=== PATIENT | male | born 1955 | race Asian ===

== ENCOUNTER 2018-08-31 13:34 | Inpatient (IN) | payer MEDICARE, OTHER ==
[~2018-08-31] VITALS: Ht 180.3 cm; Wt 80.0 kg
[2018-08-31] MEDS ORDERED: ONDANSETRON 4 MG INJ IV STA (13:40)
[2018-08-31] MEDS ORDERED: morphine 4 MG/ML VIAL IV STA (13:40)
[2018-08-31 13:46] VITALS: Ht 180.3 cm; Wt 80.0 kg
[2018-08-31] MEDS ORDERED: METO5TAB58 PO (14:36)
[2018-08-31] MEDS ORDERED: ONDA4TAB13 PO (14:37)
[2018-08-31] MEDS ORDERED: NIFE90TA11 PO (14:37)
[2018-08-31] MEDS ORDERED: SVL800C PO (14:38)
[2018-08-31] MEDS ORDERED: MONT10TA24 PO (14:38)
[2018-08-31] MEDS ORDERED: CLOP75TA27 PO (14:38)
[2018-08-31] MEDS ORDERED: SERT50TA PO (14:39)
[2018-08-31] MEDS ORDERED: LANT3I SC (14:39)
[2018-08-31] MEDS ORDERED: ASPI81TA52 PO (14:40)
[2018-08-31] MEDS ORDERED: INSU100I33 SC (14:40)
[2018-08-31] MEDS ORDERED: PANT40TA3 PO (14:41)
[2018-08-31] MEDS ORDERED: PREG150C PO (14:41)
[2018-08-31] MEDS ORDERED: CLON-379 PO (14:41)
[2018-08-31] MEDS ORDERED: ATOR-2 PO (14:42)
[2018-08-31] MEDS ORDERED: ACETAMINOPHEN 325 MG TAB PO PRN ×2 (16:00→16:30)
[2018-08-31] MEDS ORDERED: ONDANSETRON 4 MG INJ IV PRN (16:00)
[2018-08-31] MEDS ORDERED: SOD CHLORIDE 0.9% 1,000 ML IV SCH (16:03)
--- NOTE | 2018-08-31 16:03 | HP ---
Date/Time of Note Date/Time of Note DATE: 08/31/18 TIME: 15:57 Assessment/Plan VTE Prophylaxis SCD applied (from Nsg): Yes Pharmacological prophylaxis: NA/contraindicated Pharm contraindication: surgical contra Lines/Catheters IV Catheter Type (from Nrsg): Saline Lock Assessment/Plan Hospital Course 1. Fall with C5 and right humeral fracture Neurosurgery and Ortho has been consulted Pain control 2. Recurrent syncope likely secondary to autonomic neuropathy Patient will need to allow for blood pressure elevations and will need to be less aggressive with the pain control, patient also needs to change positions gradually 2D echo and carotid ultrasound to rule out alternative etiologies 3. End-stage renal disease on PD Nephrology consultation obtained 4. Insulin dependent diabetes Continue home regimen, sliding scale A1c 5. Coronary disease status post CABG Hold home blood thinners at this time secondary to possible surgery Prophylaxis: SCDs Result Diagram: 08/31/18 1502 08/31/18 1502 Results 24hrs Laboratory Tests Test 08/31/18 15:02 White Blood Count 9.1 Red Blood Count 4.47 L Hemoglobin 12.9 L Hematocrit 39.1 L Mean Corpuscular Volume 87.5 Mean Corpuscular Hemoglobin 28.9 L Mean Corpuscular Hemoglobin Concent 33.0 Red Cell Distribution Width 13.0 Platelet Count 301 Mean Platelet Volume 9.5 Immature Granulocytes % 0.800 H Neutrophils % 74.0 Lymphocytes % 17.9 Monocytes % 6.6 Eosinophils % 0.4 Basophils % 0.3 Nucleated Red Blood Cells % 0.0 Immature Granulocytes # 0.070 H Neutrophils # 6.7 Lymphocytes # 1.6 Monocytes # 0.6 Eosinophils # 0.0 Basophils # 0.0 Nucleated Red Blood Cells # 0.0 Prothrombin Time 13.1 Prothrombin Time Ratio 1.0 INR International Normalized Ratio 0.98 Activated Partial Thromboplast Time 23.9 Sodium Level 131 L Potassium Level 4.1 Chloride Level 90 L Carbon Dioxide Level 22 Anion Gap 19 H Blood Urea Nitrogen 48 H Creatinine 11.85 H Est Glomerular Filtrat Rate mL/min 4 L Glucose Level 203 Calcium Level 9.6 Troponin I 0.047 HPI/ROS Admit Date/Time Admit Date/Time August 31, 2018 Hx of Present Illness Patient is a 63-year-old male with history of insulin dependent diabetes, end-stage renal disease on PD for the past 7 years, hypertension, coronary disease status post quadruple bypass surgery as well as diabetic neuropathy and multiple falls with syncopal episodes. Patient presents with syncopal episode this morning, patient fell to the ground and was reported unconscious before and for several minutes after his fall. Patient's checks his blood sugar daily and sugar was within normal limits this morning. In the ER diagnostics showed a C5 fracture and fracture of the right humerus, c-collar has been placed and neurosurgery as well as orthopedics have been consulted. Patient currently reports pain in the right arm, patient has no other complaints at this time. ROS Constitutional: no complaints, improved Eyes: no complaints ENT: no complaints Respiratory: no complaints Cardiovascular: no complaints Gastrointestinal: no complaints Genitourinary: no complaints Musculoskeletal: bone/joint pain Skin: no complaints Neurologic: no complaints Endocrine: no complaints Lymphatic: no complaints Psychological: no complaints, nl mood/affect Immunologic: no complaints PMH/Family/Social Past Medical History As per HPI Medications Current Medications Ondansetron HCl (Zofran Inj) 4 mg ER BRIDGE PRN IV NAUSEA/VOMITING; Start 08/31/18 at 16:00; Stop 09/01/18 at 15:59 Acetaminophen (Tylenol Tab) 650 mg ER BRIDGE PRN PO .MILD PAIN 1-3 OR TEMP; Start 08/31/18 at 16:00; Stop 09/01/18 at 15:59 Coded Allergies: No Known Allergy (Unverified , 08/31/18) Past Surgical History Quadruple coronary bypass, catheter for PD, cataract surgery Family History Significant Family History: no pertinent family hx Social History Alcohol Use: rarely Smoking Status: Former smoker Drug Use: none Exam/Review of Systems Vital Signs Vitals Vital Signs Date Temp Pulse Resp B/P (MAP) Pulse Ox O2 O2 Flow FiO2 Time Delivery Rate 08/31/18 97.0 55 18 11/60 (44) 100 13:46 Exam Constitutional: alert, oriented Respiratory: clear to auscultation Gastrointestinal: soft; No distended Musculoskeletal: nl extremities to inspection ALDAIR AGUILAR Aug 31, 2018 16:03
[2018-08-31] MEDS ORDERED: DOCUSATE SODIUM 100 MG CAP PO PRN (16:30)
[2018-08-31] MEDS ORDERED: NACL 0.9% 3 ML SYG IV SCH (16:30)
[2018-08-31] MEDS ORDERED: ZOLPIDEM 5 MG TAB PO PRN (16:30)
--- NOTE | 2018-08-31 16:34 | CONS ---
Assessment/Plan Assessment/Plan Assessment/Plan (Daily) 1. ESRD on Peritoneal dialysis 2. Recurrent syncope 3. H/o CAD s/p CABG 4. H/O HTN 5. H/o DM II 6. H/o HL 7. Acute C5 Fracture s/p neurosuregry consult by Dr. Joel Plan: Seen in ED, will arrange PD today adn Tonight Using 2.5% solution Apparently PD nurse has come to [facility] on patient- pt has been using Fresenius machine at home so PD conncetor is different- Our Dailysi service use Oscar machine that do not connect to Pt current PD catheter so pt and Family was offe red to have change of connector but davidy refused it and Refused PD tonight, They have no extra Connector available at home C5 Fracture management as per Neurosurgery MRI C spine has been ordered no need for epogen Continue other home meds Thanks for consultation, I will continue to follow up Consultation Date/Type/Reason Admit Date/Time August 31, 2018 Date of Consultation: Aug 31, 2018 Type of Consult NEPHROLOGY Reason for Consultation ESRD on PD, presented with syncope recurrent episode Requesting Provider: ALDAIR AGUILAR Date/Time of Note DATE: 08/31/18 TIME: 16:34 Hx of Present Illness 63-year-old male with history of insulin dependent diabetes, end-stage renal disease on PD for the past 7 years, hypertension, coronary disease status post quadruple bypass surgery as well as diabetic neuropathy and multiple falls with syncopal episodes. Patient presents with syncopal episode this morning, patient fell to the ground and was reported unconscious before and for several minutes after his fall. Patient's checks his blood sugar daily and sugar was within normal limits this morning. In the ER diagnostics showed a C5 fracture and fracture of the right humerus, c-collar has been placed and neurosurgery as well as orthopedics have been consulted. Renal has been consulted fo rPD, Pt has been using 2.5% solutiona haseeb, he uses Fresenius machine at home Constitutional: no complaints Eyes: no complaints ENT: no complaints Respiratory: no complaints Cardiovascular: lightheadedness, other (syncope, recurrent ) Gastrointestinal: no complaints Genitourinary: no complaints Musculoskeletal: no complaints Skin: no complaints Neurologic: no complaints Endocrine: no complaints Lymphatic: no complaints Psychological: no complaints Immunologic: no complaints Past Medical History Medical History: coronary artery disease, high cholesterol, hypertension, other (ESRD on PD ) Home Meds Reported Medications Atorvastatin* (Atorvastatin*) 80 Mg Tablet, 80 MG PO QHS, #30 TAB 08/31/18 Clonidine Hcl* (Clonidine Hcl*) 0.1 Mg Tab, 0.1 MG PO Q8 PRN for BLOOD PRESSURE SUPPORT, TAB 08/31/18 Pregabalin* (Lyrica*) 150 Mg Capsule, 150 MG PO DAILY, CAP 08/31/18 Pantoprazole* (Protonix*) 40 Mg Tablet.dr, 40 MG PO DAILY, TAB 08/31/18 Aspirin (Low Dose Aspirin) 81 Mg Tablet.dr, 81 MG PO DAILY, #30 TAB 08/31/18 Insulin Glargine,Hum.rec.anlog (Basaglar Kwikpen U-100) 100 Unit/1 Ml Insuln.pen, 0 SC BID WITH MEALS, EA SLIDING SCALE 08/31/18 Insulin Glargine* (Lantus*) 100 Unit/Ml Soln, 50 UNIT SC QHS, #1 VIAL 08/31/18 Sertraline Hcl* (Zoloft*) 50 Mg Tablet, 50 MG PO DAILY, #30 TAB 08/31/18 Montelukast Sodium* (Montelukast Sodium*) 10 Mg Tablet, 10 MG PO QHS, #30 TAB 08/31/18 Clopidogrel Bisulfate (Clopidogrel) 75 Mg Tablet, 75 MG PO DAILY, #30 TAB 08/31/18 Sevelamer Hcl* (Renagel*) 800 Mg Tablet, 2400 MG PO WITH MEALS, TAB 08/31/18 Nifedipine* (Nifedipine ER*) 90 Mg Tablet.er, 90 MG PO DAILY, TAB 08/31/18 Ondansetron Hcl* (Zofran*) 4 Mg Tab, 4 MG PO Q8 PRN for NAUSEA AND OR VOMITING, TAB 08/31/18 Metoclopramide* (Reglan*) 5 Mg Tablet, 5 MG PO TIDM A, TAB 08/31/18 Medications Current Medications Ondansetron HCl (Zofran Inj) 4 mg ER BRIDGE PRN IV NAUSEA/VOMITING; Start 08/31/18 at 16:00; Stop 09/01/18 at 15:59 Acetaminophen (Tylenol Tab) 650 mg ER BRIDGE PRN PO .MILD PAIN 1-3 OR TEMP; Start 08/31/18 at 16:00; Stop 09/01/18 at 15:59 Sodium Chloride 1,000 ml @ 25 mls/hr Q24H IV ; Start 08/31/18 at 16:03 IV Flush (NS 3 ml) 3 ml PER PROTOCOL IV ; Start 08/31/18 at 16:30 Ondansetron HCl (Zofran Inj) 4 mg Q6H PRN IV NAUSEA/VOMITING; Start 08/31/18 at 16:30 Acetaminophen (Tylenol Tab) 650 mg Q6H PRN PO .PAIN 1-3 OR TEMP; Start 08/31/18 at 16:30 Acetaminophen/ Hydrocodone Bitart ([place] (5/325)) 1 tab Q6H PRN PO .MOD PAIN 4- 6; Start 08/31/18 at 16:30 Morphine Sulfate (morphine) 2 mg Q3 PRN IV .SEVERE PAIN 7-10; Start 08/31/18 at 16:30 Docusate Sodium (Colace) 100 mg Q12H PRN PO .CONSTIPATION; Start 08/31/18 at 16:30 Zolpidem Tartrate (Ambien) 5 mg QHS PRN PO .INSOMNIA; Start 08/31/18 at 16:30; Status UNV Atorvastatin Calcium (Lipitor) 80 mg QHS PO ; Start 08/31/18 at 21:00; Status UNV Miscellaneous Information (* Miscellaneous Pharmacy Order) Discontinue current oral sulfonylur... ONCE ONCE XX ; Start 08/31/18 at 16:30; Stop 08/31/18 at 16:31; Status UNV Diagnostic Test (Pha) (Accu-Chek) 1 XX ; Start 09/01/18 at 02:00; Status UNV Insulin Glargine (Lantus) 16 units DAILY@2000 SC ; Start 08/31/18 at 20:00; Status UNV Miscellaneous Information (* Miscellaneous Pharmacy Order) HYPOGLYCEMIA PROTOCOL w... ONCE ONCE XX ; Start 08/31/18 at 16:30; Stop 08/31/18 at 16:31; Status UNV Insulin Aspart (Novolog Insulin Pen) NOVOLOG *MILD* ALGORI... Q4 SC ; Start 08/31/18 at 17:00; Status UNV Miscellaneous Information (* Miscellaneous Pharmacy Order) Discontinue all previ... ONCE ONCE XX ; Start 08/31/18 at 16:30; Stop 08/31/18 at 16:31; Status UNV Allergies: Coded Allergies: No Known Allergy (Unverified , 08/31/18) Past Surgical History Past Surgical Hx: other (Quadruple CABG, PD catheter placemen t) Family History Significant Family History: no pertinent family hx Social History Alcohol Use: none Smoking Status: Former smoker Drug Use: none Exam/Review of Systems Exam Vitals Vital Signs Date Temp Pulse Resp B/P (MAP) Pulse Ox O2 O2 Flow FiO2 Time Delivery Rate 08/31/18 97.0 55 18 11/60 (44) 100 13:46 Constitutional: alert Psych: no complaints Head: normocephalic Eyes: nl conjunctiva ENMT: nl external ears & nose Neck: supple, non-tender Respiratory: clear to auscultation Cardiovascular: regular rate and rhythm, nl pulses Gastrointestinal: soft, non-tender Musculoskeletal: nl extremities to inspection, range of motion (limited on RUE due to fracture ) Extremities: normal pulses Neurological: RESEARCH ASSISTANT PROFESSOR II-XII intact, nl mental status, nl speech, nl strength Skin: nl turgor Lymph: nl lymph nodes Results Result Diagram: 08/31/18 1502 08/31/18 1502 Results 24hrs Laboratory Tests Test 08/31/18 15:02 White Blood Count 9.1 Red Blood Count 4.47 L Hemoglobin 12.9 L Hematocrit 39.1 L Mean Corpuscular Volume 87.5 Mean Corpuscular Hemoglobin 28.9 L Mean Corpuscular Hemoglobin Concent 33.0 Red Cell Distribution Width 13.0 Platelet Count 301 Mean Platelet Volume 9.5 Immature Granulocytes % 0.800 H Neutrophils % 74.0 Lymphocytes % 17.9 Monocytes % 6.6 Eosinophils % 0.4 Basophils % 0.3 Nucleated Red Blood Cells % 0.0 Immature Granulocytes # 0.070 H Neutrophils # 6.7 Lymphocytes # 1.6 Monocytes # 0.6 Eosinophils # 0.0 Basophils # 0.0 Nucleated Red Blood Cells # 0.0 Prothrombin Time 13.1 Prothrombin Time Ratio 1.0 INR International Normalized Ratio 0.98 Activated Partial Thromboplast Time 23.9 Sodium Level 131 L Potassium Level 4.1 Chloride Level 90 L Carbon Dioxide Level 22 Anion Gap 19 H Blood Urea Nitrogen 48 H Creatinine 11.85 H Est Glomerular Filtrat Rate mL/min 4 L Glucose Level 203 Calcium Level 9.6 Troponin I 0.047 Medications Medication Current Medications Ondansetron HCl (Zofran Inj) 4 mg ER BRIDGE PRN IV NAUSEA/VOMITING; Start 08/31/18 at 16:00; Stop 09/01/18 at 15:59 Acetaminophen (Tylenol Tab) 650 mg ER BRIDGE PRN PO .MILD PAIN 1-3 OR TEMP; Start 08/31/18 at 16:00; Stop 09/01/18 at 15:59 Sodium Chloride 1,000 ml @ 25 mls/hr Q24H IV ; Start 08/31/18 at 16:03 IV Flush (NS 3 ml) 3 ml PER PROTOCOL IV ; Start 08/31/18 at 16:30 Ondansetron HCl (Zofran Inj) 4 mg Q6H PRN IV NAUSEA/VOMITING; Start 08/31/18 at 16:30 Acetaminophen (Tylenol Tab) 650 mg Q6H PRN PO .PAIN 1-3 OR TEMP; Start 08/31/18 at 16:30 Acetaminophen/ Hydrocodone Bitart ([place] (5/325)) 1 tab Q6H PRN PO .MOD PAIN 4- 6; Start 08/31/18 at 16:30 Morphine Sulfate (morphine) 2 mg Q3 PRN IV .SEVERE PAIN 7-10; Start 08/31/18 at 16:30 Docusate Sodium (Colace) 100 mg Q12H PRN PO .CONSTIPATION; Start 08/31/18 at 16:30 Zolpidem Tartrate (Ambien) 5 mg QHS PRN PO .INSOMNIA; Start 08/31/18 at 16:30; Status UNV Atorvastatin Calcium (Lipitor) 80 mg QHS PO ; Start 08/31/18 at 21:00; Status UNV Miscellaneous Information (* Miscellaneous Pharmacy Order) Discontinue current oral sulfonylur... ONCE ONCE XX ; Start 08/31/18 at 16:30; Stop 08/31/18 at 16:31; Status UNV Diagnostic Test (Pha) (Accu-Chek) 1 ea 02 XX ; Start 09/01/18 at 02:00; Status UNV Insulin Glargine (Lantus) 16 units DAILY@2000 SC ; Start 08/31/18 at 20:00; Status UNV Miscellaneous Information (* Miscellaneous Pharmacy Order) HYPOGLYCEMIA PROTOCOL w... ONCE ONCE XX ; Start 08/31/18 at 16:30; Stop 08/31/18 at 16:31; Status UNV Insulin Aspart (Novolog Insulin Pen) NOVOLOG *MILD* ALGORI... Q4 SC ; Start at 17:00; Status UNV Miscellaneous Information (* Miscellaneous Pharmacy Order) Discontinue all previ... ONCE ONCE XX ; Start 08/31/18 at 16:30; Stop 08/31/18 at 16:31; Status SURENDRAV JACQUES VALENCIA MD Aug 31, 2018 16:34
--- NOTE | 2018-08-31 17:08 | CONS ---
DATE OF ADMISSION: 08/31/2018 DATE OF CONSULTATION: 08/31/2018 REQUESTING PHYSICIAN: Dr. Rocio García. INDICATION FOR CONSULTATION: Cervical fracture. HISTORY OF PRESENT ILLNESS: The patient is a 63-year-old male with a history of diabetes, neuropathy , coronary artery disease status post CABG, on Plavix, who apparently had a syncopal episode. The pa tient fell backwards and lost consciousness for approximately 30 seconds. When the patient came to, he continued to complain of right shoulder pain. A CT of the head was performed which showed no evid ence of acute bleed or fracture. A CT of the cervical spine was performed which the report to show a n age indeterminate, possibly acute left C5 lateral mass fracture that extended to the posterior and anterior kamara the left foramen transversarium and recommended correlation of left vertebral artery w as also recommended. There is degenerative disk disease at the C5-6 level with mild central canal an d bilateral foraminal stenosis. The patient was also noted to have an oblique fracture to the right humerus, a nondisplaced fracture of the neck acromion. The patient denies patient any new numbness, tingling, weakness, acute nausea, vomiting, speech or visual changes. He denies any numbness or ting ling or radiating pain in his upper extremities other than the chronic numbness he has in his toes, l ikely from diabetic neuropathy. PAST MEDICAL HISTORY: Significant for diabetes for over 25 years, diabetic neuropathy, coronary angelia ry disease on Plavix and aspirin, asthma, GERD, hypertension and hypercholesterolemia. PAST SURGICAL HISTORY: Quadruple bypass in 2016, catheter for pediatric and cataract surgery. MEDICATIONS: Include 1. Aspirin 81 mg. 2. Metoclopramide 5 mg. 3. Lyrica 150 4. Plavix 75 mg. 5. Sertraline. 6. Zofran. 7. Montelukast. 8. Pantoprazole. 9. Nifedipine. 10. Atorvastatin. ALLERGIES: NO KNOWN DRUG ALLERGIES. SOCIAL HISTORY: The patient is nonsmoker, nondrinker. FAMILY HISTORY: No reported history of inherited bleeding disorders. REVIEW OF SYSTEMS: A 12-point review of systems was performed. Pertinent positives and negatives li sted in history of present illness and below. CONSTITUTIONAL: The patient denies any fever, chills, or weight loss. HEMATOLOGIC: Denies any history of bleeding tendency, though he is on Plavix. PHYSICAL EXAMINATION: VITAL SIGNS: The patient's temperature 97, pulse 65, respirations 18, blood pressure 111/60, saturat ing 100% on room air. GENERAL: The patient is well-developed, well-nourished male lying in the hospital bed in no acute di stress. HEAD AND NECK: Normocephalic, atraumatic. He has , periorbital ecchymoses, otorrhea or rhinorr hea. His neck is in neutral position in a hard cervical collar, no cervical tenderness. MUSCULOSKEL ETAL: The patient mostly has tenderness in his right shoulder. He has normal tone and bulk. Streng th is 5/5 bilaterally in his lower extremities and left upper extremity as well as his distal right u pper extremity, unable to assess right upper extremity secondary to a sling proximally. CARDIAC: Regular rate and rhythm. LUNGS: Clear to auscultation. ABDOMEN: Nontender, nondistended, soft. EXTREMITIES: No clubbing, cyanosis, or edema. NEUROLOGICAL: The patient is awake, alert, and oriented x3, fluent speech, follows commands readily and appropriately. Cranial nerves II through XII are serially tested intact. Motor exam per musculo skeletal. Sensation grossly intact to light touch and proprioception, though he reports some numbnes s in his toes. Deep tendon reflexes were absent with no clonus, Babinski, or Connor sign. Gait no t assessed secondary to condition. He has no ataxia or dysmetria. REVIEW OF RADIOGRAPHIC RESULTS: I reviewed the patient's CT scan of the head, cervical spine and the radiologist's interpretation, see history of present illness. ASSESSMENT AND PLAN: A 63-year-old male with possible acute cervical fracture. I discussed patient' s signs, symptoms, physical examination, and radiographic findings with the patient and his family. It is not clear to me the patient actually has an acute fracture of the C5 vertebral body or at least that there is an acute fracture. This may simply be a vessel to the foramen. It is very far latera lly going through the vertebral foramen. In general, this does not appear to be a fracture that woul d likely cause any significant instability as it does not appear to be load bearing anyway of the cer vical spine. Nevertheless, the patient should have an MRI to assess to see if this is an acute fract ure and a CT angiogram to make sure that there is no evidence of ligamentous injury that might cause instability. Unless there is confirmed to be a significant vertebral body fracture, I do not believe the patient will likely need a hard cervical collar for this as this is not likely an unstable fract ure and flexion, extension x-rays could be performed to ensure stability. Further recommendation femi l be given once the patient has had his studies completed. Dictated By: ZULEYMA OLIVAS MD, LG/PILAR Conf#: [id number] DID#: [id number] CC: ROCIO GARCÍA MD;*EndCC*
[2018-08-31] MEDS: HYDROCODONE/APAP (5/325) TAB PO PRN (17:13)
[2018-08-31] MEDS ORDERED: DEXTROSE 50% 50 ML SYRINGE IV PRN ×2 (17:30)
[2018-08-31] MEDS ORDERED: GLUCAGON 1 MG INJ IM PRN (17:30)
[2018-08-31] MEDS ORDERED: GLUCOSE GEL 15 GRAM TUBE PO PRN ×2 (17:30)
[2018-08-31] MEDS ORDERED: GLUCOSE GEL 15 GRAM TUBE BUCCAL PRN (17:30)
--- NOTE | 2018-08-31 17:32 | ERD ---
ER Documentation Chief Complaint Chief Complaint Syncope c/o right arm pain and right leg pain HPI Patient is a 63-year-old male with peritoneal dialysis, diabetes, and hypertension who presents after a syncopal event. The patient was brought in by ambulance. Please note that an Telugu casting repairer was used.and passed out. He fell down 3 steps and hit his head and shoulder. He has pain in the right shoulder and right leg. He has been in his neck. Blood sugar was 132. The syncope lasted 30 to 60 seconds. He now is better. He has no chest pain. The patient felt dizzy prior to the episode. The patient was outside working when this happened. ROS All systems reviewed and are negative except as per history of present illness. Medications Home Meds Reported Medications Atorvastatin* (Atorvastatin*) 80 Mg Tablet, 80 MG PO QHS, #30 TAB 08/31/18 Clonidine Hcl* (Clonidine Hcl*) 0.1 Mg Tab, 0.1 MG PO Q8 PRN for BLOOD PRESSURE SUPPORT, TAB 08/31/18 Pregabalin* (Lyrica*) 150 Mg Capsule, 150 MG PO DAILY, CAP 08/31/18 Pantoprazole* (Protonix*) 40 Mg Tablet.dr, 40 MG PO DAILY, TAB 08/31/18 Aspirin (Low Dose Aspirin) 81 Mg Tablet.dr, 81 MG PO DAILY, #30 TAB 08/31/18 Insulin Glargine,Hum.rec.anlog (Basaglar Kwikpen U-100) 100 Unit/1 Ml Insuln.pen, 0 SC BID WITH MEALS, EA SLIDING SCALE 08/31/18 Insulin Glargine* (Lantus*) 100 Unit/Ml Soln, 50 UNIT SC QHS, #1 VIAL 08/31/18 Sertraline Hcl* (Zoloft*) 50 Mg Tablet, 50 MG PO DAILY, #30 TAB 08/31/18 Montelukast Sodium* (Montelukast Sodium*) 10 Mg Tablet, 10 MG PO QHS, #30 TAB 08/31/18 Clopidogrel Bisulfate (Clopidogrel) 75 Mg Tablet, 75 MG PO DAILY, #30 TAB 08/31/18 Sevelamer Hcl* (Renagel*) 800 Mg Tablet, 2400 MG PO WITH MEALS, TAB 08/31/18 Nifedipine* (Nifedipine ER*) 90 Mg Tablet.er, 90 MG PO DAILY, TAB 08/31/18 Ondansetron Hcl* (Zofran*) 4 Mg Tab, 4 MG PO Q8 PRN for NAUSEA AND OR VOMITING, TAB 08/31/18 Metoclopramide* (Reglan*) 5 Mg Tablet, 5 MG PO TIDM A, TAB 08/31/18 Allergies Allergies: Coded Allergies: No Known Allergy (Unverified , 08/31/18) PMhx/Soc History of Surgery: Yes (CABG 2016) Anesthesia Reaction: No Hx Neurological Disorder: No Hx Respiratory Disorders: No Hx Cardiac Disorders: Yes (CABG 2017, HLD, HTN) Hx Psychiatric Problems: No Hx Miscellaneous Medical Probl: No Hx Alcohol Use: No Hx Substance Use: No Hx Tobacco Use: No Smoking Status: Former smoker FmHx Family History: diabetes Physical Exam Vitals Vital Signs Date Temp Pulse Resp B/P (MAP) Pulse Ox O2 O2 Flow FiO2 Time Delivery Rate 08/31/18 97.0 55 18 11/60 (44) 100 13:46 Physical Exam Const: No acute distress Head: Atraumatic Eyes: Normal Conjunctiva ENT: Normal External Ears, Nose and Mouth. Neck: Neck pain with palpation Resp: Clear to auscultation bilaterally Cardio: Regular rate and rhythm, no murmurs Abd: Soft, non tender, non distended. Normal bowel sounds Skin: No petechiae or rashes Back: No midline or flank tenderness Ext: Right shoulder pain deformity Neur: Awake and alert Psych: Normal Mood and Affect Result Diagram: 08/31/18 1502 08/31/18 1502 Results 24 hrs Laboratory Tests Test 08/31/18 15:02 White Blood Count 9.1 10^3/ul Red Blood Count 4.47 10^6/ul Hemoglobin 12.9 g/dl Hematocrit 39.1 % Mean Corpuscular Volume 87.5 fl Mean Corpuscular Hemoglobin 28.9 pg Mean Corpuscular Hemoglobin Concent 33.0 g/dl Red Cell Distribution Width 13.0 % Platelet Count 301 10^3/UL Mean Platelet Volume 9.5 fl Immature Granulocytes % 0.800 % Neutrophils % 74.0 % Lymphocytes % 17.9 % Monocytes % 6.6 % Eosinophils % 0.4 % Basophils % 0.3 % Nucleated Red Blood Cells % 0.0 /100WBC Immature Granulocytes # 0.070 10^3/ul Neutrophils # 6.7 10^3/ul Lymphocytes # 1.6 10^3/ul Monocytes # 0.6 10^3/ul Eosinophils # 0.0 10^3/ul Basophils # 0.0 10^3/ul Nucleated Red Blood Cells # 0.0 10^3/ul Prothrombin Time 13.1 Sec Prothrombin Time Ratio 1.0 INR International Normalized Ratio 0.98 Activated Partial Thromboplast Time 23.9 Sec Sodium Level 131 mmol/L Potassium Level 4.1 mmol/L Chloride Level 90 mmol/L Carbon Dioxide Level 22 mmol/L Anion Gap 19 Blood Urea Nitrogen 48 mg/dl Creatinine 11.85 mg/dl Est Glomerular Filtrat Rate mL/min 4 mL/min Glucose Level 203 mg/dl Calcium Level 9.6 mg/dl Troponin I 0.047 ng/ml Current Medications Medications Dose Sig/Adriana Start Time Status Last (Trade) Ordered Route PRN Stop Time Admin Dose Reason Admin Morphine 4 mg ONCE STAT 08/31/18 DC 08/31/18 Sulfate IV 13:40 14:45 (morphine) 08/31/18 13:42 Ondansetron 4 mg ONCE STAT 08/31/18 DC 08/31/18 HCl (Zofran IV 13:40 14:46 Inj) 08/31/18 13:42 Ondansetron 4 mg ER BRIDGE 08/31/18 DC HCl (Zofran PRN IV 16:00 Inj) NAUSEA/VOMITI 08/31/18 17:04 NG 650 mg ER BRIDGE 08/31/18 DC Acetaminophen PRN PO 16:00 (Tylenol .MILD PAIN 08/31/18 17:04 Tab) 1-3 OR TEMP Sodium 1,000 ml @ Q24H IV 08/31/18 Chloride 25 mls/hr 16:03 IV Flush 3 ml PER 08/31/18 (NS 3 ml) PROTOCOL IV 16:30 Ondansetron 4 mg Q6H PRN 08/31/18 HCl (Zofran IV 16:30 Inj) NAUSEA/VOMITI NG 650 mg Q6H PRN 08/31/18 Acetaminophen PO .PAIN 1-3 16:30 (Tylenol OR TEMP Tab) 1 tab Q6H PRN 08/31/18 08/31/18 Acetaminophen PO .MOD PAIN 16:30 17:13 / 4-6 Hydrocodone Bitart ([place] (5/325)) Morphine 2 mg Q3 PRN IV 08/31/18 Sulfate .SEVERE PAIN 16:30 (morphine) 7-10 Docusate 100 mg Q12H PRN 08/31/18 Sodium PO 16:30 (Colace) .CONSTIPATION Zolpidem 5 mg QHS PRN 08/31/18 Tartrate PO .INSOMNIA 16:30 (Ambien) 80 mg QHS PO 08/31/18 Atorvastatin 21:00 Calcium (Lipitor) Discontinue ONCE ONCE 08/31/18 DC 08/31/18 Miscellaneous current oral XX 16:30 17:09 sulfonylur... 08/31/18 17:06 Information (* Miscellaneous Pharmacy Order) Diagnostic 1 ea 02 XX 09/01/18 Test (Pha) 02:00 (Accu-Chek) Insulin 16 units DAILY@199908/31/18 Glargine SC 20:00 (Lantus) ONCE ONCE 08/31/18 DC 08/31/18 Miscellaneous HYPOGLYCEMIA XX 16:30 17:09 PROTOCOL 08/31/18 17:06 Information w... (* Miscellaneous Pharmacy Order) Insulin NOVOLOG Q4 SC 08/31/18 Aspart *MILD* 17:00 (Novolog ALGORI... Insulin Pen) Discontinue ONCE ONCE 08/31/18 DC 08/31/18 Miscellaneous all previ... XX 16:30 17:09 08/31/18 17:06 Information (* Miscellaneous Pharmacy Order) 1 ea NOTE XX 08/31/18 Miscellaneous 17:30 Information Glucose 15 gm Q15M PRN 08/31/18 (Glutose) PO DECREASED 17:30 GLUCOSE Glucose 22.5 gm Q15M PRN 08/31/18 (Glutose) PO DECREASED 17:30 GLUCOSE Dextrose 25 ml Q15M PRN 08/31/18 (D50w IV DECREASED 17:30 Syringe) GLUCOSE Dextrose 50 ml Q15M PRN 08/31/18 (D50w IV DECREASED 17:30 Syringe) GLUCOSE Glucagon 1 mg Q15M PRN 08/31/18 (Glucagen) IM DECREASED 17:30 GLUCOSE Glucose 15 gm Q15M PRN 08/31/18 (Glutose) BUCCAL 17:30 DECREASED GLUCOSE Procedures/MDM CT brain read by radiology. CT cervical spine shows C5 fracture per radiology. X-ray Shoulder 3V Interpreted by me: Bones: Proximal humerus fracture Joints: No dislocation Foreign body: None X-ray Femur 2V Interpreted by me: Bones: No fracture Joints: No dislocation Foreign body: None Splint Note Type: Sling Location: Right upper extremity Indication: Humerus fracture Splint Assessment: Neurovascularly intact post splint placement with good fit. EKG read by me: Rate/Rhythm: Bradycardia at a rate of 53 Intervals: Normal Impression: Sinus bradycardia Patient is a 63-year-old male who presents with syncope. EKG shows sinus bradycardia. The patient has a C5 fracture and a proximal humerus fracture. I spoke with Dr. Joel from neurosurgery and Dr. Sargent from orthopedic surgery who will see the patient in consultation. I spoke with Dr. Palm for admission to a telemetry inpatient bed. Departure Diagnosis: Primary Impression: Humerus fracture Encounter type: initial encounter Humerus Location: proximal Fracture type: closed Fracture morphology: other fracture Fracture alignment: nondisplaced Laterality: right Qualified Codes: S42.294A - Other nondisplaced fracture of upper end of right humerus, initial encounter for closed fracture Additional Impressions: Syncope Syncope type: unspecified Qualified Codes: R55 - Syncope and collapse C5 vertebral fracture Encounter type: initial encounter Fracture type: closed Fracture morphology: other fracture Fracture alignment: nondisplaced Qualified Codes: S12.491A - Other nondisplaced fracture of fifth cervical vertebra, initial encounter for closed fracture Condition: ROCIO Acuña MD Aug 31, 2018 17:31
[2018-08-31] MEDS: INSULIN ASPART [NOVOLOG] 3 ML PEN SC SCH ×2 (18:02→21:00)
[2018-08-31] MEDS: morphine 2 MG INJ IV PRN ×2 (18:32→21:35)
[2018-08-31 18:59] VITALS: PULSE 67
[2018-08-31 19:25] VITALS: BP 138/67; PULSE 59; RESP 18
[2018-08-31 19:41] VITALS: BP 137/67; PULSE 79; RESP 18
[2018-08-31 20:00] VITALS: PULSE 57
[2018-08-31] MEDS: ATORVASTATIN 80 MG TAB PO SCH (21:34)
[2018-08-31] MEDS: INSULIN GLARGINE [LANTus] (100 UNITS/ML) SYG SC SCH (21:41)
[2018-08-31 23:59] VITALS: BP 120/72; PULSE 72; RESP 18
[2018-09-01] VITALS (7 sets, daily range): BP systolic 120–181; BP diastolic 70–88; PULSE 60–88; RESP 18–19
[2018-09-01] MEDS: ACCU-CHEK XX SCH (00:40)
[2018-09-01] MEDS: INSULIN ASPART [NOVOLOG] 3 ML PEN SC SCH ×6 (00:40→21:26)
--- NOTE | 2018-09-01 08:48 | CONS ---
Assessment/Plan Assessment/Plan Assessment/Plan (Daily) 1. ESRD on Peritoneal dialysis 2. Recurrent syncope 3. H/o CAD s/p CABG 4. H/O HTN 5. H/o DM II 6. H/o HL 7. Acute C5 Fracture s/p neurosuregry consult by Dr. Joel Plan: Plan for CTA neck today, if pt stays then we will contiue PD today and tomorrow with 2.5% solution C5 Fracture management as per Neurosurgery, Orthopedic surgery DrAri In [place] fox has been consulted on the case no need for epogen Continue other home meds will follow up Consultation Date/Type/Reason Admit Date/Time Aug 31, 2018 at 15:42 Initial Consult Date 08/31/18 Type of Consult NEPHROLOGY Requesting Provider: ALDAIR AGUILAR Date/Time of Note DATE: 09/01/18 TIME: 08:48 Exam/Review of Systems Exam Vitals Vital Signs Date Temp Pulse Resp B/P (MAP) Pulse Ox O2 O2 Flow FiO2 Time Delivery Rate 09/01/18 98.0 88 18 139/87 97 07:46 (104) 08/31/18 Room Air 23:59 Results Result Diagram: 09/01/18 0518 09/01/18 0518 Results 24hrs Laboratory Tests Test 08/31/18 15:02 08/31/18 18:02 08/31/18 21:33 09/01/18 00:40 White Blood Count 9.1 Red Blood Count 4.47 L Hemoglobin 12.9 L Hematocrit 39.1 L Mean Corpuscular 87.5 Volume Mean Corpuscular 28.9 L Hemoglobin Mean Corpuscular 33.0 Hemoglobin Concent Red Cell 13.0 Distribution Width Platelet Count 301 Mean Platelet Volume 9.5 Immature 0.800 H Granulocytes % Neutrophils % 74.0 Lymphocytes % 17.9 Monocytes % 6.6 Eosinophils % 0.4 Basophils % 0.3 Nucleated Red Blood 0.0 Cells % Immature 0.070 H Granulocytes # Neutrophils # 6.7 Lymphocytes # 1.6 Monocytes # 0.6 Eosinophils # 0.0 Basophils # 0.0 Nucleated Red Blood 0.0 Cells # Prothrombin Time 13.1 Prothrombin Time 1.0 Ratio INR International 0.98 Normalized Ratio Activated 23.9 Partial Thromboplast Time Sodium Level 131 L Potassium Level 4.1 Chloride Level 90 L Carbon Dioxide Level 22 Anion Gap 19 H Blood Urea Nitrogen 48 H Creatinine 11.85 H Est Glomerular 4 L Filtrat Rate mL/min Glucose Level 203 Calcium Level 9.6 Troponin I 0.047 Hepatitis B Surface NEGATIVE Antigen Hepatitis B Surface POSITIVE H Antibody Bedside Glucose 136 106 99 Test 09/01/18 05:18 09/01/18 06:33 09/01/18 08:33 White Blood Count 9.9 Red Blood Count 4.07 L Hemoglobin 11.7 L Hematocrit 36.5 L Mean Corpuscular 89.7 Volume Mean Corpuscular 28.7 L Hemoglobin Mean Corpuscular 32.1 Hemoglobin Concent Red Cell 13.2 Distribution Width Platelet Count 265 Mean Platelet Volume 9.5 Immature 0.400 Granulocytes % Neutrophils % 71.0 Lymphocytes % 21.1 Monocytes % 7.0 Eosinophils % 0.2 Basophils % 0.3 Nucleated Red Blood 0.0 Cells % Immature 0.040 H Granulocytes # Neutrophils # 7.1 Lymphocytes # 2.1 Monocytes # 0.7 Eosinophils # 0.0 Basophils # 0.0 Nucleated Red Blood 0.0 Cells # Sodium Level 133 L Potassium Level 4.5 Chloride Level 90 L Carbon Dioxide Level 27 Anion Gap 16 H Blood Urea Nitrogen 54 H Creatinine 11.97 H Est Glomerular 4 L Filtrat Rate mL/min Glucose Level 69 #L Hemoglobin A1c 6.8 H Calcium Level 9.2 Phosphorus Level 7.8 H Magnesium Level 2.1 Triglycerides Level 138 Cholesterol Level 108 LDL Cholesterol, 58 Calculated HDL Cholesterol 22 L Cholesterol/HDL 4.9 Ratio Bedside Glucose 60 L 110 Medications Medication Current Medications IV Flush (NS 3 ml) 3 ml PER PROTOCOL IV ; Start 08/31/18 at 16:30 Ondansetron HCl (Zofran Inj) 4 mg Q6H PRN IV NAUSEA/VOMITING; Start 08/31/18 at 16:30 Acetaminophen (Tylenol Tab) 650 mg Q6H PRN PO .PAIN 1-3 OR TEMP; Start 08/31/18 at 16:30 Acetaminophen/ Hydrocodone Bitart ([place] (5/325)) 1 tab Q6H PRN PO .MOD PAIN 4- 6 Last administered on 08/31/18at 17:13; Admin Dose 1 TAB; Start 08/31/18 at 16:30 Morphine Sulfate (morphine) 2 mg Q3 PRN IV .SEVERE PAIN 7-10 Last administered on 08/31/18at 21:35; Admin Dose 2 MG; Start 08/31/18 at 16:30 Docusate Sodium (Colace) 100 mg Q12H PRN PO .CONSTIPATION; Start 08/31/18 at 16:30 Zolpidem Tartrate (Ambien) 5 mg QHS PRN PO .INSOMNIA; Start 08/31/18 at 16:30 Atorvastatin Calcium (Lipitor) 80 mg QHS PO Last administered on 08/31/18at 21:34; Admin Dose 80 MG; Start 08/31/18 at 21:00 Diagnostic Test (Pha) (Accu-Chek) 1 ea 02 XX Last administered on 09/01/18at 00:40; Admin Dose 1 EA; Start 09/01/18 at 02:00 Insulin Glargine (Lantus) 16 units DAILY@2000 SC Last administered on 08/31/18at 21:41; Admin Dose 16 UNITS; Start 08/31/18 at 20:00 Insulin Aspart (Novolog Insulin Pen) NOVOLOG *MILD* ALGORI... Q4 SC ; Start 08/31/18 at 17:00 Miscellaneous Information 1 ea NOTE XX ; Start 08/31/18 at 17:30 Glucose (Glutose) 15 gm Q15M PRN PO DECREASED GLUCOSE; Start 08/31/18 at 17:30 Glucose (Glutose) 22.5 gm Q15M PRN PO DECREASED GLUCOSE; Start 08/31/18 at 17:30 Dextrose (D50w Syringe) 25 ml Q15M PRN IV DECREASED GLUCOSE Last administered on 09/01/18at 06:36; Admin Dose 25 ML; Start 08/31/18 at 17:30 Dextrose (D50w Syringe) 50 ml Q15M PRN IV DECREASED GLUCOSE; Start 08/31/18 at 17:30 Glucagon (Glucagen) 1 mg Q15M PRN IM DECREASED GLUCOSE; Start 08/31/18 at 17:30 Glucose (Glutose) 15 gm Q15M PRN BUCCAL DECREASED GLUCOSE; Start 08/31/18 at 17:30 JACQUES VALENCIA MD Sep 01, 2018 08:48
--- NOTE | 2018-09-01 12:12 | CONS ---
Assessment/Plan Assessment/Plan Assessment/Plan (Daily) C5 fracture. To me, no clearly an acute fracture or even real. Patient unable to tolerate an MRI due to claustrophobia and does not want sedation. Clinical symptoms (absence of neck pain or radicular symptoms) do not such a significant fracture. Still should have CTA to rule out dissection given possible fracture to canal but is actually already on Plavix and ASA. Will do cervical flexion/extension x-rays. If no subluxation, can D/C hard cervical collar. D/W pt and family who agreed with this plan of care. Consultation Date/Type/Reason Admit Date/Time Aug 31, 2018 at 15:42 Initial Consult Date 08/31/18 Type of Consult Neurosurgery Reason for Consultation C5 fracture Requesting Provider: ALDAIR AGUILAR Date/Time of Note DATE: 09/01/18 TIME: 12:08 24 HR Interval Summary Free Text/Dictation Patient is stable. He denies any neck pain or radicular pain. Exam/Review of Systems Exam Vitals Vital Signs Date Temp Pulse Resp B/P (MAP) Pulse Ox O2 O2 Flow FiO2 Time Delivery Rate 09/01/18 98.1 88 18 160/87 96 11:40 (111) 08/31/18 Room Air 23:59 Constitutional: alert, oriented, well developed Head: normocephalic Neck: non-tender Neurological: BETTING CLERK II-XII intact, nl mental status, nl speech, nl strength (right arm in sling so unable to test proximal strength in UE but appeasr grossly normal) Results Result Diagram: 09/01/18 0518 09/01/18 0518 Results 24hrs Laboratory Tests Test 08/31/18 15:02 08/31/18 18:02 08/31/18 21:33 09/01/18 00:40 White Blood Count 9.1 Red Blood Count 4.47 L Hemoglobin 12.9 L Hematocrit 39.1 L Mean Corpuscular 87.5 Volume Mean Corpuscular 28.9 L Hemoglobin Mean Corpuscular 33.0 Hemoglobin Concent Red Cell 13.0 Distribution Width Platelet Count 301 Mean Platelet Volume 9.5 Immature 0.800 H Granulocytes % Neutrophils % 74.0 Lymphocytes % 17.9 Monocytes % 6.6 Eosinophils % 0.4 Basophils % 0.3 Nucleated Red Blood 0.0 Cells % Immature 0.070 H Granulocytes # Neutrophils # 6.7 Lymphocytes # 1.6 Monocytes # 0.6 Eosinophils # 0.0 Basophils # 0.0 Nucleated Red Blood 0.0 Cells # Prothrombin Time 13.1 Prothrombin Time 1.0 Ratio INR International 0.98 Normalized Ratio Activated 23.9 Partial Thromboplast Time Sodium Level 131 L Potassium Level 4.1 Chloride Level 90 L Carbon Dioxide Level 22 Anion Gap 19 H Blood Urea Nitrogen 48 H Creatinine 11.85 H Est Glomerular 4 L Filtrat Rate mL/min Glucose Level 203 Calcium Level 9.6 Troponin I 0.047 Hepatitis B Surface NEGATIVE Antigen Hepatitis B Surface POSITIVE H Antibody Bedside Glucose 136 106 99 Test 09/01/18 05:18 09/01/18 06:33 09/01/18 08:33 09/01/18 11:48 White Blood Count 9.9 Red Blood Count 4.07 L Hemoglobin 11.7 L Hematocrit 36.5 L Mean Corpuscular 89.7 Volume Mean Corpuscular 28.7 L Hemoglobin Mean Corpuscular 32.1 Hemoglobin Concent Red Cell 13.2 Distribution Width Platelet Count 265 Mean Platelet Volume 9.5 Immature 0.400 Granulocytes % Neutrophils % 71.0 Lymphocytes % 21.1 Monocytes % 7.0 Eosinophils % 0.2 Basophils % 0.3 Nucleated Red Blood 0.0 Cells % Immature 0.040 H Granulocytes # Neutrophils # 7.1 Lymphocytes # 2.1 Monocytes # 0.7 Eosinophils # 0.0 Basophils # 0.0 Nucleated Red Blood 0.0 Cells # Sodium Level 133 L Potassium Level 4.5 Chloride Level 90 L Carbon Dioxide Level 27 Anion Gap 16 H Blood Urea Nitrogen 54 H Creatinine 11.97 H Est Glomerular 4 L Filtrat Rate mL/min Glucose Level 69 #L Hemoglobin A1c 6.8 H Calcium Level 9.2 Phosphorus Level 7.8 H Magnesium Level 2.1 Triglycerides Level 138 Cholesterol Level 108 LDL Cholesterol, 58 Calculated HDL Cholesterol 22 L Cholesterol/HDL 4.9 Ratio Bedside Glucose 60 L 110 71 Medications Medication Current Medications IV Flush (NS 3 ml) 3 ml PER PROTOCOL IV ; Start 08/31/18 at 16:30 Ondansetron HCl (Zofran Inj) 4 mg Q6H PRN IV NAUSEA/VOMITING; Start 08/31/18 at 16:30 Acetaminophen (Tylenol Tab) 650 mg Q6H PRN PO .PAIN 1-3 OR TEMP; Start 08/31/18 at 16:30 Acetaminophen/ Hydrocodone Bitart ([place] (5/325)) 1 tab Q6H PRN PO .MOD PAIN 4- 6 Last administered on 08/31/18at 17:13; Admin Dose 1 TAB; Start 08/31/18 at 16:30 Morphine Sulfate (morphine) 2 mg Q3 PRN IV .SEVERE PAIN 7-10 Last administered on 08/31/18at 21:35; Admin Dose 2 MG; Start 08/31/18 at 16:30 Docusate Sodium (Colace) 100 mg Q12H PRN PO .CONSTIPATION; Start 08/31/18 at 16:30 Zolpidem Tartrate (Ambien) 5 mg QHS PRN PO .INSOMNIA; Start 08/31/18 at 16:30 Atorvastatin Calcium (Lipitor) 80 mg QHS PO Last administered on 08/31/18at 21:34; Admin Dose 80 MG; Start 08/31/18 at 21:00 Diagnostic Test (Pha) (Accu-Chek) 1 ea 02 XX Last administered on 09/01/18at 00:40; Admin Dose 1 EA; Start 09/01/18 at 02:00 Insulin Glargine (Lantus) 16 units DAILY@2000 SC Last administered on 08/31/18at 21:41; Admin Dose 16 UNITS; Start 08/31/18 at 20:00 Insulin Aspart (Novolog Insulin Pen) NOVOLOG *MILD* ALGORI... Q4 SC ; Start 08/31/18 at 17:00 Miscellaneous Information 1 ea NOTE XX ; Start 08/31/18 at 17:30 Glucose (Glutose) 15 gm Q15M PRN PO DECREASED GLUCOSE; Start 08/31/18 at 17:30 Glucose (Glutose) 22.5 gm Q15M PRN PO DECREASED GLUCOSE; Start 08/31/18 at 17:30 Dextrose (D50w Syringe) 25 ml Q15M PRN IV DECREASED GLUCOSE Last administered on 09/01/18at 06:36; Admin Dose 25 ML; Start 08/31/18 at 17:30 Dextrose (D50w Syringe) 50 ml Q15M PRN IV DECREASED GLUCOSE; Start 08/31/18 at 17:30 Glucagon (Glucagen) 1 mg Q15M PRN IM DECREASED GLUCOSE; Start 08/31/18 at 17:30 Glucose (Glutose) 15 gm Q15M PRN BUCCAL DECREASED GLUCOSE; Start 08/31/18 at 17:30 ZULEYMA OLIAVS MD Sep 01, 2018 12:12
--- NOTE | 2018-09-01 12:21 | PDOCDIS ---
Discharge Instructions CONDITION [id number] Patient Condition: [id number] Good HOME CARE INSTRUCTIONS: [id number] Special Diet: [id number] Diabetic, renal ACTIVITY: [id number] Activity Restrictions: [id number] Slowly Increase Activity FOLLOW UP/APPOINTMENTS Follow-up Plan FOLLOW UP WITH YOUR PRIMARY CARE PHYSICIAN IN 1-2 WEEKS ALDAIR AGUILAR Sep 01, 2018 12:21
[2018-09-01] MEDS: morphine 2 MG INJ IV PRN (13:26)
[2018-09-01] MEDS ORDERED: IOHEXOL 100 ML ONE (13:29)
[2018-09-01] MEDS ORDERED: SOD CHLORIDE 0.9% 100 ML ONE (13:29)
--- NOTE | 2018-09-01 16:21 | CONS ---
DATE OF ADMISSION: 08/31/2018 DATE OF CONSULTATION: 09/01/2018 HISTORY OF PRESENT ILLNESS: The patient is a 63-year-old male who was admitted on 08/31/2018 when he came to the emergency room falling to the ground level during a syncopal episode. Following the fal l, he was experiencing pain around the neck along with the painful swelling of the right shoulder. I nitial evaluation in the emergency room revealed a presence of fracture involving right shoulder alli g with the fracture involving the C5 and he was admitted. Neurosurgical consultation was made for md s cervical spine up. PAST MEDICAL HISTORY. He has multiple medical problems including end-stage renal disease on peritone al dialysis, diabetes mellitus, hypertension, and history of frequent syncopal episodes. He also had a code blue coronary bypass in the past. PHYSICAL EXAMINATION: My examination revealed a 63-year-old male who was not in any acute distress. There was an extensive swelling and tenderness and painful limit of motion involving the right shoul lisbeth. There were no obvious signs of axillary nerve compromise or radial nerve compromise. DIAGNOSTIC STUDIES: X-rays of the right shoulder revealed a presence of fracture involving the neck of the right humerus. The fracture seems to be in acceptable alignment. DIAGNOSTIC IMPRESSION: Humeral neck fracture of the right shoulder, in acceptable alignment. RECOMMENDATIONS FOR TREATMENT: 1. Continuous immobilization in a sling for 4 to 5 weeks followed by mobilization with pendulum exer cise and subsequent physical therapy. 2. Encourage range of motion of the right hand while waiting for the healing of the humeral neck fra cture. 3. He can be discharged any time for further followup as an outpatient if his other medical condition allows. Dictated By: STEPHANIE BUCKLEY/PILAR Conf#: [id number] DID#: [id number]
--- NOTE | 2018-09-01 18:42 | RADRPT ---
Echocardiogram Report Patient Name: MIMA CORONAatient ID: [id number] : 1955 (63y 3m)Study Date: 09/01/2018 8:11:51 AM Gender: Mehulcession #: [id number] Tech: MEHUL Location: [facility] Ref.Physician: ALDAIR AGUILAR Height(Cm): 180 BSA: 2Weight(Kg): 79.8 Quality: GoodOrder Physician: ALDAIR AGUILAR Account #: Procedures: Echocardiographic Report: Transthoracic echocardiogram with 2D, M-Mode, and Doppler examination, no subcostal images (patient could not move right arm off abdomial area). Indications: Syncope. Measurements: 2D/M Mode Doppler Measurement Value Normal Range Measurement Value Normal Range LVIDd 2D 4.2 [ 4.2 - 5.8 ] cm AV Peak Marcelo 1.3 [ 100.0 - 170.0 ] cm/se c LVIDs 2D 3.1 [ 2.5 - 4.0 ] cm AV Peak PG 7.0 [ 2.0 - 9.0 ] mmHg LVPWd 2D 1.1 [ 0.6 - 1.0 ] cm LVOT Peak Marcelo 0.7 [ 70.0 - 110.0 ] cm/sec IVSd 2D 1.4 [ 0.6 - 1.0 ] cm LVOT Peak PG 2.0 [ 2.0 - 6.0 ] mmHg AoR Diam 2D 4.0 [ 2.6 - 3.4 ] cm MV E Peak Marcelo 0.7 [ 60.0 - 130.0 ] cm/sec EF 2D 51.4 [ 52.0 - 72.0 ] percent MV A Peak Marcelo 0.9 [ 100.0 - 120.0 ] cm/se c LA Dimen 2D 3.2 [ 3.0 - 4.0 ] cm MV E/A 0.8 [ 0.8 - 1.5 ] ratio MV PHT 77.0 [ 20.0 - 100.0 ] msec MV Decel Time 264 [ 104 - 258 ] msec MV Decel [place] 3 Lat E` Marcelo 0.0 [ 10.0 - 15.0 ] cm/sec Lateral E/E` 22.5 [ 1.0 - 2.0 ] ratio Med E` Marcelo 0.1 cm/sec MV E/A 0.8 [ 0.8 - 1.5 ] ratio MVA PHT 2.9 [ 2.0 - 4.0 ] cm2 PV Peak Marcelo 1.2 [ 40.0 - 80.0 ] cm/sec PV Peak PG 6.0 mmHg Findings: Left Ventricle: Normal left ventricular systolic function. Normal left ventricular cavity size. Mild to moderate concentric left ventricular hypertrophy. Ejection fraction is visually estimated at 55 - 60 %. Tissue Doppler/Mitral Doppler indices are consistent with impaired relaxation (Stage I diastolic dysfunction). E/E'= 22. Right Ventricle: Normal right ventricular size. Normal right ventricular systolic function. Left Atrium: The left atrium is normal in size. Right Atrium: The right atrium is normal in size. Atrial Septum: Not well visualized. Mitral Valve: Mitral valve leaflets appear mildly thickened. Mild mitral leaflet calcification. Mild mitral annular calcification. Mild mitral valve regurgitation. Aortic Valve: No hemodynamically significant aortic stenosis by doppler. Aortic cusps appear mildly calcified. Trileaflet aortic valve. No aortic regurgitation. Tricuspid Valve: Normal appearance and function of the tricuspid valve with trace physiologic regurgitation. Pulmonic Valve: Normal pulmonic valve appearance. There is trace pulmonic regurgitation. Pericardium: Normal pericardium with no significant pericardial effusion. Aorta: Sinus of valsalva is dilated. Sinus of valsalva 4.00 cm. IVC: The IVC is not well visualized. Pulmonary Artery: Normal pulmonary artery size. Conclusions: Normal left ventricular systolic function. Normal left ventricular cavity size. Mild to moderate concentric left ventricular hypertrophy. Ejection fraction is visually estimated at 55 - 60 %. Tissue Doppler/Mitral Doppler indices are consistent with impaired relaxation (Stage I diastolic dysfunction). E/E'= 22. Sinus of valsalva is dilated. Sinus of valsalva 4.00 cm. Electronically Signed By: Montrell Hernández 2018-09-01 18:41:56 PDT
[2018-09-01] MEDS: ATORVASTATIN 80 MG TAB PO SCH (21:18)
[2018-09-01] MEDS: HYDROCODONE/APAP (5/325) TAB PO PRN (21:18)
[2018-09-01] MEDS: INSULIN GLARGINE [LANTus] (100 UNITS/ML) SYG SC SCH (21:26)
[2018-09-02] VITALS: BP 156/78; PULSE 59; RESP 18
[2018-09-02] MEDS: ACCU-CHEK XX SCH (03:19)
[2018-09-02 04:00] VITALS: BP 169/81; PULSE 62; RESP 19
[2018-09-02 05:17] VITALS: BP 196/90; PULSE 61
[2018-09-02] MEDS: ONDANSETRON 4 MG INJ IV PRN ×2 (05:24→22:00)
[2018-09-02] MEDS ORDERED: hydrALAzine 20 MG INJ IV ONE (05:30)
[2018-09-02] MEDS ORDERED: LORAZEPAM 2 MG INJ IV PRN (06:30)
[2018-09-02 07:59] VITALS: BP 119/69; PULSE 84; RESP 18
[2018-09-02] MEDS: INSULIN ASPART [NOVOLOG] 3 ML PEN SC SCH ×4 (09:48→20:42)
--- NOTE | 2018-09-02 12:53 | CONS ---
Assessment/Plan Assessment/Plan Assessment/Plan (Daily) s/p fall ? C5 fracture. Flex/extension x-rays were not performed appropriately so are non-diagnostic. Do not find necessity to repeat as CTA is negative for vertebral a. injury and shows excellent view of bone. There is no SIGNIFICANT fracture- what appears to be a slight separation of the anterior wall fo the vertebral canal of C5 my be a vessel, incomplete formation or a tiny separation. The vertebral aa. curve medially into the C5 VB and curl back out leading to a thin canal of bone. Overa ll,no instability should be caused by such a fracture if it existed and there patient does not have any clinical signs or symptoms of an acute fracture,. Therefore, the patient's collar was discontinued and no further evaluation indicated unless the patent develops symptoms. The patient and his family expressed understanding and agreement with this plan of care. Consultation Date/Type/Reason Admit Date/Time Aug 31, 2018 at 15:42 Initial Consult Date 08/31/18 Type of Consult Neurosurgery Requesting Provider: ALDAIR AGUILAR Date/Time of Note DATE: 09/02/18 TIME: 12:46 24 HR Interval Summary Free Text/Dictation Patient doing well. Denies nay neck pain whatsoever, radicular pain, new numbness, tingling or weakness. Exam/Review of Systems Exam Vitals Vital Signs Date Temp Pulse Resp B/P (MAP) Pulse Ox O2 O2 Flow FiO2 Time Delivery Rate 09/02/18 98.3 84 18 119/69 93 Room Air 07:59 (86) Intake and Output 09/01/18 09/01/18 09/02/18 1515:00 23:00 07:00 IntakeIntake Total 240 ml 120 ml 200 ml OutputOutput Total 5184 ml BalanceBalance 240 ml 120 ml -4984 ml Constitutional: alert, oriented, well developed Psych: no complaints Head: normocephalic Neck: supple, non-tender, other (full ROM, No Lhermittes or Spurling's sign) Neurological: BELL MAKER II-XII intact, nl mental status, nl speech, nl strength, DTR's symmetric Results Result Diagram: 09/01/18 0518 09/01/18 0518 Results 24hrs Laboratory Tests Test 09/01/18 17:32 09/01/18 17:46 09/01/18 18:00 09/01/18 21:16 Bedside Glucose 65 L 85 107 206 Test 09/02/18 03:11 09/02/18 08:54 09/02/18 12:32 Bedside Glucose 199 178 175 Medications Medication Current Medications IV Flush (NS 3 ml) 3 ml PER PROTOCOL IV ; Start 08/31/18 at 16:30 Ondansetron HCl (Zofran Inj) 4 mg Q6H PRN IV NAUSEA/VOMITING Last administered on 09/02/18 05:24; Admin Dose 4 MG; Start 08/31/18 at 16:30 Acetaminophen (Tylenol Tab) 650 mg Q6H PRN PO .PAIN 1-3 OR TEMP; Start 08/31/18 at 16:30 Acetaminophen/ Hydrocodone Bitart ([place] (5/325)) 1 tab Q6H PRN PO .MOD PAIN 4- 6 Last administered on 09/01/18at 21:18; Admin Dose 1 TAB; Start 08/31/18 at 16:30 Morphine Sulfate (morphine) 2 mg Q3 PRN IV .SEVERE PAIN 7-10 Last administered on 09/01/18at 13:26; Admin Dose 2 MG; Start 08/31/18 at 16:30 Docusate Sodium (Colace) 100 mg Q12H PRN PO .CONSTIPATION; Start 08/31/18 at 16 :30 Zolpidem Tartrate (Ambien) 5 mg QHS PRN PO .INSOMNIA; Start 08/31/18 at 16:30 Atorvastatin Calcium (Lipitor) 80 mg QHS PO Last administered on 09/01/18at 21:18; Admin Dose 80 MG; Start 08/31/18 at 21:00 Diagnostic Test (Pha) (Accu-Chek) 1 ea 02 XX Last administered on 09/02/18 03:19; Admin Dose 1 EA; Start 09/01/18 at 02:00 Insulin Glargine (Lantus) 16 units DAILY@2000 SC Last administered on 09/01/18at 21:26; Admin Dose 16 UNITS; Start 08/31/18 at 20:00 Miscellaneous Information 1 ea NOTE XX ; Start 08/31/18 at 17:30 Glucose (Glutose) 15 gm Q15M PRN PO DECREASED GLUCOSE; Start 08/31/18 at 17:30 Glucose (Glutose) 22.5 gm Q15M PRN PO DECREASED GLUCOSE; Start 08/31/18 at 17:30 Dextrose (D50w Syringe) 25 ml Q15M PRN IV DECREASED GLUCOSE Last administered on 09/01/18at 06:36; Admin Dose 25 ML; Start 08/31/18 at 17:30 Dextrose (D50w Syringe) 50 ml Q15M PRN IV DECREASED GLUCOSE; Start 08/31/18 at 17:30 Glucagon (Glucagen) 1 mg Q15M PRN IM DECREASED GLUCOSE; Start 08/31/18 at 17:30 Glucose (Glutose) 15 gm Q15M PRN BUCCAL DECREASED GLUCOSE; Start 08/31/18 at 17:30 Insulin Aspart (Novolog Insulin Pen) NOVOLOG *MILD* ALGORI... AC MEALS AND BEDTIME SC Last administered on 09/02/18at 09:48; Admin Dose 1 UNIT; Start 09/01/18 at 17:30 Lorazepam (Ativan) 1 mg Q6H PRN IV ANXIETY Last administered on 09/02/18at 06:29; Admin Dose 1 MG; Start 09/02/18 at 06:30 ZULEYMA OLIVAS MD Sep 02, 2018 12:53
[2018-09-02] MEDS: HYDROCODONE/APAP (5/325) TAB PO PRN (16:15)
--- NOTE | 2018-09-02 17:40 | PN ---
Date/Time of Note Date/Time of Note DATE: 09/02/18 TIME: 17:27 Assessment/Plan VTE Prophylaxis Risk score (from Ns)>0 risk: 4 SCD applied (from Ns): Yes Pharmacological prophylaxis: NA/contraindicated Pharm contraindication: other Lines/Catheters IV Catheter Type (from Nrsg): Saline Lock Urinary Cath still in place: No Assessment/Plan Hospital Course 1. Fall with questionable C5 and right humeral fracture Neurosurgery and Ortho consultations appreciated Next CTA shows no evidence of C5 fracture and hence no indication for c-collar Right humerus fracture is properly aligned and does not require surgical intervention, continue conservative care Pain control Continue PT, ARU eval,if patient refuses ARU than home health should be obtained 2. Recurrent syncope likely secondary to autonomic neuropathy Patient will need to allow for blood pressure elevations and will need to be less aggressive with BP control, patient also needs to change positions gra dually 2D echo shows a preserved EF 3. End-stage renal disease on PD Nephrology consultation obtained 4. Insulin dependent diabetes Continue basal insulin, start mealtime A1c at 6.8 5. Coronary disease status post CABG Hold home blood thinners at this time secondary to possible surgery 6. Hypertension Patient with autonomic neuropathy and recurrent syncope hence will be less aggressive BP control Have resumed patient's home nifedipine but at a reduced dose of 60 mg daily which may be a more appropriate dose for him upon DC Prophylaxis: SCDs DC planning: ARU eval placed, if patient and family do not want to go there then consider home health Result Diagram: 09/01/18 0518 09/01/18 0518 Results 24hrs Laboratory Tests Test 09/01/18 17:32 09/01/18 17:46 09/01/18 18:00 09/01/18 21:16 Bedside Glucose 65 L 85 107 206 Test 09/02/18 03:11 09/02/18 08:54 09/02/18 12:32 Bedside Glucose 199 178 175 Subjective 24 Hr Interval Summary Musculoskeletal: bone/joint pain Exam/Review of Systems Exam Vitals Vital Signs Date Temp Pulse Resp B/P (MAP) Pulse Ox O2 O2 Flow FiO2 Time Delivery Rate 09/02/18 98.3 84 18 119/69 93 Room Air 07:59 (86) Intake and Output 09/01/18 09/01/18 09/02/18 1515:00 23:00 07:00 IntakeIntake Total 240 ml 120 ml 200 ml OutputOutput Total 5184 ml BalanceBalance 240 ml 120 ml -4984 ml Constitutional: alert, oriented Respiratory: clear to auscultation Cardiovascular: regular rate and rhythm Gastrointestinal: soft; No distended Musculoskeletal: nl extremities to inspection Results Results 24hrs Laboratory Tests Test 09/01/18 17:32 09/01/18 17:46 09/01/18 18:00 09/01/18 21:16 Bedside Glucose 65 L 85 107 206 Test 09/02/18 03:11 09/02/18 08:54 09/02/18 12:32 Bedside Glucose 199 178 175 Medications Medication Current Medications IV Flush (NS 3 ml) 3 ml PER PROTOCOL IV ; Start 08/31/18 at 16:30 Ondansetron HCl (Zofran Inj) 4 mg Q6H PRN IV NAUSEA/VOMITING Last administered on 09/02/18at 05:24; Admin Dose 4 MG; Start 08/31/18 at 16:30 Acetaminophen (Tylenol Tab) 650 mg Q6H PRN PO .PAIN 1-3 OR TEMP; Start 08/31/18 at 16:30 Acetaminophen/ Hydrocodone Bitart ([place] (5/325)) 1 tab Q6H PRN PO .MOD PAIN 4- 6 Last administered on 09/02/18at 16:15; Admin Dose 1 TAB; Start 08/31/18 at 16:30 Morphine Sulfate (morphine) 2 mg Q3 PRN IV .SEVERE PAIN 7-10 Last administered on 09/01/18at 13:26; Admin Dose 2 MG; Start 08/31/18 at 16:30 Docusate Sodium (Colace) 100 mg Q12H PRN PO .CONSTIPATION; Start 08/31/18 at 1 6:30 Zolpidem Tartrate (Ambien) 5 mg QHS PRN PO .INSOMNIA; Start 08/31/18 at 16:30 Atorvastatin Calcium (Lipitor) 80 mg QHS PO Last administered on 09/01/18at 21:18; Admin Dose 80 MG; Start 08/31/18 at 21:00 Diagnostic Test (Pha) (Accu-Chek) 1 ea 02 XX Last administered on 09/02/18at 03:19; Admin Dose 1 EA; Start 09/01/18 at 02:00 Insulin Glargine (Lantus) 16 units DAILY@2000 SC Last administered on 09/01/18at 21:26; Admin Dose 16 UNITS; Start 08/31/18 at 20:00 Miscellaneous Information 1 ea NOTE XX ; Start 08/31/18 at 17:30 Glucose (Glutose) 15 gm Q15M PRN PO DECREASED GLUCOSE; Start 08/31/18 at 17:30 Glucose (Glutose) 22.5 gm Q15M PRN PO DECREASED GLUCOSE; Start 08/31/18 at 17:30 Dextrose (D50w Syringe) 25 ml Q15M PRN IV DECREASED GLUCOSE Last administered on 09/01/18at 06:36; Admin Dose 25 ML; Start 08/31/18 at 17:30 Dextrose (D50w Syringe) 50 ml Q15M PRN IV DECREASED GLUCOSE; Start 08/31/18 at 17:30 Glucagon (Glucagen) 1 mg Q15M PRN IM DECREASED GLUCOSE; Start 08/31/18 at 17:30 Glucose (Glutose) 15 gm Q15M PRN BUCCAL DECREASED GLUCOSE; Start 08/31/18 at 17:30 Insulin Aspart (Novolog Insulin Pen) NOVOLOG *MILD* ALGORI... AC MEALS AND BEDTIME SC Last administered on 09/02/18at 13:09; Admin Dose 1 UNIT; Start 09/01/18 at 17:30 Lorazepam (Ativan) 1 mg Q6H PRN IV ANXIETY Last administered on 09/02/18at 06:29; Admin Dose 1 MG; Start 09/02/18 at 06:30 ALDAIR AGUILAR Sep 02, 2018 17:39
[2018-09-02] MEDS: SEVELAMER 800 MG TAB PO SCH (17:55)
[2018-09-02] MEDS ORDERED: INSULIN ASPART [NOVOLOG] 3 ML PEN SC SCH (17:55)
[2018-09-02] MEDS: NIFEdipine (XL) 60 MG TAB PO SCH (18:27)
[2018-09-02] MEDS: MONTELUKAST 10 MG TAB PO SCH (20:33)
[2018-09-02] MEDS: ATORVASTATIN 80 MG TAB PO SCH (20:33)
[2018-09-02 20:35] VITALS: BP 180/85; PULSE 75
[2018-09-02] MEDS: hydrALAzine 20 MG INJ IV PRN (20:37)
--- NOTE | 2018-09-02 20:38 | CONS ---
Assessment/Plan Assessment/Plan Assessment/Plan (Daily) 1. ESRD on Peritoneal dialysis 2. Recurrent syncope 3. H/o CAD s/p CABG 4. H/O HTN 5. H/o DM II 6. H/o HL 7. Oblique fracture of the right humeral neck., Nondisplaced fracture of the acromion. Plan: CTA neck negative for dissection, No C5 Fracture on CT Scan Contiue PD today and tomorrow with 2.5% solution no need for epogen Continue other home meds Orthopedic DrAri [place] nsulted for Right humerus fracture will follow up Consultation Date/Type/Reason Admit Date/Time Aug 31, 2018 at 15:42 Initial Consult Date 08/31/18 Type of Consult NEPHROLOGY Requesting Provider: ALDAIR AGUILAR Date/Time of Note DATE: 09/02/18 TIME: 20:38 24 HR Interval Summary Free Text/Dictation CTA neck negative for fracture, S/p PD overnight, ARU consult has been requested Exam/Review of Systems Exam Vitals Vital Signs Date Temp Pulse Resp B/P (MAP) Pulse Ox O2 O2 Flow FiO2 Time Delivery Rate 09/02/18 98.3 84 18 119/69 93 Room Air 07:59 (86) Intake and Output 09/01/18 09/01/18 09/02/18 1515:00 23:00 07:00 IntakeIntake Total 240 ml 120 ml 200 ml OutputOutput Total 5184 ml BalanceBalance 240 ml 120 ml -4984 ml Exam Constitutional: alert, awake, no acute distress Respiratory: clear to auscultation Cardiovascular: regular rate and rhythm, nl pulses Gastrointestinal: soft, non-tender Musculoskeletal: nl extremities to inspection, range of motion (limited on RUE due to fracture ) Extremities: normal pulses Neurological: SHINGLE TRIMMER II-XII intact, nl mental status, nl speech, nl strength Results Result Diagram: 09/01/1818 09/01/1818 Results 24hrs Laboratory Tests Test 09/01/18 21:16 09/02/18 03:11 09/02/18 08:54 09/02/18 12:32 Bedside Glucose 206 199 178 175 Test 09/02/18 17:25 Bedside Glucose 157 Medications Medication Current Medications IV Flush (NS 3 ml) 3 ml PER PROTOCOL IV ; Start 08/31/18 at 16:30 Ondansetron HCl (Zofran Inj) 4 mg Q6H PRN IV NAUSEA/VOMITING Last administered on 09/02/18at 05:24; Admin Dose 4 MG; Start 08/31/18 at 16:30 Acetaminophen (Tylenol Tab) 650 mg Q6H PRN PO .PAIN 1-3 OR TEMP; Start 08/31/18 at 16:30 Acetaminophen/ Hydrocodone Bitart ([place] (5/325)) 1 tab Q6H PRN PO .MOD PAIN 4- 6 Last administered on 09/02/18at 16:15; Admin Dose 1 TAB; Start 08/31/18 at 16:30 Morphine Sulfate (morphine) 2 mg Q3 PRN IV .SEVERE PAIN 7-10 Last administered on 09/01/18at 13:26; Admin Dose 2 MG; Start 08/31/18 at 16:30 Docusate Sodium (Colace) 100 mg Q12H PRN PO .CONSTIPATION; Start 08/31/18 at 16:30 Zolpidem Tartrate (Ambien) 5 mg QHS PRN PO .INSOMNIA; Start 08/31/18 at 16:30 Atorvastatin Calcium (Lipitor) 80 mg QHS PO Last administered on 09/01/18at 21:18; Admin Dose 80 MG; Start 08/31/18 at 21:00 Diagnostic Test (Pha) (Accu-Chek) 1 ea 02 XX Last administered on 09/02/18at 03:19; Admin Dose 1 EA; Start 09/01/18 at 02:00 Miscellaneous Information 1 ea NOTE XX ; Start 08/31/18 at 17:30 Glucose (Glutose) 15 gm Q15M PRN PO DECREASED GLUCOSE; Start 08/31/18 at 17:30 Glucose (Glutose) 22.5 gm Q15M PRN PO DECREASED GLUCOSE; Start 08/31/18 at 17:30 Dextrose (D50w Syringe) 25 ml Q15M PRN IV DECREASED GLUCOSE Last administered on 09/01/18at 06:36; Admin Dose 25 ML; Start 08/31/18 at 17:30 Dextrose (D50w Syringe) 50 ml Q15M PRN IV DECREASED GLUCOSE; Start 08/31/18 at 17:30 Glucagon (Glucagen) 1 mg Q15M PRN IM DECREASED GLUCOSE; Start 08/31/18 at 17:30 Glucose (Glutose) 15 gm Q15M PRN BUCCAL DECREASED GLUCOSE; Start 08/31/18 at 17:30 Insulin Aspart (Novolog Insulin Pen) NOVOLOG *MILD* ALGORI... AC MEALS AND BEDTIME SC Last administered on 09/02/18at 18:22; Admin Dose 1 UNIT; Start at 17:30 Lorazepam (Ativan) 1 mg Q6H PRN IV ANXIETY Last administered on 09/02/18at 06:29; Admin Dose 1 MG; Start 09/02/18 at 06:30 Aspirin (Halfprin) 81 mg DAILY PO ; Start 09/03/18 at 09:00 Clopidogrel Bisulfate (plaVIX) 75 mg DAILY PO ; Start 09/03/18 at 09:00 Montelukast Sodium (Singulair) 10 mg QHS PO ; Start 09/02/18 at 21:00 Pantoprazole (Protonix Tab) 40 mg DAILY PO ; Start 09/03/18 at 09:00 Pregabalin (Lyrica) 150 mg DAILY PO ; Start 09/03/18 at 09:00 Sertraline HCl (Zoloft) 50 mg DAILY PO ; Start 09/03/18 at 09:00 Sevelamer HCl (Renagel) 2,400 mg WITH MEALS PO ; Start 09/02/18 at 17:55 Nifedipine (Procardia Xl) 60 mg DAILY PO Last administered on 09/02/18at 18:27; Admin Dose 60 MG; Start 09/02/18 at 17:30 Insulin Glargine (Lantus) 18 units DAILY@2000 SC ; Start 09/02/18 at 20:00 Hydralazine HCl (Apresoline) 10 mg Q4H PRN IV SBP>170; Start 09/02/18 at 19:30 JACQUES VALENCIA MD Sep 02, 2018 20:38
[2018-09-02 20:39] VITALS: BP 186/93; PULSE 75; RESP 18
[2018-09-02] MEDS: INSULIN GLARGINE [LANTus] (100 UNITS/ML) SYG SC SCH (20:53)
[2018-09-03] MEDS: ACCU-CHEK XX SCH (02:00)
[2018-09-03 02:19] VITALS: BP 158/78; PULSE 90; RESP 18
[2018-09-03] MEDS ORDERED: INSULIN ASPART [NOVOLOG] 3 ML PEN SC ONE (03:00)
[2018-09-03] MEDS: ONDANSETRON 4 MG INJ IV PRN (03:50)
[2018-09-03] MEDS: INSULIN ASPART [NOVOLOG] 3 ML PEN SC SCH ×5 (07:20→21:00)
[2018-09-03 07:26] VITALS: BP 138/72; PULSE 82; RESP 19
[2018-09-03] MEDS: SEVELAMER 800 MG TAB PO SCH ×2 (07:50→11:40)
[2018-09-03 08:00] VITALS: BP 103/62; PULSE 92
[2018-09-03] MEDS ORDERED: ONDANSETRON 4 MG INJ IV STA (08:29)
[2018-09-03] MEDS ORDERED: CLOPIDOGREL 75 MG TAB PO SCH (09:00)
[2018-09-03] MEDS: SERTRALINE 50 MG TAB PO SCH (09:00)
[2018-09-03] MEDS: NIFEdipine (XL) 60 MG TAB PO SCH (09:00)
[2018-09-03] MEDS: ASPIRIN (EC) 81 MG TAB PO SCH (09:00)
[2018-09-03] MEDS ORDERED: PREGABALIN 75 MG CAP PO SCH (09:00)
[2018-09-03] MEDS: PANTOPRAZOLE (EC) 40 MG TAB PO SCH (09:00)
[2018-09-03] MEDS ORDERED: METOCLOPRAMIDE 10 MG INJ IV STA (11:11)
--- NOTE | 2018-09-03 11:13 | CONS ---
Assessment/Plan Assessment/Plan Assessment/Plan (Daily) 1. ESRD on Peritoneal dialysis 2. Recurrent syncope 3. H/o CAD s/p CABG 4. H/O HTN 5. H/o DM II 6. H/o HL 7. Oblique fracture of the right humeral neck., Nondisplaced fracture of the acromion. Plan: CTA neck negative for dissection, No C5 Fracture on CT Scan Contiue PD today and today and tomorrow with 2.5% solution - 3 cycles no need for epogen Continue other home meds reglan 10mg IV x 1 dose now, Zofran prn Keep pt NPO for now, IV pain meds GI consulted for persistent nausea, vomiting will follow up Consultation Date/Type/Reason Admit Date/Time Aug 31, 2018 at 15:42 Initial Consult Date 08/31/18 Type of Consult NEPHROLOGY Requesting Provider: ALDAIR AGUILAR Date/Time of Note DATE: 09/03/18 TIME: 11:13 24 HR Interval Summary Free Text/Dictation pt had a episode of Vomiting today , may be old blood, no chest pain Exam/Review of Systems Exam Vitals Vital Signs Date Temp Pulse Resp B/P (MAP) Pulse Ox O2 O2 Flow FiO2 Time Delivery Rate 09/03/18 92 103/62 08:00 09/03/18 97.1 19 97 07:26 09/03/18 Room Air 02:19 Intake and Output 09/02/18 09/02/18 09/03/18 1515:00 23:00 07:00 OutputOutput Total 764 ml BalanceBalance -764 ml Exam Constitutional: alert, awake, no acute distress Respiratory: clear to auscultation Cardiovascular: regular rate and rhythm, nl pulses Gastrointestinal: soft, non-tender Musculoskeletal: nl extremities to inspection, range of motion (limited on RUE due to fracture ) Extremities: normal pulses Neurological: CELL OPERATOR II-XII intact, nl mental status, nl speech, nl strength Results Result Diagram: 09/01/1851709/01/18517 Results 24hrs Laboratory Tests Test 09/02/18 12:32 09/02/18 17:25 09/02/18 20:37 09/03/18 02:34 Bedside Glucose 175 157 227 H 349 H Test 09/03/18 07:58 Bedside Glucose 277 H Medications Medication Current Medications IV Flush (NS 3 ml) 3 ml PER PROTOCOL IV ; Start 08/31/18 at 16:30 Ondansetron HCl (Zofran Inj) 4 mg Q6H PRN IV NAUSEA/VOMITING Last administered on 09/03/18at 03:50; Admin Dose 4 MG; Start 08/31/18 at 16:30 Acetaminophen (Tylenol Tab) 650 mg Q6H PRN PO .PAIN 1-3 OR TEMP; Start 08/31/18 at 16:30 Acetaminophen/ Hydrocodone Bitart ([place] (5/325)) 1 tab Q6H PRN PO .MOD PAIN 4- 6 Last administered on 09/02/18at 16:15; Admin Dose 1 TAB; Start 08/31/18 at 16:30 Morphine Sulfate (morphine) 2 mg Q3 PRN IV .SEVERE PAIN 7-10 Last administered on 09/01/18at 13:26; Admin Dose 2 MG; Start 08/31/18 at 16:30 Docusate Sodium (Colace) 100 mg Q12H PRN PO .CONSTIPATION; Start 08/31/18 at 16:30 Zolpidem Tartrate (Ambien) 5 mg QHS PRN PO .INSOMNIA Last administered on 09/02/18at 22:02; Admin Dose 5 MG; Start 08/31/18 at 16:30 Atorvastatin Calcium (Lipitor) 80 mg QHS PO Last administered on 09/02/18at 20:33; Admin Dose 80 MG; Start 08/31/18 at 21:00 Diagnostic Test (Pha) (Accu-Chek) 1 ea 02 XX Last administered on 09/02/18at 03:19; Admin Dose 1 EA; Start 09/01/18 at 02:00 Miscellaneous Information 1 ea NOTE XX ; Start 08/31/18 at 17:30 Glucose (Glutose) 15 gm Q15M PRN PO DECREASED GLUCOSE; Start 08/31/18 at 17:30 Glucose (Glutose) 22.5 gm Q15M PRN PO DECREASED GLUCOSE; Start 08/31/18 at 17:30 Dextrose (D50w Syringe) 25 ml Q15M PRN IV DECREASED GLUCOSE Last administered on 09/01/18at 06:36; Admin Dose 25 ML; Start 08/31/18 at 17:30 Dextrose (D50w Syringe) 50 ml Q15M PRN IV DECREASED GLUCOSE; Start 08/31/18 at 17:30 Glucagon (Glucagen) 1 mg Q15M PRN IM DECREASED GLUCOSE; Start 08/31/18 at 17:30 Glucose (Glutose) 15 gm Q15M PRN BUCCAL DECREASED GLUCOSE; Start 08/31/18 at 17:30 Insulin Aspart (Novolog Insulin Pen) NOVOLOG *MILD* ALGORI... AC MEALS AND BEDTIME SC Last administered on 09/02/18at 20:42; Admin Dose 3 UNIT; Start 09/01/18 at 17:30 Lorazepam (Ativan) 1 mg Q6H PRN IV ANXIETY Last administered on 09/02/18at 06:29; Admin Dose 1 MG; Start 09/02/18 at 06:30 Aspirin (Halfprin) 81 mg DAILY PO ; Start 09/03/18 at 09:00 Clopidogrel Bisulfate (plaVIX) 75 mg DAILY PO ; Start 09/03/18 at 09:00 Montelukast Sodium (Singulair) 10 mg QHS PO Last administered on 09/02/18at 20:33; Admin Dose 10 MG; Start 09/02/18 at 21:00 Pantoprazole (Protonix Tab) 40 mg DAILY PO ; Start 09/03/18 at 09:00 Pregabalin (Lyrica) 150 mg DAILY PO ; Start 09/03/18 at 09:00 Sertraline HCl (Zoloft) 50 mg DAILY PO ; Start 09/03/18 at 09:00 Sevelamer HCl (Renagel) 2,400 mg WITH MEALS PO ; Start 09/02/18 at 17:55 Nifedipine (Procardia Xl) 60 mg DAILY PO Last administered on 09/02/18at 18:27; Admin Dose 60 MG; Start 09/02/18 at 17:30 Insulin Glargine (Lantus) 18 units DAILY@2000 SC Last administered on 09/02/18at 20:53; Admin Dose 18 UNITS; Start 09/02/18 at 20:00 Hydralazine HCl (Apresoline) 10 mg Q4H PRN IV SBP>170 Last administered on 09/02/18at 20:37; Admin Dose 10 MG; Start 09/02/18 at 19:30 Metoclopramide HCl (Reglan) 10 mg ONCE STAT IV ; Start 09/03/18 at 11:11; Stop 09/03/18 at 11:12; Status UNV Ondansetron HCl (Zofran Inj) 4 mg Q4H PRN IV NAUSEA AND/OR VOMITING; Start 09/03/18 at 11:30; Status UNV JACQUES VALENCIA MD Sep 03, 2018 11:13
[2018-09-03 14:46] VITALS: BP 128/62; PULSE 78; RESP 20
--- NOTE | 2018-09-03 14:53 | PN ---
Date/Time of Note Date/Time of Note DATE: 09/03/18 TIME: 14:51 Assessment/Plan VTE Prophylaxis Risk score (from Nsg)>0 risk: 3 SCD applied (from Nsg): Yes Pharmacological prophylaxis: heparin Lines/Catheters IV Catheter Type (from Nrsg): Saline Lock Urinary Cath still in place: No Assessment/Plan Hospital Course Nausea and vomiting with hematemesis: -GI has been consulted -Possibly related to constipation. Will give bowel regimen. Exam is benign Fall with questionable C5 and right humeral fracture Neurosurgery and Ortho consultations appreciated Next CTA shows no evidence of C5 fracture and hence no indication for c-collar Right humerus fracture is properly aligned and does not require surgical intervention, continue conservative care Pain control Continue PT, ARU eval,if patient refuses ARU than home health should be obtained 2. Recurrent syncope likely secondary to autonomic neuropathy Patient will need to allow for blood pressure elevations and will need to be le ss aggressive with BP control, patient also needs to change positions gradually 2D echo shows a preserved EF 3. End-stage renal disease on PD Nephrology consultation obtained 4. Insulin dependent diabetes Continue basal insulin, start mealtime A1c at 6.8 5. Coronary disease status post CABG Hold home blood thinners at this time secondary to possible surgery 6. Hypertension Patient with autonomic neuropathy and recurrent syncope hence will be less aggressive BP control Have resumed patient's home nifedipine but at a reduced dose of 60 mg daily which may be a more appropriate dose for him upon DC Prophylaxis: SCDs DC planning: ARU eval placed, if patient and family do not want to go there then consider home health Result Diagram: 09/03/18 1249 09/01/18 0518 Results 24hrs Laboratory Tests Test 09/02/18 17:25 09/02/18 20:37 09/03/18 02:34 09/03/18 07:58 Bedside Glucose 157 227 H 349 H 277 H Test 09/03/18 11:16 09/03/18 12:49 Bedside Glucose 288 H White Blood Count 12.5 #H Red Blood Count 4.07 L Hemoglobin 11.6 L Hematocrit 36.2 L Mean Corpuscular 88.9 Volume Mean Corpuscular 28.5 L Hemoglobin Mean Corpuscular 32.0 Hemoglobin Concent Red Cell 13.7 Distribution Width Platelet Count 250 Mean Platelet Volume 9.6 Immature 0.400 Granulocytes % Neutrophils % 89.7 H Lymphocytes % 5.0 L Monocytes % 4.8 Eosinophils % 0.0 Basophils % 0.1 Nucleated Red Blood 0.0 Cells % Immature 0.050 H Granulocytes # Neutrophils # 11.2 H Lymphocytes # 0.6 L Monocytes # 0.6 Eosinophils # 0.0 Basophils # 0.0 Nucleated Red Blood 0.0 Cells # Subjective 24 Hr Interval Summary Free Text/Dictation Having nausea and vomiting all night through 2 today. Complains of constipation Exam/Review of Systems Exam Vitals Vital Signs Date Temp Pulse Resp B/P (MAP) Pulse Ox O2 O2 Flow FiO2 Time Delivery Rate 09/03/18 98.2 78 20 128/62 98 14:46 (84) 09/03/18 Room Air 02:19 Intake and Output 09/02/18 09/02/18 09/03/18 1515:00 23:00 07:00 OutputOutput Total 764 ml BalanceBalance -764 ml Constitutional: alert, oriented, well developed Psych: no complaints, nl mood/affect Head: normocephalic, atraumatic Eyes: nl conjunctiva, EOMI, nl lids, nl sclera, PERRL ENMT: nl external ears & nose, nl lips & teeth, nl nasal mucosa & septum Neck: supple, non-tender Respiratory: clear to auscultation, normal air movement Cardiovascular: regular rate and rhythm, nl pulses Gastrointestinal: soft, nl liver, spleen, non-tender Musculoskeletal: nl extremities to inspection, nl gait and stance Extremities: normal pulses 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, nl mental status, nl speech, nl strength Skin: nl turgor; No rash or lesions Lymph: nl lymph nodes Results Results 24hrs Laboratory Tests Test 09/02/18 17:25 09/02/18 20:37 09/03/18 02:34 09/03/18 07:58 Bedside Glucose 157 227 H 349 H 277 H Test 09/03/18 11:16 09/03/18 12:49 Bedside Glucose 288 H White Blood Count 12.5 #H Red Blood Count 4.07 L Hemoglobin 11.6 L Hematocrit 36.2 L Mean Corpuscular 88.9 Volume Mean Corpuscular 28.5 L Hemoglobin Mean Corpuscular 32.0 Hemoglobin Concent Red Cell 13.7 Distribution Width Platelet Count 250 Mean Platelet Volume 9.6 Immature 0.400 Granulocytes % Neutrophils % 89.7 H Lymphocytes % 5.0 L Monocytes % 4.8 Eosinophils % 0.0 Basophils % 0.1 Nucleated Red Blood 0.0 Cells % Immature 0.050 H Granulocytes # Neutrophils # 11.2 H Lymphocytes # 0.6 L Monocytes # 0.6 Eosinophils # 0.0 Basophils # 0.0 Nucleated Red Blood 0.0 Cells # Medications Medication Current Medications IV Flush (NS 3 ml) 3 ml PER PROTOCOL IV ; Start 08/31/18 at 16:30 Acetaminophen (Tylenol Tab) 650 mg Q6H PRN PO .PAIN 1-3 OR TEMP; Start 08/31/18 at 16:30 Acetaminophen/ Hydrocodone Bitart ([place] (5/325)) 1 tab Q6H PRN PO .MOD PAIN 4- 6 Last administered on 09/02/18at 16:15; Admin Dose 1 TAB; Start 08/31/18 at 16:30 Morphine Sulfate (morphine) 2 mg Q3 PRN IV .SEVERE PAIN 7-10 Last administered on 09/01/18at 13:26; Admin Dose 2 MG; Start 08/31/18 at 16:30 Docusate Sodium (Colace) 100 mg Q12H PRN PO .CONSTIPATION; Start 08/31/18 at 16:30 Zolpidem Tartrate (Ambien) 5 mg QHS PRN PO .INSOMNIA Last administered on 09/02/18at 22:02; Admin Dose 5 MG; Start 08/31/18 at 16:30 Atorvastatin Calcium (Lipitor) 80 mg QHS PO Last administered on 09/02/18at 20:33; Admin Dose 80 MG; Start 08/31/18 at 21:00 Diagnostic Test (Pha) (Accu-Chek) 1 ea 02 XX Last administered on 09/02/18at 03:19; Admin Dose 1 EA; Start 09/01/18 at 02:00 Miscellaneous Information 1 ea NOTE XX ; Start 08/31/18 at 17:30 Glucose (Glutose) 15 gm Q15M PRN PO DECREASED GLUCOSE; Start 08/31/18 at 17:30 Glucose (Glutose) 22.5 gm Q15M PRN PO DECREASED GLUCOSE; Start 08/31/18 at 17:30 Dextrose (D50w Syringe) 25 ml Q15M PRN IV DECREASED GLUCOSE Last administered on 09/01/18at 06:36; Admin Dose 25 ML; Start 08/31/18 at 17:30 Dextrose (D50w Syringe) 50 ml Q15M PRN IV DECREASED GLUCOSE; Start 08/31/18 at 17:30 Glucagon (Glucagen) 1 mg Q15M PRN IM DECREASED GLUCOSE; Start 08/31/18 at 17:30 Glucose (Glutose) 15 gm Q15M PRN BUCCAL DECREASED GLUCOSE; Start 08/31/18 at 17:30 Insulin Aspart (Novolog Insulin Pen) NOVOLOG *MILD* ALGORI... AC MEALS AND BEDTIME SC Last administered on 09/02/18at 20:42; Admin Dose 3 UNIT; Start 09/01/18 at 17:30 Lorazepam (Ativan) 1 mg Q6H PRN IV ANXIETY Last administered on 09/02/18at 06:29; Admin Dose 1 MG; Start 09/02/18 at 06:30 Aspirin (Halfprin) 81 mg DAILY PO ; Start 09/03/18 at 09:00 Montelukast Sodium (Singulair) 10 mg QHS PO Last administered on 09/02/18at 20:33; Admin Dose 10 MG; Start 09/02/18 at 21:00 Pantoprazole (Protonix Tab) 40 mg DAILY PO ; Start 09/03/18 at 09:00 Pregabalin (Lyrica) 150 mg DAILY PO ; Start 09/03/18 at 09:00 Sertraline HCl (Zoloft) 50 mg DAILY PO ; Start 09/03/18 at 09:00 Sevelamer HCl (Renagel) 2,400 mg WITH MEALS PO ; Start 09/02/18 at 17:55 Nifedipine (Procardia Xl) 60 mg DAILY PO Last administered on 09/02/18at 18:27; Admin Dose 60 MG; Start 09/02/18 at 17:30 Insulin Glargine (Lantus) 18 units DAILY@2000 SC Last administered on 09/02/18at 20:53; Admin Dose 18 UNITS; Start 09/02/18 at 20:00 Hydralazine HCl (Apresoline) 10 mg Q4H PRN IV SBP>170 Last administered on 09/02/18at 20:37; Admin Dose 10 MG; Start 09/02/18 at 19:30 Ondansetron HCl (Zofran Inj) 4 mg Q4H PRN IV NAUSEA AND/OR VOMITING; Start 09/03/18 at 11:30 Bisacodyl (Dulcolax Supp) 10 mg DAILY PRN [place] CONSTIPATION; Start 09/03/18 at 12:00 MAYRA CAMACHO MD Sep 03, 2018 14:53
[2018-09-03] MEDS: BISACODYL 10 MG SUPP PR PRN (15:25)
[2018-09-03 19:29] VITALS: BP 126/61; PULSE 80; RESP 20
[2018-09-03] MEDS: MONTELUKAST 10 MG TAB PO SCH (20:23)
[2018-09-03] MEDS: INSULIN GLARGINE [LANTus] (100 UNITS/ML) SYG SC SCH (20:27)
[2018-09-03] MEDS ORDERED: ACCU-CHEK XX SCH (21:00)
[2018-09-03 21:35] VITALS: BP 118/64; PULSE 83
[2018-09-04] MEDS: INSULIN ASPART [NOVOLOG] 3 ML PEN SC SCH ×6 (01:02→21:09)
[2018-09-04 01:19] VITALS: BP 118/61; PULSE 75; RESP 18
[2018-09-04 07:30] VITALS: BP 133/64; PULSE 85
[2018-09-04 07:57] VITALS: BP 133/64; PULSE 85; RESP 18
[2018-09-04] MEDS: ASPIRIN (EC) 81 MG TAB PO SCH (08:45)
[2018-09-04] MEDS: SERTRALINE 50 MG TAB PO SCH (08:45)
[2018-09-04] MEDS: PANTOPRAZOLE (EC) 40 MG TAB PO SCH (08:45)
[2018-09-04] MEDS: HYDROCODONE/APAP (5/325) TAB PO PRN (08:45)
--- NOTE | 2018-09-04 09:04 | CONS ---
Assessment/Plan Assessment/Plan Assessment/Plan (Daily) 1. ESRD on Peritoneal dialysis 2. Recurrent syncope 3. H/o CAD s/p CABG 4. H/O HTN 5. H/o DM II 6. H/o HL 7. Oblique fracture of the right humeral neck., Nondisplaced fracture of the acromion. Plan: CTA neck negative for dissection, No C5 Fracture on CT Scan - no vomiting since yesterday, pt wants to eat, Hb stable 11.5- resume renal diet, resume all PO meds need better constipation regimen Contiue PD today and tomorrow with 2.5% solution - 3 cycles no need for epogen Continue other home meds GI consulted, pt is ok to have Right humerus neck surgery from renal point of view, will plan for his PD post surgery as to accomodate schedule will follow up Consultation Date/Type/Reason Admit Date/Time Aug 31, 2018 at 15:42 Initial Consult Date 08/31/18 Type of Consult NEPHROLOGY Requesting Provider: ALDAIR AGUILAR Date/Time of Note DATE: 09/04/18 TIME: 09:04 24 HR Interval Summary Free Text/Dictation no vomiting since yesterday, pt wants to eat, Hb stable Exam/Review of Systems Exam Vitals Vital Signs Date Temp Pulse Resp B/P (MAP) Pulse Ox O2 O2 Flow FiO2 Time Delivery Rate 09/04/18 98.3 85 18 133/64 96 Room Air 07:57 (87) Intake and Output 09/03/18 09/03/18 09/04/18 1515:00 23:00 07:00 OutputOutput Total 1046 ml BalanceBalance -1046 ml Exam Constitutional: alert, awake, no acute distress Respiratory: clear to auscultation Cardiovascular: regular rate and rhythm, nl pulses Gastrointestinal: soft, non-tender Musculoskeletal: nl extremities to inspection, range of motion (limited on RUE due to fracture ) Extremities: normal pulses 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, nl mental status, nl speech, nl strength Results Result Diagram: 09/03/18 1249 09/01/18 0518 Results 24hrs Laboratory Tests Test 09/03/18 11:16 09/03/18 12:49 09/03/18 18:03 09/03/18 20:22 Bedside Glucose 288 H 258 H 244 H White Blood Count 12.5 #H Red Blood Count 4.07 L Hemoglobin 11.6 L Hematocrit 36.2 L Mean Corpuscular 88.9 Volume Mean Corpuscular 28.5 L Hemoglobin Mean Corpuscular 32.0 Hemoglobin Concent Red Cell 13.7 Distribution Width Platelet Count 250 Mean Platelet Volume 9.6 Immature 0.400 Granulocytes % Neutrophils % 89.7 H Lymphocytes % 5.0 L Monocytes % 4.8 Eosinophils % 0.0 Basophils % 0.1 Nucleated Red Blood 0.0 Cells % Immature 0.050 H Granulocytes # Neutrophils # 11.2 H Lymphocytes # 0.6 L Monocytes # 0.6 Eosinophils # 0.0 Basophils # 0.0 Nucleated Red Blood 0.0 Cells # Test 09/04/18 00:59 09/04/18 05:09 Bedside Glucose 290 H 221 H Medications Medication Current Medications IV Flush (NS 3 ml) 3 ml PER PROTOCOL IV ; Start 08/31/18 at 16:30 Acetaminophen (Tylenol Tab) 650 mg Q6H PRN PO .PAIN 1-3 OR TEMP; Start 08/31/18 at 16:30 Acetaminophen/ Hydrocodone Bitart ([place] (5/325)) 1 tab Q6H PRN PO .MOD PAIN 4- 6 Last administered on 09/04/18at 08:45; Admin Dose 1 TAB; Start 08/31/18 at 16:30 Morphine Sulfate (morphine) 2 mg Q3 PRN IV .SEVERE PAIN 7-10 Last administered on 09/01/18at 13:26; Admin Dose 2 MG; Start 08/31/18 at 16:30 Docusate Sodium (Colace) 100 mg Q12H PRN PO .CONSTIPATION; Start 08/31/18 at 16:30 Zolpidem Tartrate (Ambien) 5 mg QHS PRN PO .INSOMNIA Last administered on 09/02/18at 22:02; Admin Dose 5 MG; Start 08/31/18 at 16:30 Miscellaneous Information 1 ea NOTE XX ; Start 08/31/18 at 17:30 Glucose (Glutose) 15 gm Q15M PRN PO DECREASED GLUCOSE; Start 08/31/18 at 17:30 Glucose (Glutose) 22.5 gm Q15M PRN PO DECREASED GLUCOSE; Start 08/31/18 at 17:30 Dextrose (D50w Syringe) 25 ml Q15M PRN IV DECREASED GLUCOSE Last administered on 09/01/18 06:36; Admin Dose 25 ML; Start 08/31/18 at 17:30 Dextrose (D50w Syringe) 50 ml Q15M PRN IV DECREASED GLUCOSE; Start 08/31/18 at 17:30 Glucagon (Glucagen) 1 mg Q15M PRN IM DECREASED GLUCOSE; Start 08/31/18 at 17:30 Glucose (Glutose) 15 gm Q15M PRN BUCCAL DECREASED GLUCOSE; Start 08/31/18 at 17:30 Lorazepam (Ativan) 1 mg Q6H PRN IV ANXIETY Last administered on 09/02/18 06:29; Admin Dose 1 MG; Start 09/02/18 at 06:30 Aspirin (Halfprin) 81 mg DAILY PO Last administered on 09/04/18 08:45; Admin Dose 81 MG; Start 09/03/18 at 09:00 Montelukast Sodium (Singulair) 10 mg QHS PO Last administered on 09/02/18 20:33; Admin Dose 10 MG; Start 09/02/18 at 21:00 Pantoprazole (Protonix Tab) 40 mg DAILY PO Last administered on 09/04/18 08:45; Admin Dose 40 MG; Start 09/03/18 at 09:00 Sertraline HCl (Zoloft) 50 mg DAILY PO Last administered on 09/04/18 08:45; Admin Dose 50 MG; Start 09/03/18 at 09:00 Insulin Glargine (Lantus) 18 units DAILY@2000 SC Last administered on 09/03/18 20:27; Admin Dose 18 UNITS; Start 09/02/18 at 20:00 Hydralazine HCl (Apresoline) 10 mg Q4H PRN IV SBP>170 Last administered on 09/02/18at 20:37; Admin Dose 10 MG; Start 09/02/18 at 19:30 Ondansetron HCl (Zofran Inj) 4 mg Q4H PRN IV NAUSEA AND/OR VOMITING; Start 09/03/18 at 11:30 Bisacodyl (Dulcolax Supp) 10 mg DAILY PRN [place] CONSTIPATION Last administered on 09/03/18at 15:25; Admin Dose 10 MG; Start 09/03/18 at 12:00 Insulin Aspart (Novolog Insulin Pen) NOVOLOG *MILD* ALGORI... Q4 SC Last a dministered on 09/04/18at 05:13; Admin Dose 3 UNIT; Start 09/03/18 at 21:00 JACQUES VALENCIA MD Sep 04, 2018 09:04
[2018-09-04] MEDS ORDERED: SCOPOLAMINE 1.5 MG PATCH TRANSDERM SCH (09:30)
--- NOTE | 2018-09-04 09:44 | CONS ---
Assessment/Plan Assessment/Plan Hospital Course (Demo Recall) Summary Assessment and Plan: Assessment: Nausea/vomiting with reported hematemesis- resolved Status post fall with questionable C5 and right humeral fracture Recurrent syncope CAD with history of CABG Hypertension Insulin-dependent diabetes End-stage renal disease on PD Plan: Start scopolamine patch Utilize antiemetic medication as needed Continue PPI therapy Clear liquid diet advance as tolerated Monitor H/H No plan for endoscopic evaluation at this time Continue close observation Patient seen in collaboration with Dr. Way CC: DELLA WAY MD ; Consultation Date/Type/Reason Admit Date/Time Aug 31, 2018 at 15:42 Date of Consultation: Sep 04, 2018 Type of Consult Gastroenterology Reason for Consultation Nausea/vomiting and hematemesis Date/Time of Note DATE: 09/04/18 TIME: 09:40 Hx of Present Illness Thi is a 63-year-old male with past medical history of coronary artery disease status post CABG, hypertension, insulin-dependent diabetes, diabetic neuropathy, dyslipidemia, end-stage renal disease on peritoneal dialysis x7 years, history of multiple falls and syncopal episodes who was admitted for syncopal episode and fall with work-up patient found to have a questionable C5 and right humeral fracture. He was evaluated by neurosurgery and Ortho. During hospitalization patient began to complain of severe nausea with multiple episodes of emesis including heat small amount of hematemesis yesterday GIs been consulted for further evaluation. At time evaluation patient's nausea and vomiting has resolved he is currently n.p.o. His is at bedside. He states he previously had episodes of nausea and vomiting several weeks ago which resolved abruptly. Patient states that time of nausea and vomiting he complains of dizziness. Hemoglobin has been evaluated and is stable from 01 September. Patient states he previously had a EGD and colonoscopy about 2 years ago per patient no significant findings. Patient states he is feeling much better our plan is to restart diet and utilize anti-medic medication. . Review of Systems: [A 12 system, review was conducted and is negative except as noted in the HPI or here.] Past Medical History Medical History: coronary artery disease, high cholesterol, hypertension, other (ESRD on PD ) Home Meds Reported Medications Atorvastatin* (Atorvastatin*) 80 Mg Tablet, 80 MG PO QHS, #30 TAB 08/31/18 Clonidine Hcl* (Clonidine Hcl*) 0.1 Mg Tab, 0.1 MG PO Q8 PRN for BLOOD PRESSURE SUPPORT, TAB 08/31/18 Pregabalin* (Lyrica*) 150 Mg Capsule, 150 MG PO DAILY, CAP 08/31/18 Pantoprazole* (Protonix*) 40 Mg Tablet.dr, 40 MG PO DAILY, TAB 08/31/18 Aspirin (Low Dose Aspirin) 81 Mg Tablet.dr, 81 MG PO DAILY, #30 TAB 08/31/18 Insulin Glargine,Hum.rec.anlog (Basaglar Kwikpen U-100) 100 Unit/1 Ml Insuln.pen, 0 SC BID WITH MEALS, EA SLIDING SCALE 08/31/18 Insulin Glargine* (Lantus*) 100 Unit/Ml Soln, 50 UNIT SC QHS, #1 VIAL 08/31/18 Sertraline Hcl* (Zoloft*) 50 Mg Tablet, 50 MG PO DAILY, #30 TAB 08/31/18 Montelukast Sodium* (Montelukast Sodium*) 10 Mg Tablet, 10 MG PO QHS, #30 TAB 08/31/18 Clopidogrel Bisulfate (Clopidogrel) 75 Mg Tablet, 75 MG PO DAILY, #30 TAB 08/31/18 Sevelamer Hcl* (Renagel*) 800 Mg Tablet, 2400 MG PO WITH MEALS, TAB 08/31/18 Nifedipine* (Nifedipine ER*) 90 Mg Tablet.er, 90 MG PO DAILY, TAB 08/31/18 Ondansetron Hcl* (Zofran*) 4 Mg Tab, 4 MG PO Q8 PRN for NAUSEA AND OR VOMITING, TAB 08/31/18 Metoclopramide* (Reglan*) 5 Mg Tablet, 5 MG PO TIDM A, TAB 08/31/18 Medications Current Medications IV Flush (NS 3 ml) 3 ml PER PROTOCOL IV ; Start 08/31/18 at 16:30 Acetaminophen (Tylenol Tab) 650 mg Q6H PRN PO .PAIN 1-3 OR TEMP; Start 08/31/18 at 16:30 Acetaminophen/ Hydrocodone Bitart ([place] (5/325)) 1 tab Q6H PRN PO .MOD PAIN 4- 6 Last administered on 09/04/18at 08:45; Admin Dose 1 TAB; Start 08/31/18 at 16:30 Morphine Sulfate (morphine) 2 mg Q3 PRN IV .SEVERE PAIN 7-10 Last administered on 09/01/18at 13:26; Admin Dose 2 MG; Start 08/31/18 at 16:30 Docusate Sodium (Colace) 100 mg Q12H PRN PO .CONSTIPATION; Start 08/31/18 at 16:30 Zolpidem Tartrate (Ambien) 5 mg QHS PRN PO .INSOMNIA Last administered on 09/02/18 22:02; Admin Dose 5 MG; Start 08/31/18 at 16:30 Miscellaneous Information 1 ea NOTE XX ; Start 08/31/18 at 17:30 Glucose (Glutose) 15 gm Q15M PRN PO DECREASED GLUCOSE; Start 08/31/18 at 17:30 Glucose (Glutose) 22.5 gm Q15M PRN PO DECREASED GLUCOSE; Start 08/31/18 at 17:30 Dextrose (D50w Syringe) 25 ml Q15M PRN IV DECREASED GLUCOSE Last administered on 09/01/18at 06:36; Admin Dose 25 ML; Start 08/31/18 at 17:30 Dextrose (D50w Syringe) 50 ml Q15M PRN IV DECREASED GLUCOSE; Start 08/31/18 at 17:30 Glucagon (Glucagen) 1 mg Q15M PRN IM DECREASED GLUCOSE; Start 08/31/18 at 17:30 Glucose (Glutose) 15 gm Q15M PRN BUCCAL DECREASED GLUCOSE; Start 08/31/18 at 17:30 Lorazepam (Ativan) 1 mg Q6H PRN IV ANXIETY Last administered on 09/02/18at 06:29; Admin Dose 1 MG; Start 09/02/18 at 06:30 Aspirin (Halfprin) 81 mg DAILY PO Last administered on 09/04/18at 08:45; Admin Dose 81 MG; Start 09/03/18 at 09:00 Montelukast Sodium (Singulair) 10 mg QHS PO Last administered on 09/02/18at 20:33; Admin Dose 10 MG; Start 09/02/18 at 21:00 Pantoprazole (Protonix Tab) 40 mg DAILY PO Last administered on 09/04/18 08:45; Admin Dose 40 MG; Start 09/03/18 at 09:00 Sertraline HCl (Zoloft) 50 mg DAILY PO Last administered on 09/04/18 08:45; Admin Dose 50 MG; Start 09/03/18 at 09:00 Insulin Glargine (Lantus) 18 units DAILY@2000 SC Last administered on 09/03/18at 20:27; Admin Dose 18 UNITS; Start 09/02/18 at 20:00 Hydralazine HCl (Apresoline) 10 mg Q4H PRN IV SBP>170 Last administered on 09/02/18at 20:37; Admin Dose 10 MG; Start 09/02/18 at 19:30 Ondansetron HCl (Zofran Inj) 4 mg Q4H PRN IV NAUSEA AND/OR VOMITING; Start 09/03/18 at 11:30 Bisacodyl (Dulcolax Supp) 10 mg DAILY PRN [place] CONSTIPATION Last administered on 09/03/18at 15:25; Admin Dose 10 MG; Start 09/03/18 at 12:00 Insulin Aspart (Novolog Insulin Pen) NOVOLOG *MILD* ALGORI... Q4 SC Last a dministered on 09/04/18at 05:13; Admin Dose 3 UNIT; Start 09/03/18 at 21:00 Allergies: Coded Allergies: No Known Allergy (Unverified , 08/31/18) Past Surgical History Past Surgical Hx: other (Quadruple CABG, PD catheter placemen t) Social History Alcohol Use: none Smoking Status: Former smoker Drug Use: none Exam/Review of Systems Exam Vitals Vital Signs Date Temp Pulse Resp B/P (MAP) Pulse Ox O2 O2 Flow FiO2 Time Delivery Rate 09/04/18 98.3 85 18 133/64 96 Room Air 07:57 (87) Intake and Output 09/03/18 09/03/18 09/04/18 1515:00 23:00 07:00 OutputOutput Total 1046 ml BalanceBalance -1046 ml Exam PHYSICAL EXAMINATION: GENERAL: Well developed, well nourished, alert & oriented x 3, in no acute distress SKIN: No lesions HEAD: Normocephalic, atraumatic, no tenderness. EYES: Pupils equal reactive to light and accommodation, no discharge. EARS/NOSE AND THROAT: Ears normal, nose normal, oropharynx normal. NECK: Supple, no masses CHEST: Inspection within normal limits. CARDIOVASCULAR: Heart: Regular rate and rhythm RESPIRATORY: Lungs clear to auscultation and percussion, no wheezing, no rubs GASTROINTESTINAL AND LIVER: Abdomen: Soft, non tenderness, distended- PD, no hernias, no masses, , no guarding, no rebound tenderness, normoactive bowel sounds. Rectal: Deferred. GENITOURINARY: [Male genitalia within normal limits.][Female genitalia within normal limits.] Results Result Diagram: 09/03/18 1249 09/01/18 0518 Results 24hrs Laboratory Tests Test 09/03/18 11:16 09/03/18 12:49 09/03/18 18:03 09/03/18 20:22 Bedside Glucose 288 H 258 H 244 H White Blood Count 12.5 #H Red Blood Count 4.07 L Hemoglobin 11.6 L Hematocrit 36.2 L Mean Corpuscular 88.9 Volume Mean Corpuscular 28.5 L Hemoglobin Mean Corpuscular 32.0 Hemoglobin Concent Red Cell 13.7 Distribution Width Platelet Count 250 Mean Platelet Volume 9.6 Immature 0.400 Granulocytes % Neutrophils % 89.7 H Lymphocytes % 5.0 L Monocytes % 4.8 Eosinophils % 0.0 Basophils % 0.1 Nucleated Red Blood 0.0 Cells % Immature 0.050 H Granulocytes # Neutrophils # 11.2 H Lymphocytes # 0.6 L Monocytes # 0.6 Eosinophils # 0.0 Basophils # 0.0 Nucleated Red Blood 0.0 Cells # Test 09/04/18 00:59 09/04/18 05:09 09/04/18 09:09 Bedside Glucose 290 H 221 H White Blood Count 10.3 Red Blood Count 4.00 L Hemoglobin 11.5 L Hematocrit 36.4 L Mean Corpuscular 91.0 Volume Mean Corpuscular 28.8 L Hemoglobin Mean Corpuscular 31.6 L Hemoglobin Concent Red Cell 14.0 Distribution Width Platelet Count 257 Mean Platelet Volume 9.6 Immature 0.500 H Granulocytes % Neutrophils % 78.0 H Lymphocytes % 13.2 L Monocytes % 7.0 Eosinophils % 1.0 Basophils % 0.3 Nucleated Red Blood 0.0 Cells % Immature 0.050 H Granulocytes # Neutrophils # 8.0 H Lymphocytes # 1.4 Monocytes # 0.7 Eosinophils # 0.1 Basophils # 0.0 Nucleated Red Blood 0.0 Cells # Medications Medication Current Medications IV Flush (NS 3 ml) 3 ml PER PROTOCOL IV ; Start 08/31/18 at 16:30 Acetaminophen (Tylenol Tab) 650 mg Q6H PRN PO .PAIN 1-3 OR TEMP; Start 08/31/18 at 16:30 Acetaminophen/ Hydrocodone Bitart ([place] (5/325)) 1 tab Q6H PRN PO .MOD PAIN 4- 6 Last administered on 09/04/18 08:45; Admin Dose 1 TAB; Start 08/31/18 at 16:30 Morphine Sulfate (morphine) 2 mg Q3 PRN IV .SEVERE PAIN 7-10 Last administered on 09/01/18 13:26; Admin Dose 2 MG; Start 08/31/18 at 16:30 Docusate Sodium (Colace) 100 mg Q12H PRN PO .CONSTIPATION; Start 08/31/18 at 16:30 Zolpidem Tartrate (Ambien) 5 mg QHS PRN PO .INSOMNIA Last administered on 09/02/18 22:02; Admin Dose 5 MG; Start 08/31/18 at 16:30 Miscellaneous Information 1 ea NOTE XX ; Start 08/31/18 at 17:30 Glucose (Glutose) 15 gm Q15M PRN PO DECREASED GLUCOSE; Start 08/31/18 at 17:30 Glucose (Glutose) 22.5 gm Q15M PRN PO DECREASED GLUCOSE; Start 08/31/18 at 17:30 Dextrose (D50w Syringe) 25 ml Q15M PRN IV DECREASED GLUCOSE Last administered on 09/01/18at 06:36; Admin Dose 25 ML; Start 08/31/18 at 17:30 Dextrose (D50w Syringe) 50 ml Q15M PRN IV DECREASED GLUCOSE; Start 08/31/18 at 17:30 Glucagon (Glucagen) 1 mg Q15M PRN IM DECREASED GLUCOSE; Start 08/31/18 at 17:30 Glucose (Glutose) 15 gm Q15M PRN BUCCAL DECREASED GLUCOSE; Start 08/31/18 at 17:30 Lorazepam (Ativan) 1 mg Q6H PRN IV ANXIETY Last administered on 09/02/18 06:29; Admin Dose 1 MG; Start 09/02/18 at 06:30 Aspirin (Halfprin) 81 mg DAILY PO Last administered on 09/04/18 08:45; Admin Dose 81 MG; Start 09/03/18 at 09:00 Montelukast Sodium (Singulair) 10 mg QHS PO Last administered on 09/02/18 20:33; Admin Dose 10 MG; Start 09/02/18 at 21:00 Pantoprazole (Protonix Tab) 40 mg DAILY PO Last administered on 09/04/18 08:45; Admin Dose 40 MG; Start 09/03/18 at 09:00 Sertraline HCl (Zoloft) 50 mg DAILY PO Last administered on 09/04/18 08:45; Admin Dose 50 MG; Start 09/03/18 at 09:00 Insulin Glargine (Lantus) 18 units DAILY@2000 SC Last administered on 09/03/18 20:27; Admin Dose 18 UNITS; Start 09/02/18 at 20:00 Hydralazine HCl (Apresoline) 10 mg Q4H PRN IV SBP>170 Last administered on 09/02/18 20:37; Admin Dose 10 MG; Start 09/02/18 at 19:30 Ondansetron HCl (Zofran Inj) 4 mg Q4H PRN IV NAUSEA AND/OR VOMITING; Start 09/03/18 at 11:30 Bisacodyl (Dulcolax Supp) 10 mg DAILY PRN [place] CONSTIPATION Last administered on 09/03/18 15:25; Admin Dose 10 MG; Start 09/03/18 at 12:00 Insulin Aspart (Novolog Insulin Pen) NOVOLOG *MILD* ALGORI... Q4 SC Last administered on 09/04/18 05:13; Admin Dose 3 UNIT; Start 09/03/18 at 21:00 TAN GARZON Sep 04, 2018 09:44
[2018-09-04] MEDS: ONDANSETRON 4 MG INJ IV PRN (09:58)
[2018-09-04] MEDS ORDERED: POLYETHYLENE GLYCOL 17 GM PACKET PO SCH (11:00)
[2018-09-04] MEDS: BISACODYL 10 MG SUPP PR PRN (11:35)
[2018-09-04 15:26] VITALS: BP 113/66; PULSE 60; RESP 18
[2018-09-04] MEDS ORDERED: IBUPROFEN 400 MG TAB PO PRN (16:30)
[2018-09-04] MEDS ORDERED: INSULIN GLARGINE [LANTus] (100 UNITS/ML) SYG SC SCH (20:00)
[2018-09-04 20:14] VITALS: BP 166/81; PULSE 80; RESP 20
[2018-09-04] MEDS: MONTELUKAST 10 MG TAB PO SCH (20:57)
[2018-09-04] MEDS: POLYETHYLENE GLYCOL 17 GM PACKET PO SCH (20:59)
[2018-09-04 23:07] VITALS: BP 160/83; PULSE 74
[2018-09-05] VITALS (10 sets, daily range): BP systolic 132–189; BP diastolic 67–85; PULSE 72–92; RESP 18–24
[2018-09-05] MEDS: INSULIN ASPART [NOVOLOG] 3 ML PEN SC SCH ×5 (01:24→19:56)
[2018-09-05] MEDS: hydrALAzine 20 MG INJ IV PRN ×2 (07:35→15:55)
[2018-09-05] MEDS: SERTRALINE 50 MG TAB PO SCH (07:42)
[2018-09-05] MEDS: POLYETHYLENE GLYCOL 17 GM PACKET PO SCH ×3 (07:42→20:35)
[2018-09-05] MEDS: PANTOPRAZOLE (EC) 40 MG TAB PO SCH (07:42)
[2018-09-05] MEDS: ASPIRIN (EC) 81 MG TAB PO SCH (07:42)
[2018-09-05] MEDS: ONDANSETRON 4 MG INJ IV PRN ×3 (10:16→19:44)
--- NOTE | 2018-09-05 12:07 | PN ---
Date/Time of Note Date/Time of Note DATE: 09/05/18 TIME: 12:06 Assessment/Plan VTE Prophylaxis Risk score (from Nsg)>0 risk: 2 SCD applied (from Nsg): Yes Pharmacological prophylaxis: other (scds) Lines/Catheters IV Catheter Type (from Nrsg): Saline Lock Urinary Cath still in place: No Assessment/Plan Hospital Course Summary Assessment and Plan: Assessment: Nausea/vomiting with reported hematemesis- resolved Status post fall with questionable C5 and right humeral fracture Recurrent syncope CAD with history of CABG Hypertension Insulin-dependent diabetes End-stage renal disease on PD Plan: Start Reglan 10mg IV q6hr Patient has had previous NM Gastric emptying study positive for gastroparesis - per patient's family No plan for endoscopic evaluation at this time Continue close observation Patient seen in collaboration with Dr. Way Subjective: Course reviewed with nursing staff Patient interviewed and examined All labs, imaging and other results reviewed The patient sitting up in chair- continues to c/o n/v Spoke to patient son (who is a physician ) as did Dr. Vu Who had extensive work-up regarding nausea/vomiting including NM gastric emptying study, positive for gastroparesis. Exam PHYSICAL EXAMINATION: GENERAL: Alert & oriented x 3, in no acute distress SKIN: No lesions HEAD: Normocephalic, atraumatic, no tenderness. EYES: Pupils equal reactive to light and accommodation, no discharge. EARS/NOSE AND THROAT: Ears normal, nose normal, oropharynx normal. NECK: Supple, no masses CHEST: Inspection within normal limits. CARDIOVASCULAR: Heart: Regular rate and rhythm RESPIRATORY: Lungs clear to auscultation and percussion, no wheezing, no rubs GASTROINTESTINAL AND LIVER: Abdomen: Soft, non tenderness, distended- PD, no hernias, no masses,no guarding, no rebound tenderness, normoactive bowel sounds. Rectal: Deferred. Result Diagram: 09/04/18 0909 09/04/18 0909 Results 24hrs Laboratory Tests Test 09/04/18 13:17 09/04/18 19:42 09/04/18 21:00 09/05/18 01:20 Bedside Glucose 251 H 179 187 258 H Test 09/05/18 05:06 09/05/18 10:08 Bedside Glucose 270 H 174 Exam/Review of Systems Exam Vitals Vital Signs Date Temp Pulse Resp B/P (MAP) Pulse Ox O2 O2 Flow FiO2 Time Delivery Rate 09/05/18 22 132/67 09:37 (88) 09/05/18 72 07:53 09/05/18 97.7 97 Room Air 07:29 Intake and Output 09/04/18 09/04/18 09/05/18 1515:00 23:00 07:00 IntakeIntake Total 120 ml 320 ml 480 ml OutputOutput Total 712 ml BalanceBalance -592 ml 320 ml 480 ml Results Results 24hrs Laboratory Tests Test 09/04/18 13:17 09/04/18 19:42 09/04/18 21:00 09/05/18 01:20 Bedside Glucose 251 H 179 187 258 H Test 09/05/18 05:06 09/05/18 10:08 Bedside Glucose 270 H 174 Medications Medication Current Medications IV Flush (NS 3 ml) 3 ml PER PROTOCOL IV ; Start 08/31/18 at 16:30 Acetaminophen (Tylenol Tab) 650 mg Q6H PRN PO .PAIN 1-3 OR TEMP; Start 08/31/18 at 16:30 Morphine Sulfate (morphine) 2 mg Q3 PRN IV .SEVERE PAIN 7-10 Last administered on 09/01/18at 13:26; Admin Dose 2 MG; Start 08/31/18 at 16:30 Docusate Sodium (Colace) 100 mg Q12H PRN PO .CONSTIPATION; Start 08/31/18 at 16:30 Zolpidem Tartrate (Ambien) 5 mg QHS PRN PO .INSOMNIA Last administered on 09/02/18at 22:02; Admin Dose 5 MG; Start 08/31/18 at 16:30 Miscellaneous Information 1 ea NOTE XX ; Start 08/31/18 at 17:30 Glucose (Glutose) 15 gm Q15M PRN PO DECREASED GLUCOSE; Start 08/31/18 at 17:30 Glucose (Glutose) 22.5 gm Q15M PRN PO DECREASED GLUCOSE; Start 08/31/18 at 17:30 Dextrose (D50w Syringe) 25 ml Q15M PRN IV DECREASED GLUCOSE Last administered on 09/01/18at 06:36; Admin Dose 25 ML; Start 08/31/18 at 17:30 Dextrose (D50w Syringe) 50 ml Q15M PRN IV DECREASED GLUCOSE; Start 08/31/18 at 17:30 Glucagon (Glucagen) 1 mg Q15M PRN IM DECREASED GLUCOSE; Start 08/31/18 at 17:30 Glucose (Glutose) 15 gm Q15M PRN BUCCAL DECREASED GLUCOSE; Start 08/31/18 at 17:30 Lorazepam (Ativan) 1 mg Q6H PRN IV ANXIETY Last administered on 09/02/18 06:29; Admin Dose 1 MG; Start 09/02/18 at 06:30 Aspirin (Halfprin) 81 mg DAILY PO Last administered on 09/05/18 07:42; Admin Dose 81 MG; Start 09/03/18 at 09:00 Montelukast Sodium (Singulair) 10 mg QHS PO Last administered on 09/04/18 20:57; Admin Dose 10 MG; Start 09/02/18 at 21:00 Pantoprazole (Protonix Tab) 40 mg DAILY PO Last administered on 09/05/18 07:42; Admin Dose 40 MG; Start 09/03/18 at 09:00 Sertraline HCl (Zoloft) 50 mg DAILY PO Last administered on 09/05/18 07:42; Admin Dose 50 MG; Start 09/03/18 at 09:00 Hydralazine HCl (Apresoline) 10 mg Q4H PRN IV SBP>170 Last administered on 09/05/18 07:35; Admin Dose 10 MG; Start 09/02/18 at 19:30 Ondansetron HCl (Zofran Inj) 4 mg Q4H PRN IV NAUSEA AND/OR VOMITING Last administered on 09/05/18 10:16; Admin Dose 4 MG; Start 09/03/18 at 11:30 Bisacodyl (Dulcolax Supp) 10 mg DAILY PRN [place] CONSTIPATION Last administered on 09/04/18 11:35; Admin Dose 10 MG; Start 09/03/18 at 12:00 Insulin Aspart (Novolog Insulin Pen) NOVOLOG *MILD* ALGORI... Q4 SC Last admin istered on 09/05/18 10:25; Admin Dose 1 UNIT; Start 09/03/18 at 21:00 Scopolamine (Transderm-Scop) 1 patch Q72H TRANSDERM Last administered on 09/04/18 10:00; Admin Dose 1 PATCH; Start 09/04/18 at 09:30 Insulin Glargine (Lantus) 25 units DAILY@2000 SC Last administered on 09/04/18at 21:10; Admin Dose 25 UNITS; Start 09/04/18 at 20:00 Polyethylene Glycol (Miralax) 17 gm BID PO Last administered on 09/05/18at 07:42; Admin Dose 17 GM; Start 09/04/18 at 21:00 Ibuprofen (Motrin) 400 mg Q8H PRN PO pain Last administered on 09/04/18at 19:48; Admin Dose 400 MG; Start 09/04/18 at 16:30 TAN GARZON Sep 05, 2018 12:07
[2018-09-05] MEDS ORDERED: METOCLOPRAMIDE 10 MG INJ IV SCH (12:30)
[2018-09-05] MEDS ORDERED: MINERAL OIL 30ML CUP PO ONE (12:30)
--- NOTE | 2018-09-05 13:12 | CONS ---
Assessment/Plan Assessment/Plan Assessment/Plan (Daily) 1. ESRD on Peritoneal dialysis 2. Recurrent syncope 3. H/o CAD s/p CABG 4. H/O HTN 5. H/o DM II 6. H/o HL 7. Oblique fracture of the right humeral neck., Nondisplaced fracture of the acromion. 8. Severe constipation with vomiting Plan: CTA neck negative for dissection, No C5 Fracture on CT Scan -pt had a one episode of vomiting today, S/p GI consult, plan is to try reglan and if no response then pt will need Upper endoscopy, still constipated- GI following - bowel regimen adjusted for today Contiue PD today and tomorrow with 2.5% solution - 3 cycles no need for epogen Continue other home meds pt is ok to have Right humerus neck surgery from renal point of view, will plan for his PD post surgery as to accomodate schedule will follow up Consultation Date/Type/Reason Admit Date/Time Aug 31, 2018 at 15:42 Initial Consult Date 08/31/18 Type of Consult NEPHROLOGY Requesting Provider: ALDAIR AGUILAR Date/Time of Note DATE: 09/05/18 TIME: 13:12 24 HR Interval Summary Free Text/Dictation pt had a one episode of vomiting today, S/p GI consult, plan is to try reglan and if no response then pt will need Upper endoscopy, still constipated Exam/Review of Systems Exam Vitals Vital Signs Date Temp Pulse Resp B/P (MAP) Pulse Ox O2 O2 Flow FiO2 Time Delivery Rate 09/05/18 22 132/67 09:37 (88) 09/05/18 72 07:53 09/05/18 97.7 97 Room Air 07:29 Intake and Output 09/04/18 09/04/18 09/05/18 1515:00 23:00 07:00 IntakeIntake Total 120 ml 320 ml 480 ml OutputOutput Total 712 ml BalanceBalance -592 ml 320 ml 480 ml Exam Constitutional: alert, awake, no acute distress Respiratory: clear to auscultation Cardiovascular: regular rate and rhythm, nl pulses Gastrointestinal: soft, TTP diffusely but no focal tenderness Musculoskeletal: nl extremities to inspection, range of motion (limited on RUE due to fracture ) Extremities: normal pulses Neurological: [employer] II-XII intact, nl mental status, nl speech, nl strength Results Result Diagram: 09/04/18 0909 09/04/18 0909 Results 24hrs Laboratory Tests Test 09/04/18 13:17 09/04/18 19:42 09/04/18 21:00 09/05/18 01:20 Bedside Glucose 251 H 179 187 258 H Test 09/05/18 05:06 09/05/18 10:08 09/05/18 12:07 Bedside Glucose 270 H 174 234 H Medications Medication Current Medications IV Flush (NS 3 ml) 3 ml PER PROTOCOL IV ; Start 08/31/18 at 16:30 Acetaminophen (Tylenol Tab) 650 mg Q6H PRN PO .PAIN 1-3 OR TEMP; Start 08/31/18 at 16:30 Morphine Sulfate (morphine) 2 mg Q3 PRN IV .SEVERE PAIN 7-10 Last administered on 09/01/18at 13:26; Admin Dose 2 MG; Start 08/31/18 at 16:30 Docusate Sodium (Colace) 100 mg Q12H PRN PO .CONSTIPATION; Start 08/31/18 at 16:30 Zolpidem Tartrate (Ambien) 5 mg QHS PRN PO .INSOMNIA Last administered on 09/02/18at 22:02; Admin Dose 5 MG; Start 08/31/18 at 16:30 Miscellaneous Information 1 ea NOTE XX ; Start 08/31/18 at 17:30 Glucose (Glutose) 15 gm Q15M PRN PO DECREASED GLUCOSE; Start 08/31/18 at 17:30 Glucose (Glutose) 22.5 gm Q15M PRN PO DECREASED GLUCOSE; Start 08/31/18 at 17:30 Dextrose (D50w Syringe) 25 ml Q15M PRN IV DECREASED GLUCOSE Last administered on 09/01/18at 06:36; Admin Dose 25 ML; Start 08/31/18 at 17:30 Dextrose (D50w Syringe) 50 ml Q15M PRN IV DECREASED GLUCOSE; Start 08/31/18 at 17:30 Glucagon (Glucagen) 1 mg Q15M PRN IM DECREASED GLUCOSE; Start 08/31/18 at 17:30 Glucose (Glutose) 15 gm Q15M PRN BUCCAL DECREASED GLUCOSE; Start 08/31/18 at 17:30 Lorazepam (Ativan) 1 mg Q6H PRN IV ANXIETY Last administered on 09/02/18at 06:29; Admin Dose 1 MG; Start 09/02/18 at 06:30 Aspirin (Halfprin) 81 mg DAILY PO Last administered on 09/05/18 07:42; Admin Dose 81 MG; Start 09/03/18 at 09:00 Montelukast Sodium (Singulair) 10 mg QHS PO Last administered on 09/04/18 20:57; Admin Dose 10 MG; Start 09/02/18 at 21:00 Pantoprazole (Protonix Tab) 40 mg DAILY PO Last administered on 09/05/18 07:42; Admin Dose 40 MG; Start 09/03/18 at 09:00 Sertraline HCl (Zoloft) 50 mg DAILY PO Last administered on 09/05/18 07:42; Admin Dose 50 MG; Start 09/03/18 at 09:00 Hydralazine HCl (Apresoline) 10 mg Q4H PRN IV SBP>170 Last administered on 09/05/18 07:35; Admin Dose 10 MG; Start 09/02/18 at 19:30 Ondansetron HCl (Zofran Inj) 4 mg Q4H PRN IV NAUSEA AND/OR VOMITING Last administered on 09/05/18 10:16; Admin Dose 4 MG; Start 09/03/18 at 11:30 Bisacodyl (Dulcolax Supp) 10 mg DAILY PRN [place] CONSTIPATION Last administered on 09/04/18 11:35; Admin Dose 10 MG; Start 09/03/18 at 12:00 Insulin Glargine (Lantus) 25 units DAILY@2000 SC Last administered on 09/04/18 21:10; Admin Dose 25 UNITS; Start 09/04/18 at 20:00 Polyethylene Glycol (Miralax) 17 gm BID PO Last administered on 09/05/18 07:42; Admin Dose 17 GM; Start 09/04/18 at 21:00 Ibuprofen (Motrin) 400 mg Q8H PRN PO pain Last administered on 09/04/18 19:48; Admin Dose 400 MG; Start 09/04/18 at 16:30 Metoclopramide HCl (Reglan) 10 mg AC MEALS PO ; Start 09/05/18 at 17:25; Status UNV Insulin Aspart (Novolog Insulin Pen) NOVOLOG *MILD* ALGORI... AC MEALS AND BEDTIME SC ; Start 09/05/18 at 17:25; Status UNV Metoclopramide HCl (Reglan) 10 mg ONCE ONCE PO ; Start 09/05/18 at 13:30; Stop 09/05/18 at 13:31; Status UNV JACQUES VALENCIA MD Sep 05, 2018 13:12
--- NOTE | 2018-09-05 13:27 | PN ---
Date/Time of Note Date/Time of Note DATE: 09/05/18 TIME: 13:25 Assessment/Plan VTE Prophylaxis Risk score (from Nsg)>0 risk: 2 SCD applied (from Nsg): Yes Pharmacological prophylaxis: heparin Lines/Catheters IV Catheter Type (from Nrsg): Saline Lock Urinary Cath still in place: No Assessment/Plan Hospital Course Nausea and vomiting constitent with previously diagnosed gastroparesis: - Patient had positive empyting study at outside hospital. Will start reglan QAC -GI has been consulted Fall with questionable C5 and right humeral fracture - Neurosurgery and Ortho consultations appreciated - Next CTA shows no evidence of C5 fracture and hence no indication for c-collar - Right humerus fracture is properly aligned and does not require surgical intervention, continue conservative care - Pain control - Continue PT, ARU eval,if patient refuses ARU than home health should be obt ained Recurrent syncope likely secondary to autonomic neuropathy Patient will need to allow for blood pressure elevations and will need to be less aggressive with BP control, patient also needs to change positions gradually 2D echo shows a preserved EF End-stage renal disease on PD Nephrology consultation obtained 4. Insulin dependent diabetes Continue basal insulin, start mealtime A1c at 6.8 5. Coronary disease status post CABG Hold home blood thinners at this time secondary to possible surgery 6. Hypertension Patient with autonomic neuropathy and recurrent syncope hence will be less aggressive BP control Have resumed patient's home nifedipine but at a reduced dose of 60 mg daily wh ich may be a more appropriate dose for him upon DC Prophylaxis: SCDs DC planning: ARU eval placed, if patient and family do not want to go there then consider home health Result Diagram: 09/04/18 0909 09/04/18 0909 Results 24hrs Laboratory Tests Test 09/04/18 19:42 09/04/18 21:00 09/05/18 01:20 09/05/18 05:06 Bedside Glucose 179 187 258 H 270 H Test 09/05/18 10:08 09/05/18 12:07 Bedside Glucose 174 234 H Subjective 24 Hr Interval Summary Free Text/Dictation Continues to have priandial vomiting symptoms. Can hardly eat at all. Symptoms present for a few months. I spoke to his son by phone who says he has had an extensive workup fro this already, has been diagnosed with gastroparesis via empyting scan Exam/Review of Systems Exam Vitals Vital Signs Date Temp Pulse Resp B/P (MAP) Pulse Ox O2 O2 Flow FiO2 Time Delivery Rate 09/05/18 22 132/67 09:37 (88) 09/05/18 72 07:53 09/05/18 97.7 97 Room Air 07:29 Intake and Output 09/04/18 09/04/18 09/05/18 1515:00 23:00 07:00 IntakeIntake Total 120 ml 320 ml 480 ml OutputOutput Total 712 ml BalanceBalance -592 ml 320 ml 480 ml Constitutional: alert, oriented, well developed Psych: no complaints, nl mood/affect Head: normocephalic, atraumatic Eyes: nl conjunctiva, EOMI, nl lids, nl sclera, PERRL ENMT: nl external ears & nose, nl lips & teeth, nl nasal mucosa & septum Neck: supple, non-tender Respiratory: clear to auscultation, normal air movement Cardiovascular: regular rate and rhythm, nl pulses Gastrointestinal: soft, nl liver, spleen, non-tender Musculoskeletal: nl extremities to inspection, nl gait and stance Extremities: normal pulses Neurological: [employer] II-XII intact, nl mental status, nl speech, nl strength Skin: nl turgor; No rash or lesions Lymph: nl lymph nodes Results Results 24hrs Laboratory Tests Test 09/04/18 19:42 09/04/18 21:00 09/05/18 01:20 09/05/18 05:06 Bedside Glucose 179 187 258 H 270 H Test 09/05/18 10:08 09/05/18 12:07 Bedside Glucose 174 234 H Medications Medication Current Medications IV Flush (NS 3 ml) 3 ml PER PROTOCOL IV ; Start 08/31/18 at 16:30 Acetaminophen (Tylenol Tab) 650 mg Q6H PRN PO .PAIN 1-3 OR TEMP; Start 08/31/18 at 16:30 Morphine Sulfate (morphine) 2 mg Q3 PRN IV .SEVERE PAIN 7-10 Last administered on 09/01/18at 13:26; Admin Dose 2 MG; Start 08/31/18 at 16:30 Docusate Sodium (Colace) 100 mg Q12H PRN PO .CONSTIPATION; Start 08/31/18 at 16:30 Zolpidem Tartrate (Ambien) 5 mg QHS PRN PO .INSOMNIA Last administered on 09/02/18at 22:02; Admin Dose 5 MG; Start 08/31/18 at 16:30 Miscellaneous Information 1 ea NOTE XX ; Start 08/31/18 at 17:30 Glucose (Glutose) 15 gm Q15M PRN PO DECREASED GLUCOSE; Start 08/31/18 at 17:30 Glucose (Glutose) 22.5 gm Q15M PRN PO DECREASED GLUCOSE; Start 08/31/18 at 17:30 Dextrose (D50w Syringe) 25 ml Q15M PRN IV DECREASED GLUCOSE Last administered on 09/01/18at 06:36; Admin Dose 25 ML; Start 08/31/18 at 17:30 Dextrose (D50w Syringe) 50 ml Q15M PRN IV DECREASED GLUCOSE; Start 08/31/18 at 17:30 Glucagon (Glucagen) 1 mg Q15M PRN IM DECREASED GLUCOSE; Start 08/31/18 at 17:30 Glucose (Glutose) 15 gm Q15M PRN BUCCAL DECREASED GLUCOSE; Start 08/31/18 at 17:30 Lorazepam (Ativan) 1 mg Q6H PRN IV ANXIETY Last administered on 09/02/18at 06:29; Admin Dose 1 MG; Start 09/02/18 at 06:30 Aspirin (Halfprin) 81 mg DAILY PO Last administered on 09/05/18 07:42; Admin Dose 81 MG; Start 09/03/18 at 09:00 Montelukast Sodium (Singulair) 10 mg QHS PO Last administered on 09/04/18at 20:57; Admin Dose 10 MG; Start 09/02/18 at 21:00 Pantoprazole (Protonix Tab) 40 mg DAILY PO Last administered on 09/05/18 07:42; Admin Dose 40 MG; Start 09/03/18 at 09:00 Sertraline HCl (Zoloft) 50 mg DAILY PO Last administered on 09/05/18 07:42; Admin Dose 50 MG; Start 09/03/18 at 09:00 Hydralazine HCl (Apresoline) 10 mg Q4H PRN IV SBP>170 Last administered on 09/05/18at 07:35; Admin Dose 10 MG; Start 09/02/18 at 19:30 Ondansetron HCl (Zofran Inj) 4 mg Q4H PRN IV NAUSEA AND/OR VOMITING Last administered on 09/05/18 10:16; Admin Dose 4 MG; Start 09/03/18 at 11:30 Bisacodyl (Dulcolax Supp) 10 mg DAILY PRN [place] CONSTIPATION Last administered on 09/04/18 11:35; Admin Dose 10 MG; Start 09/03/18 at 12:00 Insulin Glargine (Lantus) 25 units DAILY@2000 SC Last administered on 09/04/18 21:10; Admin Dose 25 UNITS; Start 09/04/18 at 20:00 Polyethylene Glycol (Miralax) 17 gm BID PO Last administered on 09/05/18at 07:42; Admin Dose 17 GM; Start 09/04/18 at 21:00 Ibuprofen (Motrin) 400 mg Q8H PRN PO pain Last administered on 09/04/18at 19:48; Admin Dose 400 MG; Start 09/04/18 at 16:30 Metoclopramide HCl (Reglan) 10 mg AC MEALS PO ; Start 09/05/18 at 17:25 Insulin Aspart (Novolog Insulin Pen) NOVOLOG *MILD* ALGORI... AC MEALS AND BEDTIME SC ; Start 09/05/18 at 13:30 Metoclopramide HCl (Reglan) 10 mg ONCE ONCE PO ; Start 09/05/18 at 13:30; Stop 09/05/18 at 13:31 MAYRA CAMACHO MD Sep 05, 2018 13:27
[2018-09-05] MEDS ORDERED: INSULIN ASPART [NOVOLOG] 3 ML PEN SC SCH ×3 (13:30→17:55)
[2018-09-05] MEDS ORDERED: METOCLOPRAMIDE 10 MG TAB PO ONE (13:30)
[2018-09-05] MEDS ORDERED: METOCLOPRAMIDE 10 MG INJ IV ONE (13:30)
[2018-09-05] MEDS: METOCLOPRAMIDE 10 MG INJ IV SCH ×2 (13:42→20:29)
[2018-09-05] MEDS ORDERED: METOCLOPRAMIDE 10 MG TAB PO SCH ×2 (17:25)
[2018-09-05] MEDS: LACTULOSE 30ML CUP PO SCH ×3 (18:32→23:00)
[2018-09-05] MEDS ORDERED: INSULIN GLARGINE [LANTus] (100 UNITS/ML) SYG SC SCH ×2 (20:00)
[2018-09-05] MEDS: MONTELUKAST 10 MG TAB PO SCH (20:29)
[2018-09-06] MEDS: ONDANSETRON 4 MG INJ IV PRN (00:19)
[2018-09-06] MEDS: INSULIN ASPART [NOVOLOG] 3 ML PEN SC SCH ×2 (00:59→05:10)
[2018-09-06 02:20] VITALS: BP 103/57; PULSE 67; RESP 20
[2018-09-06 07:50] VITALS: BP 126/70; PULSE 76
[2018-09-06 07:58] VITALS: BP 131/67; PULSE 78; RESP 17
[2018-09-06] MEDS: ASPIRIN (EC) 81 MG TAB PO SCH (08:33)
[2018-09-06] MEDS: PANTOPRAZOLE (EC) 40 MG TAB PO SCH (08:33)
[2018-09-06] MEDS: SERTRALINE 50 MG TAB PO SCH (08:33)
[2018-09-06] MEDS: METOCLOPRAMIDE 10 MG INJ IV SCH (08:33)
--- NOTE | 2018-09-06 08:39 | PN ---
Date/Time of Note Date/Time of Note DATE: 09/06/18 TIME: 08:38 Assessment/Plan VTE Prophylaxis Risk score (from Ns)>0 risk: 6 SCD applied (from Ns): Yes Pharmacological prophylaxis: NA/contraindicated, other Pharm contraindication: renal impairment Lines/Catheters IV [facility]from [facility] Urinary Cath still in place: No Assessment/Plan Hospital Course Summary Assessment and Plan: Assessment: Nausea/vomiting with reported hematemesis- resolved Status post fall with questionable C5 and right humeral fracture Recurrent syncope CAD with history of CABG Hypertension Insulin-dependent diabetes End-stage renal disease on PD Plan: Reglan 10mg IV BID- per nephrology- KUB- There is a normal amount of fecal debris in the colon suggestion of a mild ileus pattern but no evidence of bowel obstruction. this was taken prior to Bm's Patient has had previous NM Gastric emptying study positive for gastroparesis - per patient's family No plan for endoscopic evaluation at this time Continue close observation Patient seen in collaboration with Dr. Way Subjective: Course reviewed with nursing staff Patient interviewed and examined All labs, imaging and other results reviewed Patient had x2 BM with bowel regimen. N/v have improved with the use of Reglan. Possible d/c to ARU today. Exam PHYSICAL EXAMINATION: GENERAL: Alert & oriented x 3, in no acute distress SKIN: No lesions HEAD: Normocephalic, atraumatic, no tenderness. EYES: Pupils equal reactive to light and accommodation, no discharge. EARS/NOSE AND THROAT: Ears normal, nose normal, oropharynx normal. NECK: Supple, no masses CHEST: Inspection within normal limits. CARDIOVASCULAR: Heart: Regular rate and rhythm RESPIRATORY: Lungs clear to auscultation and percussion, no wheezing, no rubs GASTROINTESTINAL AND LIVER: Abdomen: Soft, non tenderness, distended- PD, no hernias, no masses,no guarding, no rebound tenderness, normoactive bowel sounds. Rectal: Deferred. Result Diagram: 09/06/187 09/06/18426 Results 24hrs Laboratory Tests Test 09/05/18 10:08 09/05/18 12:07 09/05/18 15:29 09/05/18 19:51 Bedside Glucose 174 234 H 309 H 296 H Test 09/06/18 00:53 09/06/18 04:27 09/06/18 05:02 09/06/18 08:32 Bedside Glucose 326 H 278 H 183 White Blood Count 8.3 Red Blood Count 3.67 L Hemoglobin 10.6 L Hematocrit 32.9 L Mean Corpuscular 89.6 Volume Mean Corpuscular 28.9 L Hemoglobin Mean Corpuscular 32.2 Hemoglobin Concent Red Cell 13.8 Distribution Width Platelet Count 271 Mean Platelet Volume 9.5 Immature 0.700 H Granulocytes % Neutrophils % 78.3 H Lymphocytes % 12.3 L Monocytes % 8.4 Eosinophils % 0.1 Basophils % 0.2 Nucleated Red Blood 0.0 Cells % Immature 0.060 H Granulocytes # Neutrophils # 6.5 Lymphocytes # 1.0 Monocytes # 0.7 Eosinophils # 0.0 Basophils # 0.0 Nucleated Red Blood 0.0 Cells # Sodium Level 134 L Potassium Level 4.2 Chloride Level 88 L Carbon Dioxide Level 28 Anion Gap 18 H Blood Urea Nitrogen 69 H Creatinine 14.04 H Est Glomerular 4 L Filtrat Rate mL/min Glucose Level 307 H Calcium Level 9.5 Phosphorus Level 8.8 H Magnesium Level 2.6 H Exam/Review of Systems Exam Vitals Vital Signs Date Temp Pulse Resp B/P (MAP) Pulse Ox O2 O2 Flow FiO2 Time Delivery Rate 09/06/18 98.1 78 17 131/67 97 Room Air 07:58 (88) Intake and Output 09/05/18 09/05/18 09/06/18 1414:59 22:59 06:59 IntakeIntake Total 300 ml 10 ml OutputOutput Total 1140 ml 400 ml 50 ml BalanceBalance -840 ml -390 ml -50 ml Results Results 24hrs Laboratory Tests Test 09/05/18 10:08 09/05/18 12:07 09/05/18 15:29 09/05/18 19:51 Bedside Glucose 174 234 H 309 H 296 H Test 09/06/18 00:53 09/06/18 04:27 09/06/18 05:02 09/06/18 08:32 Bedside Glucose 326 H 278 H 183 White Blood Count 8.3 Red Blood Count 3.67 L Hemoglobin 10.6 L Hematocrit 32.9 L Mean Corpuscular 89.6 Volume Mean Corpuscular 28.9 L Hemoglobin Mean Corpuscular 32.2 Hemoglobin Concent Red Cell 13.8 Distribution Width Platelet Count 271 Mean Platelet Volume 9.5 Immature 0.700 H Granulocytes % Neutrophils % 78.3 H Lymphocytes % 12.3 L Monocytes % 8.4 Eosinophils % 0.1 Basophils % 0.2 Nucleated Red Blood 0.0 Cells % Immature 0.060 H Granulocytes # Neutrophils # 6.5 Lymphocytes # 1.0 Monocytes # 0.7 Eosinophils # 0.0 Basophils # 0.0 Nucleated Red Blood 0.0 Cells # Sodium Level 134 L Potassium Level 4.2 Chloride Level 88 L Carbon Dioxide Level 28 Anion Gap 18 H Blood Urea Nitrogen 69 H Creatinine 14.04 H Est Glomerular 4 L Filtrat Rate mL/min Glucose Level 307 H Calcium Level 9.5 Phosphorus Level 8.8 H Magnesium Level 2.6 H Medications Medication Current Medications IV Flush (NS 3 ml) 3 ml PER PROTOCOL IV ; Start 08/31/18 at 16:30 Acetaminophen (Tylenol Tab) 650 mg Q6H PRN PO .PAIN 1-3 OR TEMP; Start 08/31/18 at 16:30 Docusate Sodium (Colace) 100 mg Q12H PRN PO .CONSTIPATION; Start 08/31/18 at 16:30 Zolpidem Tartrate (Ambien) 5 mg QHS PRN PO .INSOMNIA Last administered on 09/02/18at 22:02; Admin Dose 5 MG; Start 08/31/18 at 16:30 Miscellaneous Information 1 ea NOTE XX ; Start 08/31/18 at 17:30 Glucose (Glutose) 15 gm Q15M PRN PO DECREASED GLUCOSE; Start 08/31/18 at 17:30 Glucose (Glutose) 22.5 gm Q15M PRN PO DECREASED GLUCOSE; Start 08/31/18 at 17:30 Dextrose (D50w Syringe) 25 ml Q15M PRN IV DECREASED GLUCOSE Last administered on 09/01/18at 06:36; Admin Dose 25 ML; Start 08/31/18 at 17:30 Dextrose (D50w Syringe) 50 ml Q15M PRN IV DECREASED GLUCOSE; Start 08/31/18 at 17:30 Glucagon (Glucagen) 1 mg Q15M PRN IM DECREASED GLUCOSE; Start 08/31/18 at 17:30 Glucose (Glutose) 15 gm Q15M PRN BUCCAL DECREASED GLUCOSE; Start 08/31/18 at 17:30 Lorazepam (Ativan) 1 mg Q6H PRN IV ANXIETY Last administered on 09/02/18 06:29; Admin Dose 1 MG; Start 09/02/18 at 06:30 Aspirin (Halfprin) 81 mg DAILY PO Last administered on 09/06/18 08:33; Admin Dose 81 MG; Start 09/03/18 at 09:00 Pantoprazole (Protonix Tab) 40 mg DAILY PO Last administered on 09/06/18 08:33; Admin Dose 40 MG; Start 09/03/18 at 09:00 Sertraline HCl (Zoloft) 50 mg DAILY PO Last administered on 09/06/18 08:33; Admin Dose 50 MG; Start 09/03/18 at 09:00 Hydralazine HCl (Apresoline) 10 mg Q4H PRN IV SBP>170 Last administered on 09/05/18 15:55; Admin Dose 10 MG; Start 09/02/18 at 19:30 Ondansetron HCl (Zofran Inj) 4 mg Q4H PRN IV NAUSEA AND/OR VOMITING Last administered on 09/06/18 00:19; Admin Dose 4 MG; Start 09/03/18 at 11:30 Bisacodyl (Dulcolax Supp) 10 mg DAILY PRN [place] CONSTIPATION Last administered on 09/04/18 11:35; Admin Dose 10 MG; Start 09/03/18 at 12:00 Ibuprofen (Motrin) 400 mg Q8H PRN PO pain Last administered on 09/04/18 19:48; Admin Dose 400 MG; Start 09/04/18 at 16:30 Metoclopramide HCl (Reglan) 10 mg BID IV Last administered on 09/06/18 08:33; Admin Dose 10 MG; Start 09/05/18 at 14:00 Insulin Aspart (Novolog Insulin Pen) NOVOLOG *MILD* ALGORI... Q4 SC ; Start 09/06/18 at 09:00 Insulin Glargine (Lantus) 25 units DAILY@2000 SC ; Start 09/06/18 at 20:00; Status UNV Insulin Aspart (Novolog Insulin Pen) 6 unit WITH MEALS SC ; Start 09/06/18 at 11:40; Status UNV TAN GARZON Sep 06, 2018 08:39
[2018-09-06] MEDS ORDERED: INSULIN ASPART [NOVOLOG] 3 ML PEN SC SCH ×3 (09:00→12:30)
--- NOTE | 2018-09-06 10:27 | CONS ---
Assessment/Plan Assessment/Plan Assessment/Plan (Daily) 1. ESRD on Peritoneal dialysis 2. Recurrent syncope 3. H/o CAD s/p CABG 4. H/O HTN 5. H/o DM II 6. H/o HL 7. Oblique fracture of the right humeral neck., Nondisplaced fracture of the acromion. 8. Severe constipation with vomiting Plan: CTA neck negative for dissection, No C5 Fracture on CT Scan -pt had a one episode of vomiting today, S/p GI consult, plan is to try reglan and if no response then pt will need Upper endoscopy, still constipated- GI following - bowel regimen adjusted for today Contiue PD today and tomorrow with 2.5% solution - 3 cycles no need for epogen Continue other home meds will follow up Consultation Date/Type/Reason Admit Date/Time Aug 31, 2018 at 15:42 Initial Consult Date 08/31/18 Type of Consult NEPHROLOGY Requesting Provider: ALDAIR AGUILAR Date/Time of Note DATE: 09/06/18 TIME: 10:27 Exam/Review of Systems Exam Vitals Vital Signs Date Temp Pulse Resp B/P (MAP) Pulse Ox O2 O2 Flow FiO2 Time Delivery Rate 09/06/18 98.1 78 17 131/67 97 Room Air 07:58 (88) Intake and Output 09/05/18 09/05/18 09/06/18 1414:59 22:59 06:59 IntakeIntake Total 300 ml 10 ml OutputOutput Total 1140 ml 400 ml 50 ml BalanceBalance -840 ml -390 ml -50 ml Results Result Diagram: 09/06/18 0427 09/06/18 0427 Results 24hrs Laboratory Tests Test 09/05/18 12:07 09/05/18 15:29 09/05/18 19:51 09/06/18 00:53 Bedside Glucose 234 H 309 H 296 H 326 H Test 09/06/18 04:27 09/06/18 05:02 09/06/18 08:32 White Blood Count 8.3 Red Blood Count 3.67 L Hemoglobin 10.6 L Hematocrit 32.9 L Mean Corpuscular 89.6 Volume Mean Corpuscular 28.9 L Hemoglobin Mean Corpuscular 32.2 Hemoglobin Concent Red Cell 13.8 Distribution Width Platelet Count 271 Mean Platelet Volume 9.5 Immature 0.700 H Granulocytes % Neutrophils % 78.3 H Lymphocytes % 12.3 L Monocytes % 8.4 Eosinophils % 0.1 Basophils % 0.2 Nucleated Red Blood 0.0 Cells % Immature 0.060 H Granulocytes # Neutrophils # 6.5 Lymphocytes # 1.0 Monocytes # 0.7 Eosinophils # 0.0 Basophils # 0.0 Nucleated Red Blood 0.0 Cells # Sodium Level 134 L Potassium Level 4.2 Chloride Level 88 L Carbon Dioxide Level 28 Anion Gap 18 H Blood Urea Nitrogen 69 H Creatinine 14.04 H Est Glomerular 4 L Filtrat Rate mL/min Glucose Level 307 H Calcium Level 9.5 Phosphorus Level 8.8 H Magnesium Level 2.6 H Bedside Glucose 278 H 183 Medications Medication Current Medications IV Flush (NS 3 ml) 3 ml PER PROTOCOL IV ; Start 08/31/18 at 16:30 Acetaminophen (Tylenol Tab) 650 mg Q6H PRN PO .PAIN 1-3 OR TEMP; Start 08/31/18 at 16:30 Docusate Sodium (Colace) 100 mg Q12H PRN PO .CONSTIPATION; Start 08/31/18 at 16:30 Zolpidem Tartrate (Ambien) 5 mg QHS PRN PO .INSOMNIA Last administered on 09/02/18at 22:02; Admin Dose 5 MG; Start 08/31/18 at 16:30 Miscellaneous Information 1 ea NOTE XX ; Start 08/31/18 at 17:30 Glucose (Glutose) 15 gm Q15M PRN PO DECREASED GLUCOSE; Start 08/31/18 at 17:30 Glucose (Glutose) 22.5 gm Q15M PRN PO DECREASED GLUCOSE; Start 08/31/18 at 17:30 Dextrose (D50w Syringe) 25 ml Q15M PRN IV DECREASED GLUCOSE Last administered on 09/01/18at 06:36; Admin Dose 25 ML; Start 08/31/18 at 17:30 Dextrose (D50w Syringe) 50 ml Q15M PRN IV DECREASED GLUCOSE; Start 08/31/18 at 17:30 Glucagon (Glucagen) 1 mg Q15M PRN IM DECREASED GLUCOSE; Start 08/31/18 at 17:30 Glucose (Glutose) 15 gm Q15M PRN BUCCAL DECREASED GLUCOSE; Start 08/31/18 at 17:30 Lorazepam (Ativan) 1 mg Q6H PRN IV ANXIETY Last administered on 09/02/18 06:29; Admin Dose 1 MG; Start 09/02/18 at 06:30 Aspirin (Halfprin) 81 mg DAILY PO Last administered on 09/06/18 08:33; Admin Dose 81 MG; Start 09/03/18 at 09:00 Pantoprazole (Protonix Tab) 40 mg DAILY PO Last administered on 09/06/18 08:33; Admin Dose 40 MG; Start 09/03/18 at 09:00 Sertraline HCl (Zoloft) 50 mg DAILY PO Last administered on 09/06/18 08:33; Admin Dose 50 MG; Start 09/03/18 at 09:00 Hydralazine HCl (Apresoline) 10 mg Q4H PRN IV SBP>170 Last administered on 09/05/18 15:55; Admin Dose 10 MG; Start 09/02/18 at 19:30 Ondansetron HCl (Zofran Inj) 4 mg Q4H PRN IV NAUSEA AND/OR VOMITING Last administered on 09/06/18 00:19; Admin Dose 4 MG; Start 09/03/18 at 11:30 Bisacodyl (Dulcolax Supp) 10 mg DAILY PRN [place] CONSTIPATION Last administered on 09/04/18 11:35; Admin Dose 10 MG; Start 09/03/18 at 12:00 Ibuprofen (Motrin) 400 mg Q8H PRN PO pain Last administered on 09/04/18 19:48; Admin Dose 400 MG; Start 09/04/18 at 16:30 Metoclopramide HCl (Reglan) 10 mg BID IV Last administered on 09/06/18 08:33; Admin Dose 10 MG; Start 09/05/18 at 14:00 Insulin Aspart (Novolog Insulin Pen) NOVOLOG *MILD* ALGORI... Q4 SC Last administered on 09/06/18 08:53; Admin Dose 2 UNIT; Start 09/06/18 at 09:00 Insulin Glargine (Lantus) 25 units DAILY@2000 SC ; Start 09/06/18 at 20:00 Insulin Aspart (Novolog Insulin Pen) 6 unit WITH MEALS SC ; Start 09/06/18 at 11:40 JACQUES VALENCIA MD Sep 06, 2018 10:27
--- NOTE | 2018-09-06 12:29 | DS ---
Date/Time of Note Date/Time of Note DATE: 09/06/18 TIME: 12:24 Discharge Summary Admission/Discharge Info Admit Date/Time Aug 31, 2018 at 15:42 Discharge Date/Time Discharge Diagnosis Syncope Humerus fracture Patient Condition: Stable Hospital Course The patient presented to the emergency room after a syncopal event. Imaging was notable for a humerus fracture. He was seen by orthopedics who recommended conservative management with sling immobilization for the coming weeks and follow-up in clinic. There was concern on imaging that he also may have a C5 fracture. He was seen by Dr. Joel from neurosurgery who recommended MRI and CT angiography. [place] [facility] that there was no acute issue and no further c-collar intervention was required. The patient was continued on peritoneal dialysis for his end-stage renal disease by Dr. Goodson. His syncope was attributed to autonomic neuropathy from his diabetes he was ruled out for myocardial infarction and echo showed a normal EF. There is no evidence of arrhythmia on telemetry. The patient had prandial symptoms of nausea and vomiting. He had recently undergone a work-up for this at an outside hospital where a nuclear imaging study confirmed the diagnosis of gastroparesis. He was started on Reglan here with some benefit. This will need to be prescribed to him at discharge. He has also had increasing hyperglycemia as we have tried to titrate his insulin. This will need to be ongoing at acute rehab At discharge: - Reglan Rx - Follow up at [facility] gastroparesis clinic - Insulin dosing - Orthopedics follow up Home Meds Reported Medications Atorvastatin* (Atorvastatin*) 80 Mg Tablet, 80 MG PO QHS, #30 TAB 08/31/18 Clonidine Hcl* (Clonidine Hcl*) 0.1 Mg Tab, 0.1 MG PO Q8 PRN for BLOOD PRESSURE SUPPORT, TAB 08/31/18 Pregabalin* (Lyrica*) 150 Mg Capsule, 150 MG PO DAILY, CAP 08/31/18 Pantoprazole* (Protonix*) 40 Mg Tablet., 40 MG PO DAILY, TAB 08/31/18 Aspirin (Low Dose Aspirin) 81 Mg Tablet.dr, 81 MG PO DAILY, #30 TAB 08/31/18 Insulin Glargine,Hum.rec.anlog (Basaglar Kwikpen U-100) 100 Unit/1 Ml Insuln.pen, 0 SC BID WITH MEALS, EA SLIDING SCALE 08/31/18 Insulin Glargine* (Lantus*) 100 Unit/Ml Soln, 50 UNIT SC QHS, #1 VIAL 08/31/18 Sertraline Hcl* (Zoloft*) 50 Mg Tablet, 50 MG PO DAILY, #30 TAB 08/31/18 Montelukast Sodium* (Montelukast Sodium*) 10 Mg Tablet, 10 MG PO QHS, #30 TAB 08/31/18 Clopidogrel Bisulfate (Clopidogrel) 75 Mg Tablet, 75 MG PO DAILY, #30 TAB 08/31/18 Sevelamer Hcl* (Renagel*) 800 Mg Tablet, 2400 MG PO WITH MEALS, TAB 08/31/18 Nifedipine* (Nifedipine ER*) 90 Mg Tablet.er, 90 MG PO DAILY, TAB 08/31/18 Ondansetron Hcl* (Zofran*) 4 Mg Tab, 4 MG PO Q8 PRN for NAUSEA AND OR VOMITING, TAB 08/31/18 Metoclopramide* (Reglan*) 5 Mg Tablet, 5 MG PO TIDM A, TAB 08/31/18 Follow-up Plan FOLLOW UP WITH YOUR PRIMARY CARE PHYSICIAN IN 1-2 WEEKS Primary Care Provider Not On Staff Doctor Pending Labs Laboratory Tests Test 09/05/18 15:29 09/05/18 19:51 09/06/18 00:53 09/06/18 04:27 Bedside 309 296 326 Glucose mg/dL (70-220) mg/dL (70-220) mg/dL (70-220) White Blood 8.3 Count 10^3/ul (4.8-1 0.8) Red Blood 3.67 Count 10^6/ul (4.70- 6.10) Hemoglobin 10.6 g/dl (14.0-18. 0) Hematocrit 32.9 % (42.0-52.0) Mean 89.6 Corpuscular fl (82.0-101.0 Volume ) Mean 28.9 Corpuscular pg (29.0-33.0) Hemoglobin Mean 32.2 Corpuscular g/dl (32.0-37. Hemoglobin Conc 0) ent Red Cell 13.8 Distribution % (11.5-14.5) Width Platelet Count 271 10^3/UL (140-4 15) Mean Platelet 9.5 Volume fl (7.4-10.4) Immature 0.700 Granulocytes % % (0.001-0.429 ) Neutrophils % 78.3 % (39.0-77.0) Lymphocytes % 12.3 % (15.0-51.0) Monocytes % 8.4 % (0.0-11.0) Eosinophils % 0.1 % (0.0-7.0) Basophils % 0.2 % (0.0-2.0) Nucleated Red 0.0 Blood Cells % /100WBC (0.0-0 .0) Immature 0.060 Granulocytes # 10^3/ul (0.0-0 .031) Neutrophils # 6.5 10^3/ul (1.6-7 .5) Lymphocytes # 1.0 10^3/ul (0.8-2 .9) Monocytes # 0.7 10^3/ul (0.3-0 .9) Eosinophils # 0.0 10^3/ul (0.0-0 .5) Basophils # 0.0 10^3/ul (0.0-0 .1) Nucleated Red 0.0 Blood Cells # 10^3/ul (0.0-0 .0) Sodium Level 134 mmol/L (135-14 4) Potassium 4.2 Level mmol/L (3.5-5. 1) Chloride Level 88 mmol/L (97-110 ) Carbon Dioxide 28 Level mmol/L (21-31) Anion Gap 18 (5-13) Blood Urea 69 Nitrogen mg/dl (7-20) Creatinine 14.04 mg/dl (0.61-1. 24) Est Glomerular 4 mL/min (>60) Filtrat Rate mL/min Glucose Level 307 mg/dl (70-220) Calcium Level 9.5 mg/dl (8.4-10. 2) Phosphorus 8.8 Level mg/dl (2.5-4.9 ) Magnesium 2.6 Level mg/dl (1.7-2.5 ) Test 09/06/18 05:02 09/06/18 08:32 Bedside 278 183 Glucose mg/dL (70-220) mg/dL (70-220) MAYRA CAMACHO MD Sep 06, 2018 12:29
[2018-09-06] MEDS ORDERED: INSULIN GLARGINE [LANTus] (100 UNITS/ML) SYG SC SCH (20:00)
[2018-09-07] MEDS ORDERED: ACCU-CHEK XX SCH (02:00)
== END 2018-09-06 13:41 | DRG 73 ==
LOC: E/R 13:34 → 6WM 15:42 → MS1 09-02 05:37
PROVIDERS: ADMIT Internal Medicine; ATTEND Internal Medicine
PROC: 3E1M39Z Irrigation of Peritoneal Cavity using Dialysate, Percutaneous Approach (ICD-10-PCS; principal; 2018-09-01)
DX: E11.43 Type 2 diabetes mellitus with diabetic autonomic (poly)neuropathy (principal); N18.6 End stage renal disease; I12.0 Hypertensive chronic kidney disease with stage 5 chronic kidney disease or end stage renal disease; S42.294A Other nondisplaced fracture of upper end of right humerus, initial encounter for closed fracture; K92.0 Hematemesis; K31.84 Gastroparesis; E11.22 Type 2 diabetes mellitus with diabetic chronic kidney disease; I25.10 Atherosclerotic heart disease of native coronary artery without angina pectoris; S42.124A Nondisplaced fracture of acromial process, right shoulder, initial encounter for closed fracture; E11.65 Type 2 diabetes mellitus with hyperglycemia; K59.00 Constipation, unspecified; Z79.4 Long term (current) use of insulin; W10.9XXA Fall (on) (from) unspecified stairs and steps, initial encounter; Z95.1 Presence of aortocoronary bypass graft; Z99.2 Dependence on renal dialysis
CPT/HCPCS: 36415; 70450; 70498; 71045; 72050; 72125; 73550; 74018; 80048; 80061; 82962; 83036; 83735; 84100; 84484; 85025; 85610; 85730; 86706; 87340; 90945; 93005; 93306; 96374; 96375; 97110; 97116; 97162; 97530; J0360; J1815; J2060; J2270; J2405; J2765; J7030; Q9967

== ENCOUNTER 2018-09-04 16:25 | Inpatient (IN) | payer MEDICARE, OTHER ==
[~2018-09-04] VITALS: Ht 180.3 cm; Wt 80.0 kg
[~2018-09-04 16:25] MED LIST: ASPI81TA52 PO; ATOR-2 PO; CLON-379 PO; CLON0.1T14 PO; CLOP75TA27 PO; INSU100I33 SC; ISOS30TA67 PO; Insulin Glargine SC; LANT3I SC; METO-448 PO; METO5TAB58 PO; MONT10TA24 PO; NIFE90TA11 PO; NITR0.4T32 SL; ONDA4TAB13 PO; PANT40TA3 PO; PREG150C PO; SERT50TA PO; SVL800C PO
[2018-09-06 13:50] VITALS: BP 144/75; PULSE 76; RESP 18
[2018-09-06] MEDS ORDERED: NACL 0.9% 3 ML SYG IV SCH (15:00)
[2018-09-06] MEDS ORDERED: ONDANSETRON 4 MG INJ IV PRN (15:00)
[2018-09-06] MEDS ORDERED: hydrALAzine 20 MG INJ IV PRN (15:00)
[2018-09-06] MEDS ORDERED: ZOLPIDEM 5 MG TAB PO PRN (15:00)
[2018-09-06] MEDS ORDERED: LORAZEPAM 2 MG INJ IV PRN (15:00)
[2018-09-06] MEDS ORDERED: IBUPROFEN 400 MG TAB PO PRN (15:00)
[2018-09-06] MEDS ORDERED: PENDING SANTYL ORDER FOR WOUND CARE XX PRN (15:30)
[2018-09-06] MEDS ORDERED: GLUCOSE GEL 15 GRAM TUBE PO PRN ×2 (16:00)
[2018-09-06] MEDS ORDERED: DEXTROSE 50% 50 ML SYRINGE IV PRN ×2 (16:00)
[2018-09-06] MEDS ORDERED: GLUCOSE GEL 15 GRAM TUBE BUCCAL PRN (16:00)
[2018-09-06] MEDS ORDERED: GLUCAGON 1 MG INJ IM PRN (16:00)
[2018-09-06] MEDS ORDERED: INSULIN ASPART [NOVOLOG] 3 ML PEN SC SCH (17:35)
[2018-09-06] MEDS: INSULIN ASPART [NOVOLOG] 3 ML PEN SC SCH ×3 (17:47→21:00)
[2018-09-06 19:42] VITALS: BP 125/63; PULSE 77; RESP 18
[2018-09-06] MEDS ORDERED: INSULIN GLARGINE [LANTus] (100 UNITS/ML) SYG SC SCH (20:00)
[2018-09-06] MEDS: DOCUSATE SODIUM 100 MG CAP PO SCH (21:00)
[2018-09-06 21:50] VITALS: BP 116/60; PULSE 86
[2018-09-06] MEDS: METOCLOPRAMIDE (1 MG/ML) 10 ML CUP PO SCH (22:01)
[2018-09-07 02:00] VITALS: BP 128/65; PULSE 77; RESP 18
[2018-09-07] MEDS: ACCU-CHEK XX SCH (02:00)
[2018-09-07] MEDS: PANTOPRAZOLE (EC) 40 MG TAB PO SCH (06:22)
[2018-09-07 07:00] VITALS: BP 133/81; PULSE 65; RESP 18
[2018-09-07 07:45] VITALS: BP 173/81; PULSE 65
[2018-09-07] MEDS: INSULIN ASPART [NOVOLOG] 3 ML PEN SC SCH ×7 (08:40→20:33)
[2018-09-07] MEDS: DOCUSATE SODIUM 100 MG CAP PO SCH ×2 (08:43→20:16)
[2018-09-07] MEDS: METOCLOPRAMIDE (1 MG/ML) 10 ML CUP PO SCH ×2 (08:43→20:15)
--- NOTE | 2018-09-07 08:52 | CONS ---
Assessment/Plan Assessment/Plan Assessment/Plan (Daily) 1. ESRD on Peritoneal dialysis 2. Recurrent syncope 2/2 autonomic neuropathy 3. H/o CAD s/p CABG 4. H/O HTN 5. H/o DM II 6. H/o HL 7. Oblique fracture of the right humeral neck., Nondisplaced fracture of the acromion. 8. Severe constipation with vomiting Plan: Contiue PD today and tomorrow with 2.5% solution - 4 cycles - daily PD no need for epogen Continue other home meds Rehab plan as per Rehab physician will follow up Consultation Date/Type/Reason Admit Date/Time Sep 06, 2018 at 13:45 Date of Consultation: Sep 07, 2018 Type of Consult NEPHROLOGY Reason for Consultation ESRD on PD with Right humerus fracture Requesting Provider: ANNEMARIE BURROUGHS NP Date/Time of Note DATE: 09/07/18 TIME: 08:52 Hx of Present Illness 63-year-old male with a history of type 2 diabetes, ESRD on peritoneal dialysis, hypertension, old CVAs, CAD, status post CABG, who was admitted at [facility] on 08/31/2018 with syncopal episode. Patient's hospitalization was noted for right humeral neck fracture for which he was seen by orthopedic surgery, with no surgical intervention recommended. Patient was kept on nonweightbearing with a right arm sling. He was also noted with a questionable C5 fracture for which he was seen by neurosurgery. This was further imaged with a CTA ands found with no damage to vertebral artery, no acute fractures, as such did not require any cervical collar or other surgical intervention. Syncopal episode was thought to be secondary to autonomic neuropathy and symptoms did not occur. Patient hospitalization was noted for pain and labile blood pressures which were managed medically. Hospitalization was also noted for nausea and vomiting thought to be secondary to previously diagnosed gastroparesis for which he was treated with Reglan with improvement in symptoms with eventual [facility] follow-up. Patient was then evaluated by physical therapy team and found with decline in his baseline function is still requiring further inpatient rehabilitation and was accepted to acute rehabilitation unit. Renal has been consulted for Peritoneal dialysis need Constitutional: poor po Eyes: no complaints ENT: no complaints Respiratory: no complaints Cardiovascular: no complaints Gastrointestinal: pain, constipation, diarrhea Genitourinary: no complaints Musculoskeletal: no complaints Skin: no complaints Neurologic: no complaints Endocrine: no complaints Lymphatic: no complaints Psychological: no complaints Immunologic: no complaints Past Medical History Medical History: high cholesterol, hypertension, renal disease, other (ESRD on PD ) Home Meds Reported Medications Atorvastatin* (Atorvastatin*) 80 Mg Tablet, 80 MG PO QHS, #30 TAB 08/31/18 Clonidine Hcl* (Clonidine Hcl*) 0.1 Mg Tab, 0.1 MG PO Q8 PRN for BLOOD PRESSURE SUPPORT, TAB 08/31/18 Pregabalin* (Lyrica*) 150 Mg Capsule, 150 MG PO DAILY, CAP 08/31/18 Pantoprazole* (Protonix*) 40 Mg Tablet.dr, 40 MG PO DAILY, TAB 08/31/18 Aspirin (Low Dose Aspirin) 81 Mg Tablet.dr, 81 MG PO DAILY, #30 TAB 08/31/18 Insulin Glargine,Hum.rec.anlog (Basaglar Kwikpen U-100) 100 Unit/1 Ml Insuln.pen, 0 SC BID WITH MEALS, EA SLIDING SCALE 08/31/18 Insulin Glargine* (Lantus*) 100 Unit/Ml Soln, 50 UNIT SC QHS, #1 VIAL 08/31/18 Sertraline Hcl* (Zoloft*) 50 Mg Tablet, 50 MG PO DAILY, #30 TAB 08/31/18 Montelukast Sodium* (Montelukast Sodium*) 10 Mg Tablet, 10 MG PO QHS, #30 TAB 08/31/18 Clopidogrel Bisulfate (Clopidogrel) 75 Mg Tablet, 75 MG PO DAILY, #30 TAB 08/31/18 Sevelamer Hcl* (Renagel*) 800 Mg Tablet, 2400 MG PO WITH MEALS, TAB 08/31/18 Nifedipine* (Nifedipine ER*) 90 Mg Tablet.er, 90 MG PO DAILY, TAB 08/31/18 Ondansetron Hcl* (Zofran*) 4 Mg Tab, 4 MG PO Q8 PRN for NAUSEA AND OR VOMITING, TAB 08/31/18 Metoclopramide* (Reglan*) 5 Mg Tablet, 5 MG PO TIDM A, TAB 08/31/18 Medications Current Medications Bisacodyl (Dulcolax Supp) 10 mg DAILY PRN [place] CONSTIPATION; Start 09/06/18 at 15:00 Docusate Sodium (Colace) 100 mg BID PO ; Start 09/06/18 at 21:00 Hydralazine HCl (Apresoline) 10 mg Q4H PRN IV ELEVATED SYSTOLIC BP; Start 08/14 07/01 at 15:00 Ibuprofen (Motrin) 400 mg Q8H PRN PO MILD PAIN(1-3) OR TEMP>38C; Start 09/06/18 at 15:00 Diagnostic Test (Pha) (Accu-Chek) 1 ea 02 XX ; Start 09/07/18 at 02:00 Insulin Aspart (Novolog Insulin Pen) NOVOLOG *MILD* ALGORITHM WITH MEALS BEDTIME SC Last administered on 09/06/18at 17:47; Admin Dose 1 UNIT; Start 09/06/18 at 17:35 Insulin Glargine (Lantus) 25 units DAILY@2000 SC Last administered on 09/06/18at 22:04; Admin Dose 25 UNITS; Start 09/06/18 at 20:00 Lorazepam (Ativan) 1 mg Q6H PRN IV ANXIETY; Start 09/06/18 at 15:00 Metoclopramide HCl (Reglan Liq) 10 mg BID PO Last administered on 09/06/18at 22:01; Admin Dose 10 MG; Start 09/06/18 at 21:00 Ondansetron HCl (Zofran Inj) 4 mg Q4H PRN IV NAUSEA AND/OR VOMITING; Start 09/06/18 at 15:00 Pantoprazole (Protonix Tab) 40 mg DAILY@06 PO Last administered on 09/07/18at 06:22; Admin Dose 40 MG; Start 09/07/18 at 06:00 IV Flush (NS 3 ml) 3 ml Q8H and PRN adm IV ; Start 09/06/18 at 15:00 Sertraline HCl (Zoloft) 50 mg DAILY PO ; Start 09/07/18 at 09:00 Zolpidem Tartrate (Ambien) 5 mg HS PRN PO INSOMNIA; Start 09/06/18 at 15:00 Miscellaneous Information 1 ea NOTE XX ; Start 09/06/18 at 16:00 Glucose (Glutose) 15 gm Q15M PRN PO DECREASED GLUCOSE; Start 09/06/18 at 16:00 Glucose (Glutose) 22.5 gm Q15M PRN PO DECREASED GLUCOSE; Start 09/06/18 at 16:00 Dextrose (D50w Syringe) 25 ml Q15M PRN IV DECREASED GLUCOSE; Start 09/06/18 at 16:00 Dextrose (D50w Syringe) 50 ml Q15M PRN IV DECREASED GLUCOSE; Start 09/06/18 at 16:00 Glucagon (Glucagen) 1 mg Q15M PRN IM DECREASED GLUCOSE; Start 09/06/18 at 16:00 Glucose (Glutose) 15 gm Q15M PRN BUCCAL DECREASED GLUCOSE; Start 09/06/18 at 16:00 Miscellaneous Information [facility] This patient turner... PRN PRN XX WOUND CARE; Start 09/06/18 at 15:30 Insulin Aspart (Novolog Insulin Pen) 6 unit WITH MEALS SC Last administered on 09/06/18at 17:48; Admin Dose 6 UNIT; Start 09/06/18 at 17:35 Allergies: Coded Allergies: No Known Allergy (Unverified , 08/31/18) Past Surgical History Past Surgical Hx: other (PD cathete rin place ) Family History Significant Family History: no pertinent family hx Social History Alcohol Use: none Smoking Status: Never smoker Drug Use: none Exam/Review of Systems Exam Vitals Vital Signs Date Temp Pulse Resp B/P (MAP) Pulse Ox O2 O2 Flow FiO2 Time Delivery Rate 09/07/18 97.8 77 18 128/65 96 Room Air 02:00 (86) Intake and Output 09/06/18 09/06/18 09/07/18 1515:00 23:00 07:00 IntakeIntake Total 120 ml 120 ml BalanceBalance 120 ml 120 ml Constitutional: alert Head: normocephalic ENMT: nl external ears & nose Neck: supple, non-tender Respiratory: clear to auscultation, normal air movement Cardiovascular: regular rate and rhythm, nl pulses Gastrointestinal: soft, non-tender Musculoskeletal: nl extremities to inspection, muscle weakness Extremities: normal pulses Neurological: CARE TRANSITIONS NURSE II-XII intact, nl mental status, nl speech, nl strength Skin: nl turgor Lymph: nl lymph nodes Results Result Diagram: 09/07/1862609/07/18626 Results 24hrs Laboratory Tests Test 09/06/18 17:41 09/06/18 21:59 09/07/18 06:27 09/07/18 08:36 Bedside Glucose 159 171 189 White Blood Count 7.6 Red Blood Count 3.68 L Hemoglobin 10.5 L Hematocrit 33.2 L Mean Corpuscular 90.2 Volume Mean Corpuscular 28.5 L Hemoglobin Mean Corpuscular 31.6 L Hemoglobin Concent Red Cell 13.8 Distribution Width Platelet Count 271 Mean Platelet Volume 9.3 Immature 1.100 H Granulocytes % Neutrophils % 66.3 Lymphocytes % 20.3 Monocytes % 8.6 Eosinophils % 3.3 Basophils % 0.4 Nucleated Red Blood 0.0 Cells % Immature 0.080 H Granulocytes # Neutrophils # 5.0 Lymphocytes # 1.5 Monocytes # 0.7 Eosinophils # 0.3 Basophils # 0.0 Nucleated Red Blood 0.0 Cells # Sodium Level 135 Potassium Level 3.6 Chloride Level 88 L Carbon Dioxide Level 28 Anion Gap 19 H Blood Urea Nitrogen 71 H Creatinine 13.70 H Est Glomerular 4 L Filtrat Rate mL/min Glucose Level 238 H Calcium Level 9.2 Total Bilirubin 0.1 L Direct Bilirubin 0.00 Indirect Bilirubin 0.1 Aspartate Amino 27 Transf (AST/SGOT) Alanine 15 Aminotransferase (AL T/SGPT) Alkaline Phosphatase 121 Total Protein 7.0 Albumin 3.3 Globulin 3.70 H Albumin/Globulin 0.89 Ratio Medications Medication Current Medications Bisacodyl (Dulcolax Supp) 10 mg DAILY PRN [place] CONSTIPATION; Start 09/06/18 at 15:00 Docusate Sodium (Colace) 100 mg BID PO ; Start 09/06/18 at 21:00 Hydralazine HCl (Apresoline) 10 mg Q4H PRN IV ELEVATED SYSTOLIC BP; Start 09/06/18 at 15:00 Ibuprofen (Motrin) 400 mg Q8H PRN PO MILD PAIN(1-3) OR TEMP>38C; Start 09/06/18 at 15:00 Diagnostic Test (Pha) (Accu-Chek) 1 ea 02 XX ; Start 09/07/18 at 02:00 Insulin Aspart (Novolog Insulin Pen) NOVOLOG *MILD* ALGORITHM WITH MEALS BEDTIME SC Last administered on 09/06/18at 17:47; Admin Dose 1 UNIT; Start 09/06/18 at 17:35 Insulin Glargine (Lantus) 25 units DAILY@2000 SC Last administered on 09/06/18at 22:04; Admin Dose 25 UNITS; Start 09/06/18 at 20:00 Lorazepam (Ativan) 1 mg Q6H PRN IV ANXIETY; Start 09/06/18 at 15:00 Metoclopramide HCl (Reglan Liq) 10 mg BID PO Last administered on 09/06/18at 22:01; Admin Dose 10 MG; Start 09/06/18 at 21:00 Ondansetron HCl (Zofran Inj) 4 mg Q4H PRN IV NAUSEA AND/OR VOMITING; Start 09/06/18 at 15:00 Pantoprazole (Protonix Tab) 40 mg DAILY@06 PO Last administered on 09/07/18at 06:22; Admin Dose 40 MG; Start 09/07/18 at 06:00 IV Flush (NS 3 ml) 3 ml Q8H and PRN adm IV ; Start 09/06/18 at 15:00 Sertraline HCl (Zoloft) 50 mg DAILY PO ; Start 09/07/18 at 09:00 Zolpidem Tartrate (Ambien) 5 mg HS PRN PO INSOMNIA; Start 09/06/18 at 15:00 Miscellaneous Information 1 ea NOTE XX ; Start 09/06/18 at 16:00 Glucose (Glutose) 15 gm Q15M PRN PO DECREASED GLUCOSE; Start 09/06/18 at 16:00 Glucose (Glutose) 22.5 gm Q15M PRN PO DECREASED GLUCOSE; Start 09/06/18 at 16:00 Dextrose (D50w Syringe) 25 ml Q15M PRN IV DECREASED GLUCOSE; Start 09/06/18 at 16:00 Dextrose (D50w Syringe) 50 ml Q15M PRN IV DECREASED GLUCOSE; Start 09/06/18 at 16:00 Glucagon (Glucagen) 1 mg Q15M PRN IM DECREASED GLUCOSE; Start 09/06/18 at 16:00 Glucose (Glutose) 15 gm Q15M PRN BUCCAL DECREASED GLUCOSE; Start 09/06/18 at 16:00 Miscellaneous Information (Pending [facility] Order For Wound Care) This patient turner... PRN PRN XX WOUND CARE; Start 09/06/18 at 15:30 Insulin Aspart (Novolog Insulin Pen) 6 unit WITH MEALS SC Last administered on 09/06/18at 17:48; Admin Dose 6 UNIT; Start 09/06/18 at 17:35 JACQUES VALENCIA MD Sep 07, 2018 08:52
[2018-09-07] MEDS: SERTRALINE 50 MG TAB PO SCH (09:02)
--- NOTE | 2018-09-07 09:32 | HP ---
DATE OF ADMISSION: 09/06/2018 REFERRING PHYSICIAN: Dr. Smith. CONSULTANTS: Dr. Sargent, orthopedic surgery, Dr. Goodson, nephrology, Dr. Medina, neurosurgery CHIEF COMPLAINT: Right arm pain. HISTORY OF PRESENT ILLNESS: This patient is a very pleasant 63-year-old gentleman with history of ty pe 2 diabetes, end-stage renal disease, peritoneal dialysis, hypertension who presented to [facility] status post syncopal episode at his residence. The patient was admitted to the hospital on 08/31/2018, here at [facility]. The pa abhi had a syncopal episode while he was walking in the backyard. He does not recall hitting the gr ound. The patient struck his right shoulder region. The patient sustained a right humeral neck frac ture, along with a right acromion fracture. The patient was seen in consultation by Dr. Sargent of ortho pedic surgery. No surgical intervention was undertaken. He is nonweightbearing and immobilized with a right arm sling. The patient also with a possible C5 fracture, was seen by [facility]ina [facility]. Ragland to have an insignificant fracture. Vascular imaging studies showed no damage to the hari tebral artery. The patient does not require a collar for the cervical spine. No surgical interventi on was undertaken. Other issues during this hospitalization included some labile blood pressures, al salena with pain syndrome requiring narcotic analgesics. The patient was completely independent prior t o recent events, living with his in a single-level residence. He was initiated on out of bed ac tivities, found to have a significant decline in his functional skills. He was evaluated for acute r ehab, deemed an appropriate candidate, meeting all CMS guidelines. He now transfers for definitive r ehabilitation procedures. FUNCTIONAL HISTORY: Prior to recent events, he was independent with all mobility and ADLs without th e use of assistive equipment. PAST MEDICAL HISTORY: End-stage renal disease, peritoneal dialysis x6 years, hypertension, coronary artery disease, history of bypass grafting, type 2 diabetes times approximately 20 years, diabetic ne uropathy old CVAs, anemia. CURRENT MEDICATIONS: At this time include the followin. Zoloft. 2. Protonix. 3. Colace. 4. Reglan. 5. Lantus insulin sliding scale. 6. Hydralazine. 7. Motrin. 8. Ativan. 9. Zofran. 10. Ambien. SOCIAL HISTORY: This patient lives with his in a single-level residence. Plan is to return julieta k to the residence. REVIEW OF SYSTEMS: CARDIOVASCULAR: Denies chest pain, palpitations. PULMONARY: Denies shortness of breath, cough. MUSCULOSKELETAL: Right arm pain. He has left neck pain. GASTROINTESTINAL: Denies constipation, diarrhea. GENITOURINARY: Oliguric. NEUROLOGICAL: Diffuse weakness, poor balance. He has numbness in bilateral feet. FAMILY HISTORY: Noncontributory. PHYSICAL EXAMINATION: VITAL SIGNS: Temperature is 97.8, respirations 18, pulse is 77, BP 120/65. HEENT: Extraocular movements intact. Head is atraumatic. LUNGS: Clear to auscultation bilaterally. COR: Distant heart sounds. No murmurs, rubs, or gallops. ABDOMEN: Soft, nontender. EXTREMITIES: No clubbing, cyanosis, edema. Homans testing is negative. NEUROLOGIC: Cranial nerves II through XII are intact. His right upper extremity, his triceps is 5- /5 wrist extension 5-/5, interosseous strength is approximately 4/5, exhaust tender strength is 4+/5. His ligh t touch sensation is intact. Left upper extremity is 5/5 throughout. Bilateral lower extremity stre ngth is 4+/5 throughout. He has decreased light touch in a glove and stocking distribution, bilatera l lower extremities, impaired proprioception. MENTAL STATUS: He is alert and oriented x3, follows simple multistep commands. CURRENT FUNCTIONAL LEVEL: Upper extremity dressing, minimal assistance, lower extremity dressing, mo derate assistance; toilet is mid assist levels. Gait and standing is of moderate assist. LABORATORY RESULTS: CBC today WBC count of 8, hematocrit 33, hemoglobin 10, platelets are 271. REHAB IMPAIRMENT CATEGORY: Neurologic disorder. ETIOLOGIC DIAGNOSIS: Other neuro/autonomic neuropathy with orthostatic hypotension. MEDICAL AND REHABILITATION COMORBIDITIES: 1. Autonomic neuropathy with orthostatic hypotension. 2. Syncopal episode. 3. Recurrent falls with injury. 4. Right humerus fracture, nonweightbearing right upper extremity immobilization with sling. 5. C5 fracture, no collar required, no surgical intervention. 6. Traumatic pain syndrome. 7. Type 2 diabetes. 8. Diabetic neuropathy. 9. Diabetic nephropathy. 10. End-stage renal disease, peritoneal dialysis. 11. Hypertension. 12. Coronary artery disease with a history of bypass grafting. 13. Old CVAs. 14. Osteoarthritis. 15. Anemia. FUNCTIONAL DEFICITS: 1. Impaired mobility including bed mobility, transfers, sitting balance, standing balance, endurance , strength, gait, stairs. 2. Impaired ADLs including self-care activities, bathing, dressing, grooming, hygiene, toileting. 3. Impaired bowel and bladder status. 4. Impaired functional endurance, strength and safety. POTENTIAL REHABILITATION AND MEDICAL COMPLICATIONS: 1. Deep venous thrombosis. 2. Decubitus ulcer. 3. Falls. 4. Postural hypotension. 5. Labile hypertension. 6. Type 2 diabetes, out of control. 7. Urosepsis. 8. Ventricular arrhythmia. FUNCTIONAL BARRIERS TO DISCHARGE: 1. Impaired mobility. 2. Impaired ADLs. 3. Impaired safety. 4. Nonweightbearing right upper extremity. 5. Pain syndrome. RECOMMENDATIONS AND DISCUSSION: This patient has had a significant decline in his premorbid function al levels. With autonomic neuropathy secondary to his diabetes, orthostatic hypotension, along with a severe polyneuropathy impacting all of his functional skills. He does indeed meet acute inpatient rehabilitation criteria including able to tolerate 3 hours of therapy per day, 5 days per week with a reasonable prognosis for significant functional recovery in a reasonable time frame. Given the rola ent's global functional deficits, he requires the intensity of an acute rehabilitation program to opt imize his function, decrease his length of stay and increase the likelihood of returning home. Also given the patient's multiple medical co-morbidities, he is at risk for medical complications outlined above. Given these circumstances, my pain as a board-certified physical medicine rehabilitation spe cialist, it is reasonable and necessary for this patient's rehabilitation procedures to be performed on an acute rehabilitation unit for daily physician oversight, management and care. These needs christina ot be met safely at a lower level of care such as an extended care facility. This patient will benef it from acute respiratory, coronary rehabilitation program here at [facility] under the care, supervision, direction, daily oversight by board-certified physical medicine rehabilitatio n specialist for the followin. Therapeutic interventions that includes physical therapy, occupational therapy 5 days per week fo r a total of 900 minutes per week for the following: A. Physical therapy, bed mobility, transfers, sitting balance, standing balance, endurance, strength , gait, stairs. B. Occupational therapy ADLs, adaptive equipment needs, energy conservation techniques, body mechani cs, safety, endurance. Sensorimotor feedback for the right upper extremity, edema control right uppe r extremity. 2. 24-hour rehabilitation nursing care for carryover of all mobility and ADL skills, facilitate out of bed to a chair as much as possible to maintain cardiopulmonary compliance, rehabilitation nursing also for bowel and bladder training, maintain skin integrity, optimize p.o. intake. The patient may require narcotic analgesics for pain management. Mental status, cardiovascular status, pulmonary sta tus will be monitored if opiates are indeed required. 3. Rehabilitation social media marketing specialist support, adjustment counseling, disposition planning. 4. Continue close medical management for the following: A. End-stage renal disease, peritoneal dialysis, being followed by Dr. Goodson of nephrology. B. Hypertension. Maintain systolics less than 150, being followed by internal medicine. C. Cardiac disease. Cardiac precautions with all therapeutic disciplines. Monitor the patient's he art rates, blood pressures and O2 saturations out of bed activities. 5. Pain syndrome. Patient is currently on narcotic analgesics. Will see how he does with his incre ased out of bed activities on the rehabilitation unit. He may need some low dose narcotic analgesics . FUNCTIONAL GOALS: 1. Modified independent in all mobility skills including bed mobility, transfers, gait with the use of a quad cane versus kiana walker. 2. Moderate supervised assist in all ADL skills including bathing, dressing, hygiene, toileting. 3. Pain control. 4. Increase functional endurance, strength and safety. 5. Family training with all therapeutic disciplines. DISPOSITION PLAN: Back home. ESTIMATED LENGTH OF STAY FOR PROCEDURES: Will be 14 days. Post-acute rehab needs likely include [facility] physical therapy, occupational therapy and nursing. REHABILITATION PROGNOSIS: Good. Please note I personally performed this patient's rehabilitation history and physical status post adm ission evaluation. Patient with a reasonable prognosis for significant functional recovery in a reas onable time frame, agreeable to participate with acute rehabilitation program. Since initial screeni ng, the patient's functional levels and medical status are essentially unchanged. Dictated By: CATALINA HURST/PILAR Conf#: [id number] DID#: [id number] CC: ROMAIN SMITH MD;*EndCC*
[2018-09-07 14:00] VITALS: BP 147/75; PULSE 66; RESP 18
--- NOTE | 2018-09-07 14:46 | HP ---
Date/Time of Note Date/Time of Note DATE: 09/07/18 TIME: 14:40 Assessment/Plan VTE Prophylaxis Risk score (from Nsg)>0 risk: 2 SCD applied (from Ns): No SCD contraindicated: other Pharmacological prophylaxis: NA/contraindicated Pharm contraindication: low risk/ambulating Lines/Catheters [facility] Saline Lock Assessment/Plan Hospital Course SUBJECTIVE: Lying in bed comfortably. No acute distress. OBJECTIVE: Vital signs-see below PHYSICAL EXAM: Constitutional: Adequately built,not in acute distress. HEENT: Head atraumatic and normocephalic. Eyes: Extraocular muscles intact. Anicteric sclerae. Pupils equal bilaterally, reactive to light. NECK: Supple without lymph node. CHEST: Clear and good breath sounds equally. No wheezing. No rhonchi. HEART: S1, S2. Regular rate and rhythm. ABDOMEN: Soft/non tender with no rebound tenderness. Bowel sounds were present. EXTREMITIES: With right arm sling. No cyanosis, clubbing or edema. NEUROLOGIC: Alert and oriented x3. No focal deficit. No sensory deficit. PSYCHOSOCIAL: No signs of depression. INTEGUMENTARY: No open wounds. ASSESSMENT AND PLAN: Right humeral fracture - Properly aligned and does not require surgical intervention, continue conservative care - Pain control/PT Recurrent syncope likely secondary to autonomic neuropathy Patient will need to allow for blood pressure elevations and will need to be less aggressive with BP control, patient also needs to change positions gradually 2D echo shows a preserved EF Gastroparesis -Continue Reglan. Add erythromycin base to further improve his symptoms. -Patient has outpatient [facility] follow-up for further studies on gastroparesis. End-stage renal disease on PD Managed per nephrology Insulin dependent diabetes -Needs more control. Uptitrate basal/bolus regimen Coronary disease status post CABG Continue aspirin/statin Hypertension Patient with autonomic neuropathy and recurrent syncope hence will be less aggressive BP control Continue nifedipine but at a safer/lower dose. Anemia, likely chronic -Stable. Continue to monitor DM neuropathy -resume Lyrica Anxiety disorders -Resume sertraline Prophylaxis: SCDs Documented 60-minute was spent on this history and physical. Patient was seen in collaboration with Result Diagram: 09/07/1827 09/07/1827 Results 24hrs Laboratory Tests Test 09/06/18 17:41 09/06/18 21:59 09/07/18 06:27 09/07/18 08:36 Bedside Glucose 159 171 189 White Blood Count 7.6 Red Blood Count 3.68 L Hemoglobin 10.5 L Hematocrit 33.2 L Mean Corpuscular 90.2 Volume Mean Corpuscular 28.5 L Hemoglobin Mean Corpuscular 31.6 L Hemoglobin Concent Red Cell 13.8 Distribution Width Platelet Count 271 Mean Platelet Volume 9.3 Immature 1.100 H Granulocytes % Neutrophils % 66.3 Lymphocytes % 20.3 Monocytes % 8.6 Eosinophils % 3.3 Basophils % 0.4 Nucleated Red Blood 0.0 Cells % Immature 0.080 H Granulocytes # Neutrophils # 5.0 Lymphocytes # 1.5 Monocytes # 0.7 Eosinophils # 0.3 Basophils # 0.0 Nucleated Red Blood 0.0 Cells # Sodium Level 135 Potassium Level 3.6 Chloride Level 88 L Carbon Dioxide Level 28 Anion Gap 19 H Blood Urea Nitrogen 71 H Creatinine 13.70 H Est Glomerular 4 L Filtrat Rate mL/min Glucose Level 238 H Calcium Level 9.2 Total Bilirubin 0.1 L Direct Bilirubin 0.00 Indirect Bilirubin 0.1 Aspartate Amino 27 Transf (AST/SGOT) Alanine 15 Aminotransferase (AL T/SGPT) Alkaline Phosphatase 121 Total Protein 7.0 Albumin 3.3 Globulin 3.70 H Albumin/Globulin 0.89 Ratio Test 09/07/18 10:37 09/07/18 11:50 Bedside Glucose 236 H 221 H HPI/ROS Admit Date/Time Admit Date/Time Sep 06, 2018 at 13:45 Hx of Present Illness This is a 63-year-old male with a history of type 2 diabetes, ESRD on peritoneal dialysis, hypertension, old CVAs, CAD, status post CABG, who was admitted at [facility] on 08/31/2018 with syncopal episode. Patient's hospitalization was noted for right humeral neck fracture for which he was seen by orthopedic surgery, with no surgical intervention recommended. Patient was kept on nonweightbearing with a right arm sling. He was also noted with a questionable C5 fracture for which he was seen by neurosurgery. This was further imaged with a CTA ands found with no damage to vertebral artery, no acute fractures, as such did not require any cervical collar or other surgical intervention. Syncopal episode was thought to be secondary to autonomic neuropathy and symptoms did not occur. Patient hospitalization was noted for pain and labile blood pressures which were managed medically. Hospitalization was also noted for nausea and vomiting thought to be secondary to previously d iagnosed gastroparesis for which he was treated with Reglan with improvement in symptoms with eventual [facility] follow-up. Patient was then evaluated by physical therapy team and found with decline in his baseline function is still requiring further inpatient rehabilitation and was accepted to acute rehabilitation unit. At my encounter with the patient, he denied chest pain, palpitation, shortness of breath, nausea, vomiting, abdominal pain, loss of consciousness, dizziness, fever, chills, numbness, tingling or other constitutional symptoms. Labs showed hemoglobin 10.5, hematocrit 33.2, BUN 71, creatinine 13.70 and blood glucose 238. Vital signs relatively stable. ROS A 12 point review of system was assessed and is negative other than what is mentioned in the HPI PMH/Family/Social Past Medical History See HPI Medications Current Medications Bisacodyl (Dulcolax Supp) 10 mg DAILY PRN [place] CONSTIPATION; Start 09/06/18 at 15:00 Docusate Sodium (Colace) 100 mg BID PO Last administered on 09/07/18at 08:43; Admin Dose 100 MG; Start 09/06/18 at 21:00 Hydralazine HCl (Apresoline) 10 mg Q4H PRN IV ELEVATED SYSTOLIC BP; Start 09/06/18 at 15:00 Ibuprofen (Motrin) 400 mg Q8H PRN PO MILD PAIN(1-3) OR TEMP>38C Last administered on 09/07/18at 10:16; Admin Dose 400 MG; Start 09/06/18 at 15:00 Diagnostic Test (Pha) (Accu-Chek) 1 ea 02 XX ; Start 09/07/18 at 02:00 Insulin Aspart (Novolog Insulin Pen) NOVOLOG *MILD* ALGORITHM WITH MEALS BEDTIME SC Last administered on 09/07/18at 12:00; Admin Dose 3 UNIT; Start 09/06/18 at 17:35 Lorazepam (Ativan) 1 mg Q6H PRN IV ANXIETY; Start 09/06/18 at 15:00 Metoclopramide HCl (Reglan Liq) 10 mg BID PO Last administered on 09/07/18at 08:43; Admin Dose 10 MG; Start 09/06/18 at 21:00 Ondansetron HCl (Zofran Inj) 4 mg Q4H PRN IV NAUSEA AND/OR VOMITING; Start 09/06/18 at 15:00 Pantoprazole (Protonix Tab) 40 mg DAILY@06 PO Last administered on 09/07/18at 06:22; Admin Dose 40 MG; Start 09/07/18 at 06:00 IV Flush (NS 3 ml) 3 ml Q8H and PRN adm IV ; Start 09/06/18 at 15:00 Sertraline HCl (Zoloft) 50 mg DAILY PO Last administered on 09/07/18at 09:02; Admin Dose 50 MG; Start 09/07/18 at 09:00 Zolpidem Tartrate (Ambien) 5 mg HS PRN PO INSOMNIA; Start 09/06/18 at 15:00 Miscellaneous Information 1 ea NOTE XX ; Start 09/06/18 at 16:00 Glucose (Glutose) 15 gm Q15M PRN PO DECREASED GLUCOSE; Start 09/06/18 at 16:00 Glucose (Glutose) 22.5 gm Q15M PRN PO DECREASED GLUCOSE; Start 09/06/18 at 16:00 Dextrose (D50w Syringe) 25 ml Q15M PRN IV DECREASED GLUCOSE; Start 09/06/18 at 16:00 Dextrose (D50w Syringe) 50 ml Q15M PRN IV DECREASED GLUCOSE; Start 09/06/18 at 16:00 Glucagon (Glucagen) 1 mg Q15M PRN IM DECREASED GLUCOSE; Start 09/06/18 at 16:00 Glucose (Glutose) 15 gm Q15M PRN BUCCAL DECREASED GLUCOSE; Start 09/06/18 at 16:00 Miscellaneous Information (Pending [facility] Order For Wound Care) This patient turner... PRN PRN XX WOUND CARE; Start 09/06/18 at 15:30 Insulin Aspart (Novolog Insulin Pen) 10 unit WITH MEALS SC ; Start 09/07/18 at 17:35 Insulin Glargine (Lantus) 30 units DAILY@2000 SC ; Start 09/07/18 at 20:00 Erythromycin (Erythromycin) 250 mg Q8 PO ; Start 09/07/18 at 14:00; Stop 09/17/18 at 13:59 Coded Allergies: No Known Allergy (Unverified , 08/31/18) Past Surgical History See HPI Past Surgical Hx: other Family History Significant Family History: no pertinent family hx Social History Denied history of alcohol, smoking or illicit drug use Smoking Status: Never smoker Exam/Review of Systems Vital Signs Vitals Vital Signs Date Temp Pulse Resp B/P (MAP) Pulse Ox O2 O2 Flow FiO2 Time Delivery Rate 09/07/18 65 173/81 07:45 09/07/18 97.8 18 98 Room Air 07:00 Intake and Output 09/06/18 09/06/18 09/07/18 1515:00 23:00 07:00 IntakeIntake Total 120 ml 120 ml BalanceBalance 120 ml 120 ml ANNEMARIE BURROUGHS V. [employer] Sep 07, 2018 14:46
[2018-09-07] MEDS: ERYTHROMYCIN BASE (DR) 250 MG CAP PO SCH ×2 (14:56→21:44)
[2018-09-07] MEDS: NIFEdipine (XL) 30 MG TAB PO SCH (16:00)
[2018-09-07] MEDS ORDERED: SEVELAMER 800 MG TAB PO SCH (17:35)
[2018-09-07 20:00] VITALS: BP 116/62; PULSE 72; RESP 17
[2018-09-07] MEDS: traMADol 50 MG TAB PO PRN (20:15)
[2018-09-07] MEDS: MONTELUKAST 10 MG TAB PO SCH (20:15)
[2018-09-07] MEDS: ATORVASTATIN 80 MG TAB PO SCH (20:15)
[2018-09-07] MEDS: INSULIN GLARGINE [LANTus] (100 UNITS/ML) SYG SC SCH (20:33)
[2018-09-07 22:07] VITALS: BP 116/62; PULSE 72
[2018-09-08] VITALS (14 sets, daily range): BP systolic 77–138; BP diastolic 47–71; PULSE 64–86; RESP 18–19
[2018-09-08] MEDS: ACCU-CHEK XX SCH (02:00)
[2018-09-08] MEDS: ERYTHROMYCIN BASE (DR) 250 MG CAP PO SCH ×3 (06:15→21:58)
[2018-09-08] MEDS: PANTOPRAZOLE (EC) 40 MG TAB PO SCH (06:16)
[2018-09-08] MEDS: INSULIN ASPART [NOVOLOG] 3 ML PEN SC SCH ×7 (08:03→20:48)
[2018-09-08] MEDS: SEVELAMER CARBONATE 800 MG TABLET PO SCH ×3 (08:04→18:12)
[2018-09-08] MEDS ORDERED: SERTRALINE 50 MG TAB PO SCH (09:00)
--- NOTE | 2018-09-08 09:44 | PN ---
Date/Time of Note Date/Time of Note DATE: 09/08/18 TIME: 09:41 Subjective AWAKE , ALERT, ENJOYING THERAPEUTIC INTERVENTIONS Objective Vital Signs Date Temp Pulse Resp B/P (MAP) Pulse Ox O2 O2 Flow FiO2 Time Delivery Rate 09/08/18 65 116/62 09:22 09/08/18 97.5 18 98 Room Air 08:30 Intake and Output 09/07/18 09/07/18 09/08/18 1515:00 23:00 07:00 IntakeIntake Total 1700 ml OutputOutput Total 776 ml 388 ml BalanceBalance -776 ml 1312 ml Exam LUNGS CTA COR RRR MOTOR FAIR CLOF XT MOD A STAND MODA Results/Medications Result Diagram: 09/07/1862609/07/18626 Results 24 hrs Laboratory Tests Test 09/07/18 10:37 09/07/18 11:50 09/07/18 17:44 09/07/18 20:19 Bedside Glucose 236 H 221 H 74 149 Test 09/08/18 07:57 Bedside Glucose 221 H Medications Current Medications Bisacodyl (Dulcolax Supp) 10 mg DAILY PRN [place] CONSTIPATION; Start 09/06/18 at 15:00 Docusate Sodium (Colace) 100 mg BID PO Last administered on 09/07/18at 20:16; Admin Dose 100 MG; Start 09/06/18 at 21:00 Diagnostic Test (Pha) (Accu-Chek) 1 ea 02 XX ; Start 09/07/18 at 02:00 Insulin Aspart (Novolog Insulin Pen) NOVOLOG *MILD* ALGORITHM WITH MEALS BEDTIME SC Last administered on 09/08/18at 08:03; Admin Dose 3 UNIT; Start 09/06/18 at 17:35 Metoclopramide HCl (Reglan Liq) 10 mg BID PO Last administered on 09/07/18at 20:15; Admin Dose 10 MG; Start 09/06/18 at 21:00 Ondansetron HCl (Zofran Inj) 4 mg Q4H PRN IV NAUSEA AND/OR VOMITING; Start 09/06/18 at 15:00 Pantoprazole (Protonix Tab) 40 mg DAILY@06 PO Last administered on 09/08/18at 0 6:16; Admin Dose 40 MG; Start 09/07/18 at 06:00 IV Flush (NS 3 ml) 3 ml Q8H and PRN adm IV ; Start 09/06/18 at 15:00 Sertraline HCl (Zoloft) 50 mg DAILY PO Last administered on 09/07/18at 09:02; Admin Dose 50 MG; Start 09/07/18 at 09:00 Zolpidem Tartrate (Ambien) 5 mg HS PRN PO INSOMNIA; Start 09/06/18 at 15:00 Miscellaneous Information 1 ea NOTE XX ; Start 09/06/18 at 16:00 Glucose (Glutose) 15 gm Q15M PRN PO DECREASED GLUCOSE; Start 09/06/18 at 16:00 Glucose (Glutose) 22.5 gm Q15M PRN PO DECREASED GLUCOSE; Start 09/06/18 at 16:00 Dextrose (D50w Syringe) 25 ml Q15M PRN IV DECREASED GLUCOSE; Start 09/06/18 at 16:00 Dextrose (D50w Syringe) 50 ml Q15M PRN IV DECREASED GLUCOSE; Start 09/06/18 at 16:00 Glucagon (Glucagen) 1 mg Q15M PRN IM DECREASED GLUCOSE; Start 09/06/18 at 16:00 Glucose (Glutose) 15 gm Q15M PRN BUCCAL DECREASED GLUCOSE; Start 09/06/18 at 16:00 Miscellaneous Information (Pending [facility] Order For Wound Care) This patient turner... PRN PRN XX WOUND CARE; Start 09/06/18 at 15:30 Insulin Aspart (Novolog Insulin Pen) 10 unit WITH MEALS SC Last administered on 09/08/18at 08:04; Admin Dose 10 UNIT; Start 09/07/18 at 17:35 Insulin Glargine (Lantus) 30 units DAILY@2000 SC Last administered on 09/07/18at 20:33; Admin Dose 30 UNITS; Start 09/07/18 at 20:00 Erythromycin (Erythromycin) 250 mg Q8 PO Last administered on 09/08/18at 06:15; Admin Dose 250 MG; Start 09/07/18 at 14:00; Stop 09/17/18 at 13:59 Aspirin (Halfprin) 81 mg DAILY PO ; Start 09/08/18 at 09:00 Atorvastatin Calcium (Lipitor) 80 mg QHS PO Last administered on 09/07/18at 20:15; Admin Dose 80 MG; Start 09/07/18 at 21:00 Montelukast Sodium (Singulair) 10 mg QHS PO Last administered on 09/07/18at 20:15; Admin Dose 10 MG; Start 09/07/18 at 21:00 Pregabalin (Lyrica) 150 mg DAILY PO ; Start 09/08/18 at 09:00 Nifedipine (Procardia Xl) 30 mg DAILY PO Last administered on 09/07/18at 16:00; Admin Dose 30 MG; Start 09/07/18 at 15:00 Sevelamer Carbonate (Renvela) 2,400 mg WITH MEALS PO Last administered on 09/08/18at 08:04; Admin Dose 2,400 MG; Start 09/08/18 at 07:35 Tramadol HCl (Ultram) 50 mg Q6H PRN PO MODERATE PAIN LEVEL 4-6 Last administered on 09/07/18at 20:15; Admin Dose 50 MG; Start 09/07/18 at 20:00 Assessment/Plan Additional Assessment/Plan 1. Autonomic neuropathy with orthostatic hypotension.MOTIVATE CONT OOB INTERVENTIONS INCLUDING SITTING TOLERANCE 2. Syncopal episode. 3. Recurrent falls with injury. 4. Right humerus fracture, nonweightbearing right upper extremity immobilization with sling. 5. C5 fracture, no collar required, no surgical intervention. 6. Traumatic pain syndrome.PRN ANALGESICS 7. Type 2 diabetes.OOC MEDS PER IM 8. Diabetic neuropathy. 9. Diabetic nephropathy. 10. End-stage renal disease, peritoneal dialysis. 11. Hypertension. 12. Coronary artery disease with a history of bypass grafting. 13. Old CVAs. 14. Osteoarthritis. 15. Anemia. CATALINA LANGE MD Sep 08, 2018 09:44
[2018-09-08] MEDS: METOCLOPRAMIDE (1 MG/ML) 10 ML CUP PO SCH ×3 (09:55→20:53)
[2018-09-08] MEDS: DOCUSATE SODIUM 100 MG CAP PO SCH ×2 (09:55→20:53)
[2018-09-08] MEDS: ASPIRIN (EC) 81 MG TAB PO SCH (09:56)
[2018-09-08] MEDS: SERTRALINE 50 MG TAB PO SCH (09:56)
[2018-09-08] MEDS: PREGABALIN 75 MG CAP PO SCH (09:56)
[2018-09-08] MEDS: NIFEdipine (XL) 30 MG TAB PO SCH (09:56)
[2018-09-08] MEDS: traMADol 50 MG TAB PO PRN (10:12)
--- NOTE | 2018-09-08 16:27 | PN ---
Date/Time of Note Date/Time of Note DATE: 09/08/18 TIME: 16:22 Assessment/Plan VTE Prophylaxis Risk score (from Ns)>0 risk: 3 SCD applied (from Ns): Yes SCD contraindicated: low risk/ambulating Pharmacological prophylaxis: heparin Pharm contraindication: low risk/ambulating Lines/Catheters IV [facility]from [facility] Saline Lock Assessment/Plan Problems: (1) Diabetes mellitus type 2 in nonobese Onset Date: ~ 08/1992 Status: Chronic Comment: Adequate sugar control although it is important to time the dosing of the insulin with meals hence if the patient eats late the insulin gets given later than average (2) End stage renal disease Comment: On peritoneal dialysis as per nephrology (3) Peritoneal dialysis status Comment: As per nephrology (4) Coronary artery disease Status: Chronic Comment: Quiescent fortunately Qualifiers: Coronary Disease-Associated Artery/Lesion type: [place] artery [place] vs. transplanted heart: [place] heart Associated angina: without angina Qualified Codes: I25.10 - Atherosclerotic heart disease of [place] coronary artery without angina pectoris (5) Status post aorto-coronary artery bypass graft Status: Chronic Comment: Noted (6) Hypertension Status: Chronic Comment: Run using the nifedipine which will cause some fluid shifts and the patient is already dealing with those issues from peritoneal dialysis given they are he has renal dysfunction and end-stage renal disease go ahead and use an angiotensin to receptor desiree at low-dose timed at bedtime Qualifiers: Hypertension type: essential hypertension Qualified Codes: I10 - Essential (primary) hypertension (7) Hyperlipidemia Status: Chronic Comment: Continue statin therapy Qualifiers: Hyperlipidemia type: pure hypercholesterolemia Qualified Codes: E78.00 - Pure hypercholesterolemia, unspecified (8) Right humeral fracture Status: Acute Comment: As per orthopedics and rehab Qualifiers: Encounter type: initial encounter Humerus Location: surgical neck Fr acture type: closed Fracture morphology: unspecified fracture morphology Fracture alignment: nondisplaced Qualified Codes: S42.214A - Unspecified nondisplaced fracture of surgical neck of right humerus, initial encounter for closed fracture (9) Diabetic autonomic neuropathy associated with type 2 diabetes mellitus Status: Chronic Comment: Is causing a host of problems. We need to add in an adrenergic agent to try and assist with this (10) Obstipation Status: Chronic Comment: Secondary to autonomic neuropathy (11) Gastroparesis due to DM Status: Chronic Comment: On erythromycin base and metoclopramide. (12) Gastro-esophageal reflux disease without esophagitis Status: Chronic Comment: Due to autonomic neuropathy (13) Asthma, mild persistent Status: Chronic Comment: Stable at this time Qualifiers: Asthma complication type: uncomplicated Qualified Codes: J45.30 - Mild persistent asthma, uncomplicated (14) Grade I diastolic dysfunction Status: Chronic Comment: Noted. Result Diagram: 09/07/1862609/07/18626 Results 24hrs Laboratory Tests Test 09/07/18 17:44 09/07/18 20:19 09/08/18 07:57 09/08/18 13:51 Bedside Glucose 74 149 221 H 65 L Test 09/08/18 14:10 09/08/18 14:26 09/08/18 14:43 Bedside Glucose 68 L 88 117 Subjective 24 Hr Interval Summary Free Text/Dictation Patient reports symptoms of orthostasis but otherwise okay Constitutional: no complaints Respiratory: no complaints Cardiovascular: no complaints Gastrointestinal: no complaints Exam/Review of Systems Exam Vitals Vital Signs Date Temp Pulse Resp B/P (MAP) Pulse Ox O2 O2 Flow FiO2 Time Delivery Rate 09/08/18 73 77/47 (57) 15:45 09/08/18 98.5 19 99 Room Air 13:26 Intake and Output 09/07/18 09/07/18 09/08/18 1515:00 23:00 07:00 IntakeIntake Total 1700 ml OutputOutput Total 776 ml 388 ml BalanceBalance -776 ml 1312 ml Exam Please see orthostatic vital signs Constitutional: alert, oriented Respiratory: clear to auscultation, normal air movement Cardiovascular: regular rate and rhythm, nl pulses Results Results 24hrs Laboratory Tests Test 09/07/18 17:44 09/07/18 20:19 09/08/18 07:57 09/08/18 13:51 Bedside Glucose 74 149 221 H 65 L Test 09/08/18 14:10 09/08/18 14:26 09/08/18 14:43 Bedside Glucose 68 L 88 117 Medications Medication Current Medications Bisacodyl (Dulcolax Supp) 10 mg DAILY PRN AL CONSTIPATION; Start 09/06/18 at 15:00 Docusate Sodium (Colace) 100 mg BID PO Last administered on 09/08/18at 09:55; Admin Dose 100 MG; Start 09/06/18 at 21:00 Diagnostic Test (Pha) (Accu-Chek) 1 ea 02 XX ; Start 09/07/18 at 02:00 Insulin Aspart (Novolog Insulin Pen) NOVOLOG *MILD* ALGORITHM WITH MEALS BEDTIME SC Last administered on 09/08/18at 08:03; Admin Dose 3 UNIT; Start 09/06/18 at 17:35 Ondansetron HCl (Zofran Inj) 4 mg Q4H PRN IV NAUSEA AND/OR VOMITING; Start 09/06/18 at 15:00 Pantoprazole (Protonix Tab) 40 mg DAILY@06 PO Last administered on 09/08/18at 06:16; Admin Dose 40 MG; Start 09/07/18 at 06:00 IV Flush (NS 3 ml) 3 ml Q8H and PRN adm IV ; Start 09/06/18 at 15:00 Sertraline HCl (Zoloft) 50 mg DAILY PO Last administered on 09/08/18at 09:56; Admin Dose 50 MG; Start 09/07/18 at 09:00 Zolpidem Tartrate (Ambien) 5 mg HS PRN PO INSOMNIA; Start 09/06/18 at 15:00 Miscellaneous Information 1 ea NOTE XX ; Start 09/06/18 at 16:00 Glucose (Glutose) 15 gm Q15M PRN PO DECREASED GLUCOSE; Start 09/06/18 at 16:00 Glucose (Glutose) 22.5 gm Q15M PRN PO DECREASED GLUCOSE; Start 09/06/18 at 16:00 Dextrose (D50w Syringe) 25 ml Q15M PRN IV DECREASED GLUCOSE; Start 09/06/18 at 16:00 Dextrose (D50w Syringe) 50 ml Q15M PRN IV DECREASED GLUCOSE; Start 09/06/18 at 16:00 Glucagon (Glucagen) 1 mg Q15M PRN IM DECREASED GLUCOSE; Start 09/06/18 at 16:00 Glucose (Glutose) 15 gm Q15M PRN BUCCAL DECREASED GLUCOSE Last administered on 09/08/18at 14:14; Admin Dose 15 GM; Start 09/06/18 at 16:00 Miscellaneous Information (Pending [facility] Order For Wound Care) This patient turner... PRN PRN XX WOUND CARE; Start 09/06/18 at 15:30 Insulin Aspart (Novolog Insulin Pen) 10 unit WITH MEALS SC Last administered on 09/08/18 08:04; Admin Dose 10 UNIT; Start 09/07/18 at 17:35 Insulin Glargine (Lantus) 30 units DAILY@2000 SC Last administered on 09/07/18 20:33; Admin Dose 30 UNITS; Start 09/07/18 at 20:00 Erythromycin (Erythromycin) 250 mg Q8 PO Last administered on 09/08/18 13:56; Admin Dose 250 MG; Start 09/07/18 at 14:00; Stop 09/17/18 at 13:59 Aspirin (Halfprin) 81 mg DAILY PO Last administered on 09/08/18 09:56; Admin Dose 81 MG; Start 09/08/18 at 09:00 Atorvastatin Calcium (Lipitor) 80 mg QHS PO Last administered on 09/07/18 20:15; Admin Dose 80 MG; Start 09/07/18 at 21:00 Montelukast Sodium (Singulair) 10 mg QHS PO Last administered on 09/07/18 20 :15; Admin Dose 10 MG; Start 09/07/18 at 21:00 Pregabalin (Lyrica) 150 mg DAILY PO Last administered on 09/08/18 09:56; Admin Dose 150 MG; Start 09/08/18 at 09:00 Sevelamer Carbonate (Renvela) 2,400 mg WITH MEALS PO Last administered on 09/08/18 13:56; Admin Dose 2,400 MG; Start 09/08/18 at 07:35 Tramadol HCl (Ultram) 50 mg Q6H PRN PO MODERATE PAIN LEVEL 4-6 Last administered on 09/08/18 10:12; Admin Dose 50 MG; Start 09/07/18 at 20:00 Metoclopramide HCl (Reglan Liq) 5 mg QID PO ; Start 09/08/18 at 17:00 Losartan Potassium (Cozaar) 25 mg DAILY PO ; Start 09/09/18 at 09:00 ELIO CASANOVA MD Sep 08, 2018 16:27
--- NOTE | 2018-09-08 18:43 | CONS ---
Assessment/Plan Assessment/Plan Assessment/Plan (Daily) 1. ESRD on Peritoneal dialysis 2. Recurrent syncope 2/2 autonomic neuropathy 3. H/o CAD s/p CABG 4. H/O HTN 5. H/o DM II- uncontrolled- Endo consult appreciated 6. H/o HL 7. Oblique fracture of the right humeral neck., Nondisplaced fracture of the acromion. 8. Severe constipation with vomiting Plan: Contique PD today with 2.5% solution - 4 cycles - daily PD no need for epogen Continue other home meds Rehab plan as per Rehab physician Patient is seen in collaboration with DR Bran Goodson. Plan of care dw staff. We will follow up. Hypotension unstable BS- endo consult appreciated PD daily X4 cycles family at bed side- all Qs answered dw staff Consultation Date/Type/Reason Admit Date/Time Sep 06, 2018 at 13:45 Initial Consult Date 09/07/18 Type of Consult INTERNAL GRINDER Reason for Consultation ESRD- ON PD Requesting Provider: ANNEMARIE BURROUGHS NP Date/Time of Note DATE: 09/08/18 TIME: 18:41 24 HR Interval Summary Free Text/Dictation Hypotension unstable BS- endo consult appreciated PD daily X4 cycles family at bed side- all Qs answered dw staff Detailed Summary Eyes: no complaints ENT: no complaints Respiratory: no complaints Cardiovascular: no complaints Gastrointestinal: no complaints Genitourinary: no complaints Musculoskeletal: restricted range of motion, other (generelized wekaness) Skin: no complaints Neurologic: no complaints Endocrine: no complaints Psychological: nl mood/affect Immunologic: no complaints Exam/Review of Systems Exam Vitals Vital Signs Date Temp Pulse Resp B/P (MAP) Pulse Ox O2 O2 Flow FiO2 Time Delivery Rate 09/08/18 73 77/47 (57) 15:45 09/08/18 98.5 19 99 Room Air 13:26 Intake and Output 09/07/18 09/07/18 09/08/18 1515:00 23:00 07:00 IntakeIntake Total 1700 ml OutputOutput Total 776 ml 388 ml BalanceBalance -776 ml 1312 ml Constitutional: alert, well developed Psych: nl mood/affect Eyes: nl lids, nl sclera ENMT: nl external ears & nose Neck: non-tender Respiratory: clear to auscultation Cardiovascular: nl pulses, other (s1s2) Gastrointestinal: soft, non-tender Musculoskeletal: muscle weakness, range of motion Extremities: normal pulses Neurological: nl speech, other (alert/responsive) Skin: nl turgor Lymph: nontender Results Result Diagram: 09/07/1862609/07/1827 Results 24hrs Laboratory Tests Test 09/07/18 20:19 09/08/18 07:57 09/08/18 13:51 09/08/18 14:10 Bedside Glucose 149 221 H 65 L 68 L Test 09/08/18 14:26 09/08/18 14:43 09/08/18 16:19 09/08/18 17:27 Bedside Glucose 88 117 325 H Iron Level 22 L Total Iron Binding 164 L Capacity Percent Iron 13 L Saturation Test 09/08/18 18:10 Bedside Glucose 329 H Medications Medication Current Medications Bisacodyl (Dulcolax Supp) 10 mg DAILY PRN [place] CONSTIPATION; Start 09/06/18 at 15:00 Docusate Sodium (Colace) 100 mg BID PO Last administered on 09/08/18at 09:55; Admin Dose 100 MG; Start 09/06/18 at 21:00 Diagnostic Test (Pha) (Accu-Chek) 1 ea 02 XX ; Start 09/07/18 at 02:00 Insulin Aspart (Novolog Insulin Pen) NOVOLOG *MILD* ALGORITHM WITH MEALS BEDTI ME SC Last administered on 09/08/18at 18:14; Admin Dose 5 UNIT; Start 09/06/18 at 17:35 Ondansetron HCl (Zofran Inj) 4 mg Q4H PRN IV NAUSEA AND/OR VOMITING; Start 09/06/18 at 15:00 Pantoprazole (Protonix Tab) 40 mg DAILY@06 PO Last administered on 09/08/18at 06:16; Admin Dose 40 MG; Start 09/07/18 at 06:00 IV Flush (NS 3 ml) 3 ml Q8H and PRN adm IV ; Start 09/06/18 at 15:00 Sertraline HCl (Zoloft) 50 mg DAILY PO Last administered on 09/08/18at 09:56; Admin Dose 50 MG; Start 09/07/18 at 09:00 Zolpidem Tartrate (Ambien) 5 mg HS PRN PO INSOMNIA; Start 09/06/18 at 15:00 Miscellaneous Information 1 ea NOTE XX ; Start 09/06/18 at 16:00 Glucose (Glutose) 15 gm Q15M PRN PO DECREASED GLUCOSE; Start 09/06/18 at 16:00 Glucose (Glutose) 22.5 gm Q15M PRN PO DECREASED GLUCOSE; Start 09/06/18 at 16:0 0 Dextrose (D50w Syringe) 25 ml Q15M PRN IV DECREASED GLUCOSE; Start 09/06/18 at 16:00 Dextrose (D50w Syringe) 50 ml Q15M PRN IV DECREASED GLUCOSE; Start 09/06/18 at 16:00 Glucagon (Glucagen) 1 mg Q15M PRN IM DECREASED GLUCOSE; Start 09/06/18 at 16:00 Glucose (Glutose) 15 gm Q15M PRN BUCCAL DECREASED GLUCOSE Last administered on 09/08/18at 14:14; Admin Dose 15 GM; Start 09/06/18 at 16:00 [facility] This patient turner... PRN PRN XX WOUND CARE; Start 09/06/18 at 15:30 Insulin Aspart (Novolog Insulin Pen) 10 unit WITH MEALS SC Last administered on 09/08/18 18:15; Admin Dose 10 UNIT; Start 09/07/18 at 17:35 Insulin Glargine (Lantus) 30 units DAILY@2000 SC Last administered on 09/07/18at 20:33; Admin Dose 30 UNITS; Start 09/07/18 at 20:00 Erythromycin (Erythromycin) 250 mg Q8 PO Last administered on 09/08/18at 13:56; Admin Dose 250 MG; Start 09/07/18 at 14:00; Stop 09/17/18 at 13:59 Aspirin (Halfprin) 81 mg DAILY PO Last administered on 09/08/18 09:56; Admin Dose 81 MG; Start 09/08/18 at 09:00 Atorvastatin Calcium (Lipitor) 80 mg QHS PO Last administered on 09/07/18at 20:15; Admin Dose 80 MG; Start 09/07/18 at 21:00 Montelukast Sodium (Singulair) 10 mg QHS PO Last administered on 09/07/18at 20:15; Admin Dose 10 MG; Start 09/07/18 at 21:00 Pregabalin (Lyrica) 150 mg DAILY PO Last administered on 09/08/18 09:56; Admin Dose 150 MG; Start 09/08/18 at 09:00 Sevelamer Carbonate (Renvela) 2,400 mg WITH MEALS PO Last administered on 09/08/18 18:12; Admin Dose 2,400 MG; Start 09/08/18 at 07:35 Tramadol HCl (Ultram) 50 mg Q6H PRN PO MODERATE PAIN LEVEL 4-6 Last administered on 09/08/18 10:12; Admin Dose 50 MG; Start 09/07/18 at 20:00 Metoclopramide HCl (Reglan Liq) 5 mg QID PO Last administered on 09/08/18 17:30; Admin Dose 5 MG; Start 09/08/18 at 17:00 Losartan Potassium (Cozaar) 25 mg DAILY PO ; Start 09/09/18 at 09:00 SIMON WAKEFIELD Sep 08, 2018 18:43
[2018-09-08] MEDS: INSULIN GLARGINE [LANTus] (100 UNITS/ML) SYG SC SCH (20:48)
[2018-09-08] MEDS: ATORVASTATIN 80 MG TAB PO SCH (20:53)
[2018-09-08] MEDS: MONTELUKAST 10 MG TAB PO SCH (20:53)
[2018-09-09] VITALS (11 sets, daily range): BP systolic 73–155; BP diastolic 47–76; PULSE 61–72; RESP 18
[2018-09-09] MEDS: ACCU-CHEK XX SCH (02:00)
[2018-09-09] MEDS: ERYTHROMYCIN BASE (DR) 250 MG CAP PO SCH ×3 (06:22→21:03)
[2018-09-09] MEDS: PANTOPRAZOLE (EC) 40 MG TAB PO SCH (06:23)
[2018-09-09] MEDS: SEVELAMER CARBONATE 800 MG TABLET PO SCH ×3 (08:49→17:21)
[2018-09-09] MEDS: INSULIN ASPART [NOVOLOG] 3 ML PEN SC SCH ×7 (08:52→21:00)
[2018-09-09] MEDS: METOCLOPRAMIDE (1 MG/ML) 10 ML CUP PO SCH ×4 (08:56→21:01)
[2018-09-09] MEDS: SERTRALINE 50 MG TAB PO SCH (08:58)
[2018-09-09] MEDS: ASPIRIN (EC) 81 MG TAB PO SCH (08:59)
[2018-09-09] MEDS: PREGABALIN 75 MG CAP PO SCH (08:59)
[2018-09-09] MEDS: DOCUSATE SODIUM 100 MG CAP PO SCH ×2 (09:00→21:01)
[2018-09-09] MEDS: LOSARTAN 25 MG TAB PO SCH (09:00)
--- NOTE | 2018-09-09 09:49 | PN ---
Date/Time of Note Date/Time of Note DATE: 09/09/18 TIME: 09:45 Assessment/Plan VTE Prophylaxis Risk score (from Ns)>0 risk: 3 SCD applied (from Ns): Yes Pharmacological prophylaxis: heparin Lines/Catheters IV Catheter Type (from Nrs): Saline Lock Assessment/Plan Problems: (1) Diabetic autonomic neuropathy associated with type 2 diabetes mellitus Status: Chronic Comment: Appears to have improved without having to add in midodrine. Continue with elevation of the head of the bed, and the adjustments to the medications to smooth this out. (2) Gastroparesis due to DM Status: Chronic Comment: Noted. On medications and presently compensated (3) Right humeral fracture Status: Acute Comment: Through the acute rehabilitation protocol Qualifiers: Encounter type: initial encounter Humerus Location: surgical neck Fracture type: closed Fracture morphology: unspecified fracture morphology Fracture alignment: nondisplaced Qualified Codes: S42.214A - Unspecified nondisplaced fracture of surgical neck of right humerus, initial encounter for closed fracture (4) End stage renal disease Status: Chronic Comment: Noted. As per nephrology (5) Peritoneal dialysis status Status: Chronic Comment: Noted. Please note that this can decrease blood return to the heart a little bit which may aggravate orthostasis (6) Hypertension Status: Chronic Comment: Adequate control with the adjustments in the medications Qualifiers: Hypertension type: essential hypertension Qualified Codes: I10 - Essential (primary) hypertension (7) Hyperlipidemia Status: Chronic Comment: On statin therapy Qualifiers: Hyperlipidemia type: pure hypercholesterolemia Qualified Codes: E78.00 - Pure hypercholesterolemia, unspecified (8) Diabetes mellitus type 2 in nonobese Onset Date: ~ 08/1992 Status: Chronic Comment: Adequate control under this individual circumstances (9) Coronary artery disease Status: Chronic Comment: Quiescent Qualifiers: Coronary Disease-Associated Artery/Lesion type: [place] artery [place] vs. transplanted heart: [place] heart Associated angina: without angina Qualified Codes: I25.10 - Atherosclerotic heart disease of [place] coronary artery without angina pectoris (10) Asthma, mild persistent Status: Chronic Comment: Adequate control Qualifiers: Asthma complication type: uncomplicated Qualified Codes: J45.30 - Mild persistent asthma, uncomplicated Result Diagram: 09/07/18 0627 09/07/18 0627 Results 24hrs Laboratory Tests Test 09/08/18 13:51 09/08/18 14:10 09/08/18 14:26 09/08/18 14:43 Bedside Glucose 65 L 68 L 88 117 Test 09/08/18 16:19 09/08/18 17:27 09/08/18 18:10 09/08/18 20:45 Iron Level 22 L Total Iron Binding 164 L Capacity Percent Iron 13 L Saturation Bedside Glucose 325 H 329 H 242 H Test 09/09/18 02:35 09/09/18 06:12 09/09/18 08:46 Bedside Glucose 166 147 Hemoglobin A1c 6.8 H Subjective 24 Hr Interval Summary Free Text/Dictation Patient reports he feels well today and is not getting dizzy with sitting at the bedside. He is not yet stood Constitutional: no complaints Respiratory: no complaints Cardiovascular: no complaints Gastrointestinal: no complaints Genitourinary: no complaints Exam/Review of Systems Exam Vitals Vital Signs Date Temp Pulse Resp B/P (MAP) Pulse Ox O2 O2 Flow FiO2 Time Delivery Rate 09/09/18 61 125/68 09:23 09/09/18 97.9 18 98 Room Air 07:00 Intake and Output 09/08/18 09/08/18 09/09/18 1515:00 23:00 07:00 IntakeIntake Total 400 ml 150 ml OutputOutput Total 1940 ml BalanceBalance -1540 ml 150 ml Constitutional: alert, oriented Respiratory: clear to auscultation, normal air movement Cardiovascular: regular rate and rhythm, nl pulses Results Results 24hrs Laboratory Tests Test 09/08/18 13:51 09/08/18 14:10 09/08/18 14:26 09/08/18 14:43 Bedside Glucose 65 L 68 L 88 117 Test 09/08/18 16:19 09/08/18 17:27 09/08/18 18:10 09/08/18 20:45 Iron Level 22 L Total Iron Binding 164 L Capacity Percent Iron 13 L Saturation Bedside Glucose 325 H 329 H 242 H Test 09/09/18 02:35 09/09/18 06:12 09/09/18 08:46 Bedside Glucose 166 147 Hemoglobin A1c 6.8 H Medications Medication Current Medications Bisacodyl (Dulcolax Supp) 10 mg DAILY PRN [place] CONSTIPATION; Start 09/06/18 at 15:00 Docusate Sodium (Colace) 100 mg BID PO Last administered on 09/09/18at 09:00; Admin Dose 100 MG; Start 09/06/18 at 21:00 Diagnostic Test (Pha) (Accu-Chek) 1 ea 02 XX Last administered on 09/09/18at 02:00; Admin Dose 1 EA; Start 09/07/18 at 02:00 Insulin Aspart (Novolog Insulin Pen) NOVOLOG *MILD* ALGORITHM WITH MEALS BEDTIME SC Last administered on 09/09/18at 08:52; Admin Dose 1 UNIT; Start at 17:35 Ondansetron HCl (Zofran Inj) 4 mg Q4H PRN IV NAUSEA AND/OR VOMITING; Start 09/06/18 at 15:00 Pantoprazole (Protonix Tab) 40 mg DAILY@06 PO Last administered on 09/09/18at 06:23; Admin Dose 40 MG; Start 09/07/18 at 06:00 IV Flush (NS 3 ml) 3 ml Q8H and PRN adm IV ; Start 09/06/18 at 15:00 Sertraline HCl (Zoloft) 50 mg DAILY PO Last administered on 09/09/18at 08:58; Admin Dose 50 MG; Start 09/07/18 at 09:00 Zolpidem Tartrate (Ambien) 5 mg HS PRN PO INSOMNIA; Start 09/06/18 at 15:00 Miscellaneous Information 1 ea NOTE XX ; Start 09/06/18 at 16:00 Glucose (Glutose) 15 gm Q15M PRN PO DECREASED GLUCOSE; Start 09/06/18 at 16:00 Glucose (Glutose) 22.5 gm Q15M PRN PO DECREASED GLUCOSE; Start 09/06/18 at 16:00 Dextrose (D50w Syringe) 25 ml Q15M PRN IV DECREASED GLUCOSE; Start 09/06/18 at 16:00 Dextrose (D50w Syringe) 50 ml Q15M PRN IV DECREASED GLUCOSE; Start 09/06/18 at 16:00 Glucagon (Glucagen) 1 mg Q15M PRN IM DECREASED GLUCOSE; Start 09/06/18 at 16:00 Glucose (Glutose) 15 gm Q15M PRN BUCCAL DECREASED GLUCOSE Last administered on 09/08/18at 14:14; Admin Dose 15 GM; Start 09/06/18 at 16:00 Miscellaneous Information (Pending [facility] Order For Wound Care) This patient h a... PRN PRN XX WOUND CARE; Start 09/06/18 at 15:30 Insulin Aspart (Novolog Insulin Pen) 10 unit WITH MEALS SC Last administered on 09/09/18 08:53; Admin Dose 10 UNIT; Start 09/07/18 at 17:35 Insulin Glargine (Lantus) 30 units DAILY@2000 SC Last administered on 09/08/18 20:48; Admin Dose 30 UNITS; Start 09/07/18 at 20:00 Erythromycin (Erythromycin) 250 mg Q8 PO Last administered on 09/09/18 06:22; Admin Dose 250 MG; Start 09/07/18 at 14:00; Stop 09/17/18 at 13:59 Aspirin (Halfprin) 81 mg DAILY PO Last administered on 09/09/18 08:59; Admin Dose 81 MG; Start 09/08/18 at 09:00 Atorvastatin Calcium (Lipitor) 80 mg QHS PO Last administered on 09/08/18 20:53; Admin Dose 80 MG; Start 09/07/18 at 21:00 Montelukast Sodium (Singulair) 10 mg QHS PO Last administered on 09/08/18 20:53; Admin Dose 10 MG; Start 09/07/18 at 21:00 Pregabalin (Lyrica) 150 mg DAILY PO Last administered on 09/09/18 08:59; Admin Dose 150 MG; Start 09/08/18 at 09:00 Sevelamer Carbonate (Renvela) 2,400 mg WITH MEALS PO Last administered on 09/09/18 08:49; Admin Dose 2,400 MG; Start 09/08/18 at 07:35 Tramadol HCl (Ultram) 50 mg Q6H PRN PO MODERATE PAIN LEVEL 4-6 Last administered on 09/08/18 10:12; Admin Dose 50 MG; Start 09/07/18 at 20:00 Metoclopramide HCl (Reglan Liq) 5 mg QID PO Last administered on 09/09/18 08:56; Admin Dose 5 MG; Start 09/08/18 at 17:00 Losartan Potassium (Cozaar) 25 mg DAILY PO Last administered on 09/09/18 09:00; Admin Dose 25 MG; Start 09/09/18 at 09:00 ELIO CASANOVA MD Sep 09, 2018 09:49
[2018-09-09] MEDS: MIDODRINE 5 MG TAB PO SCH ×3 (13:21→18:29)
--- NOTE | 2018-09-09 14:49 | CONS ---
Assessment/Plan Assessment/Plan Assessment/Plan (Daily) - Orthostatic hypotension - started on Midodrine today 1. ESRD on Peritoneal dialysis 2. Recurrent syncope 2/2 autonomic neuropathy 3. H/o CAD s/p CABG 4. H/O HTN 5. H/o DM II- UNSTABLE - Endo cunsult apprecited 6. H/o HL 7. Oblique fracture of the right humeral neck., Nondisplaced fracture of the acromion. 8. Severe constipation with vomiting Plan: Cont[place] PD today 2.5% solution - 4 cycles - daily PD no need for epogen Continue other home meds Rehab plan as per Rehab physician will follow up Patient seen in collaboration with Dr Bran Goodson. dw staff Consultation Date/Type/Reason Admit Date/Time Sep 06, 2018 at 13:45 Initial Consult Date 09/07/18 Requesting Provider: ANNEMARIE BURROUGHS NP Date/Time of Note DATE: 09/09/18 TIME: 14:40 24 HR Interval Summary Free Text/Dictation Hypotension unstable BS- endo consult appreciated PD daily X4 cycles family at bed side- all Qs answered dw staff Detailed Summary Eyes: no complaints ENT: no complaints Respiratory: no complaints Cardiovascular: no complaints Gastrointestinal: no complaints Genitourinary: no complaints Musculoskeletal: no complaints Skin: no complaints Neurologic: syncope Endocrine: no complaints Lymphatic: no complaints Immunologic: no complaints Exam/Review of Systems Exam Vitals Vital Signs Date Temp Pulse Resp B/P (MAP) Pulse Ox O2 O2 Flow FiO2 Time Delivery Rate 09/09/18 65 18 120/65 10:05 (83) 09/09/18 97.9 98 Room Air 07:00 Intake and Output 09/08/18 09/08/18 09/09/18 1515:00 23:00 07:00 IntakeIntake Total 400 ml 150 ml OutputOutput Total 1940 ml BalanceBalance -1540 ml 150 ml Constitutional: alert, well developed Psych: nl mood/affect Head: normocephalic Eyes: nl lids, nl sclera ENMT: nl external ears & nose Neck: non-tender Respiratory: clear to auscultation Cardiovascular: nl pulses, other (s1s2) Gastrointestinal: soft, non-tender Musculoskeletal: muscle weakness, range of motion Extremities: normal pulses Neurological: nl mental status, nl speech Skin: other (no rash noted) Results Result Diagram: 09/07/1862609/07/18626 Results 24hrs Laboratory Tests Test 09/08/18 14:43 09/08/18 16:19 09/08/18 17:27 09/08/18 18:10 Bedside Glucose 117 325 H 329 H Iron Level 22 L Total Iron Binding 164 L Capacity Percent Iron 13 L Saturation Test 09/08/18 20:45 09/09/18 02:35 09/09/18 06:12 09/09/18 08:46 Bedside Glucose 242 H 166 147 Hemoglobin A1c 6.8 H Test 09/09/18 11:47 Bedside Glucose 155 Medications Medication Current Medications Bisacodyl (Dulcolax Supp) 10 mg DAILY PRN [place] CONSTIPATION; Start 09/06/18 at 15:00 Docusate Sodium (Colace) 100 mg BID PO Last administered on 09/09/18at 09:00; Admin Dose 100 MG; Start 09/06/18 at 21:00 Diagnostic Test (Pha) (Accu-Chek) 1 ea 02 XX Last administered on 09/09/18at 02:00; Admin Dose 1 EA; Start 09/07/18 at 02:00 Insulin Aspart (Novolog Insulin Pen) NOVOLOG *MILD* ALGORITHM WITH MEALS BEDTIME SC Last administered on 09/09/18at 11:50; Admin Dose 1 UNIT; Start 09/06/18 at 17:35 Ondansetron HCl (Zofran Inj) 4 mg Q4H PRN IV NAUSEA AND/OR VOMITING; Start 09/06/18 at 15:00 Pantoprazole (Protonix Tab) 40 mg DAILY@06 PO Last administered on 09/09/18at 06 :23; Admin Dose 40 MG; Start 09/07/18 at 06:00 IV Flush (NS 3 ml) 3 ml Q8H and PRN adm IV ; Start 09/06/18 at 15:00 Sertraline HCl (Zoloft) 50 mg DAILY PO Last administered on 09/09/18at 08:58; Admin Dose 50 MG; Start 09/07/18 at 09:00 Zolpidem Tartrate (Ambien) 5 mg HS PRN PO INSOMNIA; Start 09/06/18 at 15:00 Miscellaneous Information 1 ea NOTE XX ; Start 09/06/18 at 16:00 Glucose (Glutose) 15 gm Q15M PRN PO DECREASED GLUCOSE; Start 09/06/18 at 16:00 Glucose (Glutose) 22.5 gm Q15M PRN PO DECREASED GLUCOSE; Start 09/06/18 at 16:00 Dextrose (D50w Syringe) 25 ml Q15M PRN IV DECREASED GLUCOSE; Start 09/06/18 at 16:00 Dextrose (D50w Syringe) 50 ml Q15M PRN IV DECREASED GLUCOSE; Start 09/06/18 at 16:00 Glucagon (Glucagen) 1 mg Q15M PRN IM DECREASED GLUCOSE; Start 09/06/18 at 16:00 Glucose (Glutose) 15 gm Q15M PRN BUCCAL DECREASED GLUCOSE Last administered on 09/08/18at 14:14; Admin Dose 15 GM; Start 09/06/18 at 16:00 [facility] This patient turner... PRN PRN XX WOUND CARE; Start 09/06/18 at 15:30 Insulin Aspart (Novolog Insulin Pen) 10 unit WITH MEALS SC Last administered on 09/09/18at 11:50; Admin Dose 10 UNIT; Start 09/07/18 at 17:35 Insulin Glargine (Lantus) 30 units DAILY@2000 SC Last administered on 09/08/18 20:48; Admin Dose 30 UNITS; Start 09/07/18 at 20:00 Erythromycin (Erythromycin) 250 mg Q8 PO Last administered on 09/09/18 13:22; Admin Dose 250 MG; Start 09/07/18 at 14:00; Stop 09/17/18 at 13:59 Aspirin (Halfprin) 81 mg DAILY PO Last administered on 09/09/18 08:59; Admin Dose 81 MG; Start 09/08/18 at 09:00 Atorvastatin Calcium (Lipitor) 80 mg QHS PO Last administered on 09/08/18 20:53; Admin Dose 80 MG; Start 09/07/18 at 21:00 Montelukast Sodium (Singulair) 10 mg QHS PO Last administered on 09/08/18 20:53; Admin Dose 10 MG; Start 09/07/18 at 21:00 Pregabalin (Lyrica) 150 mg DAILY PO Last administered on 09/09/18 08:59; Admin Dose 150 MG; Start 09/08/18 at 09:00 Sevelamer Carbonate (Renvela) 2,400 mg WITH MEALS PO Last administered on 09/09/18 11:56; Admin Dose 2,400 MG; Start 09/08/18 at 07:35 Tramadol HCl (Ultram) 50 mg Q6H PRN PO MODERATE PAIN LEVEL 4-6 Last administered on 09/08/18 10:12; Admin Dose 50 MG; Start 09/07/18 at 20:00 Metoclopramide HCl (Reglan Liq) 5 mg QID PO Last administered on 09/09/18 13:20; Admin Dose 5 MG; Start 09/08/18 at 17:00 Losartan Potassium (Cozaar) 25 mg DAILY PO Last administered on 09/09/18 09:00; Admin Dose 25 MG; Start 09/09/18 at 09:00 Midodrine (Proamatine) 5 mg TID@,,17 PO Last administered on 09/09/18 13:21; Admin Dose 5 MG; Start 09/09/18 at 11:30 SIMON WAKEFIELD Sep 09, 2018 14:49
[2018-09-09] MEDS: MONTELUKAST 10 MG TAB PO SCH (21:01)
[2018-09-09] MEDS: ATORVASTATIN 80 MG TAB PO SCH (21:01)
[2018-09-09] MEDS: INSULIN GLARGINE [LANTus] (100 UNITS/ML) SYG SC SCH (21:05)
[2018-09-10 02:00] VITALS: BP 142/71; PULSE 60; RESP 18
[2018-09-10] MEDS: ACCU-CHEK XX SCH (02:00)
[2018-09-10] MEDS: ERYTHROMYCIN BASE (DR) 250 MG CAP PO SCH ×3 (06:51→21:37)
[2018-09-10] MEDS: PANTOPRAZOLE (EC) 40 MG TAB PO SCH (06:51)
[2018-09-10 07:00] VITALS: BP 163/76; PULSE 65; RESP 18
[2018-09-10 07:11] VITALS: BP 163/77; PULSE 62
[2018-09-10] MEDS: INSULIN ASPART [NOVOLOG] 3 ML PEN SC SCH ×7 (07:35→21:50)
[2018-09-10] MEDS: SEVELAMER CARBONATE 800 MG TABLET PO SCH ×3 (08:16→17:55)
[2018-09-10] MEDS: traMADol 50 MG TAB PO PRN (08:23)
[2018-09-10] MEDS: PREGABALIN 75 MG CAP PO SCH (09:04)
[2018-09-10] MEDS: DOCUSATE SODIUM 100 MG CAP PO SCH ×2 (09:04→21:37)
[2018-09-10] MEDS: ASPIRIN (EC) 81 MG TAB PO SCH (09:04)
[2018-09-10] MEDS: METOCLOPRAMIDE (1 MG/ML) 10 ML CUP PO SCH ×4 (09:04→21:38)
[2018-09-10] MEDS: SERTRALINE 50 MG TAB PO SCH (09:04)
[2018-09-10] MEDS: LOSARTAN 25 MG TAB PO SCH (10:32)
[2018-09-10] MEDS: MIDODRINE 5 MG TAB PO SCH ×3 (10:32→18:00)
[2018-09-10 14:00] VITALS: BP 107/58; PULSE 57; RESP 18
--- NOTE | 2018-09-10 15:46 | PN ---
Date/Time of Note Date/Time of Note DATE: 09/10/18 TIME: 15:41 Assessment/Plan VTE Prophylaxis Risk score (from Nsg)>0 risk: 3 SCD applied (from Ns): Yes Pharmacological prophylaxis: NA/contraindicated Pharm contraindication: low risk/ambulating Lines/Catheters IV Catheter Type (from [facility]): [facility] Assessment/Plan Hospital Course SUBJECTIVE: Had orthostatic hypotension. OBJECTIVE: Vital signs-see below PHYSICAL EXAM: Constitutional: Adequately built,not in acute distress. HEENT: Head atraumatic and normocephalic. Eyes: Extraocular muscles intact. Anicteric sclerae. Pupils equal bilaterally, reactive to light. NECK: Supple without lymph node. CHEST: Clear and good breath sounds equally. No wheezing. No rhonchi. HEART: S1, S2. Regular rate and rhythm. ABDOMEN: Soft/non tender with no rebound tenderness. Bowel sounds were present. EXTREMITIES: With right arm sling. No cyanosis, clubbing or edema. NEUROLOGIC: Alert and oriented x3. No focal deficit. No sensory deficit. PSYCHOSOCIAL: No signs of depression. INTEGUMENTARY: No open wounds. ASSESSMENT AND PLAN: Right humeral fracture - Properly aligned and does not require surgical intervention, continue conserv ative care - Pain control/PT Recurrent syncope likely secondary to autonomic neuropathy/orthostatic hypotension -Patient will need to allow for blood pressure elevations and will need to be less aggressive with BP control, patient also needs to change positions gradually 2D echo shows a preserved EF -on midodrine Gastroparesis -symptoms improved -Continue Reglan/ erythromycin base -Patient has outpatient [facility] follow-up for further studies on gastroparesis. End-stage renal disease on PD Managed per nephrology Insulin dependent diabetes -stable.cont.basal/bolus regimen Coronary disease status post CABG Continue aspirin/statin Hypertension Patient with autonomic neuropathy and recurrent syncope hence will be less aggressive BP control-she with orthostatic hypotension and receiving midodrine. Discontinue antihypertensive and monitor. If needed, will resume patient back on low-dose nifedipine. Anemia, likely chronic -Stable. Continue to monitor DM neuropathy -cont.Lyrica Anxiety disorders -cont.sertraline Prophylaxis: SCDs Patient was seen in collaboration with Result Diagram: 09/07/1862609/07/18626 Results 24hrs Laboratory Tests Test 09/09/18 17:19 09/09/18 21:01 09/10/18 08:14 09/10/18 11:58 Bedside Glucose 290 H 121 117 157 Exam/Review of Systems Exam Vitals Vital Signs Date Temp Pulse Resp B/P (MAP) Pulse Ox O2 O2 Flow FiO2 Time Delivery Rate 09/10/18 62 163/77 07:11 09/10/18 97.6 18 97 Room Air 07:00 Intake and Output 09/09/18 09/09/18 09/10/18 1515:00 23:00 07:00 IntakeIntake Total 1200 ml OutputOutput Total 168 ml BalanceBalance -168 ml 1200 ml Results Results 24hrs Laboratory Tests Test 09/09/18 17:19 09/09/18 21:01 09/10/18 08:14 09/10/18 11:58 Bedside Glucose 290 H 121 117 157 Medications Medication Current Medications Bisacodyl (Dulcolax Supp) 10 mg DAILY PRN [place] CONSTIPATION; Start 09/06/18 at 15:00 Docusate Sodium (Colace) 100 mg BID PO Last administered on 09/10/18at 09:04; Admin Dose 100 MG; Start 09/06/18 at 21:00 Diagnostic Test (Pha) (Accu-Chek) 1 ea 02 XX Last administered on 09/09/18at 02:00; Admin Dose 1 EA; Start 09/07/18 at 02:00 Insulin Aspart (Novolog Insulin Pen) NOVOLOG *MILD* ALGORITHM WITH MEALS BEDTIME SC Last administered on 09/10/18at 12:24; Admin Dose 1 UNIT; Start 09/06/18 at 17:35 Ondansetron HCl (Zofran Inj) 4 mg Q4H PRN IV NAUSEA AND/OR VOMITING; Start 09/06/18 at 15:00 Pantoprazole (Protonix Tab) 40 mg DAILY@06 PO Last administered on 09/10/18at 06:51; Admin Dose 40 MG; Start 09/07/18 at 06:00 IV Flush (NS 3 ml) 3 ml Q8H and PRN adm IV ; Start 09/06/18 at 15:00 Sertraline HCl (Zoloft) 50 mg DAILY PO Last administered on 09/10/18at 09:04; Admin Dose 50 MG; Start 09/07/18 at 09:00 Zolpidem Tartrate (Ambien) 5 mg HS PRN PO INSOMNIA; Start 09/06/18 at 15:00 Miscellaneous Information 1 ea NOTE XX ; Start 09/06/18 at 16:00 Glucose (Glutose) 15 gm Q15M PRN PO DECREASED GLUCOSE; Start 09/06/18 at 16:00 Glucose (Glutose) 22.5 gm Q15M PRN PO DECREASED GLUCOSE; Start 09/06/18 at 16:00 Dextrose (D50w Syringe) 25 ml Q15M PRN IV DECREASED GLUCOSE; Start 09/06/18 at 16:00 Dextrose (D50w Syringe) 50 ml Q15M PRN IV DECREASED GLUCOSE; Start 09/06/18 at 16:00 Glucagon (Glucagen) 1 mg Q15M PRN IM DECREASED GLUCOSE; Start 09/06/18 at 16:00 Glucose (Glutose) 15 gm Q15M PRN BUCCAL DECREASED GLUCOSE Last administered on 09/08/18at 14:14; Admin Dose 15 GM; Start 09/06/18 at 16:00 Miscellaneous Information (Pending [facility] Order For Wound Care) This patient turner... PRN PRN XX WOUND CARE; Start 09/06/18 at 15:30 Insulin Aspart (Novolog Insulin Pen) 10 unit WITH MEALS SC Last administered on 09/10/18at 12:25; Admin Dose 10 UNIT; Start 09/07/18 at 17:35 Insulin Glargine (Lantus) 30 units DAILY@2000 SC Last administered on 09/09/18at 21:05; Admin Dose 30 UNITS; Start 09/07/18 at 20:00 Erythromycin (Erythromycin) 250 mg Q8 PO Last administered on 09/10/18at 14:59; Admin Dose 250 MG; Start 09/07/18 at 14:00; Stop 09/17/18 at 13:59 Aspirin (Halfprin) 81 mg DAILY PO Last administered on 09/10/18 09:04; Admin Dose 81 MG; Start 09/08/18 at 09:00 Atorvastatin Calcium (Lipitor) 80 mg QHS PO Last administered on 09/09/18at 21:01; Admin Dose 80 MG; Start 09/07/18 at 21:00 Montelukast Sodium (Singulair) 10 mg QHS PO Last administered on 09/09/18at 21:01; Admin Dose 10 MG; Start 09/07/18 at 21:00 Pregabalin (Lyrica) 150 mg DAILY PO Last administered on 09/10/18 09:04; Admin Dose 150 MG; Start 09/08/18 at 09:00 Sevelamer Carbonate (Renvela) 2,400 mg WITH MEALS PO Last administered on 09/10/18 12:18; Admin Dose 2,400 MG; Start 09/08/18 at 07:35 Tramadol HCl (Ultram) 50 mg Q6H PRN PO MODERATE PAIN LEVEL 4-6 Last administered on 09/10/18 08:23; Admin Dose 50 MG; Start 09/07/18 at 20:00 Metoclopramide HCl (Reglan Liq) 5 mg QID PO Last administered on 09/10/18at 12:19; Admin Dose 5 MG; Start 09/08/18 at 17:00 Losartan Potassium (Cozaar) 25 mg DAILY PO Last administered on 09/10/18at 10:3 2; Admin Dose 25 MG; Start 09/09/18 at 09:00 Midodrine (Proamatine) 5 mg TID@,13,17 PO Last administered on 09/10/18 13:23; Admin Dose 5 MG; Start 09/09/18 at 11:30 ANNEMARIE BURROUGHS NP Sep 10, 2018 15:46
--- NOTE | 2018-09-10 16:54 | PN ---
Date/Time of Note Date/Time of Note DATE: 09/10/18 TIME: 16:45 Subjective Up for activities Objective Vital Signs Date Temp Pulse Resp B/P (MAP) Pulse Ox O2 O2 Flow FiO2 Time Delivery Rate 09/10/18 98.0 57 18 107/58 95 Room Air 14:00 (74) Intake and Output 09/09/18 09/09/18 09/10/18 1515:00 23:00 07:00 IntakeIntake Total 1200 ml OutputOutput Total 168 ml BalanceBalance -168 ml 1200 ml Exam min/mod transfer mod ambulation Results/Medications Result Diagram: 09/07/1862609/07/18626 Results 24 hrs Laboratory Tests Test 09/09/18 17:19 09/09/18 21:01 09/10/18 08:14 09/10/18 11:58 Bedside Glucose 290 H 121 117 157 Medications Current Medications Bisacodyl (Dulcolax Supp) 10 mg DAILY PRN [place] CONSTIPATION; Start 09/06/18 at 1 5:00 Docusate Sodium (Colace) 100 mg BID PO Last administered on 09/10/18at 09:04; Admin Dose 100 MG; Start 09/06/18 at 21:00 Diagnostic Test (Pha) (Accu-Chek) 1 ea 02 XX Last administered on 09/09/18at 02:00; Admin Dose 1 EA; Start 09/07/18 at 02:00 Insulin Aspart (Novolog Insulin Pen) NOVOLOG *MILD* ALGORITHM WITH MEALS BEDTIME SC Last administered on 09/10/18at 12:24; Admin Dose 1 UNIT; Start 09/06/18 at 17:35 Ondansetron HCl (Zofran Inj) 4 mg Q4H PRN IV NAUSEA AND/OR VOMITING; Start 09/06/18 at 15:00 Pantoprazole (Protonix Tab) 40 mg DAILY@06 PO Last administered on 09/10/18at 06:51; Admin Dose 40 MG; Start 09/07/18 at 06:00 IV Flush (NS 3 ml) 3 ml Q8H and PRN adm IV ; Start 09/06/18 at 15:00 Sertraline HCl (Zoloft) 50 mg DAILY PO Last administered on 09/10/18at 09:04; Admin Dose 50 MG; Start 09/07/18 at 09:00 Zolpidem Tartrate (Ambien) 5 mg HS PRN PO INSOMNIA; Start 09/06/18 at 15:00 Miscellaneous Information 1 ea NOTE XX ; Start 09/06/18 at 16:00 Glucose (Glutose) 15 gm Q15M PRN PO DECREASED GLUCOSE; Start 09/06/18 at 16:00 Glucose (Glutose) 22.5 gm Q15M PRN PO DECREASED GLUCOSE; Start 09/06/18 at 16:00 Dextrose (D50w Syringe) 25 ml Q15M PRN IV DECREASED GLUCOSE; Start 09/06/18 at 16:00 Dextrose (D50w Syringe) 50 ml Q15M PRN IV DECREASED GLUCOSE; Start 09/06/18 at 16:00 Glucagon (Glucagen) 1 mg Q15M PRN IM DECREASED GLUCOSE; Start 09/06/18 at 16:00 Glucose (Glutose) 15 gm Q15M PRN BUCCAL DECREASED GLUCOSE Last administered on 09/08/18at 14:14; Admin Dose 15 GM; Start 09/06/18 at 16:00 Miscellaneous Information (Pending [facility] Order For Wound Care) This patient turner... PRN PRN XX WOUND CARE; Start 09/06/18 at 15:30 Insulin Aspart (Novolog Insulin Pen) 10 unit WITH MEALS SC Last administered on 09/10/18at 12:25; Admin Dose 10 UNIT; Start 09/07/18 at 17:35 Insulin Glargine (Lantus) 30 units DAILY@2000 SC Last administered on 09/09/18at 21:05; Admin Dose 30 UNITS; Start 09/07/18 at 20:00 Erythromycin (Erythromycin) 250 mg Q8 PO Last administered on 09/10/18at 14:59; Admin Dose 250 MG; Start 09/07/18 at 14:00; Stop 09/17/18 at 13:59 Aspirin (Halfprin) 81 mg DAILY PO Last administered on 09/10/18 09:04; Admin Dose 81 MG; Start 09/08/18 at 09:00 Atorvastatin Calcium (Lipitor) 80 mg QHS PO Last administered on 09/09/18 21:01; Admin Dose 80 MG; Start 09/07/18 at 21:00 Montelukast Sodium (Singulair) 10 mg QHS PO Last administered on 09/09/18 21:01; Admin Dose 10 MG; Start 09/07/18 at 21:00 Pregabalin (Lyrica) 150 mg DAILY PO Last administered on 09/10/18 09:04; Admin Dose 150 MG; Start 09/08/18 at 09:00 Sevelamer Carbonate (Renvela) 2,400 mg WITH MEALS PO Last administered on 09/10/18 12:18; Admin Dose 2,400 MG; Start 09/08/18 at 07:35 Tramadol HCl (Ultram) 50 mg Q6H PRN PO MODERATE PAIN LEVEL 4-6 Last administered on 09/10/18 08:23; Admin Dose 50 MG; Start 09/07/18 at 20:00 Metoclopramide HCl (Reglan Liq) 5 mg QID PO Last administered on 09/10/18 12:19; Admin Dose 5 MG; Start 09/08/18 at 17:00 Midodrine (Proamatine) 5 mg TID@09,13,17 PO Last administered on 09/10/18 13:23; Admin Dose 5 MG; Start 09/09/18 at 11:30 Assessment/Plan Additional Assessment/Plan Rehab- Autonomic neuropathy with orthostatic hypotension Continue interdisciplinary rehab Syncopal episode. Recurrent falls with injury. Right humerus fracture, nonweightbearing right upper extremity immobilization with sling. C5 fracture, no collar required, no surgical intervention. Traumatic pain syndrome.PRN ANALGESICS Type 2 diabetes.OOC MEDS PER IM Diabetic neuropathy. Diabetic nephropathy. End-stage renal disease, peritoneal dialysis. Hypertension.12. Coronary artery disease with a history of bypass grafting. Old CVAs. Osteoarthritis. Anemia. CARLOS LANGE MD Sep 10, 2018 16:54
--- NOTE | 2018-09-10 17:26 | CONS ---
Assessment/Plan Assessment/Plan Assessment/Plan (Daily) 1. ESRD on Peritoneal dialysis 2. Recurrent syncope 2/2 autonomic neuropathy 3. H/o CAD s/p CABG 4. H/O HTN 5. H/o DM II- UNSTABLE - Endo cunsult apprecited 6. H/o HL 7. Oblique fracture of the right humeral neck., Nondisplaced fracture of the acromion. 8. Severe constipation with vomiting Plan: [place] [facility] today and tomorrow 3 cycles no need for epogen Continue other home meds Rehab plan as per Rehab physician will follow up Consultation Date/Type/Reason Admit Date/Time Sep 06, 2018 at 13:45 Initial Consult Date 09/07/18 Type of Consult NEPHROLOGY Requesting Provider: ANNEMARIE BURROUGHS NP Date/Time of Note DATE: 09/10/18 TIME: 17:26 Exam/Review of Systems Exam Vitals Vital Signs Date Temp Pulse Resp B/P (MAP) Pulse Ox O2 O2 Flow FiO2 Time Delivery Rate 09/10/18 98.0 57 18 107/58 95 Room Air 14:00 (74) Intake and Output 09/09/18 09/09/18 09/10/18 1515:00 23:00 07:00 IntakeIntake Total 1200 ml OutputOutput Total 168 ml BalanceBalance -168 ml 1200 ml Results Result Diagram: 09/07/18 0627 09/07/18 0627 Results 24hrs Laboratory Tests Test 09/09/18 21:01 09/10/18 08:14 09/10/18 11:58 Bedside Glucose 121 117 157 Medications Medication Current Medications Bisacodyl (Dulcolax Supp) 10 mg DAILY PRN [place] CONSTIPATION; Start 09/06/18 at 15:00 Docusate Sodium (Colace) 100 mg BID PO Last administered on 09/10/18at 09:04; Admin Dose 100 MG; Start 09/06/18 at 21:00 Diagnostic Test (Pha) (Accu-Chek) 1 ea 02 XX Last administered on 09/09/18at 02:00; Admin Dose 1 EA; Start 09/07/18 at 02:00 Insulin Aspart (Novolog Insulin Pen) NOVOLOG *MILD* ALGORITHM WITH MEALS BEDTIME SC Last administered on 09/10/18at 12:24; Admin Dose 1 UNIT; Start 09/06/18 at 17:35 Ondansetron HCl (Zofran Inj) 4 mg Q4H PRN IV NAUSEA AND/OR VOMITING; Start 09/06/18 at 15:00 Pantoprazole (Protonix Tab) 40 mg DAILY@06 PO Last administered on 09/10/18at 06:51; Admin Dose 40 MG; Start 09/07/18 at 06:00 IV Flush (NS 3 ml) 3 ml Q8H and PRN adm IV ; Start 09/06/18 at 15:00 Sertraline HCl (Zoloft) 50 mg DAILY PO Last administered on 09/10/18at 09:04; Admin Dose 50 MG; Start 09/07/18 at 09:00 Zolpidem Tartrate (Ambien) 5 mg HS PRN PO INSOMNIA; Start 09/06/18 at 15:00 Miscellaneous Information 1 ea NOTE XX ; Start 09/06/18 at 16:00 Glucose (Glutose) 15 gm Q15M PRN PO DECREASED GLUCOSE; Start 09/06/18 at 16:00 Glucose (Glutose) 22.5 gm Q15M PRN PO DECREASED GLUCOSE; Start 09/06/18 at 16:00 Dextrose (D50w Syringe) 25 ml Q15M PRN IV DECREASED GLUCOSE; Start 09/06/18 at 16:00 Dextrose (D50w Syringe) 50 ml Q15M PRN IV DECREASED GLUCOSE; Start 09/06/18 at 16:00 Glucagon (Glucagen) 1 mg Q15M PRN IM DECREASED GLUCOSE; Start 09/06/18 at 16:00 Glucose (Glutose) 15 gm Q15M PRN BUCCAL DECREASED GLUCOSE Last administered on 09/08/18at 14:14; Admin Dose 15 GM; Start 09/06/18 at 16:00 Miscellaneous Information ([facility] This patient turner... PRN PRN XX WOUND CARE; Start 09/06/18 at 15:30 Insulin Aspart (Novolog Insulin Pen) 10 unit WITH MEALS SC Last administered on 09/10/18at 12:25; Admin Dose 10 UNIT; Start 09/07/18 at 17:35 Insulin Glargine (Lantus) 30 units DAILY@2000 SC Last administered on 09/09/18at 21:05; Admin Dose 30 UNITS; Start 09/07/18 at 20:00 Erythromycin (Erythromycin) 250 mg Q8 PO Last administered on 09/10/18 14:59; Admin Dose 250 MG; Start 09/07/18 at 14:00; Stop 09/17/18 at 13:59 Aspirin (Halfprin) 81 mg DAILY PO Last administered on 09/10/18 09:04; Admin Dose 81 MG; Start 09/08/18 at 09:00 Atorvastatin Calcium (Lipitor) 80 mg QHS PO Last administered on 09/09/18 21:01; Admin Dose 80 MG; Start 09/07/18 at 21:00 Montelukast Sodium (Singulair) 10 mg QHS PO Last administered on 09/09/18 21:01; Admin Dose 10 MG; Start 09/07/18 at 21:00 Pregabalin (Lyrica) 150 mg DAILY PO Last administered on 09/10/18 09:04; Admin Dose 150 MG; Start 09/08/18 at 09:00 Sevelamer Carbonate (Renvela) 2,400 mg WITH MEALS PO Last administered on 09/10/18 12:18; Admin Dose 2,400 MG; Start 09/08/18 at 07:35 Tramadol HCl (Ultram) 50 mg Q6H PRN PO MODERATE PAIN LEVEL 4-6 Last administered on 09/10/18 08:23; Admin Dose 50 MG; Start 09/07/18 at 20:00 Metoclopramide HCl (Reglan Liq) 5 mg QID PO Last administered on 09/10/18 12:19; Admin Dose 5 MG; Start 09/08/18 at 17:00 Midodrine (Proamatine) 5 mg TID@, PO Last administered on 09/10/18 13:23; Admin Dose 5 MG; Start 09/09/18 at 11:30 JACQUES VALENCIA MD Sep 10, 2018 17:26
[2018-09-10 20:47] VITALS: BP 163/73; PULSE 64
[2018-09-10] MEDS: ATORVASTATIN 80 MG TAB PO SCH (21:38)
[2018-09-10] MEDS: MONTELUKAST 10 MG TAB PO SCH (21:38)
[2018-09-10] MEDS: INSULIN GLARGINE [LANTus] (100 UNITS/ML) SYG SC SCH (21:48)
[2018-09-10 23:06] VITALS: BP 166/64; PULSE 65; RESP 17
[2018-09-11 02:00] VITALS: BP 172/82; PULSE 64; RESP 17
[2018-09-11] MEDS: ACCU-CHEK XX SCH (02:40)
[2018-09-11] MEDS: PANTOPRAZOLE (EC) 40 MG TAB PO SCH (07:02)
[2018-09-11] MEDS: ERYTHROMYCIN BASE (DR) 250 MG CAP PO SCH ×3 (07:15→23:14)
[2018-09-11 07:30] VITALS: BP 170/74; PULSE 65; RESP 20
[2018-09-11 07:43] VITALS: BP 159/82; PULSE 67
[2018-09-11] MEDS: DOCUSATE SODIUM 100 MG CAP PO SCH ×2 (08:19→21:38)
[2018-09-11] MEDS: SERTRALINE 50 MG TAB PO SCH (08:20)
[2018-09-11] MEDS: METOCLOPRAMIDE (1 MG/ML) 10 ML CUP PO SCH ×4 (08:20→21:38)
[2018-09-11] MEDS: ASPIRIN (EC) 81 MG TAB PO SCH (08:20)
[2018-09-11] MEDS: PREGABALIN 75 MG CAP PO SCH (08:20)
[2018-09-11] MEDS: SEVELAMER CARBONATE 800 MG TABLET PO SCH ×3 (08:20→17:39)
[2018-09-11] MEDS: INSULIN ASPART [NOVOLOG] 3 ML PEN SC SCH ×7 (08:34→21:00)
--- NOTE | 2018-09-11 13:24 | CONS ---
Assessment/Plan Assessment/Plan Assessment/Plan (Daily) 1. ESRD on Peritoneal dialysis 2. Recurrent syncope 2/2 autonomic neuropathy 3. H/o CAD s/p CABG 4. H/O HTN 5. H/o DM II- UNSTABLE - Endo cunsult apprecited 6. H/o HL 7. Oblique fracture of the right humeral neck., Nondisplaced fracture of the acromion. 8. Severe constipation with vomiting Plan: [place] PD today and tomorrow 3 cycles no need for epogen Continue other home meds Rehab plan as per Rehab physician will follow up Consultation Date/Type/Reason Admit Date/Time Sep 06, 2018 at 13:45 Initial Consult Date 09/07/18 Type of Consult NEPHROLOGY Requesting Provider: ANNEMARIE BURROUGHS NP Date/Time of Note DATE: 09/11/18 TIME: 13:24 Exam/Review of Systems Exam Vitals Vital Signs Date Temp Pulse Resp B/P (MAP) Pulse Ox O2 O2 Flow FiO2 Time Delivery Rate 09/11/18 67 159/82 07:43 09/11/18 97.5 20 97 Room Air 07:30 Intake and Output 09/10/18 09/10/18 09/11/18 1515:00 23:00 07:00 IntakeIntake Total 1200 ml 550 ml OutputOutput Total 334 ml BalanceBalance -334 ml 1200 ml 550 ml Results Result Diagram: 09/07/1827 09/07/18 0627 Results 24hrs Laboratory Tests Test 09/10/18 17:43 09/10/18 21:36 09/11/18 02:46 09/11/18 08:15 Bedside Glucose 127 199 254 H 224 H Test 09/11/18 12:51 Bedside Glucose 115 Medications Medication Current Medications Bisacodyl (Dulcolax Supp) 10 mg DAILY PRN [place] CONSTIPATION; Start 09/06/18 at 15:00 Docusate Sodium (Colace) 100 mg BID PO Last administered on 09/11/18at 08:19; Admin Dose 100 MG; Start 09/06/18 at 21:00 Diagnostic Test (Pha) (Accu-Chek) 1 ea 02 XX Last administered on 09/11/18at 02:40; Admin Dose 1 EA; Start 09/07/18 at 02:00 Insulin Aspart (Novolog Insulin Pen) NOVOLOG *MILD* ALGORITHM WITH MEALS BEDTIME SC Last administered on 09/11/18at 08:34; Admin Dose 3 UNIT; Start 09/06/18 at 17:35 Ondansetron HCl (Zofran Inj) 4 mg Q4H PRN IV NAUSEA AND/OR VOMITING; Start 09/06/18 at 15:00 Pantoprazole (Protonix Tab) 40 mg DAILY@06 PO Last administered on 09/11/18at 07:02; Admin Dose 40 MG; Start 09/07/18 at 06:00 IV Flush (NS 3 ml) 3 ml Q8H and PRN adm IV ; Start 09/06/18 at 15:00 Sertraline HCl (Zoloft) 50 mg DAILY PO Last administered on 09/11/18at 08:20; Admin Dose 50 MG; Start 09/07/18 at 09:00 Zolpidem Tartrate (Ambien) 5 mg HS PRN PO INSOMNIA; Start 09/06/18 at 15:00 Miscellaneous Information 1 ea NOTE XX ; Start 09/06/18 at 16:00 Glucose (Glutose) 15 gm Q15M PRN PO DECREASED GLUCOSE; Start 09/06/18 at 16:00 Glucose (Glutose) 22.5 gm Q15M PRN PO DECREASED GLUCOSE; Start 09/06/18 at 16:00 Dextrose (D50w Syringe) 25 ml Q15M PRN IV DECREASED GLUCOSE; Start 09/06/18 at 16:00 Dextrose (D50w Syringe) 50 ml Q15M PRN IV DECREASED GLUCOSE; Start 09/06/18 at 16:00 Glucagon (Glucagen) 1 mg Q15M PRN IM DECREASED GLUCOSE; Start 09/06/18 at 16:00 Glucose (Glutose) 15 gm Q15M PRN BUCCAL DECREASED GLUCOSE Last administered on 09/08/18at 14:14; Admin Dose 15 GM; Start 09/06/18 at 16:00 Miscellaneous Information (Pending [facility] Order For Wound Care) This patient turner... PRN PRN XX WOUND CARE; Start 09/06/18 at 15:30 Insulin Aspart (Novolog Insulin Pen) 10 unit WITH MEALS SC Last administered on 09/11/18at 13:04; Admin Dose 10 UNIT; Start 09/07/18 at 17:35 Insulin Glargine (Lantus) 30 units DAILY@2000 SC Last administered on 09/10/18 21:48; Admin Dose 30 UNITS; Start 09/07/18 at 20:00 Erythromycin (Erythromycin) 250 mg Q8 PO Last administered on 09/11/18 07:15; Admin Dose 250 MG; Start 09/07/18 at 14:00; Stop 09/17/18 at 13:59 Aspirin (Halfprin) 81 mg DAILY PO Last administered on 09/11/18 08:20; Admin Dose 81 MG; Start 09/08/18 at 09:00 Atorvastatin Calcium (Lipitor) 80 mg QHS PO Last administered on 09/10/18 21: 38; Admin Dose 80 MG; Start 09/07/18 at 21:00 Montelukast Sodium (Singulair) 10 mg QHS PO Last administered on 09/10/18 21:38; Admin Dose 10 MG; Start 09/07/18 at 21:00 Pregabalin (Lyrica) 150 mg DAILY PO Last administered on 09/11/18 08:20; Admin Dose 150 MG; Start 09/08/18 at 09:00 Sevelamer Carbonate (Renvela) 2,400 mg WITH MEALS PO Last administered on 09/11/18 12:55; Admin Dose 2,400 MG; Start 09/08/18 at 07:35 Tramadol HCl (Ultram) 50 mg Q6H PRN PO MODERATE PAIN LEVEL 4-6 Last admi nistered on 09/10/18 08:23; Admin Dose 50 MG; Start 09/07/18 at 20:00 Metoclopramide HCl (Reglan Liq) 5 mg QID PO Last administered on 09/11/18 08:20; Admin Dose 5 MG; Start 09/08/18 at 17:00 Midodrine (Proamatine) 5 mg TID@09,13,17 PO Last administered on 09/10/18 18:00; Admin Dose 5 MG; Start 09/09/18 at 11:30 JACQUES VALENCIA MD Sep 11, 2018 13:24
[2018-09-11] MEDS: traMADol 50 MG TAB PO PRN (13:51)
[2018-09-11 14:00] VITALS: BP 156/76; PULSE 67; RESP 20
--- NOTE | 2018-09-11 14:45 | PN ---
Date/Time of Note Date/Time of Note DATE: 09/11/18 TIME: 14:37 Assessment/Plan VTE Prophylaxis Risk score (from Nsg)>0 risk: 3 SCD applied (from Nsg): Yes Pharmacological prophylaxis: NA/contraindicated Pharm contraindication: low risk/ambulating Lines/Catheters IV [facility]from [facility] Saline Lock Assessment/Plan Hospital Course SUBJECTIVE: tolerated PT session today,no orthoptic hypotension today OBJECTIVE: Vital signs-see below PHYSICAL EXAM: Constitutional: Adequately built,not in acute distress. HEENT: Head atraumatic and normocephalic. Eyes: Extraocular muscles intact. Anicteric sclerae. Pupils equal bilaterally, reactive to light. NECK: Supple without lymph node. CHEST: Clear and good breath sounds equally. No wheezing. No rhonchi. HEART: S1, S2. Regular rate and rhythm. ABDOMEN: Soft/non tender with no rebound tenderness. Bowel sounds were present. EXTREMITIES: With right arm sling. No cyanosis, clubbing or edema. NEUROLOGIC: Alert and oriented x3. No focal deficit. No sensory deficit. PSYCHOSOCIAL: No signs of depression. INTEGUMENTARY: No open wounds. ASSESSMENT AND PLAN: Right humeral fracture - Properly aligned and does not require surgical intervention, continue conservative care - Pain control/PT Recurrent syncope likely secondary to autonomic neuropathy/orthostatic hypotension -Patient will need to allow for blood pressure elevations and will need to be less aggressive with BP control, patient also needs to change positions graduall y 2D echo shows a preserved EF -on midodrine-change to PRN Gastroparesis -symptoms improved -Continue Reglan/ erythromycin base -Patient has outpatient [facility] follow-up for further studies on gastroparesis. End-stage renal disease on PD Managed per nephrology Insulin dependent diabetes -stable.cont.basal/bolus regimen Coronary disease status post CABG Continue aspirin/statin Hypertension -No further episodes of orthostatic hypotension. Will be less aggressive with blood pressure control secondary to autonomic neuropathy/syncope episodes Anemia, likely chronic -Stable. Continue to monitor DM neuropathy -cont.Lyrica Anxiety disorders -cont.sertraline Prophylaxis: SCDs Patient was seen in collaboration with Result Diagram: 09/07/1827 09/07/1827 Results 24hrs Laboratory Tests Test 09/10/18 17:43 09/10/18 21:36 09/11/18 02:46 09/11/18 08:15 Bedside Glucose 127 199 254 H 224 H Test 09/11/18 12:51 Bedside Glucose 115 Exam/Review of Systems Exam Vitals Vital Signs Date Temp Pulse Resp B/P (MAP) Pulse Ox O2 O2 Flow FiO2 Time Delivery Rate 09/11/18 67 159/82 07:43 09/11/18 97.5 20 97 Room Air 07:30 Intake and Output 09/10/18 09/10/18 09/11/18 1515:00 23:00 07:00 IntakeIntake Total 1200 ml 550 ml OutputOutput Total 334 ml BalanceBalance -334 ml 1200 ml 550 ml Results Results 24hrs Laboratory Tests Test 09/10/18 17:43 09/10/18 21:36 09/11/18 02:46 09/11/18 08:15 Bedside Glucose 127 199 254 H 224 H Test 09/11/18 12:51 Bedside Glucose 115 Medications Medication Current Medications Bisacodyl (Dulcolax Supp) 10 mg DAILY PRN MD CONSTIPATION; Start 09/06/18 at 15:00 Docusate Sodium (Colace) 100 mg BID PO Last administered on 09/11/18 08:19; A dmin Dose 100 MG; Start 09/06/18 at 21:00 Diagnostic Test (Pha) (Accu-Chek) 1 ea 02 XX Last administered on 09/11/18 02:40; Admin Dose 1 EA; Start 09/07/18 at 02:00 Insulin Aspart (Novolog Insulin Pen) NOVOLOG *MILD* ALGORITHM WITH MEALS BEDTIME SC Last administered on 09/11/18 08:34; Admin Dose 3 UNIT; Start 09/06/18 at 17:35 Ondansetron HCl (Zofran Inj) 4 mg Q4H PRN IV NAUSEA AND/OR VOMITING; Start 09/06/18 at 15:00 Pantoprazole (Protonix Tab) 40 mg DAILY@06 PO Last administered on 09/11/18 07:02; Admin Dose 40 MG; Start 09/07/18 at 06:00 IV Flush (NS 3 ml) 3 ml Q8H and PRN adm IV ; Start 09/06/18 at 15:00 Sertraline HCl (Zoloft) 50 mg DAILY PO Last administered on 09/11/18 08:20; Admin Dose 50 MG; Start 09/07/18 at 09:00 Zolpidem Tartrate (Ambien) 5 mg HS PRN PO INSOMNIA; Start 09/06/18 at 15:00 Miscellaneous Information 1 ea NOTE XX ; Start 09/06/18 at 16:00 Glucose (Glutose) 15 gm Q15M PRN PO DECREASED GLUCOSE; Start 09/06/18 at 16:00 Glucose (Glutose) 22.5 gm Q15M PRN PO DECREASED GLUCOSE; Start 09/06/18 at 16:00 Dextrose (D50w Syringe) 25 ml Q15M PRN IV DECREASED GLUCOSE; Start 09/06/18 at 16:00 Dextrose (D50w Syringe) 50 ml Q15M PRN IV DECREASED GLUCOSE; Start 09/06/18 at 16:00 Glucagon (Glucagen) 1 mg Q15M PRN IM DECREASED GLUCOSE; Start 09/06/18 at 16:00 Glucose (Glutose) 15 gm Q15M PRN BUCCAL DECREASED GLUCOSE Last administered on 09/08/18at 14:14; Admin Dose 15 GM; Start 09/06/18 at 16:00 [facility] This patient turner... PRN PRN XX WOUND CARE; Start 09/06/18 at 15:30 Insulin Aspart (Novolog Insulin Pen) 10 unit WITH MEALS SC Last administered on 09/11/18at 13:04; Admin Dose 10 UNIT; Start 09/07/18 at 17:35 Insulin Glargine (Lantus) 30 units DAILY@2000 SC Last administered on 09/10/18at 21:48; Admin Dose 30 UNITS; Start 09/07/18 at 20:00 Erythromycin (Erythromycin) 250 mg Q8 PO Last administered on 09/11/18at 13:59; Admin Dose 250 MG; Start 09/07/18 at 14:00; Stop 09/17/18 at 13:59 Aspirin (Halfprin) 81 mg DAILY PO Last administered on 09/11/18at 08:20; Admin Dose 81 MG; Start 09/08/18 at 09:00 Atorvastatin Calcium (Lipitor) 80 mg QHS PO Last administered on 09/10/18at 21:38; Admin Dose 80 MG; Start 09/07/18 at 21:00 Montelukast Sodium (Singulair) 10 mg QHS PO Last administered on 09/10/18 21:38; Admin Dose 10 MG; Start 09/07/18 at 21:00 Pregabalin (Lyrica) 150 mg DAILY PO Last administered on 09/11/18 08:20; Admin Dose 150 MG; Start 09/08/18 at 09:00 Sevelamer Carbonate (Renvela) 2,400 mg WITH MEALS PO Last administered on 09/11/18 12:55; Admin Dose 2,400 MG; Start 09/08/18 at 07:35 Tramadol HCl (Ultram) 50 mg Q6H PRN PO MODERATE PAIN LEVEL 4-6 Last administered on 09/11/18 13:51; Admin Dose 50 MG; Start 09/07/18 at 20:00 Metoclopramide HCl (Reglan Liq) 5 mg QID PO Last administered on 09/11/18 13:59; Admin Dose 5 MG; Start 09/08/18 at 17:00 Midodrine (Proamatine) 5 mg TID@09,13,17 PO Last administered on 09/10/18 18:00; Admin Dose 5 MG; Start 09/09/18 at 11:30 ANNEMARIE BURROUGHS NP Sep 11, 2018 14:44
--- NOTE | 2018-09-11 16:32 | PN ---
Date/Time of Note Date/Time of Note DATE: 09/11/18 TIME: 16:30 Subjective Tired Objective Vital Signs Date Temp Pulse Resp B/P (MAP) Pulse Ox O2 O2 Flow FiO2 Time Delivery Rate 09/11/18 67 159/82 07:43 09/11/18 97.5 20 97 Room Air 07:30 Intake and Output 09/10/18 09/10/18 09/11/18 1515:00 23:00 07:00 IntakeIntake Total 1200 ml 550 ml OutputOutput Total 334 ml BalanceBalance -334 ml 1200 ml 550 ml Exam pulm-cta mod/max transfer Results/Medications Result Diagram: 09/07/18 0609/07/18 06 Results 24 hrs Laboratory Tests Test 09/10/18 17:43 09/10/18 21:36 09/11/18 02:46 09/11/18 08:15 Bedside Glucose 127 199 254 H 224 H Test 09/11/18 12:51 09/11/18 15:00 Bedside Glucose 115 149 Medications Current Medications Bisacodyl (Dulcolax Supp) 10 mg DAILY PRN [place] CONSTIPATION; Start 09/06/18 at 15:00 Docusate Sodium (Colace) 100 mg BID PO Last administered on 09/11/18at 08:19; Admin Dose 100 MG; Start 09/06/18 at 21:00 Diagnostic Test (Pha) (Accu-Chek) 1 ea 02 XX Last administered on 09/11/18at 02:40; Admin Dose 1 EA; Start 09/07/18 at 02:00 Insulin Aspart (Novolog Insulin Pen) NOVOLOG *MILD* ALGORITHM WITH MEALS BEDTIME SC Last administered on 09/11/18at 08:34; Admin Dose 3 UNIT; Start 09/06/18 at 17:35 Ondansetron HCl (Zofran Inj) 4 mg Q4H PRN IV NAUSEA AND/OR VOMITING; Start 09/06/18 at 15:00 Pantoprazole (Protonix Tab) 40 mg DAILY@06 PO Last administered on 09/11/18at 07:02; Admin Dose 40 MG; Start 09/07/18 at 06:00 IV Flush (NS 3 ml) 3 ml Q8H and PRN adm IV ; Start 09/06/18 at 15:00 Sertraline HCl (Zoloft) 50 mg DAILY PO Last administered on 09/11/18 08:20; Admin Dose 50 MG; Start 09/07/18 at 09:00 Zolpidem Tartrate (Ambien) 5 mg HS PRN PO INSOMNIA; Start 09/06/18 at 15:00 Miscellaneous Information 1 ea NOTE XX ; Start 09/06/18 at 16:00 Glucose (Glutose) 15 gm Q15M PRN PO DECREASED GLUCOSE; Start 09/06/18 at 16:00 Glucose (Glutose) 22.5 gm Q15M PRN PO DECREASED GLUCOSE; Start 09/06/18 at 16:00 Dextrose (D50w Syringe) 25 ml Q15M PRN IV DECREASED GLUCOSE; Start 09/06/18 at 16:00 Dextrose (D50w Syringe) 50 ml Q15M PRN IV DECREASED GLUCOSE; Start 09/06/18 at 16:00 Glucagon (Glucagen) 1 mg Q15M PRN IM DECREASED GLUCOSE; Start 09/06/18 at 16:00 Glucose (Glutose) 15 gm Q15M PRN BUCCAL DECREASED GLUCOSE Last administered on 09/08/18at 14:14; Admin Dose 15 GM; Start 09/06/18 at 16:00 Miscellaneous Information (Pending [facility] Order For Wound Care) This patient turner... PRN PRN XX WOUND CARE; Start 09/06/18 at 15:30 Insulin Aspart (Novolog Insulin Pen) 10 unit WITH MEALS SC Last administered on 09/11/18at 13:04; Admin Dose 10 UNIT; Start 09/07/18 at 17:35 Insulin Glargine (Lantus) 30 units DAILY@2000 SC Last administered on 09/10/18at 21:48; Admin Dose 30 UNITS; Start 09/07/18 at 20:00 Erythromycin (Erythromycin) 250 mg Q8 PO Last administered on 09/11/18 13:59; Admin Dose 250 MG; Start 09/07/18 at 14:00; Stop 09/17/18 at 13:59 Aspirin (Halfprin) 81 mg DAILY PO Last administered on 09/11/18 08:20; Admin Dose 81 MG; Start 09/08/18 at 09:00 Atorvastatin Calcium (Lipitor) 80 mg QHS PO Last administered on 09/10/18at 21:38; Admin Dose 80 MG; Start 09/07/18 at 21:00 Montelukast Sodium (Singulair) 10 mg QHS PO Last administered on 09/10/18at 21:38; Admin Dose 10 MG; Start 09/07/18 at 21:00 Pregabalin (Lyrica) 150 mg DAILY PO Last administered on 09/11/18at 08:20; Admin Dose 150 MG; Start 09/08/18 at 09:00 Sevelamer Carbonate (Renvela) 2,400 mg WITH MEALS PO Last administered on 09/11/18at 12:55; Admin Dose 2,400 MG; Start 09/08/18 at 07:35 Tramadol HCl (Ultram) 50 mg Q6H PRN PO MODERATE PAIN LEVEL 4-6 Last administered on 09/11/18at 13:51; Admin Dose 50 MG; Start 09/07/18 at 20:00 Metoclopramide HCl (Reglan Liq) 5 mg QID PO Last administered on 09/11/18at 13:59; Admin Dose 5 MG; Start 09/08/18 at 17:00 Midodrine (Proamatine) 5 mg TID@09,13,17 PRN PO dizziness/low bp; Start 09/11/18 at 17:00 Assessment/Plan Additional Assessment/Plan Rehab- Autonomic neuropathy with orthostatic hypotension; Right humerus fracture, nonweightbearing right UE, C5 fracture, no collar required, no surgical intervention. Continue interdisciplinary rehab, increase activities as tolerated Syncopal episode. Traumatic pain syndrome- continue current meds Type 2 diabetes. Diabetic neuropathy. Diabetic nephropathy. End-stage renal disease, peritoneal dialysis. Hypertension. Coronary artery disease with a history of bypass grafting. Old CVAs. Osteoarthritis. Anemia. CARLOS LANGE MD Sep 11, 2018 16:32
[2018-09-11] MEDS ORDERED: MIDODRINE 5 MG TAB PO PRN (17:00)
[2018-09-11] MEDS: BISACODYL 10 MG SUPP PR PRN (18:35)
[2018-09-11 20:40] VITALS: BP 165/91; PULSE 67; RESP 18
[2018-09-11 21:27] VITALS: BP 167/76
[2018-09-11] MEDS: ATORVASTATIN 80 MG TAB PO SCH (21:38)
[2018-09-11] MEDS: MONTELUKAST 10 MG TAB PO SCH (21:38)
[2018-09-11] MEDS: INSULIN GLARGINE [LANTus] (100 UNITS/ML) SYG SC SCH (21:47)
[2018-09-12] MEDS: ACCU-CHEK XX SCH (02:00)
[2018-09-12 03:38] VITALS: BP 164/85; PULSE 74; RESP 18
[2018-09-12] MEDS: PANTOPRAZOLE (EC) 40 MG TAB PO SCH (06:43)
[2018-09-12] MEDS: ERYTHROMYCIN BASE (DR) 250 MG CAP PO SCH ×3 (06:43→21:00)
[2018-09-12 07:30] VITALS: BP 167/77; PULSE 74; RESP 20
[2018-09-12 07:42] VITALS: BP 156/79; PULSE 73
[2018-09-12] MEDS: SEVELAMER CARBONATE 800 MG TABLET PO SCH ×3 (07:56→17:40)
[2018-09-12] MEDS: INSULIN ASPART [NOVOLOG] 3 ML PEN SC SCH ×7 (07:57→20:59)
[2018-09-12] MEDS: SERTRALINE 50 MG TAB PO SCH ×2 (09:00→20:54)
[2018-09-12] MEDS: PREGABALIN 75 MG CAP PO SCH (10:02)
[2018-09-12] MEDS: ASPIRIN (EC) 81 MG TAB PO SCH (10:02)
[2018-09-12] MEDS: DOCUSATE SODIUM 100 MG CAP PO SCH ×2 (10:06→20:53)
[2018-09-12] MEDS: METOCLOPRAMIDE (1 MG/ML) 10 ML CUP PO SCH ×4 (10:06→20:53)
--- NOTE | 2018-09-12 10:34 | CONS ---
Assessment/Plan Assessment/Plan Assessment/Plan (Daily) 1. ESRD on Peritoneal dialysis 2. Recurrent syncope 2/2 autonomic neuropathy 3. H/o CAD s/p CABG 4. H/O HTN 5. H/o DM II- UNSTABLE - Endo cunsult apprecited 6. H/o HL 7. Oblique fracture of the right humeral neck., Nondisplaced fracture of the acromion. 8. Severe constipation with vomiting Plan: s/p PD yesterday 1.2 L removed, will plan for Hd today and tomorrow 3 cycles, his original schedule at home no need for epogen Continue other home meds Rehab plan as per Rehab physician will follow up Consultation Date/Type/Reason Admit Date/Time Sep 06, 2018 at 13:45 Initial Consult Date 09/07/18 Type of Consult NEPHROLOGY Requesting Provider: ANNEMARIE BURROUGHS NP Date/Time of Note DATE: 09/12/18 TIME: 10:34 Exam/Review of Systems Exam Vitals Vital Signs Date Temp Pulse Resp B/P (MAP) Pulse Ox O2 O2 Flow FiO2 Time Delivery Rate 09/12/18 73 156/79 07:42 09/12/18 97.6 20 96 Room Air 07:30 Intake and Output 09/11/18 09/11/18 09/12/18 1515:00 23:00 07:00 IntakeIntake Total 720 ml 300 ml OutputOutput Total 3258 ml 1 ml BalanceBalance -3258 ml 720 ml 299 ml Exam Constitutional: alert Respiratory: clear to auscultation, normal air movement Cardiovascular: regular rate and rhythm, nl pulses Gastrointestinal: soft, non-tender, + PD catheter site clear no cellulitis Musculoskeletal: nl extremities to inspection, muscle weakness Extremities: normal pulses Neurological: Non Focal Results Results 24hrs Laboratory Tests Test 09/11/18 12:51 09/11/18 15:00 09/11/18 17:36 09/11/18 21:42 Bedside Glucose 115 149 120 154 Test 09/12/18 07:44 Bedside Glucose 253 H Medications Medication Current Medications Bisacodyl (Dulcolax Supp) 10 mg DAILY PRN ID CONSTIPATION Last administered on 09/11/18at 18:35; Admin Dose 10 MG; Start 09/06/18 at 15:00 Docusate Sodium (Colace) 100 mg BID PO Last administered on 09/12/18at 10:06; Admin Dose 100 MG; Start 09/06/18 at 21:00 Diagnostic Test (Pha) (Accu-Chek) 1 ea 02 XX Last administered on 09/11/18at 02:40; Admin Dose 1 EA; Start 09/07/18 at 02:00 Insulin Aspart (Novolog Insulin Pen) NOVOLOG *MILD* ALGORITHM WITH MEALS BEDTIME SC Last administered on 09/12/18at 07:57; Admin Dose 3 UNIT; Start 09/06/18 at 17:35 Ondansetron HCl (Zofran Inj) 4 mg Q4H PRN IV NAUSEA AND/OR VOMITING; Start 09/06/18 at 15:00 Pantoprazole (Protonix Tab) 40 mg DAILY@06 PO Last administered on 09/12/18at 06:43; Admin Dose 40 MG; Start 09/07/18 at 06:00 IV Flush (NS 3 ml) 3 ml Q8H and PRN adm IV ; Start 09/06/18 at 15:00 Sertraline HCl (Zoloft) 50 mg DAILY PO Last administered on 09/11/18at 08:20; Admin Dose 50 MG; Start 09/07/18 at 09:00 Zolpidem Tartrate (Ambien) 5 mg HS PRN PO INSOMNIA; Start 09/06/18 at 15:00 Miscellaneous Information 1 ea NOTE XX ; Start 09/06/18 at 16:00 Glucose (Glutose) 15 gm Q15M PRN PO DECREASED GLUCOSE; Start 09/06/18 at 16:00 Glucose (Glutose) 22.5 gm Q15M PRN PO DECREASED GLUCOSE; Start 09/06/18 at 16:00 Dextrose (D50w Syringe) 25 ml Q15M PRN IV DECREASED GLUCOSE; Start 09/06/18 at 16:00 Dextrose (D50w Syringe) 50 ml Q15M PRN IV DECREASED GLUCOSE; Start 09/06/18 at 16:00 Glucagon (Glucagen) 1 mg Q15M PRN IM DECREASED GLUCOSE; Start 09/06/18 at 16:00 Glucose (Glutose) 15 gm Q15M PRN BUCCAL DECREASED GLUCOSE Last administered on 09/08/18at 14:14; Admin Dose 15 GM; Start 09/06/18 at 16:00 Miscellaneous Information (Pending [facility] Order For Wound Care) This patient turner... PRN PRN XX WOUND CARE; Start 09/06/18 at 15:30 Insulin Aspart (Novolog Insulin Pen) 10 unit WITH MEALS SC Last administered on 09/12/18 07:58; Admin Dose 10 UNIT; Start 09/07/18 at 17:35 Insulin Glargine (Lantus) 30 units DAILY@2000 SC Last administered on 09/11/18 21:47; Admin Dose 30 UNITS; Start 09/07/18 at 20:00 Erythromycin (Erythromycin) 250 mg Q8 PO Last administered on 09/12/18 06:43; Admin Dose 250 MG; Start 09/07/18 at 14:00; Stop 09/17/18 at 13:59 Aspirin (Halfprin) 81 mg DAILY PO Last administered on 09/12/18 10:02; Admin Dose 81 MG; Start 09/08/18 at 09:00 Atorvastatin Calcium (Lipitor) 80 mg QHS PO Last administered on 09/11/18 21:38; Admin Dose 80 MG; Start 09/07/18 at 21:00 Montelukast Sodium (Singulair) 10 mg QHS PO Last administered on 09/11/18 21:38; Admin Dose 10 MG; Start 09/07/18 at 21:00 Pregabalin (Lyrica) 150 mg DAILY PO Last administered on 09/12/18 10:02; Admin Dose 150 MG; Start 09/08/18 at 09:00 Sevelamer Carbonate (Renvela) 2,400 mg WITH MEALS PO Last administered on 09/12/18 07:56; Admin Dose 2,400 MG; Start 09/08/18 at 07:35 Tramadol HCl (Ultram) 50 mg Q6H PRN PO MODERATE PAIN LEVEL 4-6 Last administered on 09/11/18 13:51; Admin Dose 50 MG; Start 09/07/18 at 20:00 Metoclopramide HCl (Reglan Liq) 5 mg QID PO Last administered on 09/12/18 10:06; Admin Dose 5 MG; Start 09/08/18 at 17:00 Midodrine (Proamatine) 5 mg TID@,,17 PRN PO dizziness/low bp; Start 09/11/18 at 17:00 JACQUES VALENCIA MD Sep 12, 2018 10:34
--- NOTE | 2018-09-12 12:21 | PN ---
Date/Time of Note Date/Time of Note DATE: 09/12/18 TIME: 12:20 Assessment/Plan VTE Prophylaxis Risk score (from Nsg)>0 risk: 3 SCD applied (from Nsg): Yes Pharmacological prophylaxis: NA/contraindicated Pharm contraindication: low risk/ambulating Lines/Catheters IV Catheter Type (from Nrsg): Saline Lock Assessment/Plan Hospital Course SUBJECTIVE: no acute events OBJECTIVE: Vital signs-see below PHYSICAL EXAM: Constitutional: Adequately built,not in acute distress. HEENT: Head atraumatic and normocephalic. Eyes: Extraocular muscles intact. Anicteric sclerae. Pupils equal bilaterally, reactive to light. NECK: Supple without lymph node. CHEST: Clear and good breath sounds equally. No wheezing. No rhonchi. HEART: S1, S2. Regular rate and rhythm. ABDOMEN: Soft/non tender with no rebound tenderness. Bowel sounds were present. EXTREMITIES: With right arm sling. No cyanosis, clubbing or edema. NEUROLOGIC: Alert and oriented x3. No focal deficit. No sensory deficit. PSYCHOSOCIAL: No signs of depression. INTEGUMENTARY: No open wounds. ASSESSMENT AND PLAN: Right humeral fracture - Properly aligned and does not require surgical intervention, continue conservative care - Pain control/PT Recurrent syncope likely secondary to autonomic neuropathy/orthostatic hypotension -Patient will need to allow for blood pressure elevations and will need to be less aggressive with BP control, patient also needs to change positions gradually 2D echo shows a preserved EF -on midodrine-change to PRN Gastroparesis -symptoms improved -Continue Reglan/ erythromycin base -Patient has outpatient [facility] follow-up for further studies on gastroparesis. End-stage renal disease on PD Managed per nephrology Insulin dependent diabetes -stable.cont.basal/bolus regimen Coronary disease status post CABG Continue aspirin/statin Hypertension -No further episodes of orthostatic hypotension. Will be less aggressive with blood pressure control secondary to autonomic neuropathy/syncope episodes Anemia, likely chronic -Stable. Continue to monitor DM neuropathy -cont.Lyrica Anxiety disorders -cont.sertraline Prophylaxis: SCDs Patient was seen in collaboration with Results 24hrs Laboratory Tests Test 09/11/18 12:51 09/11/18 15:00 09/11/18 17:36 09/11/18 21:42 Bedside Glucose 115 149 120 154 Test 09/12/18 07:44 Bedside Glucose 253 H Exam/Review of Systems Exam Vitals Vital Signs Date Temp Pulse Resp B/P (MAP) Pulse Ox O2 O2 Flow FiO2 Time Delivery Rate 09/12/18 73 156/79 07:42 09/12/18 97.6 20 96 Room Air 07:30 Intake and Output 09/11/18 09/11/18 09/12/18 1515:00 23:00 07:00 IntakeIntake Total 720 ml 300 ml OutputOutput Total 3258 ml 1 ml BalanceBalance -3258 ml 720 ml 299 ml Results Results 24hrs Laboratory Tests Test 09/11/18 12:51 09/11/18 15:00 09/11/18 17:36 09/11/18 21:42 Bedside Glucose 115 149 120 154 Test 09/12/18 07:44 Bedside Glucose 253 H Medications Medication Current Medications Bisacodyl (Dulcolax Supp) 10 mg DAILY PRN [place] CONSTIPATION Last administered on 09/11/18at 18:35; Admin Dose 10 MG; Start 09/06/18 at 15:00 Docusate Sodium (Colace) 100 mg BID PO Last administered on 09/12/18at 10:06; Admin Dose 100 MG; Start 09/06/18 at 21:00 Diagnostic Test (Pha) (Accu-Chek) 1 ea 02 XX Last administered on 09/11/18at 02:40; Admin Dose 1 EA; Start 09/07/18 at 02:00 Insulin Aspart (Novolog Insulin Pen) NOVOLOG *MILD* ALGORITHM WITH MEALS BEDTIME SC Last administered on 09/12/18at 07:57; Admin Dose 3 UNIT; Start 09/06/18 at 17:35 Ondansetron HCl (Zofran Inj) 4 mg Q4H PRN IV NAUSEA AND/OR VOMITING; Start 09/06/18 at 15:00 Pantoprazole (Protonix Tab) 40 mg DAILY@06 PO Last administered on 09/12/18at 06:43; Admin Dose 40 MG; Start 09/07/18 at 06:00 IV Flush (NS 3 ml) 3 ml Q8H and PRN adm IV ; Start 09/06/18 at 15:00 Zolpidem Tartrate (Ambien) 5 mg HS PRN PO INSOMNIA; Start 09/06/18 at 15:00 Miscellaneous Information 1 ea NOTE XX ; Start 09/06/18 at 16:00 Glucose (Glutose) 15 gm Q15M PRN PO DECREASED GLUCOSE; Start 09/06/18 at 16:00 Glucose (Glutose) 22.5 gm Q15M PRN PO DECREASED GLUCOSE; Start 09/06/18 at 16:00 Dextrose (D50w Syringe) 25 ml Q15M PRN IV DECREASED GLUCOSE; Start 09/06/18 at 16:00 Dextrose (D50w Syringe) 50 ml Q15M PRN IV DECREASED GLUCOSE; Start 09/06/18 at 16:00 Glucagon (Glucagen) 1 mg Q15M PRN IM DECREASED GLUCOSE; Start 09/06/18 at 16:00 Glucose (Glutose) 15 gm Q15M PRN BUCCAL DECREASED GLUCOSE Last administered on 09/08/18at 14:14; Admin Dose 15 GM; Start 09/06/18 at 16:00 [facility] This patient turner... PRN PRN XX WOUND CARE; Start 09/06/18 at 15:30 Insulin Aspart (Novolog Insulin Pen) 10 unit WITH MEALS SC Last administered on 09/12/18 12:13; Admin Dose 10 UNIT; Start 09/07/18 at 17:35 Insulin Glargine (Lantus) 30 units DAILY@2000 SC Last administered on 09/11/18 21:47; Admin Dose 30 UNITS; Start 09/07/18 at 20:00 Erythromycin (Erythromycin) 250 mg Q8 PO Last administered on 09/12/18 12:15; Admin Dose 250 MG; Start 09/07/18 at 14:00; Stop 09/17/18 at 13:59 Aspirin (Halfprin) 81 mg DAILY PO Last administered on 09/12/18 10:02; Admin Dose 81 MG; Start 09/08/18 at 09:00 Atorvastatin Calcium (Lipitor) 80 mg QHS PO Last administered on 09/11/18 21:38; Admin Dose 80 MG; Start 09/07/18 at 21:00 Montelukast Sodium (Singulair) 10 mg QHS PO Last administered on 09/11/18 21:38; Admin Dose 10 MG; Start 09/07/18 at 21:00 Pregabalin (Lyrica) 150 mg DAILY PO Last administered on 09/12/18 10:02; Admin Dose 150 MG; Start 09/08/18 at 09:00 Sevelamer Carbonate (Renvela) 2,400 mg WITH MEALS PO Last administered on 09/12/18 12:10; Admin Dose 2,400 MG; Start 09/08/18 at 07:35 Tramadol HCl (Ultram) 50 mg Q6H PRN PO MODERATE PAIN LEVEL 4-6 Last administered on 09/11/18 13:51; Admin Dose 50 MG; Start 09/07/18 at 20:00 Metoclopramide HCl (Reglan Liq) 5 mg QID PO Last administered on 09/12/18 12:14; Admin Dose 5 MG; Start 09/08/18 at 17:00 Midodrine (Proamatine) 5 mg TID@09,13,17 PRN PO dizziness/low bp; Start 09/11/18 at 17:00 Sertraline HCl (Zoloft) 50 mg QHS PO ; Start 09/12/18 at 21:00 ANNEMARIE BURROUGHS NP Sep 12, 2018 12:21
[2018-09-12 14:00] VITALS: BP 116/60; PULSE 72; RESP 20
--- NOTE | 2018-09-12 14:19 | PN ---
Date/Time of Note Date/Time of Note DATE: 09/12/18 TIME: 14:18 Subjective Up for activities Objective Vital Signs Date Temp Pulse Resp B/P (MAP) Pulse Ox O2 O2 Flow FiO2 Time Delivery Rate 09/12/18 73 156/79 07:42 09/12/18 97.6 20 96 Room Air 07:30 Intake and Output 09/11/18 09/11/18 09/12/18 1515:00 23:00 07:00 IntakeIntake Total 720 ml 300 ml OutputOutput Total 3258 ml 1 ml BalanceBalance -3258 ml 720 ml 299 ml Exam pulm-cta max transfer mod wc mobility mod ambulation 10 feet Results/Medications Results 24 hrs Laboratory Tests Test 09/11/18 15:00 09/11/18 17:36 09/11/18 21:42 09/12/18 07:44 Bedside Glucose 149 120 154 253 H Test 09/12/18 12:07 Bedside Glucose 128 Medications Current Medications Bisacodyl (Dulcolax Supp) 10 mg DAILY PRN [place] CONSTIPATION Last administered on 09/11/18at 18:35; Admin Dose 10 MG; Start 09/06/18 at 15:00 Docusate Sodium (Colace) 100 mg BID PO Last administered on 09/12/18at 10:06; Admin Dose 100 MG; Start 09/06/18 at 21:00 Diagnostic Test (Pha) (Accu-Chek) 1 ea 02 XX Last administered on 09/11/18at 02:40; Admin Dose 1 EA; Start 09/07/18 at 02:00 Insulin Aspart (Novolog Insulin Pen) NOVOLOG *MILD* ALGORITHM WITH MEALS BEDTIME SC Last administered on 09/12/18at 07:57; Admin Dose 3 UNIT; Start 09/06/18 at 17:35 Ondansetron HCl (Zofran Inj) 4 mg Q4H PRN IV NAUSEA AND/OR VOMITING; Start 09/06/18 at 15:00 Pantoprazole (Protonix Tab) 40 mg DAILY@06 PO Last administered on 09/12/18at 06:43; Admin Dose 40 MG; Start 09/07/18 at 06:00 IV Flush (NS 3 ml) 3 ml Q8H and PRN adm IV ; Start 09/06/18 at 15:00 Zolpidem Tartrate (Ambien) 5 mg HS PRN PO INSOMNIA; Start 09/06/18 at 15:00 Miscellaneous Information 1 ea NOTE XX ; Start 09/06/18 at 16:00 Glucose (Glutose) 15 gm Q15M PRN PO DECREASED GLUCOSE; Start 09/06/18 at 16:00 Glucose (Glutose) 22.5 gm Q15M PRN PO DECREASED GLUCOSE; Start 09/06/18 at 16:00 Dextrose (D50w Syringe) 25 ml Q15M PRN IV DECREASED GLUCOSE; Start 09/06/18 at 16:00 Dextrose (D50w Syringe) 50 ml Q15M PRN IV DECREASED GLUCOSE; Start 09/06/18 at 16:00 Glucagon (Glucagen) 1 mg Q15M PRN IM DECREASED GLUCOSE; Start 09/06/18 at 16:00 Glucose (Glutose) 15 gm Q15M PRN BUCCAL DECREASED GLUCOSE Last administered on 09/08/18at 14:14; Admin Dose 15 GM; Start 09/06/18 at 16:00 Miscellaneous Information (Pending [facility] Order For Wound Care) This patient turner... PRN PRN XX WOUND CARE; Start 09/06/18 at 15:30 Insulin Aspart (Novolog Insulin Pen) 10 unit WITH MEALS SC Last administered on 09/12/18 12:13; Admin Dose 10 UNIT; Start 09/07/18 at 17:35 Insulin Glargine (Lantus) 30 units DAILY@2000 SC Last administered on 09/11/18at 21:47; Admin Dose 30 UNITS; Start 09/07/18 at 20:00 Erythromycin (Erythromycin) 250 mg Q8 PO Last administered on 09/12/18at 12:15; Admin Dose 250 MG; Start 09/07/18 at 14:00; Stop 09/17/18 at 13:59 Aspirin (Halfprin) 81 mg DAILY PO Last administered on 09/12/18at 10:02; Admin Dose 81 MG; Start 09/08/18 at 09:00 Atorvastatin Calcium (Lipitor) 80 mg QHS PO Last administered on 09/11/18 21:38; Admin Dose 80 MG; Start 09/07/18 at 21:00 Montelukast Sodium (Singulair) 10 mg QHS PO Last administered on 09/11/18 21:38; Admin Dose 10 MG; Start 09/07/18 at 21:00 Pregabalin (Lyrica) 150 mg DAILY PO Last administered on 09/12/18at 10:02; Admin Dose 150 MG; Start 09/08/18 at 09:00 Sevelamer Carbonate (Renvela) 2,400 mg WITH MEALS PO Last administered on 09/12/18at 12:10; Admin Dose 2,400 MG; Start 09/08/18 at 07:35 Tramadol HCl (Ultram) 50 mg Q6H PRN PO MODERATE PAIN LEVEL 4-6 Last administered on 09/11/18at 13:51; Admin Dose 50 MG; Start 09/07/18 at 20:00 Metoclopramide HCl (Reglan Liq) 5 mg QID PO Last administered on 09/12/18at 12:14; Admin Dose 5 MG; Start 09/08/18 at 17:00 Midodrine (Proamatine) 5 mg TID@09,13,17 PRN PO dizziness/low bp; Start 09/11/18 at 17:00 Sertraline HCl (Zoloft) 50 mg QHS PO ; Start 09/12/18 at 21:00 Assessment/Plan Additional Assessment/Plan Rehab- Autonomic neuropathy with orthostatic hypotension; Right humerus fracture, nonweightbearing right UE, C5 fracture, no collar required, no boyd rgical intervention. Activity tolerance improving with interdisciplinary rehab. UE positioning improved with new sling. Syncopal episode. Traumatic pain syndrome- continue current meds Type 2 diabetes. Diabetic neuropathy. Diabetic nephropathy. End-stage renal disease, peritoneal dialysis. Hypertension. Coronary artery disease with a history of bypass grafting. Old CVAs. Osteoarthritis. Anemia. CARLOS LANGE MD Sep 12, 2018 14:19
[2018-09-12 20:00] VITALS: BP 162/78; PULSE 67; RESP 18
[2018-09-12 20:42] VITALS: BP 195/94; PULSE 84
[2018-09-12] MEDS: traMADol 50 MG TAB PO PRN (20:53)
[2018-09-12] MEDS: MONTELUKAST 10 MG TAB PO SCH (20:53)
[2018-09-12] MEDS: ATORVASTATIN 80 MG TAB PO SCH (20:54)
[2018-09-12] MEDS: INSULIN GLARGINE [LANTus] (100 UNITS/ML) SYG SC SCH (20:58)
[2018-09-13] VITALS (7 sets, daily range): BP systolic 145–174; BP diastolic 68–87; PULSE 68–84; RESP 18–19
[2018-09-13] MEDS: ACCU-CHEK XX SCH (02:37)
--- NOTE | 2018-09-13 05:22 | CONS ---
DATE OF ADMISSION: 09/06/2018 DATE OF CONSULTATION: 09/12/2018 TYPE OF CONSULTATION: Psychological. REFERRING PHYSICIAN: Denia Melgoza MD. CONSULTING PSYCHOLOGIST: Brie Garcia, PhD. REASON FOR CONSULTATION: This consultation requested by Dr. Kelvin Melgoza in order to evaluate the c ognitive and emotional functioning of this patient related to his present medical condition. HISTORY OF PRESENT ILLNESS: The patient is a 63-year-old male. The patient has a history of type 2 diabetes, end-stage renal disease, is on peritoneal dialysis and has hypertension. The patient had s ome dizziness at home in his backyard and fell and struck his right shoulder. The patient sustained a right humeral neck fracture. The patient was eventually cleared medically and sent to the acute re habilitation unit for acute multidisciplinary rehabilitation. The patient is motivated to get better . The patient is frustrated about what happened. The patient is having difficulty coping. The rola ent does have a history of some depression and has been on Zoloft for about 3 years. FAMILY AND SOCIAL HISTORY: The patient lives with his , daughter and 2 nephews. The patient's w jonny was present with the patient's permission. The patient does want to return to his previous level of functioning and to his residence after discharge. MEDICATIONS: The patient is currently on Zoloft 50 mg daily and was on Ativan for anxiety. SUBSTANCE USE: The patient reports that he does not smoke. The patient states that he does not use alcohol or other drugs. MENTAL STATUS EXAMINATION: APPEARANCE: The patient was seen in his wheelchair. He appears to be of average height and overweig ht. The patient is right-handed. BEHAVIOR: The patient was cooperative during the consultation. The patient did attempt to answer al l questions presented to him by the interviewer. The patient did have some difficulty as [place] was not his first language, but did understand [place] and did understand the questions presented to him . MOOD AND AFFECT: The patient's mood appears to be somewhat depressed. Affect does appear to be slig htly anxious. PERCEPTION: The patient reports no hallucinations or delusions. The patient was alert to person, pl maikel, situation and time. MEMORY AND COGNITION: The patient's memory and cognition were basically intact. He was able to name the hospital. He was able to name the month and the year. The patient was also able to name the [facility]. He was able to do 1 serial 7 subtraction from 100, but then said he co uld not do anymore. INTELLIGENCE: Intelligence appears to fall in the average range. INSIGHT: Fair. JUDGMENT: Fair. THOUGHT CONTENT: The patient is concerned about his present medical condition. The patient is frust rated about what happened to him. The patient reports that he is in pain and his present pain level was a 6. The patient does want to recover and return to his previous level of functioning. DISCUSSION: The patient may be able to benefit from some cognitive/behavioral psychotherapy while he is on the unit. Psychotherapy would focus on his frustration about his medical problems. DIAGNOSTIC IMPRESSION: F33.1, major depressive disorder, recurrent, moderate. Thank you very much, Dr. Kelvni Melgoza, for referring this individual. Please do not hesitate to carroll brown if you have additional questions. Dictated By: BRIE GARCIA PHD DEMETRIUS/PILAR Conf#: [id number] DID#: [id number]
[2018-09-13] MEDS: PANTOPRAZOLE (EC) 40 MG TAB PO SCH (06:40)
[2018-09-13] MEDS: ERYTHROMYCIN BASE (DR) 250 MG CAP PO SCH ×3 (06:40→21:20)
[2018-09-13] MEDS: INSULIN ASPART [NOVOLOG] 3 ML PEN SC SCH ×7 (08:52→21:21)
[2018-09-13] MEDS: PREGABALIN 75 MG CAP PO SCH ×2 (08:54→09:00)
[2018-09-13] MEDS: DOCUSATE SODIUM 100 MG CAP PO SCH ×2 (08:54→21:15)
[2018-09-13] MEDS: METOCLOPRAMIDE (1 MG/ML) 10 ML CUP PO SCH ×4 (08:54→21:15)
[2018-09-13] MEDS: ASPIRIN (EC) 81 MG TAB PO SCH (08:54)
[2018-09-13] MEDS: SEVELAMER CARBONATE 800 MG TABLET PO SCH ×3 (08:54→17:28)
--- NOTE | 2018-09-13 12:51 | CONS ---
Assessment/Plan Assessment/Plan Assessment/Plan (Daily) 1. ESRD on Peritoneal dialysis 2. Recurrent syncope 2/2 autonomic neuropathy 3. H/o CAD s/p CABG 4. H/O HTN 5. H/o DM II 6. H/o HL 7. Oblique fracture of the right humeral neck., Nondisplaced fracture of the acromion. Plan: will plan for Hd today and tomorrow 3 cycles, his original schedule at home no need for epogen Continue other home meds Rehab plan as per Rehab physician will follow up Consultation Date/Type/Reason Admit Date/Time Sep 06, 2018 at 13:45 Initial Consult Date 09/07/18 Type of Consult NEPHROLOGY Requesting Provider: ANNEMARIE BURROUGHS NP Date/Time of Note DATE: 09/13/18 TIME: 12:51 Exam/Review of Systems Exam Vitals Vital Signs Date Temp Pulse Resp B/P (MAP) Pulse Ox O2 O2 Flow FiO2 Time Delivery Rate 09/13/18 81 155/81 98 Room Air 08:49 (105) 09/13/18 97.9 07:53 09/13/18 18 02:00 Intake and Output 09/12/18 09/12/18 09/13/18 1515:00 23:00 07:00 IntakeIntake Total 100 ml 220 ml 50 ml OutputOutput Total 2582 ml BalanceBalance -2482 ml 220 ml 50 ml Results Result Diagram: 09/13/18 0611 09/13/18 0611 Results 24hrs Laboratory Tests Test 09/12/18 17:36 09/12/18 20:50 09/13/18 02:34 09/13/18 06:11 Bedside Glucose 212 251 H 265 H White Blood Count 9.2 # Red Blood Count 3.16 L Hemoglobin 8.9 L Hematocrit 27.7 L Mean Corpuscular 87.7 Volume Mean Corpuscular 28.2 L Hemoglobin Mean Corpuscular 32.1 Hemoglobin Concent Red Cell Distribution 13.3 Width Platelet Count 260 Mean Platelet Volume 9.4 Immature Granulocytes 1.100 H % Neutrophils % 75.6 Lymphocytes % 13.2 L Monocytes % 8.8 Eosinophils % 1.2 Basophils % 0.1 Nucleated Red Blood 0.0 Cells % Immature Granulocytes 0.100 H # Neutrophils # 7.0 Lymphocytes # 1.2 Monocytes # 0.8 Eosinophils # 0.1 Basophils # 0.0 Nucleated Red Blood 0.0 Cells # Prothrombin Time 14.3 Prothrombin Time Ratio 1.1 INR International 1.10 Normalized Ratio Activated 33.8 Partial Thromboplast Time Sodium Level 127 L Potassium Level 4.0 Chloride Level 86 L Carbon Dioxide Level 26 Anion Gap 15 H Blood Urea Nitrogen 69 H Creatinine 11.32 H Est Glomerular Filtrat 5 L Rate mL/min Glucose Level 264 H Calcium Level 8.7 Magnesium Level 2.0 Total Bilirubin 0.1 L Direct Bilirubin 0.00 Indirect Bilirubin 0.1 Aspartate Amino 17 Transf (AST/SGOT) Alanine 16 Aminotransferase (ALT/ SGPT) Alkaline Phosphatase 143 H Total Protein 6.5 Albumin 3.1 L Globulin 3.40 H Albumin/Globulin Ratio 0.91 Test 09/13/18 07:50 09/13/18 12:14 Bedside Glucose 213 179 Medications Medication Current Medications Bisacodyl (Dulcolax Supp) 10 mg DAILY PRN [place] CONSTIPATION Last administered on 09/11/18at 18:35; Admin Dose 10 MG; Start 09/06/18 at 15:00 Docusate Sodium (Colace) 100 mg BID PO Last administered on 09/13/18at 08:54; Admin Dose 100 MG; Start 09/06/18 at 21:00 Diagnostic Test (Pha) (Accu-Chek) 1 ea 02 XX Last administered on 09/13/18at 02:37; Admin Dose 1 EA; Start 09/07/18 at 02:00 Insulin Aspart (Novolog Insulin Pen) NOVOLOG *MILD* ALGORITHM WITH MEALS BEDTIME SC Last administered on 09/13/18at 12:18; Admin Dose 1 UNIT; Start 09/06/18 at 17:35 Ondansetron HCl (Zofran Inj) 4 mg Q4H PRN IV NAUSEA AND/OR VOMITING; Start 09/06/18 at 15:00 Pantoprazole (Protonix Tab) 40 mg DAILY@06 PO Last administered on 09/13/18at 06:40; Admin Dose 40 MG; Start 09/07/18 at 06:00 IV Flush (NS 3 ml) 3 ml Q8H and PRN adm IV ; Start 09/06/18 at 15:00 Zolpidem Tartrate (Ambien) 5 mg HS PRN PO INSOMNIA; Start 09/06/18 at 15:00 Miscellaneous Information 1 ea NOTE XX ; Start 09/06/18 at 16:00 Glucose (Glutose) 15 gm Q15M PRN PO DECREASED GLUCOSE; Start 09/06/18 at 16:00 Glucose (Glutose) 22.5 gm Q15M PRN PO DECREASED GLUCOSE; Start 09/06/18 at 16:00 Dextrose (D50w Syringe) 25 ml Q15M PRN IV DECREASED GLUCOSE; Start 09/06/18 at 16:00 Dextrose (D50w Syringe) 50 ml Q15M PRN IV DECREASED GLUCOSE; Start 09/06/18 at 16:00 Glucagon (Glucagen) 1 mg Q15M PRN IM DECREASED GLUCOSE; Start 09/06/18 at 16:00 Glucose (Glutose) 15 gm Q15M PRN BUCCAL DECREASED GLUCOSE Last administered on 09/08/18at 14:14; Admin Dose 15 GM; Start 09/06/18 at 16:00 Miscellaneous Information (Pending [facility] Order For Wound Care) This patient turner... PRN PRN XX WOUND CARE; Start 09/06/18 at 15:30 Insulin Aspart (Novolog Insulin Pen) 10 unit WITH MEALS SC Last administered on 09/13/18at 12:18; Admin Dose 10 UNIT; Start 09/07/18 at 17:35 Insulin Glargine (Lantus) 30 units DAILY@2000 SC Last administered on 09/12/18at 20:58; Admin Dose 30 UNITS; Start 09/07/18 at 20:00 Erythromycin (Erythromycin) 250 mg Q8 PO Last administered on 09/13/18at 06:40; Admin Dose 250 MG; Start 09/07/18 at 14:00; Stop 09/17/18 at 13:59 Aspirin (Halfprin) 81 mg DAILY PO Last administered on 09/13/18at 08:54; Admin Dose 81 MG; Start 09/08/18 at 09:00 Atorvastatin Calcium (Lipitor) 80 mg QHS PO Last administered on 09/12/18 20:54; Admin Dose 80 MG; Start 09/07/18 at 21:00 Montelukast Sodium (Singulair) 10 mg QHS PO Last administered on 09/12/18at 20:53; Admin Dose 10 MG; Start 09/07/18 at 21:00 Pregabalin (Lyrica) 150 mg DAILY PO Last administered on 09/12/18 10:02; Admin Dose 150 MG; Start 09/08/18 at 09:00 Sevelamer Carbonate (Renvela) 2,400 mg WITH MEALS PO Last administered on 09/13/18 12:15; Admin Dose 2,400 MG; Start 09/08/18 at 07:35 Tramadol HCl (Ultram) 50 mg Q6H PRN PO MODERATE PAIN LEVEL 4-6 Last administered on 09/12/18 20:53; Admin Dose 50 MG; Start 09/07/18 at 20:00 Metoclopramide HCl (Reglan Liq) 5 mg QID PO Last administered on 09/13/18 08 :54; Admin Dose 5 MG; Start 09/08/18 at 17:00 Midodrine (Proamatine) 5 mg TID@09,13,17 PRN PO dizziness/low bp; Start 09/11/18 at 17:00 Sertraline HCl (Zoloft) 50 mg QHS PO Last administered on 09/12/18at 20:54; Admin Dose 50 MG; Start 09/12/18 at 21:00 JACQUES VALENCIA MD Sep 13, 2018 12:51
--- NOTE | 2018-09-13 13:03 | PN ---
Date/Time of Note Date/Time of Note DATE: 09/13/18 TIME: 13:00 Objective Vital Signs Date Temp Pulse Resp B/P (MAP) Pulse Ox O2 O2 Flow FiO2 Time Delivery Rate 09/13/18 81 155/81 98 Room Air 08:49 (105) 09/13/18 97.9 07:53 09/13/18 18 02:00 Intake and Output 09/12/18 09/12/18 09/13/18 1515:00 23:00 07:00 IntakeIntake Total 100 ml 220 ml 50 ml OutputOutput Total 2582 ml BalanceBalance -2482 ml 220 ml 50 ml Exam INTERDISCIPLINARY TEAM CONFERENCE Attended by PT, OT, ST, Social Work, Rehabilitation Nursing, Accredited Legal Secretary and Box Lining Machine FeederCoconut Jelly Roller Exam: Pulm- cta Abd- soft BOWEL- Cont BLADDER- PD SKIN- improving OT- DRESSING-mod/max BATHING-mod/max TOILETING-max PT- BED MOBILITY- mod TRANSFERS-mod AMBULATION-max x 2 people 15 feet A/P- Interdisciplinary team conference held today. Please see interdisciplinary sheet. Working toward d.c. on 09/19 with post discharge follow up of physical therapy, occupational therapy. Results/Medications Result Diagram: 09/13/18 0611 09/13/18 0611 Results 24 hrs Laboratory Tests Test 09/12/18 17:36 09/12/18 20:50 09/13/18 02:34 09/13/18 06:11 Bedside Glucose 212 251 H 265 H White Blood Count 9.2 # Red Blood Count 3.16 L Hemoglobin 8.9 L Hematocrit 27.7 L Mean Corpuscular 87.7 Volume Mean Corpuscular 28.2 L Hemoglobin Mean Corpuscular 32.1 Hemoglobin Concent Red Cell Distribution 13.3 Width Platelet Count 260 Mean Platelet Volume 9.4 Immature Granulocytes 1.100 H % Neutrophils % 75.6 Lymphocytes % 13.2 L Monocytes % 8.8 Eosinophils % 1.2 Basophils % 0.1 Nucleated Red Blood 0.0 Cells % Immature Granulocytes 0.100 H # Neutrophils # 7.0 Lymphocytes # 1.2 Monocytes # 0.8 Eosinophils # 0.1 Basophils # 0.0 Nucleated Red Blood 0.0 Cells # Prothrombin Time 14.3 Prothrombin Time Ratio 1.1 INR International 1.10 Normalized Ratio Activated 33.8 Partial Thromboplast Time Sodium Level 127 L Potassium Level 4.0 Chloride Level 86 L Carbon Dioxide Level 26 Anion Gap 15 H Blood Urea Nitrogen 69 H Creatinine 11.32 H Est Glomerular Filtrat 5 L Rate mL/min Glucose Level 264 H Calcium Level 8.7 Magnesium Level 2.0 Total Bilirubin 0.1 L Direct Bilirubin 0.00 Indirect Bilirubin 0.1 Aspartate Amino 17 Transf (AST/SGOT) Alanine 16 Aminotransferase (ALT/ SGPT) Alkaline Phosphatase 143 H Total Protein 6.5 Albumin 3.1 L Globulin 3.40 H Albumin/Globulin Ratio 0.91 Test 09/13/18 07:50 09/13/18 12:14 Bedside Glucose 213 179 Medications Current Medications Bisacodyl (Dulcolax Supp) 10 mg DAILY PRN [place] CONSTIPATION Last administered on 09/11/18at 18:35; Admin Dose 10 MG; Start 09/06/18 at 15:00 Docusate Sodium (Colace) 100 mg BID PO Last administered on 09/13/18at 08:54; Admin Dose 100 MG; Start 09/06/18 at 21:00 Diagnostic Test (Pha) (Accu-Chek) 1 ea 02 XX Last administered on 09/13/18at 02:37; Admin Dose 1 EA; Start 09/07/18 at 02:00 Insulin Aspart (Novolog Insulin Pen) NOVOLOG *MILD* ALGORITHM WITH MEALS BEDTIME SC Last administered on 09/13/18at 12:18; Admin Dose 1 UNIT; Start 09/06/18 at 17:35 Ondansetron HCl (Zofran Inj) 4 mg Q4H PRN IV NAUSEA AND/OR VOMITING; Start 09/06/18 at 15:00 Pantoprazole (Protonix Tab) 40 mg DAILY@06 PO Last administered on 09/13/18at 06:40; Admin Dose 40 MG; Start 09/07/18 at 06:00 IV Flush (NS 3 ml) 3 ml Q8H and PRN adm IV ; Start 09/06/18 at 15:00 Zolpidem Tartrate (Ambien) 5 mg HS PRN PO INSOMNIA; Start 09/06/18 at 15:00 Miscellaneous Information 1 ea NOTE XX ; Start 09/06/18 at 16:00 Glucose (Glutose) 15 gm Q15M PRN PO DECREASED GLUCOSE; Start 09/06/18 at 16:00 Glucose (Glutose) 22.5 gm Q15M PRN PO DECREASED GLUCOSE; Start 09/06/18 at 16:00 Dextrose (D50w Syringe) 25 ml Q15M PRN IV DECREASED GLUCOSE; Start 09/06/18 at 16:00 Dextrose (D50w Syringe) 50 ml Q15M PRN IV DECREASED GLUCOSE; Start 09/06/18 at 16:00 Glucagon (Glucagen) 1 mg Q15M PRN IM DECREASED GLUCOSE; Start 09/06/18 at 16:00 Glucose (Glutose) 15 gm Q15M PRN BUCCAL DECREASED GLUCOSE Last administered on 09/08/18at 14:14; Admin Dose 15 GM; Start 09/06/18 at 16:00 [facility] This patient turner... PRN PRN XX WOUND CARE; Start 09/06/18 at 15:30 Insulin Aspart (Novolog Insulin Pen) 10 unit WITH MEALS SC Last administered on 09/13/18 12:18; Admin Dose 10 UNIT; Start 09/07/18 at 17:35 Insulin Glargine (Lantus) 30 units DAILY@2000 SC Last administered on 09/12/18 20:58; Admin Dose 30 UNITS; Start 09/07/18 at 20:00 Erythromycin (Erythromycin) 250 mg Q8 PO Last administered on 09/13/18 06:40; Admin Dose 250 MG; Start 09/07/18 at 14:00; Stop 09/17/18 at 13:59 Aspirin (Halfprin) 81 mg DAILY PO Last administered on 09/13/18 08:54; Admin Dose 81 MG; Start 09/08/18 at 09:00 Atorvastatin Calcium (Lipitor) 80 mg QHS PO Last administered on 09/12/18 20:54; Admin Dose 80 MG; Start 09/07/18 at 21:00 Montelukast Sodium (Singulair) 10 mg QHS PO Last administered on 09/12/18 20:53; Admin Dose 10 MG; Start 09/07/18 at 21:00 Pregabalin (Lyrica) 150 mg DAILY PO Last administered on 09/12/18 10:02; Admin Dose 150 MG; Start 09/08/18 at 09:00 Sevelamer Carbonate (Renvela) 2,400 mg WITH MEALS PO Last administered on 8/1/19at 12:15; Admin Dose 2,400 MG; Start 09/08/18 at 07:35 Tramadol HCl (Ultram) 50 mg Q6H PRN PO MODERATE PAIN LEVEL 4-6 Last administered on 09/12/18at 20:53; Admin Dose 50 MG; Start 09/07/18 at 20:00 Metoclopramide HCl (Reglan Liq) 5 mg QID PO Last administered on 09/13/18at 08:54; Admin Dose 5 MG; Start 09/08/18 at 17:00 Midodrine (Proamatine) 5 mg TID@09,13,17 PRN PO dizziness/low bp; Start 09/11/18 at 17:00 Sertraline HCl (Zoloft) 50 mg QHS PO Last administered on 09/12/18at 20:54; Admin Dose 50 MG; Start 09/12/18 at 21:00 CARLOS LANGE MD Sep 13, 2018 13:02
--- NOTE | 2018-09-13 13:49 | PN ---
Date/Time of Note Date/Time of Note DATE: 09/13/18 TIME: 13:48 Assessment/Plan VTE Prophylaxis Risk score (from Nsg)>0 risk: 3 SCD applied (from Nsg): Yes Pharmacological prophylaxis: NA/contraindicated Pharm contraindication: low risk/ambulating Lines/Catheters IV Catheter Type (from [facility]): Saline Lock Assessment/Plan Hospital Course SUBJECTIVE: no acute events OBJECTIVE: Vital signs-see below PHYSICAL EXAM: Constitutional: Adequately built,not in acute distress. HEENT: Head atraumatic and normocephalic. Eyes: Extraocular muscles intact. Anicteric sclerae. Pupils equal bilaterally, reactive to light. NECK: Supple without lymph node. CHEST: Clear and good breath sounds equally. No wheezing. No rhonchi. HEART: S1, S2. Regular rate and rhythm. ABDOMEN: Soft/non tender with no rebound tenderness. Bowel sounds were present. EXTREMITIES: With right arm sling. No cyanosis, clubbing or edema. NEUROLOGIC: Alert and oriented x3. No focal deficit. No sensory deficit. PSYCHOSOCIAL: No signs of depression. INTEGUMENTARY: No open wounds. ASSESSMENT AND PLAN: Right humeral fracture - Properly aligned and does not require surgical intervention, continue conservative care - Pain control/PT Recurrent syncope likely secondary to autonomic neuropathy/orthostatic hypotension -Patient will need to allow for blood pressure elevations and will need to be less aggressive with BP control, patient also needs to change positions gradually 2D echo shows a preserved EF -on midodrine-change to PRN Gastroparesis -symptoms improved -Continue Reglan/ erythromycin base -Patient has outpatient [facility] follow-up for further studies on gastroparesis. End-stage renal disease on PD Managed per nephrology Insulin dependent diabetes -stable.cont.basal/bolus regimen Coronary disease status post CABG Continue aspirin/statin Hypertension -No further episodes of orthostatic hypotension. Will be less aggressive with blood pressure control secondary to autonomic neuropathy/syncope episodes Anemia, likely chronic -Stable. Continue to monitor DM neuropathy -cont.Lyrica Anxiety disorders -cont.sertraline Prophylaxis: SCDs Patient was seen in collaboration with Result Diagram: 09/13/18 0611 09/13/18 0611 Results 24hrs Laboratory Tests Test 09/12/18 17:36 09/12/18 20:50 09/13/18 02:34 09/13/18 06:11 Bedside Glucose 212 251 H 265 H White Blood Count 9.2 # Red Blood Count 3.16 L Hemoglobin 8.9 L Hematocrit 27.7 L Mean Corpuscular 87.7 Volume Mean Corpuscular 28.2 L Hemoglobin Mean Corpuscular 32.1 Hemoglobin Concent Red Cell Distribution 13.3 Width Platelet Count 260 Mean Platelet Volume 9.4 Immature Granulocytes 1.100 H % Neutrophils % 75.6 Lymphocytes % 13.2 L Monocytes % 8.8 Eosinophils % 1.2 Basophils % 0.1 Nucleated Red Blood 0.0 Cells % Immature Granulocytes 0.100 H # Neutrophils # 7.0 Lymphocytes # 1.2 Monocytes # 0.8 Eosinophils # 0.1 Basophils # 0.0 Nucleated Red Blood 0.0 Cells # Prothrombin Time 14.3 Prothrombin Time Ratio 1.1 INR International 1.10 Normalized Ratio Activated 33.8 Partial Thromboplast Time Sodium Level 127 L Potassium Level 4.0 Chloride Level 86 L Carbon Dioxide Level 26 Anion Gap 15 H Blood Urea Nitrogen 69 H Creatinine 11.32 H Est Glomerular Filtrat 5 L Rate mL/min Glucose Level 264 H Calcium Level 8.7 Magnesium Level 2.0 Total Bilirubin 0.1 L Direct Bilirubin 0.00 Indirect Bilirubin 0.1 Aspartate Amino 17 Transf (AST/SGOT) Alanine 16 Aminotransferase (ALT/ SGPT) Alkaline Phosphatase 143 H Total Protein 6.5 Albumin 3.1 L Globulin 3.40 H Albumin/Globulin Ratio 0.91 Test 09/13/18 07:50 09/13/18 12:14 Bedside Glucose 213 179 Exam/Review of Systems Exam Vitals Vital Signs Date Temp Pulse Resp B/P (MAP) Pulse Ox O2 O2 Flow FiO2 Time Delivery Rate 09/13/18 81 155/81 98 Room Air 08:49 (105) 09/13/18 97.9 07:53 09/13/18 18 02:00 Intake and Output 09/12/18 09/12/18 09/13/18 1515:00 23:00 07:00 IntakeIntake Total 100 ml 220 ml 50 ml OutputOutput Total 2582 ml BalanceBalance -2482 ml 220 ml 50 ml Results Results 24hrs Laboratory Tests Test 09/12/18 17:36 09/12/18 20:50 09/13/18 02:34 09/13/18 06:11 Bedside Glucose 212 251 H 265 H White Blood Count 9.2 # Red Blood Count 3.16 L Hemoglobin 8.9 L Hematocrit 27.7 L Mean Corpuscular 87.7 Volume Mean Corpuscular 28.2 L Hemoglobin Mean Corpuscular 32.1 Hemoglobin Concent Red Cell Distribution 13.3 Width Platelet Count 260 Mean Platelet Volume 9.4 Immature Granulocytes 1.100 H % Neutrophils % 75.6 Lymphocytes % 13.2 L Monocytes % 8.8 Eosinophils % 1.2 Basophils % 0.1 Nucleated Red Blood 0.0 Cells % Immature Granulocytes 0.100 H # Neutrophils # 7.0 Lymphocytes # 1.2 Monocytes # 0.8 Eosinophils # 0.1 Basophils # 0.0 Nucleated Red Blood 0.0 Cells # Prothrombin Time 14.3 Prothrombin Time Ratio 1.1 INR International 1.10 Normalized Ratio Activated 33.8 Partial Thromboplast Time Sodium Level 127 L Potassium Level 4.0 Chloride Level 86 L Carbon Dioxide Level 26 Anion Gap 15 H Blood Urea Nitrogen 69 H Creatinine 11.32 H Est Glomerular Filtrat 5 L Rate mL/min Glucose Level 264 H Calcium Level 8.7 Magnesium Level 2.0 Total Bilirubin 0.1 L Direct Bilirubin 0.00 Indirect Bilirubin 0.1 Aspartate Amino 17 Transf (AST/SGOT) Alanine 16 Aminotransferase (ALT/ SGPT) Alkaline Phosphatase 143 H Total Protein 6.5 Albumin 3.1 L Globulin 3.40 H Albumin/Globulin Ratio 0.91 Test 09/13/18 07:50 09/13/18 12:14 Bedside Glucose 213 179 Medications Medication Current Medications Bisacodyl (Dulcolax Supp) 10 mg DAILY PRN [place] CONSTIPATION Last administered on 09/11/18at 18:35; Admin Dose 10 MG; Start 09/06/18 at 15:00 Docusate Sodium (Colace) 100 mg BID PO Last administered on 09/13/18at 08:54; Admin Dose 100 MG; Start 09/06/18 at 21:00 Diagnostic Test (Pha) (Accu-Chek) 1 ea 02 XX Last administered on 09/13/18at 02:37; Admin Dose 1 EA; Start 09/07/18 at 02:00 Insulin Aspart (Novolog Insulin Pen) NOVOLOG *MILD* ALGORITHM WITH MEALS BEDTIME SC Last administered on 09/13/18at 12:18; Admin Dose 1 UNIT; Start 09/06/18 at 17:35 Ondansetron HCl (Zofran Inj) 4 mg Q4H PRN IV NAUSEA AND/OR VOMITING; Start 09/06/18 at 15:00 Pantoprazole (Protonix Tab) 40 mg DAILY@06 PO Last administered on 09/13/18at 06:40; Admin Dose 40 MG; Start 09/07/18 at 06:00 IV Flush (NS 3 ml) 3 ml Q8H and PRN adm IV ; Start 09/06/18 at 15:00 Zolpidem Tartrate (Ambien) 5 mg HS PRN PO INSOMNIA; Start 09/06/18 at 15:00 Miscellaneous Information 1 ea NOTE XX ; Start 09/06/18 at 16:00 Glucose (Glutose) 15 gm Q15M PRN PO DECREASED GLUCOSE; Start 09/06/18 at 16:00 Glucose (Glutose) 22.5 gm Q15M PRN PO DECREASED GLUCOSE; Start 09/06/18 at 16:00 Dextrose (D50w Syringe) 25 ml Q15M PRN IV DECREASED GLUCOSE; Start 09/06/18 at 16:00 Dextrose (D50w Syringe) 50 ml Q15M PRN IV DECREASED GLUCOSE; Start 09/06/18 at 16:00 Glucagon (Glucagen) 1 mg Q15M PRN IM DECREASED GLUCOSE; Start 09/06/18 at 16:00 Glucose (Glutose) 15 gm Q15M PRN BUCCAL DECREASED GLUCOSE Last administered on 09/08/18at 14:14; Admin Dose 15 GM; Start 09/06/18 at 16:00 Miscellaneous Information (Pending [facility] Order For Wound Care) This patient turner... PRN PRN XX WOUND CARE; Start 09/06/18 at 15:30 Insulin Aspart (Novolog Insulin Pen) 10 unit WITH MEALS SC Last administered on 09/13/18at 12:18; Admin Dose 10 UNIT; Start 09/07/18 at 17:35 Insulin Glargine (Lantus) 30 units DAILY@2000 SC Last administered on 09/12/18at 20:58; Admin Dose 30 UNITS; Start 09/07/18 at 20:00 Erythromycin (Erythromycin) 250 mg Q8 PO Last administered on 09/13/18at 06:40; Admin Dose 250 MG; Start 09/07/18 at 14:00; Stop 09/17/18 at 13:59 Aspirin (Halfprin) 81 mg DAILY PO Last administered on 09/13/18 08:54; Admin Dose 81 MG; Start 09/08/18 at 09:00 Atorvastatin Calcium (Lipitor) 80 mg QHS PO Last administered on 09/12/18 20:54; Admin Dose 80 MG; Start 09/07/18 at 21:00 Montelukast Sodium (Singulair) 10 mg QHS PO Last administered on 09/12/18 20:53; Admin Dose 10 MG; Start 09/07/18 at 21:00 Pregabalin (Lyrica) 150 mg DAILY PO Last administered on 09/12/18 10:02; Admin Dose 150 MG; Start 09/08/18 at 09:00 Sevelamer Carbonate (Renvela) 2,400 mg WITH MEALS PO Last administered on 09/13/18 12:15; Admin Dose 2,400 MG; Start 09/08/18 at 07:35 Tramadol HCl (Ultram) 50 mg Q6H PRN PO MODERATE PAIN LEVEL 4-6 Last administered on 09/12/18 20:53; Admin Dose 50 MG; Start 09/07/18 at 20:00 Metoclopramide HCl (Reglan Liq) 5 mg QID PO Last administered on 09/13/18 08:54; Admin Dose 5 MG; Start 09/08/18 at 17:00 Midodrine (Proamatine) 5 mg TID@09,13,17 PRN PO dizziness/low bp; Start 09/11/18 at 17:00 Sertraline HCl (Zoloft) 50 mg QHS PO Last administered on 09/12/18 20:54; Admin Dose 50 MG; Start 09/12/18 at 21:00 ANNEMARIE BURROUGHS NP Sep 13, 2018 13:49
[2018-09-13] MEDS: SERTRALINE 50 MG TAB PO SCH (21:00)
[2018-09-13] MEDS: ATORVASTATIN 80 MG TAB PO SCH (21:15)
[2018-09-13] MEDS: MONTELUKAST 10 MG TAB PO SCH (21:15)
[2018-09-13] MEDS: INSULIN GLARGINE [LANTus] (100 UNITS/ML) SYG SC SCH (23:54)
[2018-09-14] VITALS (7 sets, daily range): BP systolic 146–169; BP diastolic 74–94; PULSE 74–87; RESP 18–20
[2018-09-14] MEDS: ACCU-CHEK XX SCH (02:00)
[2018-09-14] MEDS: PANTOPRAZOLE (EC) 40 MG TAB PO SCH (06:17)
[2018-09-14] MEDS: ERYTHROMYCIN BASE (DR) 250 MG CAP PO SCH ×3 (06:17→20:59)
[2018-09-14] MEDS: INSULIN ASPART [NOVOLOG] 3 ML PEN SC SCH ×7 (08:28→20:54)
[2018-09-14] MEDS: METOCLOPRAMIDE (1 MG/ML) 10 ML CUP PO SCH ×4 (08:28→20:46)
[2018-09-14] MEDS: DOCUSATE SODIUM 100 MG CAP PO SCH ×2 (08:29→20:46)
[2018-09-14] MEDS: SEVELAMER CARBONATE 800 MG TABLET PO SCH ×3 (08:29→17:24)
[2018-09-14] MEDS: PREGABALIN 75 MG CAP PO SCH (08:29)
[2018-09-14] MEDS: ASPIRIN (EC) 81 MG TAB PO SCH (08:30)
--- NOTE | 2018-09-14 12:02 | CONS ---
Assessment/Plan Assessment/Plan Assessment/Plan (Daily) 1. ESRD on Peritoneal dialysis 2. Recurrent syncope 2/2 autonomic neuropathy 3. H/o CAD s/p CABG 4. H/O HTN 5. H/o DM II 6. H/o HL 7. Oblique fracture of the right humeral neck., Nondisplaced fracture of the acromion. Plan: will plan for Hd today and tomorrow 3 cycles, his original schedule at home Hb 8.9- will start epogen 6000 units MWF Continue other home meds Rehab plan as per Rehab physician will follow up Consultation Date/Type/Reason Admit Date/Time Sep 06, 2018 at 13:45 Initial Consult Date 09/07/18 Type of Consult NEPHROLOGY Requesting Provider: ANNEMARIE BURROUGHS NP Date/Time of Note DATE: 09/14/18 TIME: 12:02 Exam/Review of Systems Exam Vitals Vital Signs Date Temp Pulse Resp B/P (MAP) Pulse Ox O2 O2 Flow FiO2 Time Delivery Rate 09/14/18 81 159/81 10:02 09/14/18 97.6 20 99 Room Air 07:30 Intake and Output 09/13/18 09/13/18 09/14/18 1515:00 23:00 07:00 IntakeIntake Total 850 ml OutputOutput Total 1966 ml BalanceBalance -1966 ml 850 ml Exam Constitutional: alert Respiratory: clear to auscultation, normal air movement Cardiovascular: regular rate and rhythm, nl pulses Gastrointestinal: soft, non-tender, + PD catheter site clear no cellulitis Musculoskeletal: nl extremities to inspection, muscle weakness Extremities: normal pulses Neurological: Non Focal Results Result Diagram: 09/13/18 0611 09/13/18 0611 Results 24hrs Laboratory Tests Test 09/13/18 12:14 09/13/18 17:27 09/13/18 21:14 09/14/18 02:06 Bedside Glucose 179 111 195 235 H Test 09/14/18 08:23 Bedside Glucose 179 Medications Medication Current Medications Bisacodyl (Dulcolax Supp) 10 mg DAILY PRN [place] CONSTIPATION Last administered on 09/11/18at 18:35; Admin Dose 10 MG; Start 09/06/18 at 15:00 Docusate Sodium (Colace) 100 mg BID PO Last administered on 09/14/18at 08:29; A dmin Dose 100 MG; Start 09/06/18 at 21:00 Diagnostic Test (Pha) (Accu-Chek) 1 ea 02 XX Last administered on 09/13/18at 02:37; Admin Dose 1 EA; Start 09/07/18 at 02:00 Insulin Aspart (Novolog Insulin Pen) NOVOLOG *MILD* ALGORITHM WITH MEALS BEDTIME SC Last administered on 09/14/18at 08:28; Admin Dose 1 UNIT; Start 09/06/18 at 17:35 Ondansetron HCl (Zofran Inj) 4 mg Q4H PRN IV NAUSEA AND/OR VOMITING; Start 09/06/18 at 15:00 Pantoprazole (Protonix Tab) 40 mg DAILY@06 PO Last administered on 09/14/18at 06:17; Admin Dose 40 MG; Start 09/07/18 at 06:00 IV Flush (NS 3 ml) 3 ml Q8H and PRN adm IV ; Start 09/06/18 at 15:00 Zolpidem Tartrate (Ambien) 5 mg HS PRN PO INSOMNIA; Start 09/06/18 at 15:00 Miscellaneous Information 1 ea NOTE XX ; Start 09/06/18 at 16:00 Glucose (Glutose) 15 gm Q15M PRN PO DECREASED GLUCOSE; Start 09/06/18 at 16:00 Glucose (Glutose) 22.5 gm Q15M PRN PO DECREASED GLUCOSE; Start 09/06/18 at 16:00 Dextrose (D50w Syringe) 25 ml Q15M PRN IV DECREASED GLUCOSE; Start 09/06/18 at 16:00 Dextrose (D50w Syringe) 50 ml Q15M PRN IV DECREASED GLUCOSE; Start 09/06/18 at 16:00 Glucagon (Glucagen) 1 mg Q15M PRN IM DECREASED GLUCOSE; Start 09/06/18 at 16:00 Glucose (Glutose) 15 gm Q15M PRN BUCCAL DECREASED GLUCOSE Last administered on 09/08/18at 14:14; Admin Dose 15 GM; Start 09/06/18 at 16:00 Miscellaneous Information (Pending [facility] Order For Wound Care) This patient turner... PRN PRN XX WOUND CARE; Start 09/06/18 at 15:30 Insulin Aspart (Novolog Insulin Pen) 10 unit WITH MEALS SC Last administered on 09/14/18at 08:28; Admin Dose 10 UNIT; Start 09/07/18 at 17:35 Insulin Glargine (Lantus) 30 units DAILY@2000 SC Last administered on 09/13/18 23:54; Admin Dose 30 UNITS; Start 09/07/18 at 20:00 Erythromycin (Erythromycin) 250 mg Q8 PO Last administered on 09/14/18 06:17; Admin Dose 250 MG; Start 09/07/18 at 14:00; Stop 09/17/18 at 13:59 Aspirin (Halfprin) 81 mg DAILY PO Last administered on 09/14/18 08:30; Admin Dose 81 MG; Start 09/08/18 at 09:00 Atorvastatin Calcium (Lipitor) 80 mg QHS PO Last administered on 09/13/18 21:15; Admin Dose 80 MG; Start 09/07/18 at 21:00 Montelukast Sodium (Singulair) 10 mg QHS PO Last administered on 09/13/18 21:15; Admin Dose 10 MG; Start 09/07/18 at 21:00 Pregabalin (Lyrica) 150 mg DAILY PO Last administered on 09/12/18 10:02; Admin Dose 150 MG; Start 09/08/18 at 09:00 Sevelamer Carbonate (Renvela) 2,400 mg WITH MEALS PO Last administered on 09/14/18 08:29; Admin Dose 2,400 MG; Start 09/08/18 at 07:35 Tramadol HCl (Ultram) 50 mg Q6H PRN PO MODERATE PAIN LEVEL 4-6 Last administered on 09/12/18 20:53; Admin Dose 50 MG; Start 09/07/18 at 20:00 Metoclopramide HCl (Reglan Liq) 5 mg QID PO Last administered on 09/14/18 08:28; Admin Dose 5 MG; Start 09/08/18 at 17:00 Midodrine (Proamatine) 5 mg TID@,,17 PRN PO dizziness/low bp; Start 09/11/18 at 17:00 Sertraline HCl (Zoloft) 50 mg QHS PO Last administered on 09/12/18 20:54; Admin Dose 50 MG; Start 09/12/18 at 21:00 JACQUES VALENCIA MD Sep 14, 2018 12:02
--- NOTE | 2018-09-14 14:22 | PN ---
Date/Time of Note Date/Time of Note DATE: 09/14/18 TIME: 14:21 Assessment/Plan VTE Prophylaxis Risk score (from Nsg)>0 risk: 3 SCD applied (from Nsg): Yes Pharmacological prophylaxis: NA/contraindicated Pharm contraindication: low risk/ambulating Lines/Catheters IV [facility]from [facility] Saline Lock Assessment/Plan Hospital Course SUBJECTIVE: no acute events OBJECTIVE: Vital signs-see below PHYSICAL EXAM: Constitutional: Adequately built,not in acute distress. HEENT: Head atraumatic and normocephalic. Eyes: Extraocular muscles intact. Anicteric sclerae. Pupils equal bilaterally, reactive to light. NECK: Supple without lymph node. CHEST: Clear and good breath sounds equally. No wheezing. No rhonchi. HEART: S1, S2. Regular rate and rhythm. ABDOMEN: Soft/non tender with no rebound tenderness. Bowel sounds were present. EXTREMITIES: With right arm sling. No cyanosis, clubbing or edema. NEUROLOGIC: Alert and oriented x3. No focal deficit. No sensory deficit. PSYCHOSOCIAL: No signs of depression. INTEGUMENTARY: No open wounds. ASSESSMENT AND PLAN: Right humeral fracture - Properly aligned and does not require surgical intervention, continue conservative care - Pain control/PT Recurrent syncope likely secondary to autonomic neuropathy/orthostatic hypotension -Patient will need to allow for blood pressure elevations and will need to be less aggressive with BP control, patient also needs to change positions gradually 2D echo shows a preserved EF -on midodrine-change to PRN Gastroparesis -symptoms improved -Continue Reglan/ erythromycin base -Patient has outpatient [facility] follow-up for further studies on gastroparesis. End-stage renal disease on PD Managed per nephrology Insulin dependent diabetes -stable.cont.basal/bolus regimen Coronary disease status post CABG Continue aspirin/statin Hypertension -No further episodes of orthostatic hypotension. Will be less aggressive with blood pressure control secondary to autonomic neuropathy/syncope episodes Anemia, likely chronic -Stable. Continue to monitor DM neuropathy -cont.Lyrica Anxiety disorders -cont.sertraline Prophylaxis: SCDs Patient was seen in collaboration with Result Diagram: 09/13/18 0611 09/13/18 0611 Results 24hrs Laboratory Tests Test 09/13/18 17:27 09/13/18 21:14 09/14/18 02:06 09/14/18 08:23 Bedside Glucose 111 195 235 H 179 Test 09/14/18 11:57 Bedside Glucose 248 H Exam/Review of Systems Exam Vitals Vital Signs Date Temp Pulse Resp B/P (MAP) Pulse Ox O2 O2 Flow FiO2 Time Delivery Rate 09/14/18 81 159/81 10:02 09/14/18 97.6 20 99 Room Air 07:30 Intake and Output 09/13/18 09/13/18 09/14/18 1515:00 23:00 07:00 IntakeIntake Total 850 ml OutputOutput Total 1966 ml BalanceBalance -1966 ml 850 ml Results Results 24hrs Laboratory Tests Test 09/13/18 17:27 09/13/18 21:14 09/14/18 02:06 09/14/18 08:23 Bedside Glucose 111 195 235 H 179 Test 09/14/18 11:57 Bedside Glucose 248 H Medications Medication Current Medications Bisacodyl (Dulcolax Supp) 10 mg DAILY PRN [place] CONSTIPATION Last administered on 09/11/18 18:35; Admin Dose 10 MG; Start 09/06/18 at 15:00 Docusate Sodium (Colace) 100 mg BID PO Last administered on 09/14/18 08:29; Admin Dose 100 MG; Start 09/06/18 at 21:00 Diagnostic Test (Pha) (Accu-Chek) 1 ea 02 XX Last administered on 09/13/18 02:3 7; Admin Dose 1 EA; Start 09/07/18 at 02:00 Insulin Aspart (Novolog Insulin Pen) NOVOLOG *MILD* ALGORITHM WITH MEALS BEDTIME SC Last administered on 09/14/18at 12:03; Admin Dose 3 UNIT; Start 09/06/18 at 17:35 Ondansetron HCl (Zofran Inj) 4 mg Q4H PRN IV NAUSEA AND/OR VOMITING; Start 09/06/18 at 15:00 Pantoprazole (Protonix Tab) 40 mg DAILY@06 PO Last administered on 09/14/18at 06:17; Admin Dose 40 MG; Start 09/07/18 at 06:00 IV Flush (NS 3 ml) 3 ml Q8H and PRN adm IV ; Start 09/06/18 at 15:00 Zolpidem Tartrate (Ambien) 5 mg HS PRN PO INSOMNIA; Start 09/06/18 at 15:00 Miscellaneous Information 1 ea NOTE XX ; Start 09/06/18 at 16:00 Glucose (Glutose) 15 gm Q15M PRN PO DECREASED GLUCOSE; Start 09/06/18 at 16:00 Glucose (Glutose) 22.5 gm Q15M PRN PO DECREASED GLUCOSE; Start 09/06/18 at 16: 00 Dextrose (D50w Syringe) 25 ml Q15M PRN IV DECREASED GLUCOSE; Start 09/06/18 at 16:00 Dextrose (D50w Syringe) 50 ml Q15M PRN IV DECREASED GLUCOSE; Start 09/06/18 at 16:00 Glucagon (Glucagen) 1 mg Q15M PRN IM DECREASED GLUCOSE; Start 09/06/18 at 16:00 Glucose (Glutose) 15 gm Q15M PRN BUCCAL DECREASED GLUCOSE Last administered on 09/08/18at 14:14; Admin Dose 15 GM; Start 09/06/18 at 16:00 Miscellaneous Information ([facility]) This patient turner... PRN PRN XX WOUND CARE; Start 09/06/18 at 15:30 Insulin Aspart (Novolog Insulin Pen) 10 unit WITH MEALS SC Last administered on 09/14/18at 12:04; Admin Dose 10 UNIT; Start 09/07/18 at 17:35 Insulin Glargine (Lantus) 30 units DAILY@2000 SC Last administered on 09/13/18at 23:54; Admin Dose 30 UNITS; Start 09/07/18 at 20:00 Erythromycin (Erythromycin) 250 mg Q8 PO Last administered on 09/14/18at 12:05; Admin Dose 250 MG; Start 09/07/18 at 14:00; Stop 09/17/18 at 13:59 Aspirin (Halfprin) 81 mg DAILY PO Last administered on 09/14/18at 08:30; Admin Dose 81 MG; Start 09/08/18 at 09:00 Atorvastatin Calcium (Lipitor) 80 mg QHS PO Last administered on 09/13/18at 21:15; Admin Dose 80 MG; Start 09/07/18 at 21:00 Montelukast Sodium (Singulair) 10 mg QHS PO Last administered on 09/13/18at 21:15; Admin Dose 10 MG; Start 09/07/18 at 21:00 Pregabalin (Lyrica) 150 mg DAILY PO Last administered on 09/12/18at 10:02; Admin Dose 150 MG; Start 09/08/18 at 09:00 Sevelamer Carbonate (Renvela) 2,400 mg WITH MEALS PO Last administered on 09/14/18 12:05; Admin Dose 2,400 MG; Start 09/08/18 at 07:35 Tramadol HCl (Ultram) 50 mg Q6H PRN PO MODERATE PAIN LEVEL 4-6 Last administered on 09/12/18at 20:53; Admin Dose 50 MG; Start 09/07/18 at 20:00 Metoclopramide HCl (Reglan Liq) 5 mg QID PO Last administered on 09/14/18 12:05; Admin Dose 5 MG; Start 09/08/18 at 17:00 Midodrine (Proamatine) 5 mg TID@09,13,17 PRN PO dizziness/low bp; Start 09/11/18 at 17:00 Sertraline HCl (Zoloft) 50 mg QHS PO Last administered on 09/12/18at 20:54; Admi n Dose 50 MG; Start 09/12/18 at 21:00 ANNEMARIE BURROUGHS NP Sep 14, 2018 14:22
--- NOTE | 2018-09-14 15:04 | PN ---
Date/Time of Note Date/Time of Note DATE: 09/14/18 TIME: 15:03 Subjective No new complaints Objective Vital Signs Date Temp Pulse Resp B/P (MAP) Pulse Ox O2 O2 Flow FiO2 Time Delivery Rate 09/14/18 81 159/81 10:02 09/14/18 97.6 20 99 Room Air 07:30 Intake and Output 09/13/18 09/13/18 09/14/18 1515:00 23:00 07:00 IntakeIntake Total 850 ml OutputOutput Total 1966 ml BalanceBalance -1966 ml 850 ml Exam pulm-cta abd-soft mod transfer Results/Medications Result Diagram: 09/13/18 0611 09/13/18 0611 Results 24 hrs Laboratory Tests Test 09/13/18 17:27 09/13/18 21:14 09/14/18 02:06 09/14/18 08:23 Bedside Glucose 111 195 235 H 179 Test 09/14/18 11:57 Bedside Glucose 248 H Medications Current Medications Bisacodyl (Dulcolax Supp) 10 mg DAILY PRN [place] CONSTIPATION Last administered on 09/11/18at 18:35; Admin Dose 10 MG; Start 09/06/18 at 15:00 Docusate Sodium (Colace) 100 mg BID PO Last administered on 09/14/18at 08:29; Ad min Dose 100 MG; Start 09/06/18 at 21:00 Diagnostic Test (Pha) (Accu-Chek) 1 ea 02 XX Last administered on 09/13/18at 02:37; Admin Dose 1 EA; Start 09/07/18 at 02:00 Insulin Aspart (Novolog Insulin Pen) NOVOLOG *MILD* ALGORITHM WITH MEALS BEDTIME SC Last administered on 09/14/18at 12:03; Admin Dose 3 UNIT; Start 09/06/18 at 17:35 Ondansetron HCl (Zofran Inj) 4 mg Q4H PRN IV NAUSEA AND/OR VOMITING; Start 09/06/18 at 15:00 Pantoprazole (Protonix Tab) 40 mg DAILY@06 PO Last administered on 09/14/18at 06:17; Admin Dose 40 MG; Start 09/07/18 at 06:00 IV Flush (NS 3 ml) 3 ml Q8H and PRN adm IV ; Start 09/06/18 at 15:00 Zolpidem Tartrate (Ambien) 5 mg HS PRN PO INSOMNIA; Start 09/06/18 at 15:00 Miscellaneous Information 1 ea NOTE XX ; Start 09/06/18 at 16:00 Glucose (Glutose) 15 gm Q15M PRN PO DECREASED GLUCOSE; Start 09/06/18 at 16:00 Glucose (Glutose) 22.5 gm Q15M PRN PO DECREASED GLUCOSE; Start 09/06/18 at 16:00 Dextrose (D50w Syringe) 25 ml Q15M PRN IV DECREASED GLUCOSE; Start 09/06/18 at 16:00 Dextrose (D50w Syringe) 50 ml Q15M PRN IV DECREASED GLUCOSE; Start 09/06/18 at 16:00 Glucagon (Glucagen) 1 mg Q15M PRN IM DECREASED GLUCOSE; Start 09/06/18 at 16:00 Glucose (Glutose) 15 gm Q15M PRN BUCCAL DECREASED GLUCOSE Last administered on 09/08/18at 14:14; Admin Dose 15 GM; Start 09/06/18 at 16:00 Miscellaneous Information [facility] This patient turner... PRN PRN XX WOUND CARE; Start 09/06/18 at 15:30 Insulin Aspart (Novolog Insulin Pen) 10 unit WITH MEALS SC Last administered on 09/14/18 12:04; Admin Dose 10 UNIT; Start 09/07/18 at 17:35 Insulin Glargine (Lantus) 30 units DAILY@2000 SC Last administered on 09/13/18at 23:54; Admin Dose 30 UNITS; Start 09/07/18 at 20:00 Erythromycin (Erythromycin) 250 mg Q8 PO Last administered on 09/14/18at 12:05; Admin Dose 250 MG; Start 09/07/18 at 14:00; Stop 09/17/18 at 13:59 Aspirin (Halfprin) 81 mg DAILY PO Last administered on 09/14/18 08:30; Admin Dose 81 MG; Start 09/08/18 at 09:00 Atorvastatin Calcium (Lipitor) 80 mg QHS PO Last administered on 09/13/18at 21:15; Admin Dose 80 MG; Start 09/07/18 at 21:00 Montelukast Sodium (Singulair) 10 mg QHS PO Last administered on 09/13/18at 21:15; Admin Dose 10 MG; Start 09/07/18 at 21:00 Pregabalin (Lyrica) 150 mg DAILY PO Last administered on 09/12/18 10:02; Admin Dose 150 MG; Start 09/08/18 at 09:00 Sevelamer Carbonate (Renvela) 2,400 mg WITH MEALS PO Last administered on 09/14/18 12:05; Admin Dose 2,400 MG; Start 09/08/18 at 07:35 Tramadol HCl (Ultram) 50 mg Q6H PRN PO MODERATE PAIN LEVEL 4-6 Last administered on 09/12/18at 20:53; Admin Dose 50 MG; Start 09/07/18 at 20:00 Metoclopramide HCl (Reglan Liq) 5 mg QID PO Last administered on 09/14/18 12:05; Admin Dose 5 MG; Start 09/08/18 at 17:00 Midodrine (Proamatine) 5 mg TID@09,13,17 PRN PO dizziness/low bp; Start 09/11/18 at 17:00 Sertraline HCl (Zoloft) 50 mg QHS PO Last administered on 09/12/18at 20:54; Admin Dose 50 MG; Start 09/12/18 at 21:00 Assessment/Plan Additional Assessment/Plan Rehab- Autonomic neuropathy with orthostatic hypotension; Right humerus fracture, nonweightbearing right UE, C5 fracture, no collar required, no surgical intervention. Overall improving, continue to increase activities as tolerated Syncopal episode. Traumatic pain syndrome- continue current meds Type 2 diabetes. Diabetic neuropathy. Diabetic nephropathy. End-stage renal disease, peritoneal dialysis. Hypertension. Coronary artery disease with a history of bypass grafting. Old CVAs. Osteoarthritis. Anemia. CARLOS LANGE MD Sep 14, 2018 15:04
[2018-09-14] MEDS: SERTRALINE 50 MG TAB PO SCH (20:46)
[2018-09-14] MEDS: ATORVASTATIN 80 MG TAB PO SCH (20:46)
[2018-09-14] MEDS: MONTELUKAST 10 MG TAB PO SCH (20:46)
[2018-09-14] MEDS: INSULIN GLARGINE [LANTus] (100 UNITS/ML) SYG SC SCH (20:53)
[2018-09-14] MEDS: EPOETIN ALFA-EPBX (ESRD) 3,000 UNIT/ML VIAL SC SCH (21:03)
[2018-09-15 01:38] VITALS: BP 142/82; PULSE 73; RESP 18
[2018-09-15] MEDS: ACCU-CHEK XX SCH (02:00)
[2018-09-15] MEDS: ERYTHROMYCIN BASE (DR) 250 MG CAP PO SCH ×3 (06:13→21:29)
[2018-09-15] MEDS: PANTOPRAZOLE (EC) 40 MG TAB PO SCH (06:13)
[2018-09-15 07:00] VITALS: BP 165/88; PULSE 74; RESP 18
[2018-09-15 08:00] VITALS: BP 180/95; PULSE 75
[2018-09-15] MEDS: INSULIN ASPART [NOVOLOG] 3 ML PEN SC SCH ×7 (08:58→21:36)
[2018-09-15] MEDS: METOCLOPRAMIDE (1 MG/ML) 10 ML CUP PO SCH ×4 (08:59→21:27)
[2018-09-15] MEDS: SEVELAMER CARBONATE 800 MG TABLET PO SCH ×3 (08:59→17:49)
[2018-09-15] MEDS: PREGABALIN 75 MG CAP PO SCH (09:00)
[2018-09-15] MEDS: DOCUSATE SODIUM 100 MG CAP PO SCH ×2 (09:00→21:27)
[2018-09-15] MEDS: ASPIRIN (EC) 81 MG TAB PO SCH (09:00)
--- NOTE | 2018-09-15 10:00 | PN ---
Date/Time of Note Date/Time of Note DATE: 09/15/18 TIME: 09:59 Subjective Up for meal Objective Vital Signs Date Temp Pulse Resp B/P (MAP) Pulse Ox O2 O2 Flow FiO2 Time Delivery Rate 09/15/18 75 180/95 08:00 09/15/18 97.4 18 93 Room Air 07:00 Intake and Output 09/14/18 09/14/18 09/15/18 1515:00 23:00 07:00 IntakeIntake Total 50 ml 320 ml 950 ml OutputOutput Total 2890 ml BalanceBalance -2840 ml 320 ml 950 ml Exam more awake mod transfer Results/Medications Result Diagram: 09/13/18 0611 09/13/18 0611 Results 24 hrs Laboratory Tests Test 09/14/18 11:57 09/14/18 17:21 09/14/18 20:33 09/15/18 02:50 Bedside Glucose 248 H 138 245 H 297 H Test 09/15/18 08:56 Bedside Glucose 199 Medications Current Medications Bisacodyl (Dulcolax Supp) 10 mg DAILY PRN [place] CONSTIPATION Last administered on 09/11/18at 18:35; Admin Dose 10 MG; Start 09/06/18 at 15:00 Docusate Sodium (Colace) 100 mg BID PO Last administered on 09/15/18 09:00; Admin Dose 100 MG; Start 09/06/18 at 21:00 Diagnostic Test (Pha) (Accu-Chek) 1 ea 02 XX Last administered on 09/13/18at 02:37; Admin Dose 1 EA; Start 09/07/18 at 02:00 Insulin Aspart (Novolog Insulin Pen) NOVOLOG *MILD* ALGORITHM WITH MEALS BEDTIME SC Last administered on 09/15/18at 08:58; Admin Dose 2 UNIT; Start 09/06/18 at 17:35 Ondansetron HCl (Zofran Inj) 4 mg Q4H PRN IV NAUSEA AND/OR VOMITING; Start 09/06/18 at 15:00 Pantoprazole (Protonix Tab) 40 mg DAILY@06 PO Last administered on 09/15/18at 06:13; Admin Dose 40 MG; Start 09/07/18 at 06:00 IV Flush (NS 3 ml) 3 ml Q8H and PRN adm IV ; Start 09/06/18 at 15:00 Zolpidem Tartrate (Ambien) 5 mg HS PRN PO INSOMNIA; Start 09/06/18 at 15:00 Miscellaneous Information 1 ea NOTE XX ; Start 09/06/18 at 16:00 Glucose (Glutose) 15 gm Q15M PRN PO DECREASED GLUCOSE; Start 09/06/18 at 16:00 Glucose (Glutose) 22.5 gm Q15M PRN PO DECREASED GLUCOSE; Start 09/06/18 at 16:00 Dextrose (D50w Syringe) 25 ml Q15M PRN IV DECREASED GLUCOSE; Start 09/06/18 at 16:00 Dextrose (D50w Syringe) 50 ml Q15M PRN IV DECREASED GLUCOSE; Start 09/06/18 at 16:00 Glucagon (Glucagen) 1 mg Q15M PRN IM DECREASED GLUCOSE; Start 09/06/18 at 16:00 Glucose (Glutose) 15 gm Q15M PRN BUCCAL DECREASED GLUCOSE Last administered on 09/08/18at 14:14; Admin Dose 15 GM; Start 09/06/18 at 16:00 Miscellaneous Information (Pending [facility] Order For Wound Care) This patient turner ... PRN PRN XX WOUND CARE; Start 09/06/18 at 15:30 Insulin Aspart (Novolog Insulin Pen) 10 unit WITH MEALS SC Last administered on 09/15/18 08:59; Admin Dose 10 UNIT; Start 09/07/18 at 17:35 Insulin Glargine (Lantus) 30 units DAILY@2000 SC Last administered on 09/14/18 20:53; Admin Dose 30 UNITS; Start 09/07/18 at 20:00 Erythromycin (Erythromycin) 250 mg Q8 PO Last administered on 09/15/18 06:13; Admin Dose 250 MG; Start 09/07/18 at 14:00; Stop 09/17/18 at 13:59 Aspirin (Halfprin) 81 mg DAILY PO Last administered on 09/15/18 09:00; Admin Dose 81 MG; Start 09/08/18 at 09:00 Atorvastatin Calcium (Lipitor) 80 mg QHS PO Last administered on 09/14/18 20:46; Admin Dose 80 MG; Start 09/07/18 at 21:00 Montelukast Sodium (Singulair) 10 mg QHS PO Last administered on 09/14/18 20:46; Admin Dose 10 MG; Start 09/07/18 at 21:00 Pregabalin (Lyrica) 150 mg DAILY PO Last administered on 09/12/18at 10:02; Admin Dose 150 MG; Start 09/08/18 at 09:00 Sevelamer Carbonate (Renvela) 2,400 mg WITH MEALS PO Last administered on 09/15/18 08:59; Admin Dose 2,400 MG; Start 09/08/18 at 07:35 Tramadol HCl (Ultram) 50 mg Q6H PRN PO MODERATE PAIN LEVEL 4-6 Last administered on 09/12/18at 20:53; Admin Dose 50 MG; Start 09/07/18 at 20:00 Metoclopramide HCl (Reglan Liq) 5 mg QID PO Last administered on 09/15/18 08:59; Admin Dose 5 MG; Start 09/08/18 at 17:00 Midodrine (Proamatine) 5 mg TID@09,13,17 PRN PO dizziness/low bp; Start 09/11/18 at 17:00 Sertraline HCl (Zoloft) 50 mg QHS PO Last administered on 09/14/18at 20:46; Admin Dose 50 MG; Start 09/12/18 at 21:00 Epoetin Fernando-epbx (Retacrit (Esrd)) 6,000 unit MoWeFr@1700 SC Last administered on 09/14/18at 21:03; Admin Dose 6,000 UNIT; Start 09/14/18 at 19:30 Assessment/Plan Additional Assessment/Plan Rehab- Autonomic neuropathy with orthostatic hypotension; Right humerus fracture, nonweightbearing right UE, C5 fracture, no collar required, no surgical intervention. Continue rehab activities Syncopal episode. Traumatic pain syndrome- continue current meds Type 2 diabetes. Diabetic neuropathy. Diabetic nephropathy. End-stage renal disease, peritoneal dialysis. Hypertension. Coronary artery disease with a history of bypass grafting. Old CVAs. Osteoarthritis. Anemia. CARLOS LANGE MD Sep 15, 2018 10:00
--- NOTE | 2018-09-15 12:41 | PN ---
Date/Time of Note Date/Time of Note DATE: 09/15/18 TIME: 12:38 Assessment/Plan VTE Prophylaxis Risk score (from Nsg)>0 risk: 4 SCD applied (from Ns): Yes Pharmacological prophylaxis: NA/contraindicated Pharm contraindication: low risk/ambulating Lines/Catheters IV Catheter Type (from Nrsg): Saline Lock Assessment/Plan Hospital Course SUBJECTIVE: Pressure and blood sugar running in high sides. No acute symptoms. OBJECTIVE: Vital signs-see below PHYSICAL EXAM: Constitutional: Adequately built,not in acute distress. HEENT: Head atraumatic and normocephalic. Eyes: Extraocular muscles intact. Anicteric sclerae. Pupils equal bilaterally, reactive to light. NECK: Supple without lymph node. CHEST: Clear and good breath sounds equally. No wheezing. No rhonchi. HEART: S1, S2. Regular rate and rhythm. ABDOMEN: Soft/non tender with no rebound tenderness. Bowel sounds were present. EXTREMITIES: With right arm sling. No cyanosis, clubbing or edema. NEUROLOGIC: Alert and oriented x3. No focal deficit. No sensory deficit. PSYCHOSOCIAL: No signs of depression. INTEGUMENTARY: No open wounds. ASSESSMENT AND PLAN: Right humeral fracture - Properly aligned and does not require surgical intervention, continue conservative care - Pain control/PT Recurrent syncope likely secondary to autonomic neuropathy/orthostatic hypotension -Patient will need to allow for blood pressure elevations and will need to be less aggressive with BP control, patient also needs to change positions gradually 2D echo shows a preserved EF -on midodrine-change to PRN Gastroparesis -symptoms improved -Continue Reglan/ erythromycin base -Patient has outpatient [facility] follow-up for further studies on gastroparesis. End-stage renal disease on PD -Managed per nephrology Insulin dependent diabetes -bs has been running in the high sides, will increase Lantus to 35 units. Continue current bolus regimen. Coronary disease status post CABG Continue aspirin/statin Hypertension -BP consistently in the high limits. At this time, will add lower-dose nifedipine which is his outpatient home regimen. - will be less aggressive with blood pressure control secondary to autonomic neuropathy/syncope episodes Anemia, likely chronic -Stable. Continue to monitor DM neuropathy -cont.Lyrica Anxiety disorders -cont.sertraline Prophylaxis: SCDs Patient was seen in collaboration with Result Diagram: 8/1/19 0611 8/1/19 0611 Results 24hrs Laboratory Tests Test 09/14/18 17:21 09/14/18 20:33 09/15/18 02:50 09/15/18 08:56 Bedside Glucose 138 245 H 297 H 199 Test 09/15/18 12:28 Bedside Glucose 286 H Exam/Review of Systems Exam Vitals Vital Signs Date Temp Pulse Resp B/P (MAP) Pulse Ox O2 O2 Flow FiO2 Time Delivery Rate 09/15/18 75 180/95 08:00 09/15/18 97.4 18 93 Room Air 07:00 Intake and Output 09/14/18 09/14/18 09/15/18 1515:00 23:00 07:00 IntakeIntake Total 50 ml 320 ml 950 ml OutputOutput Total 2890 ml BalanceBalance -2840 ml 320 ml 950 ml Results Results 24hrs Laboratory Tests Test 09/14/18 17:21 09/14/18 20:33 09/15/18 02:50 09/15/18 08:56 Bedside Glucose 138 245 H 297 H 199 Test 09/15/18 12:28 Bedside Glucose 286 H Medications Medication Current Medications Bisacodyl (Dulcolax Supp) 10 mg DAILY PRN [place] CONSTIPATION Last administered on 09/11/18at 18:35; Admin Dose 10 MG; Start 09/06/18 at 15:00 Docusate Sodium (Colace) 100 mg BID PO Last administered on 09/15/18at 09:00; Adm in Dose 100 MG; Start 09/06/18 at 21:00 Diagnostic Test (Pha) (Accu-Chek) 1 ea 02 XX Last administered on 09/13/18at 02:37; Admin Dose 1 EA; Start 09/07/18 at 02:00 Insulin Aspart (Novolog Insulin Pen) NOVOLOG *MILD* ALGORITHM WITH MEALS BEDTIME SC Last administered on 09/15/18at 08:58; Admin Dose 2 UNIT; Start 09/06/18 at 17:35 Ondansetron HCl (Zofran Inj) 4 mg Q4H PRN IV NAUSEA AND/OR VOMITING; Start 09/06/18 at 15:00 Pantoprazole (Protonix Tab) 40 mg DAILY@06 PO Last administered on 09/15/18at 06:13; Admin Dose 40 MG; Start 09/07/18 at 06:00 IV Flush (NS 3 ml) 3 ml Q8H and PRN adm IV ; Start 09/06/18 at 15:00 Zolpidem Tartrate (Ambien) 5 mg HS PRN PO INSOMNIA; Start 09/06/18 at 15:00 Miscellaneous Information 1 ea NOTE XX ; Start 09/06/18 at 16:00 Glucose (Glutose) 15 gm Q15M PRN PO DECREASED GLUCOSE; Start 09/06/18 at 16:00 Glucose (Glutose) 22.5 gm Q15M PRN PO DECREASED GLUCOSE; Start 09/06/18 at 16:00 Dextrose (D50w Syringe) 25 ml Q15M PRN IV DECREASED GLUCOSE; Start 09/06/18 at 16:00 Dextrose (D50w Syringe) 50 ml Q15M PRN IV DECREASED GLUCOSE; Start 09/06/18 at 16:00 Glucagon (Glucagen) 1 mg Q15M PRN IM DECREASED GLUCOSE; Start 09/06/18 at 16:00 Glucose (Glutose) 15 gm Q15M PRN BUCCAL DECREASED GLUCOSE Last administered on 09/08/18at 14:14; Admin Dose 15 GM; Start 09/06/18 at 16:00 Miscellaneous Information [facility] This patient turner... PRN PRN XX WOUND CARE; Start 09/06/18 at 15:30 Insulin Aspart (Novolog Insulin Pen) 10 unit WITH MEALS SC Last administered on 09/15/18 08:59; Admin Dose 10 UNIT; Start 09/07/18 at 17:35 Insulin Glargine (Lantus) 30 units DAILY@2000 SC Last administered on 09/14/18at 20:53; Admin Dose 30 UNITS; Start 09/07/18 at 20:00 Erythromycin (Erythromycin) 250 mg Q8 PO Last administered on 09/15/18at 06:13; A dmin Dose 250 MG; Start 09/07/18 at 14:00; Stop 09/17/18 at 13:59 Aspirin (Halfprin) 81 mg DAILY PO Last administered on 09/15/18at 09:00; Admin Dose 81 MG; Start 09/08/18 at 09:00 Atorvastatin Calcium (Lipitor) 80 mg QHS PO Last administered on 09/14/18at 20:46; Admin Dose 80 MG; Start 09/07/18 at 21:00 Montelukast Sodium (Singulair) 10 mg QHS PO Last administered on 09/14/18 20:46; Admin Dose 10 MG; Start 09/07/18 at 21:00 Pregabalin (Lyrica) 150 mg DAILY PO Last administered on 09/12/18 10:02; Admin Dose 150 MG; Start 09/08/18 at 09:00 Sevelamer Carbonate (Renvela) 2,400 mg WITH MEALS PO Last administered on 09/15/18 08:59; Admin Dose 2,400 MG; Start 09/08/18 at 07:35 Tramadol HCl (Ultram) 50 mg Q6H PRN PO MODERATE PAIN LEVEL 4-6 Last administered on 09/12/18 20:53; Admin Dose 50 MG; Start 09/07/18 at 20:00 Metoclopramide HCl (Reglan Liq) 5 mg QID PO Last administered on 09/15/18 08:59; Admin Dose 5 MG; Start 09/08/18 at 17:00 Midodrine (Proamatine) 5 mg TID@09,13,17 PRN PO dizziness/low bp; Start 09/11/18 at 17:00 Sertraline HCl (Zoloft) 50 mg QHS PO Last administered on 09/14/18 20:46; Admin Dose 50 MG; Start 09/12/18 at 21:00 Epoetin Fernando-epbx (Retacrit (Esrd)) 6,000 unit MoWeFr@1700 SC Last administered on 09/14/18 21:03; Admin Dose 6,000 UNIT; Start 09/14/18 at 19:30 Nifedipine (Procardia Xl) 30 mg DAILY PO ; Start 09/15/18 at 13:00; Status ANNEMARIE SPEARS NP Sep 15, 2018 12:41
[2018-09-15] MEDS: NIFEdipine (XL) 30 MG TAB PO SCH (13:29)
[2018-09-15 14:00] VITALS: BP 169/82; PULSE 75; RESP 18
--- NOTE | 2018-09-15 17:29 | CONS ---
Assessment/Plan Assessment/Plan Assessment/Plan (Daily) 1. ESRD on Peritoneal dialysis 2. Recurrent syncope 2/2 autonomic neuropathy 3. H/o CAD s/p CABG 4. H/O HTN 5. H/o DM II 6. H/o HL 7. Oblique fracture of the right humeral neck., Nondisplaced fracture of the acromion. Plan: will plan for Hd today and tomorrow 3 cycles, his original schedule at home Hb 8.9- will start epogen 6000 units MWF Continue other home meds Rehab plan as per Rehab physician will follow up Consultation Date/Type/Reason Admit Date/Time Sep 06, 2018 at 13:45 Initial Consult Date 09/07/18 Type of Consult NEPHROLOGY Requesting Provider: ANNEMARIE BURROUGHS NP Date/Time of Note DATE: 09/15/18 TIME: 17:29 Exam/Review of Systems Exam Vitals Vital Signs Date Temp Pulse Resp B/P (MAP) Pulse Ox O2 O2 Flow FiO2 Time Delivery Rate 09/15/18 98.0 75 18 169/82 93 Room Air 14:00 (111) Intake and Output 09/14/18 09/14/18 09/15/18 1515:00 23:00 07:00 IntakeIntake Total 50 ml 320 ml 950 ml OutputOutput Total 2890 ml BalanceBalance -2840 ml 320 ml 950 ml Exam Constitutional: alert Respiratory: clear to auscultation, normal air movement Cardiovascular: regular rate and rhythm, nl pulses Gastrointestinal: soft, non-tender, + PD catheter site clear no cellulitis Musculoskeletal: nl extremities to inspection, muscle weakness Extremities: normal pulses Neurological: Non Focal Results Result Diagram: 09/13/18 0611 09/13/18 0611 Results 24hrs Laboratory Tests Test 09/14/18 20:33 09/15/18 02:50 09/15/18 08:56 09/15/18 12:28 Bedside Glucose 245 H 297 H 199 286 H Medications Medication Current Medications Bisacodyl (Dulcolax Supp) 10 mg DAILY PRN [place] CONSTIPATION Last administered on 09/11/18at 18:35; Admin Dose 10 MG; Start 09/06/18 at 15:00 Docusate Sodium (Colace) 100 mg BID PO Last administered on 09/15/18at 09:00; Admin Dose 100 MG; Start 09/06/18 at 21:00 Diagnostic Test (Pha) (Accu-Chek) 1 ea 02 XX Last administered on 09/13/18at 02:37; Admin Dose 1 EA; Start 09/07/18 at 02:00 Insulin Aspart (Novolog Insulin Pen) NOVOLOG *MILD* ALGORITHM WITH MEALS BEDTIME SC Last administered on 09/15/18at 12:42; Admin Dose 4 UNIT; Start 09/06/18 at 17:35 Ondansetron HCl (Zofran Inj) 4 mg Q4H PRN IV NAUSEA AND/OR VOMITING; Start 09/06/18 at 15:00 Pantoprazole (Protonix Tab) 40 mg DAILY@06 PO Last administered on 09/15/18at 06:13; Admin Dose 40 MG; Start 09/07/18 at 06:00 IV Flush (NS 3 ml) 3 ml Q8H and PRN adm IV ; Start 09/06/18 at 15:00 Zolpidem Tartrate (Ambien) 5 mg HS PRN PO INSOMNIA; Start 09/06/18 at 15:00 Miscellaneous Information 1 ea NOTE XX ; Start 09/06/18 at 16:00 Glucose (Glutose) 15 gm Q15M PRN PO DECREASED GLUCOSE; Start 09/06/18 at 16:00 Glucose (Glutose) 22.5 gm Q15M PRN PO DECREASED GLUCOSE; Start 09/06/18 at 16:00 Dextrose (D50w Syringe) 25 ml Q15M PRN IV DECREASED GLUCOSE; Start 09/06/18 at 16:00 Dextrose (D50w Syringe) 50 ml Q15M PRN IV DECREASED GLUCOSE; Start 09/06/18 at 16:00 Glucagon (Glucagen) 1 mg Q15M PRN IM DECREASED GLUCOSE; Start 09/06/18 at 16:00 Glucose (Glutose) 15 gm Q15M PRN BUCCAL DECREASED GLUCOSE Last administered on 09/08/18at 14:14; Admin Dose 15 GM; Start 09/06/18 at 16:00 Miscellaneous Information (Pending [facility] For [facility] Care) This patient turner... PRN PRN XX WOUND CARE; Start 09/06/18 at 15:30 Insulin Aspart (Novolog Insulin Pen) 10 unit WITH MEALS SC Last administered on 09/15/18at 12:47; Admin Dose 10 UNIT; Start 09/07/18 at 17:35 Erythromycin (Erythromycin) 250 mg Q8 PO Last administered on 09/15/18 13:28; Admin Dose 250 MG; Start 09/07/18 at 14:00; Stop 09/17/18 at 13:59 Aspirin (Halfprin) 81 mg DAILY PO Last administered on 09/15/18 09:00; Admin Dose 81 MG; Start 09/08/18 at 09:00 Atorvastatin Calcium (Lipitor) 80 mg QHS PO Last administered on 09/14/18 20:46; Admin Dose 80 MG; Start 09/07/18 at 21:00 Montelukast Sodium (Singulair) 10 mg QHS PO Last administered on 09/14/18 20: 46; Admin Dose 10 MG; Start 09/07/18 at 21:00 Pregabalin (Lyrica) 150 mg DAILY PO Last administered on 09/12/18 10:02; Admin Dose 150 MG; Start 09/08/18 at 09:00 Sevelamer Carbonate (Renvela) 2,400 mg WITH MEALS PO Last administered on 09/15/18 12:39; Admin Dose 2,400 MG; Start 09/08/18 at 07:35 Tramadol HCl (Ultram) 50 mg Q6H PRN PO MODERATE PAIN LEVEL 4-6 Last administered on 09/12/18 20:53; Admin Dose 50 MG; Start 09/07/18 at 20:00 Metoclopramide HCl (Reglan Liq) 5 mg QID PO Last administered on 09/15/18 13:28; Admin Dose 5 MG; Start 09/08/18 at 17:00 Midodrine (Proamatine) 5 mg TID@09,13,17 PRN PO dizziness/low bp; Start 09/11/18 at 17:00 Sertraline HCl (Zoloft) 50 mg QHS PO Last administered on 09/14/18 20:46; Admin Dose 50 MG; Start 09/12/18 at 21:00 Epoetin Fernando-epbx (Retacrit (Esrd)) 6,000 unit MoWeFr@1700 SC Last administered on 09/14/18 21:03; Admin Dose 6,000 UNIT; Start 09/14/18 at 19:30 Nifedipine (Procardia Xl) 30 mg DAILY PO Last administered on 09/15/18at 13:29; Admin Dose 30 MG; Start 09/15/18 at 13:00 Insulin Glargine (Lantus) 35 units DAILY@2000 SC ; Start 09/15/18 at 20:00 JACQUES VALENCIA MD Sep 15, 2018 17:29
[2018-09-15 19:50] VITALS: BP 114/68; PULSE 72; RESP 18
[2018-09-15] MEDS: SERTRALINE 50 MG TAB PO SCH (21:00)
[2018-09-15 21:20] VITALS: BP 122/58; PULSE 77
[2018-09-15] MEDS: ATORVASTATIN 80 MG TAB PO SCH (21:27)
[2018-09-15] MEDS: NEOMYC/POLYMYX/BACIT 30 GM OINT TOP SCH (21:27)
[2018-09-15] MEDS: MONTELUKAST 10 MG TAB PO SCH (21:27)
[2018-09-15] MEDS: INSULIN GLARGINE [LANTus] (100 UNITS/ML) SYG SC SCH (21:35)
[2018-09-16 02:00] VITALS: BP 138/77; PULSE 76; RESP 18
[2018-09-16] MEDS: ACCU-CHEK XX SCH (02:00)
[2018-09-16] MEDS: ERYTHROMYCIN BASE (DR) 250 MG CAP PO SCH ×3 (06:19→21:46)
[2018-09-16] MEDS: PANTOPRAZOLE (EC) 40 MG TAB PO SCH (06:19)
[2018-09-16 07:00] VITALS: BP 122/64; PULSE 81; RESP 18
--- NOTE | 2018-09-16 08:27 | CONS ---
Assessment/Plan Assessment/Plan Assessment/Plan (Daily) 1. ESRD on Peritoneal dialysis 2. Recurrent syncope 2/2 autonomic neuropathy 3. H/o CAD s/p CABG 4. H/O HTN 5. H/o DM II 6. H/o HL 7. Oblique fracture of the right humeral neck., Nondisplaced fracture of the acromion. Plan: will plan for PD today and tomorrow 3 cycles, his original schedule at home Hb 8.9- will start epogen 6000 units MWF- no labs in last few days, will order AM labs Continue other home meds Rehab plan as per Rehab physician will follow up Consultation Date/Type/Reason Admit Date/Time Sep 06, 2018 at 13:45 Initial Consult Date 09/07/18 Type of Consult NEPHROLOGY Requesting Provider: ANNEMARIE BURROUGHS NP Date/Time of Note DATE: 09/16/18 TIME: 08:27 Exam/Review of Systems Exam Vitals Vital Signs Date Temp Pulse Resp B/P (MAP) Pulse Ox O2 O2 Flow FiO2 Time Delivery Rate 09/16/18 98.2 76 18 138/77 97 Room Air 02:00 (97) Intake and Output 09/15/18 09/15/18 09/16/18 1515:00 23:00 07:00 IntakeIntake Total 1450 ml 300 ml OutputOutput Total 2100 ml BalanceBalance -2100 ml 1450 ml 300 ml Exam Constitutional: alert Respiratory: clear to auscultation, normal air movement Cardiovascular: regular rate and rhythm, nl pulses Gastrointestinal: soft, non-tender, + PD catheter site clear no cellulitis Musculoskeletal: nl extremities to inspection, muscle weakness Extremities: normal pulses Neurological: Non Focal Results Result Diagram: 09/13/18 0611 09/13/18 0611 Results 24hrs Laboratory Tests Test 09/15/18 08:56 09/15/18 12:28 09/15/18 21:26 09/16/18 02:13 Bedside Glucose 199 286 H 196 252 H Medications Medication Current Medications Bisacodyl (Dulcolax Supp) 10 mg DAILY PRN [place] CONSTIPATION Last administered on 09/11/18at 18:35; Admin Dose 10 MG; Start 09/06/18 at 15:00 Docusate Sodium (Colace) 100 mg BID PO Last administered on 09/15/18at 21:27; Admin Dose 100 MG; Start 09/06/18 at 21:00 Diagnostic Test (Pha) (Accu-Chek) 1 ea 02 XX Last administered on 09/13/18at 02:37; Admin Dose 1 EA; Start 09/07/18 at 02:00 Insulin Aspart (Novolog Insulin Pen) NOVOLOG *MILD* ALGORITHM WITH MEALS BEDTIME SC Last administered on 09/15/18at 21:36; Admin Dose 1 UNIT; Start 09/06/18 at 17:35 Ondansetron HCl (Zofran Inj) 4 mg Q4H PRN IV NAUSEA AND/OR VOMITING; Start at 15:00 Pantoprazole (Protonix Tab) 40 mg DAILY@06 PO Last administered on 09/16/18at 06:19; Admin Dose 40 MG; Start 09/07/18 at 06:00 IV Flush (NS 3 ml) 3 ml Q8H and PRN adm IV ; Start 09/06/18 at 15:00 Zolpidem Tartrate (Ambien) 5 mg HS PRN PO INSOMNIA; Start 09/06/18 at 15:00 Miscellaneous Information 1 ea NOTE XX ; Start 09/06/18 at 16:00 Glucose (Glutose) 15 gm Q15M PRN PO DECREASED GLUCOSE; Start 09/06/18 at 16:00 Glucose (Glutose) 22.5 gm Q15M PRN PO DECREASED GLUCOSE; Start 09/06/18 at 16:00 Dextrose (D50w Syringe) 25 ml Q15M PRN IV DECREASED GLUCOSE; Start 09/06/18 at 16:00 Dextrose (D50w Syringe) 50 ml Q15M PRN IV DECREASED GLUCOSE; Start 09/06/18 at 16:00 Glucagon (Glucagen) 1 mg Q15M PRN IM DECREASED GLUCOSE; Start 09/06/18 at 16:00 Glucose (Glutose) 15 gm Q15M PRN BUCCAL DECREASED GLUCOSE Last administered on 09/08/18at 14:14; Admin Dose 15 GM; Start 09/06/18 at 16:00 Miscellaneous Information (Pending [facility] Order For Wound Care) This patient turner... PRN PRN XX WOUND CARE; Start 09/06/18 at 15:30 Insulin Aspart (Novolog Insulin Pen) 10 unit WITH MEALS SC Last administered on 09/15/18at 17:54; Admin Dose 10 UNIT; Start 09/07/18 at 17:35 Erythromycin (Erythromycin) 250 mg Q8 PO Last administered on 09/16/18 06:19; Admin Dose 250 MG; Start 09/07/18 at 14:00; Stop 09/17/18 at 13:59 Aspirin (Halfprin) 81 mg DAILY PO Last administered on 09/15/18 09:00; Admin Dose 81 MG; Start 09/08/18 at 09:00 Atorvastatin Calcium (Lipitor) 80 mg QHS PO Last administered on 09/15/18 21:27; Admin Dose 80 MG; Start 09/07/18 at 21:00 Montelukast Sodium (Singulair) 10 mg QHS PO Last administered on 09/15/18 21:27; Admin Dose 10 MG; Start 09/07/18 at 21:00 Pregabalin (Lyrica) 150 mg DAILY PO Last administered on 09/12/18 10:02; Admin Dose 150 MG; Start 09/08/18 at 09:00 Sevelamer Carbonate (Renvela) 2,400 mg WITH MEALS PO Last administered on 09/15/18 17:49; Admin Dose 2,400 MG; Start 09/08/18 at 07:35 Tramadol HCl (Ultram) 50 mg Q6H PRN PO MODERATE PAIN LEVEL 4-6 Last administered on 09/12/18 20:53; Admin Dose 50 MG; Start 09/07/18 at 20:00 Metoclopramide HCl (Reglan Liq) 5 mg QID PO Last administered on 09/15/18 21:27; Admin Dose 5 MG; Start 09/08/18 at 17:00 Midodrine (Proamatine) 5 mg TID@,,17 PRN PO dizziness/low bp; Start 09/11/18 at 17:00 Sertraline HCl (Zoloft) 50 mg QHS PO Last administered on 09/14/18 20:46; Admin Dose 50 MG; Start 09/12/18 at 21:00 Epoetin Fernando-epbx (Retacrit (Esrd)) 6,000 unit MoWeFr@1700 SC Last administered on 09/14/18 21:03; Admin Dose 6,000 UNIT; Start 09/14/18 at 19:30 Nifedipine (Procardia Xl) 30 mg DAILY PO Last administered on 09/15/18 13:29; Admin Dose 30 MG; Start 09/15/18 at 13:00 Insulin Glargine (Lantus) 35 units DAILY@2000 SC Last administered on 09/15/18at 21:35; Admin Dose 35 UNITS; Start 09/15/18 at 20:00 Neomycin/ Polymyxin/ Bacitracin (Neosporin Topical Oint) 1 applic BID TOP Last administered on 09/15/18at 21:27; Admin Dose 1 APPLIC; Start 09/15/18 at 21:00 JACQUES VALENCIA MD Sep 16, 2018 08:27
[2018-09-16] MEDS: METOCLOPRAMIDE (1 MG/ML) 10 ML CUP PO SCH ×4 (08:43→20:38)
[2018-09-16] MEDS: NEOMYC/POLYMYX/BACIT 30 GM OINT TOP SCH ×2 (08:43→20:39)
[2018-09-16] MEDS: ASPIRIN (EC) 81 MG TAB PO SCH (08:43)
[2018-09-16] MEDS: SEVELAMER CARBONATE 800 MG TABLET PO SCH ×4 (08:43→21:46)
[2018-09-16] MEDS: DOCUSATE SODIUM 100 MG CAP PO SCH ×2 (08:43→20:38)
[2018-09-16] MEDS: NIFEdipine (XL) 30 MG TAB PO SCH (08:44)
[2018-09-16] MEDS: INSULIN ASPART [NOVOLOG] 3 ML PEN SC SCH ×8 (08:45→20:42)
[2018-09-16] MEDS: PREGABALIN 75 MG CAP PO SCH (08:57)
[2018-09-16 09:08] VITALS: BP 138/77; PULSE 76
--- NOTE | 2018-09-16 10:42 | PN ---
Date/Time of Note Date/Time of Note DATE: 09/16/18 TIME: 10:40 Assessment/Plan VTE Prophylaxis Risk score (from Nsg)>0 risk: 4 SCD applied (from Ns): Yes Pharmacological prophylaxis: NA/contraindicated Pharm contraindication: low risk/ambulating Lines/Catheters IV Catheter Type (from Nrsg): Saline Lock Assessment/Plan Hospital Course SUBJECTIVE: Blood pressure stable. Blood sugar improved but still running in high. OBJECTIVE: Vital signs-see below PHYSICAL EXAM: Constitutional: Adequately built,not in acute distress. HEENT: Head atraumatic and normocephalic. Eyes: Extraocular muscles intact. Anicteric sclerae. Pupils equal bilaterally, reactive to light. NECK: Supple without lymph node. CHEST: Clear and good breath sounds equally. No wheezing. No rhonchi. HEART: S1, S2. Regular rate and rhythm. ABDOMEN: Soft/non tender with no rebound tenderness. Bowel sounds were present. EXTREMITIES: With right arm sling. No cyanosis, clubbing or edema. NEUROLOGIC: Alert and oriented x3. No focal deficit. No sensory deficit. PSYCHOSOCIAL: No signs of depression. INTEGUMENTARY: No open wounds. ASSESSMENT AND PLAN: Right humeral fracture - Properly aligned and does not require surgical intervention, continue conservative care - Pain control/PT Recurrent syncope likely secondary to autonomic neuropathy/orthostatic hypotension -Patient will need to allow for blood pressure elevations and will need to be less aggressive with BP control, patient also needs to change positions gradually 2D echo shows a preserved EF -on midodrine-change to PRN Gastroparesis -symptoms improved -Continue Reglan/ erythromycin base -Patient has outpatient [facility] follow-up for further studies on gastroparesis. End-stage renal disease on PD -Managed per nephrology Insulin dependent diabetes -Improved but needs more control. Will increase bolus to 12 units. Continue Lantus at 35 units. Coronary disease status post CABG Continue aspirin/statin Hypertension -Stable. Continue with lower dose nifedipine as tolerated. - will be less aggressive with blood pressure control secondary to autonomic neuropathy/syncope episodes Anemia, likely chronic -Stable. Continue to monitor DM neuropathy -cont.Lyrica Anxiety disorders -cont.sertraline Prophylaxis: SCDs Patient was seen in collaboration with Result Diagram: 09/13/18 0611 09/13/18 0611 Results 24hrs Laboratory Tests Test 09/15/18 12:28 09/15/18 21:26 09/16/18 02:13 09/16/18 08:41 Bedside Glucose 286 H 196 252 H 211 Exam/Review of Systems Exam Vitals Vital Signs Date Temp Pulse Resp B/P (MAP) Pulse Ox O2 O2 Flow FiO2 Time Delivery Rate 09/16/18 76 138/77 09:08 09/16/18 98.0 18 96 Room Air 07:00 Intake and Output 09/15/18 09/15/18 09/16/18 1515:00 23:00 07:00 IntakeIntake Total 1450 ml 300 ml OutputOutput Total 2100 ml BalanceBalance -2100 ml 1450 ml 300 ml Results Results 24hrs Laboratory Tests Test 09/15/18 12:28 09/15/18 21:26 09/16/18 02:13 09/16/18 08:41 Bedside Glucose 286 H 196 252 H 211 Medications Medication Current Medications Bisacodyl (Dulcolax Supp) 10 mg DAILY PRN [place] CONSTIPATION Last administered on 09/11/18 18:35; Admin Dose 10 MG; Start 09/06/18 at 15:00 Docusate Sodium (Colace) 100 mg BID PO Last administered on 09/16/18 08:43; Admin Dose 100 MG; Start 09/06/18 at 21:00 Diagnostic Test (Pha) (Accu-Chek) 1 ea 02 XX Last administered on 09/13/18at 02:37; Admin Dose 1 EA; Start 09/07/18 at 02:00 Insulin Aspart (Novolog Insulin Pen) NOVOLOG *MILD* ALGORITHM WITH MEALS BEDTIME SC Last administered on 09/16/18at 08:45; Admin Dose 2 UNIT; Start 09/06/18 at 17:35 Ondansetron HCl (Zofran Inj) 4 mg Q4H PRN IV NAUSEA AND/OR VOMITING; Start 09/06/18 at 15:00 Pantoprazole (Protonix Tab) 40 mg DAILY@06 PO Last administered on 09/16/18 06:19; Admin Dose 40 MG; Start 09/07/18 at 06:00 IV Flush (NS 3 ml) 3 ml Q8H and PRN adm IV ; Start 09/06/18 at 15:00 Zolpidem Tartrate (Ambien) 5 mg HS PRN PO INSOMNIA; Start 09/06/18 at 15:00 Miscellaneous Information 1 ea NOTE XX ; Start 09/06/18 at 16:00 Glucose (Glutose) 15 gm Q15M PRN PO DECREASED GLUCOSE; Start 09/06/18 at 16:00 Glucose (Glutose) 22.5 gm Q15M PRN PO DECREASED GLUCOSE; Start 09/06/18 at 16:00 Dextrose (D50w Syringe) 25 ml Q15M PRN IV DECREASED GLUCOSE; Start 09/06/18 at 16:00 Dextrose (D50w Syringe) 50 ml Q15M PRN IV DECREASED GLUCOSE; Start 09/06/18 at 16:00 Glucagon (Glucagen) 1 mg Q15M PRN IM DECREASED GLUCOSE; Start 09/06/18 at 16:00 Glucose (Glutose) 15 gm Q15M PRN BUCCAL DECREASED GLUCOSE Last administered on 09/08/18at 14:14; Admin Dose 15 GM; Start 09/06/18 at 16:00 Miscellaneous Information [facility] This patient turner... PRN PRN XX WOUND CARE; Start 09/06/18 at 15:30 Insulin Aspart (Novolog Insulin Pen) 10 unit WITH MEALS SC Last administered on 09/16/18at 08:46; Admin Dose 10 UNIT; Start 09/07/18 at 17:35 Erythromycin (Erythromycin) 250 mg Q8 PO Last administered on 09/16/18at 06:19; Admin Dose 250 MG; Start 09/07/18 at 14:00; Stop 09/17/18 at 13:59 Aspirin (Halfprin) 81 mg DAILY PO Last administered on 09/16/18at 08:43; Admin Dose 81 MG; Start 09/08/18 at 09:00 Atorvastatin Calcium (Lipitor) 80 mg QHS PO Last administered on 09/15/18 21:27; Admin Dose 80 MG; Start 09/07/18 at 21:00 Montelukast Sodium (Singulair) 10 mg QHS PO Last administered on 09/15/18 21:27; Admin Dose 10 MG; Start 09/07/18 at 21:00 Pregabalin (Lyrica) 150 mg DAILY PO Last administered on 09/12/18at 10:02; Admin Dose 150 MG; Start 09/08/18 at 09:00 Sevelamer Carbonate (Renvela) 2,400 mg WITH MEALS PO Last administered on 09/16/18 08:43; Admin Dose 2,400 MG; Start 09/08/18 at 07:35 Tramadol HCl (Ultram) 50 mg Q6H PRN PO MODERATE PAIN LEVEL 4-6 Last administered on 09/12/18 20:53; Admin Dose 50 MG; Start 09/07/18 at 20:00 Metoclopramide HCl (Reglan Liq) 5 mg QID PO Last administered on 09/16/18 08:43; Admin Dose 5 MG; Start 09/08/18 at 17:00 Midodrine (Proamatine) 5 mg TID@09,13,17 PRN PO dizziness/low bp; Start 09/11/18 at 17:00 Sertraline HCl (Zoloft) 50 mg QHS PO Last administered on 09/14/18 20:46; Admin Dose 50 MG; Start 09/12/18 at 21:00 Epoetin Fernando-epbx (Retacrit (Esrd)) 6,000 unit MoWeFr@1700 SC Last administered on 09/14/18 21:03; Admin Dose 6,000 UNIT; Start 09/14/18 at 19:30 Nifedipine (Procardia Xl) 30 mg DAILY PO Last administered on 09/16/18 08:44; Admin Dose 30 MG; Start 09/15/18 at 13:00 Insulin Glargine (Lantus) 35 units DAILY@2000 SC Last administered on 09/15/18 21:35; Admin Dose 35 UNITS; Start 09/15/18 at 20:00 Neomycin/ Polymyxin/ Bacitracin (Neosporin Topical Oint) 1 applic BID TOP Last administered on 09/16/18 08:43; Admin Dose 1 APPLIC; Start 09/15/18 at 21:00 ANNEMARIE BURROUGHS NP Sep 16, 2018 10:42
[2018-09-16 14:00] VITALS: BP 122/58; PULSE 66; RESP 18
[2018-09-16] MEDS: BISACODYL 10 MG SUPP PR PRN (16:46)
[2018-09-16 20:00] VITALS: BP 129/65; PULSE 79; RESP 18
[2018-09-16] MEDS: ATORVASTATIN 80 MG TAB PO SCH (20:38)
[2018-09-16] MEDS: MONTELUKAST 10 MG TAB PO SCH (20:38)
[2018-09-16] MEDS: ACETAMINOPHEN 325 MG TAB PO PRN (20:38)
[2018-09-16] MEDS: INSULIN GLARGINE [LANTus] (100 UNITS/ML) SYG SC SCH (20:41)
[2018-09-16] MEDS: SERTRALINE 50 MG TAB PO SCH (20:42)
[2018-09-16 22:24] VITALS: BP 122/58; PULSE 66
[2018-09-17 02:00] VITALS: BP 122/81; PULSE 85; RESP 18
[2018-09-17] MEDS: ACCU-CHEK XX SCH (02:00)
[2018-09-17] MEDS: PANTOPRAZOLE (EC) 40 MG TAB PO SCH (06:46)
[2018-09-17] MEDS: ERYTHROMYCIN BASE (DR) 250 MG CAP PO SCH (06:46)
[2018-09-17 07:00] VITALS: BP 122/71; PULSE 66; RESP 18
[2018-09-17 07:45] VITALS: BP 127/71; PULSE 66
[2018-09-17] MEDS: SEVELAMER CARBONATE 800 MG TABLET PO SCH ×3 (08:37→17:28)
[2018-09-17] MEDS: INSULIN ASPART [NOVOLOG] 3 ML PEN SC SCH ×7 (08:48→20:40)
[2018-09-17] MEDS: PREGABALIN 75 MG CAP PO SCH (09:00)
--- NOTE | 2018-09-17 09:56 | PN ---
Date/Time of Note Date/Time of Note DATE: 09/17/18 TIME: 09:55 Subjective awake, actively participating in therapies Objective Vital Signs Date Temp Pulse Resp B/P (MAP) Pulse Ox O2 O2 Flow FiO2 Time Delivery Rate 09/17/18 66 127/71 07:45 09/17/18 98.0 18 97 Room Air 07:00 Intake and Output 09/16/18 09/16/18 09/17/18 1515:00 23:00 07:00 IntakeIntake Total 1280 ml OutputOutput Total 772 ml BalanceBalance -772 ml 1280 ml Exam modtransfers sba wheelchair propulsion pulm-cta Results/Medications Result Diagram: 09/13/18 0611 09/13/18 0611 Results 24 hrs Laboratory Tests Test 09/16/18 12:25 09/16/18 17:33 09/16/18 20:36 09/17/18 08:38 Bedside Glucose 136 146 150 292 H Medications Current Medications Bisacodyl (Dulcolax Supp) 10 mg DAILY PRN [place] CONSTIPATION Last administered on 09/16/18at 16:46; Admin Dose 10 MG; Start 09/06/18 at 15:00 Docusate Sodium (Colace) 100 mg BID PO Last administered on 09/16/18at 20:38; Admin Dose 100 MG; Start 09/06/18 at 21:00 Diagnostic Test (Pha) (Accu-Chek) 1 ea 02 XX Last administered on 09/13/18at 02:37; Admin Dose 1 EA; Start 09/07/18 at 02:00 Insulin Aspart (Novolog Insulin Pen) NOVOLOG *MILD* ALGORITHM WITH MEALS BEDTIME SC Last administered on 09/17/18at 08:49; Admin Dose 4 UNIT; Start 09/06/18 at 17:35 Ondansetron HCl (Zofran Inj) 4 mg Q4H PRN IV NAUSEA AND/OR VOMITING; Start 09/06/18 at 15:00 Pantoprazole (Protonix Tab) 40 mg DAILY@06 PO Last administered on 09/17/18at 06:46; Admin Dose 40 MG; Start 09/07/18 at 06:00 IV Flush (NS 3 ml) 3 ml Q8H and PRN adm IV ; Start 09/06/18 at 15:00 Zolpidem Tartrate (Ambien) 5 mg HS PRN PO INSOMNIA; Start 09/06/18 at 15:00 Miscellaneous Information 1 ea NOTE XX ; Start 09/06/18 at 16:00 Glucose (Glutose) 15 gm Q15M PRN PO DECREASED GLUCOSE; Start 09/06/18 at 16:00 Glucose (Glutose) 22.5 gm Q15M PRN PO DECREASED GLUCOSE; Start 09/06/18 at 16:00 Dextrose (D50w Syringe) 25 ml Q15M PRN IV DECREASED GLUCOSE; Start 09/06/18 at 16:00 Dextrose (D50w Syringe) 50 ml Q15M PRN IV DECREASED GLUCOSE; Start 09/06/18 at 16:00 Glucagon (Glucagen) 1 mg Q15M PRN IM DECREASED GLUCOSE; Start 09/06/18 at 16:00 Glucose (Glutose) 15 gm Q15M PRN BUCCAL DECREASED GLUCOSE Last administered on 09/08/18at 14:14; Admin Dose 15 GM; Start 09/06/18 at 16:00 Miscellaneous Information (Pending [facility] Order For Wound Care) This patient turner... PRN PRN XX WOUND CARE; Start 09/06/18 at 15:30 Erythromycin (Erythromycin) 250 mg Q8 PO Last administered on 09/17/18 06:46; Admin Dose 250 MG; Start 09/07/18 at 14:00; Stop 09/17/18 at 13:59 Aspirin (Halfprin) 81 mg DAILY PO Last administered on 09/16/18 08:43; Admin Dose 81 MG; Start 09/08/18 at 09:00 Atorvastatin Calcium (Lipitor) 80 mg QHS PO Last administered on 09/16/18 20:38; Admin Dose 80 MG; Start 09/07/18 at 21:00 Montelukast Sodium (Singulair) 10 mg QHS PO Last administered on 09/16/18 20:38; Admin Dose 10 MG; Start 09/07/18 at 21:00 Pregabalin (Lyrica) 150 mg DAILY PO Last administered on 09/12/18at 10:02; Admin Dose 150 MG; Start 09/08/18 at 09:00 Sevelamer Carbonate (Renvela) 2,400 mg WITH MEALS PO Last administered on 09/17/18 08:37; Admin Dose 2,400 MG; Start 09/08/18 at 07:35 Metoclopramide HCl (Reglan Liq) 5 mg QID PO Last administered on 09/16/18 20:38; Admin Dose 5 MG; Start 09/08/18 at 17:00 Midodrine (Proamatine) 5 mg TID@09,13,17 PRN PO dizziness/low bp; Start 09/11/18 at 17:00 Sertraline HCl (Zoloft) 50 mg QHS PO Last administered on 09/14/18 20:46; Admin Dose 50 MG; Start 09/12/18 at 21:00 Epoetin Fernando-epbx (Retacrit (Esrd)) 6,000 unit MoWeFr@1700 SC Last administered on 09/14/18 21:03; Admin Dose 6,000 UNIT; Start 09/14/18 at 19:30 Nifedipine (Procardia Xl) 30 mg DAILY PO Last administered on 09/16/18 08:44; Admin Dose 30 MG; Start 09/15/18 at 13:00 Insulin Glargine (Lantus) 35 units DAILY@2000 SC Last administered on 09/16/18 20:41; Admin Dose 35 UNITS; Start 09/15/18 at 20:00 Neomycin/ Polymyxin/ Bacitracin (Neosporin Topical Oint) 1 applic BID TOP Last administered on 09/16/18 20:39; Admin Dose 1 APPLIC; Start 09/15/18 at 21:00 Acetaminophen (Tylenol Tab) 650 mg Q6H PRN PO MILD PAIN(1-3)OR ELEVATED TEMP Last administered on 09/16/18 20:38; Admin Dose 650 MG; Start 09/16/18 at 11:00 Insulin Aspart (Novolog Insulin Pen) 12 unit WITH MEALS SC Last administered on 09/17/18 08:48; Admin Dose 12 UNIT; Start 09/16/18 at 11:00 Assessment/Plan Additional Assessment/Plan Rehab- Autonomic neuropathy with orthostatic hypotension; Right humerus fracture, nonweightbearing right UE, C5 fracture, no collar required, no boyd rgical intervention. , Making steady gains with rehab, continue treatment plan Syncopal episode. Traumatic pain syndrome- continue current meds Type 2 diabetes. Diabetic neuropathy. Diabetic nephropathy. End-stage renal disease, peritoneal dialysis. Hypertension. Coronary artery disease with a history of bypass grafting. Old CVAs. Osteoarthritis. Anemia. CARLOS LANGE MD Sep 17, 2018 09:56
[2018-09-17] MEDS: DOCUSATE SODIUM 100 MG CAP PO SCH ×2 (10:05→20:40)
[2018-09-17] MEDS: ASPIRIN (EC) 81 MG TAB PO SCH (10:05)
[2018-09-17] MEDS: METOCLOPRAMIDE (1 MG/ML) 10 ML CUP PO SCH ×4 (10:07→20:40)
[2018-09-17] MEDS: NIFEdipine (XL) 30 MG TAB PO SCH (10:27)
[2018-09-17] MEDS: NEOMYC/POLYMYX/BACIT 30 GM OINT TOP SCH ×2 (10:28→20:42)
--- NOTE | 2018-09-17 11:36 | CONS ---
Assessment/Plan Assessment/Plan Assessment/Plan (Daily) 1. ESRD on Peritoneal dialysis 2. Recurrent syncope 2/2 autonomic neuropathy 3. H/o CAD s/p CABG 4. H/O HTN 5. H/o DM II 6. H/o HL 7. Oblique fracture of the right humeral neck., Nondisplaced fracture of the acromion. Plan: will plan for PD today and tomorrow 3 cycles, his original schedule at home Hb 8.9- will start epogen 6000 units MWF- no labs in last few days, will order AM labs Continue other home meds Rehab plan as per Rehab physician will follow up Consultation Date/Type/Reason Admit Date/Time Sep 06, 2018 at 13:45 Initial Consult Date 09/07/18 Type of Consult NEPHROLOGY Requesting Provider: ANNEMARIE BURROUGHS NP Date/Time of Note DATE: 09/17/18 TIME: 11:35 24 HR Interval Summary Free Text/Dictation stable BP, no acute events overnight, BP stable Exam/Review of Systems Exam Vitals Vital Signs Date Temp Pulse Resp B/P (MAP) Pulse Ox O2 O2 Flow FiO2 Time Delivery Rate 09/17/18 66 127/71 07:45 09/17/18 98.0 18 97 Room Air 07:00 Intake and Output 09/16/18 09/16/18 09/17/18 1515:00 23:00 07:00 IntakeIntake Total 1280 ml OutputOutput Total 772 ml BalanceBalance -772 ml 1280 ml Exam Constitutional: alert Respiratory: clear to auscultation, normal air movement Cardiovascular: regular rate and rhythm, nl pulses Gastrointestinal: soft, non-tender, + PD catheter site clear no cellulitis Musculoskeletal: nl extremities to inspection, muscle weakness Extremities: normal pulses Neurological: Non Focal Results Result Diagram: 09/13/18 0611 09/13/18 0611 Results 24hrs Laboratory Tests Test 09/16/18 12:25 09/16/18 17:33 09/16/18 20:36 09/17/18 08:38 Bedside Glucose 136 146 150 292 H Medications Medication Current Medications Bisacodyl (Dulcolax Supp) 10 mg DAILY PRN [place] CONSTIPATION Last administered on 09/16/18at 16:46; Admin Dose 10 MG; Start 09/06/18 at 15:00 Docusate Sodium (Colace) 100 mg BID PO Last administered on 09/17/18at 10:05; Admin Dose 100 MG; Start 09/06/18 at 21:00 Diagnostic Test (Pha) (Accu-Chek) 1 ea 02 XX Last administered on 09/13/18at 02:37; Admin Dose 1 EA; Start 09/07/18 at 02:00 Insulin Aspart (Novolog Insulin Pen) NOVOLOG *MILD* ALGORITHM WITH MEALS BEDTIME SC Last administered on 09/17/18at 08:49; Admin Dose 4 UNIT; Start 09/06/18 at 17:35 Ondansetron HCl (Zofran Inj) 4 mg Q4H PRN IV NAUSEA AND/OR VOMITING; Start 09/06/18 at 15:00 Pantoprazole (Protonix Tab) 40 mg DAILY@06 PO Last administered on 09/17/18at 06:46; Admin Dose 40 MG; Start 09/07/18 at 06:00 IV Flush (NS 3 ml) 3 ml Q8H and PRN adm IV ; Start 09/06/18 at 15:00 Zolpidem Tartrate (Ambien) 5 mg HS PRN PO INSOMNIA; Start 09/06/18 at 15:00 Miscellaneous Information 1 ea NOTE XX ; Start 09/06/18 at 16:00 Glucose (Glutose) 15 gm Q15M PRN PO DECREASED GLUCOSE; Start 09/06/18 at 16:00 Glucose (Glutose) 22.5 gm Q15M PRN PO DECREASED GLUCOSE; Start 09/06/18 at 16:00 Dextrose (D50w Syringe) 25 ml Q15M PRN IV DECREASED GLUCOSE; Start 09/06/18 at 16:00 Dextrose (D50w Syringe) 50 ml Q15M PRN IV DECREASED GLUCOSE; Start 09/06/18 at 16:00 Glucagon (Glucagen) 1 mg Q15M PRN IM DECREASED GLUCOSE; Start 09/06/18 at 16:00 Glucose (Glutose) 15 gm Q15M PRN BUCCAL DECREASED GLUCOSE Last administered on 09/08/18at 14:14; Admin Dose 15 GM; Start 09/06/18 at 16:00 Miscellaneous Information (Pending [facility] Order For Wound Care) This patient turner... PRN PRN XX WOUND CARE; Start 09/06/18 at 15:30 Erythromycin (Erythromycin) 250 mg Q8 PO Last administered on 09/17/18 06:46; Admin Dose 250 MG; Start 09/07/18 at 14:00; Stop 09/17/18 at 13:59 Aspirin (Halfprin) 81 mg DAILY PO Last administered on 09/17/18 10:05; Admin Dose 81 MG; Start 09/08/18 at 09:00 Atorvastatin Calcium (Lipitor) 80 mg QHS PO Last administered on 09/16/18 20 :38; Admin Dose 80 MG; Start 09/07/18 at 21:00 Montelukast Sodium (Singulair) 10 mg QHS PO Last administered on 09/16/18 20:38; Admin Dose 10 MG; Start 09/07/18 at 21:00 Pregabalin (Lyrica) 150 mg DAILY PO Last administered on 09/12/18 10:02; Admin Dose 150 MG; Start 09/08/18 at 09:00 Sevelamer Carbonate (Renvela) 2,400 mg WITH MEALS PO Last administered on 09/17/18 08:37; Admin Dose 2,400 MG; Start 09/08/18 at 07:35 Metoclopramide HCl (Reglan Liq) 5 mg QID PO Last administered on 09/17/18 10:07; Admin Dose 5 MG; Start 09/08/18 at 17:00 Midodrine (Proamatine) 5 mg TID@09,13,17 PRN PO dizziness/low bp; Start 09/11/18 at 17:00 Sertraline HCl (Zoloft) 50 mg QHS PO Last administered on 09/14/18 20:46; Admin Dose 50 MG; Start 09/12/18 at 21:00 Epoetin Fernando-epbx (Retacrit (Esrd)) 6,000 unit MoWeFr@1700 SC Last administered on 09/14/18 21:03; Admin Dose 6,000 UNIT; Start 09/14/18 at 19:30 Nifedipine (Procardia Xl) 30 mg DAILY PO Last administered on 09/17/18 10:27; Admin Dose 30 MG; Start 09/15/18 at 13:00 Insulin Glargine (Lantus) 35 units DAILY@2000 SC Last administered on 09/16/18 20:41; Admin Dose 35 UNITS; Start 09/15/18 at 20:00 Neomycin/ Polymyxin/ Bacitracin (Neosporin Topical Oint) 1 applic BID TOP Last administered on 09/17/18at 10:28; Admin Dose 1 APPLIC; Start 09/15/18 at 21:00 Acetaminophen (Tylenol Tab) 650 mg Q6H PRN PO MILD PAIN(1-3)OR ELEVATED TEMP Last administered on 09/16/18at 20:38; Admin Dose 650 MG; Start 09/16/18 at 11:00 Insulin Aspart (Novolog Insulin Pen) 12 unit WITH MEALS SC Last administered on 09/17/18at 08:48; Admin Dose 12 UNIT; Start 09/16/18 at 11:00 JACQUES VALENCIA MD Sep 17, 2018 11:36
--- NOTE | 2018-09-17 11:46 | PN ---
Date/Time of Note Date/Time of Note DATE: 09/17/18 TIME: 11:44 Assessment/Plan VTE Prophylaxis Risk score (from Ns)>0 risk: 3 SCD applied (from Ns): Yes Pharmacological prophylaxis: NA/contraindicated Pharm contraindication: low risk/ambulating Lines/Catheters [facility] Saline Lock Assessment/Plan Hospital Course SUBJECTIVE: no acute episodes OBJECTIVE: Vital signs-see below PHYSICAL EXAM: Constitutional: Adequately built,not in acute distress. HEENT: Head atraumatic and normocephalic. Eyes: Extraocular muscles intact. Anicteric sclerae. Pupils equal bilaterally, reactive to light. NECK: Supple without lymph node. CHEST: Clear and good breath sounds equally. No wheezing. No rhonchi. HEART: S1, S2. Regular rate and rhythm. ABDOMEN: Soft/non tender with no rebound tenderness. Bowel sounds were present. EXTREMITIES: With right arm sling. No cyanosis, clubbing or edema. NEUROLOGIC: Alert and oriented x3. No focal deficit. No sensory deficit. PSYCHOSOCIAL: No signs of depression. INTEGUMENTARY: No open wounds. ASSESSMENT AND PLAN: Right humeral fracture - Properly aligned and does not require surgical intervention, continue conservative care - Pain control/PT Recurrent syncope likely secondary to autonomic neuropathy/orthostatic hypotension -Patient will need to allow for blood pressure elevations and will need to be less aggressive with BP control, patient also needs to change positions gradually 2D echo shows a preserved EF -on midodrine-change to PRN Gastroparesis -symptoms improved -Continue Reglan/ erythromycin base -Patient has outpatient [facility] follow-up for further studies on gastroparesis. End-stage renal disease on PD -Managed per nephrology Insulin dependent diabetes -Sugars improved. Continue current basal/bolus dose. Coronary disease status post CABG Continue aspirin/statin Hypertension -Stable. Continue with lower dose nifedipine as tolerated. - will be less aggressive with blood pressure control secondary to autonomic neuropathy/syncope episodes Anemia, likely chronic -Stable. Continue to monitor DM neuropathy -cont.Lyrica Anxiety disorders -cont.sertraline Prophylaxis: SCDs Patient was seen in collaboration with Result Diagram: 09/13/18 0611 09/13/18 0611 Results 24hrs Laboratory Tests Test 09/16/18 12:25 09/16/18 17:33 09/16/18 20:36 09/17/18 08:38 Bedside Glucose 136 146 150 292 H Exam/Review of Systems Exam Vitals Vital Signs Date Temp Pulse Resp B/P (MAP) Pulse Ox O2 O2 Flow FiO2 Time Delivery Rate 09/17/18 66 127/71 07:45 09/17/18 98.0 18 97 Room Air 07:00 Intake and Output 09/16/18 09/16/18 09/17/18 1515:00 23:00 07:00 IntakeIntake Total 1280 ml OutputOutput Total 772 ml BalanceBalance -772 ml 1280 ml Results Results 24hrs Laboratory Tests Test 09/16/18 12:25 09/16/18 17:33 09/16/18 20:36 09/17/18 08:38 Bedside Glucose 136 146 150 292 H Medications Medication Current Medications Bisacodyl (Dulcolax Supp) 10 mg DAILY PRN [place] CONSTIPATION Last administered on 09/16/18 16:46; Admin Dose 10 MG; Start 09/06/18 at 15:00 Docusate Sodium (Colace) 100 mg BID PO Last administered on 09/17/18at 10:05; Admin Dose 100 MG; Start 09/06/18 at 21:00 Diagnostic Test (Pha) (Accu-Chek) 1 ea 02 XX Last administered on 09/13/18at 02:37; Admin Dose 1 EA; Start 09/07/18 at 02:00 Insulin Aspart (Novolog Insulin Pen) NOVOLOG *MILD* ALGORITHM WITH MEALS BEDTIME SC Last administered on 09/17/18 08:49; Admin Dose 4 UNIT; Start 09/06/18 at 17:35 Ondansetron HCl (Zofran Inj) 4 mg Q4H PRN IV NAUSEA AND/OR VOMITING; Start 09/06/18 at 15:00 Pantoprazole (Protonix Tab) 40 mg DAILY@06 PO Last administered on 09/17/18 06:46; Admin Dose 40 MG; Start 09/07/18 at 06:00 IV Flush (NS 3 ml) 3 ml Q8H and PRN adm IV ; Start 09/06/18 at 15:00 Zolpidem Tartrate (Ambien) 5 mg HS PRN PO INSOMNIA; Start 09/06/18 at 15:00 Miscellaneous Information 1 ea NOTE XX ; Start 09/06/18 at 16:00 Glucose (Glutose) 15 gm Q15M PRN PO DECREASED GLUCOSE; Start 09/06/18 at 16:00 Glucose (Glutose) 22.5 gm Q15M PRN PO DECREASED GLUCOSE; Start 09/06/18 at 16:00 Dextrose (D50w Syringe) 25 ml Q15M PRN IV DECREASED GLUCOSE; Start 09/06/18 at 16:00 Dextrose (D50w Syringe) 50 ml Q15M PRN IV DECREASED GLUCOSE; Start 09/06/18 at 16:00 Glucagon (Glucagen) 1 mg Q15M PRN IM DECREASED GLUCOSE; Start 09/06/18 at 16:00 Glucose (Glutose) 15 gm Q15M PRN BUCCAL DECREASED GLUCOSE Last administered on 09/08/18 14:14; Admin Dose 15 GM; Start 09/06/18 at 16:00 [facility] This patient turner... PRN PRN XX WOUND CARE; Start 09/06/18 at 15:30 Erythromycin (Erythromycin) 250 mg Q8 PO Last administered on 09/17/18 06:46; Admin Dose 250 MG; Start 09/07/18 at 14:00; Stop 09/17/18 at 13:59 Aspirin (Halfprin) 81 mg DAILY PO Last administered on 09/17/18 10:05; Admin Dose 81 MG; Start 09/08/18 at 09:00 Atorvastatin Calcium (Lipitor) 80 mg QHS PO Last administered on 09/16/18 20:38; Admin Dose 80 MG; Start 09/07/18 at 21:00 Montelukast Sodium (Singulair) 10 mg QHS PO Last administered on 09/16/18 20:38; Admin Dose 10 MG; Start 09/07/18 at 21:00 Pregabalin (Lyrica) 150 mg DAILY PO Last administered on 09/12/18 10:02; Admin Dose 150 MG; Start 09/08/18 at 09:00 Sevelamer Carbonate (Renvela) 2,400 mg WITH MEALS PO Last administered on 09/17/18 08:37; Admin Dose 2,400 MG; Start 09/08/18 at 07:35 Metoclopramide HCl (Reglan Liq) 5 mg QID PO Last administered on 09/17/18 10:07; Admin Dose 5 MG; Start 09/08/18 at 17:00 Midodrine (Proamatine) 5 mg TID@09,13,17 PRN PO dizziness/low bp; Start 09/11/18 at 17:00 Sertraline HCl (Zoloft) 50 mg QHS PO Last administered on 09/14/18 20:46; Admin Dose 50 MG; Start 09/12/18 at 21:00 Epoetin Fernando-epbx (Retacrit (Esrd)) 6,000 unit MoWeFr@1700 SC Last administered on 09/14/18 21:03; Admin Dose 6,000 UNIT; Start 09/14/18 at 19:30 Nifedipine (Procardia Xl) 30 mg DAILY PO Last administered on 09/17/18 10:27; Admin Dose 30 MG; Start 09/15/18 at 13:00 Insulin Glargine (Lantus) 35 units DAILY@2000 SC Last administered on 09/16/18 20:41; Admin Dose 35 UNITS; Start 09/15/18 at 20:00 Neomycin/ Polymyxin/ Bacitracin (Neosporin Topical Oint) 1 applic BID TOP Last administered on 09/17/18 10:28; Admin Dose 1 APPLIC; Start 09/15/18 at 21:00 Acetaminophen (Tylenol Tab) 650 mg Q6H PRN PO MILD PAIN(1-3)OR ELEVATED TEMP Last administered on 09/16/18 20:38; Admin Dose 650 MG; Start 09/16/18 at 11:00 Insulin Aspart (Novolog Insulin Pen) 12 unit WITH MEALS SC Last administered on 09/17/18 08:48; Admin Dose 12 UNIT; Start 09/16/18 at 11:00 ANNEMARIE BURROUGHS NP Sep 17, 2018 11:46
[2018-09-17] MEDS: ACETAMINOPHEN 325 MG TAB PO PRN ×2 (12:24→20:56)
[2018-09-17 14:00] VITALS: BP 121/64; PULSE 72; RESP 18
[2018-09-17] MEDS: EPOETIN ALFA-EPBX (ESRD) 3,000 UNIT/ML VIAL SC SCH (19:00)
[2018-09-17 19:51] VITALS: BP 128/65; PULSE 78; RESP 18
[2018-09-17 20:30] VITALS: BP 123/56; PULSE 84
[2018-09-17] MEDS: INSULIN GLARGINE [LANTus] (100 UNITS/ML) SYG SC SCH (20:39)
[2018-09-17] MEDS: MONTELUKAST 10 MG TAB PO SCH (20:40)
[2018-09-17] MEDS: ATORVASTATIN 80 MG TAB PO SCH (20:40)
[2018-09-17] MEDS: SERTRALINE 50 MG TAB PO SCH (20:40)
[2018-09-18] MEDS: ACCU-CHEK XX SCH (01:56)
[2018-09-18] MEDS ORDERED: INSULIN ASPART [NOVOLOG] 3 ML PEN SC ONE ×2 (02:00→04:30)
[2018-09-18] MEDS ORDERED: ACCU-CHEK XX ONE (02:00)
[2018-09-18 02:31] VITALS: BP 117/67; PULSE 78; RESP 18
[2018-09-18] MEDS: PANTOPRAZOLE (EC) 40 MG TAB PO SCH (06:07)
[2018-09-18 07:30] VITALS: BP 143/70; PULSE 78; RESP 18
[2018-09-18] MEDS ORDERED: INSULIN ASPART [NOVOLOG] 3 ML PEN SC SCH (07:35)
[2018-09-18] MEDS: INSULIN ASPART [NOVOLOG] 3 ML PEN SC SCH ×6 (07:39→21:28)
[2018-09-18] MEDS: SEVELAMER CARBONATE 800 MG TABLET PO SCH ×3 (07:40→17:08)
[2018-09-18 07:54] VITALS: BP 129/69; PULSE 78
[2018-09-18] MEDS: ASPIRIN (EC) 81 MG TAB PO SCH (08:14)
[2018-09-18] MEDS: METOCLOPRAMIDE (1 MG/ML) 10 ML CUP PO SCH ×4 (08:14→21:25)
[2018-09-18] MEDS: DOCUSATE SODIUM 100 MG CAP PO SCH ×2 (08:16→21:30)
[2018-09-18] MEDS: NIFEdipine (XL) 30 MG TAB PO SCH (08:16)
[2018-09-18] MEDS: PREGABALIN 75 MG CAP PO SCH (08:16)
[2018-09-18] MEDS: NEOMYC/POLYMYX/BACIT 30 GM OINT TOP SCH ×2 (08:18→21:29)
--- NOTE | 2018-09-18 11:34 | PN ---
Date/Time of Note Date/Time of Note DATE: 09/18/18 TIME: 11:33 Assessment/Plan VTE Prophylaxis Risk score (from Nsg)>0 risk: 3 SCD applied (from Nsg): Yes Pharmacological prophylaxis: NA/contraindicated Pharm contraindication: low risk/ambulating Lines/Catheters IV Catheter Type (from Nrsg): Saline Lock Assessment/Plan Hospital Course SUBJECTIVE: no acute episodes. Sugars has been running high. OBJECTIVE: Vital signs-see below PHYSICAL EXAM: Constitutional: Adequately built,not in acute distress. HEENT: Head atraumatic and normocephalic. Eyes: Extraocular muscles intact. Anicteric sclerae. Pupils equal bilaterally, reactive to light. NECK: Supple without lymph node. CHEST: Clear and good breath sounds equally. No wheezing. No rhonchi. HEART: S1, S2. Regular rate and rhythm. ABDOMEN: Soft/non tender with no rebound tenderness. Bowel sounds were present. EXTREMITIES: With right arm sling. No cyanosis, clubbing or edema. NEUROLOGIC: Alert and oriented x3. No focal deficit. No sensory deficit. PSYCHOSOCIAL: No signs of depression. INTEGUMENTARY: No open wounds. ASSESSMENT AND PLAN: Right humeral fracture - Properly aligned and does not require surgical intervention, continue conservative care - Pain control/PT Recurrent syncope likely secondary to autonomic neuropathy/orthostatic hypotension -Patient will need to allow for blood pressure elevations and will need to be less aggressive with BP control, patient also needs to change positions gradually 2D echo shows a preserved EF -on midodrine-change to PRN Gastroparesis -symptoms improved -Continue Reglan/ erythromycin base -Patient has outpatient [facility] follow-up for further studies on gastroparesis. End-stage renal disease on PD -Managed per nephrology Insulin dependent diabetes -Sugars running high. Increase basal to 40 units w/ adjusted bolus dose. Coronary disease status post CABG Continue aspirin/statin Hypertension -Stable. Continue with lower dose nifedipine as tolerated. - will be less aggressive with blood pressure control secondary to autonomic neuropathy/syncope episodes Anemia, likely chronic -Stable. Continue to monitor DM neuropathy -cont.Lyrica Anxiety disorders -cont.sertraline Prophylaxis: SCDs Patient was seen in collaboration with Result Diagram: 09/18/18 0753 09/18/18 0753 Results 24hrs Laboratory Tests Test 09/17/18 12:14 09/17/18 17:27 09/17/18 20:20 09/18/18 01:39 Bedside Glucose 223 H 233 H 270 H 352 H Test 09/18/18 04:17 09/18/18 06:09 09/18/18 07:37 09/18/18 07:53 Bedside Glucose 309 H 239 H 139 White Blood Count 5.9 # Red Blood Count 3.03 L Hemoglobin 8.7 L Hematocrit 26.4 L Mean Corpuscular Volume 87.1 Mean Corpuscular 28.7 L Hemoglobin Mean Corpuscular 33.0 Hemoglobin Concent Red Cell Distribution 13.4 Width Platelet Count 239 Mean Platelet Volume 10.2 Immature Granulocytes % 0.900 H Neutrophils % 57.7 Lymphocytes % 27.4 Monocytes % 10.4 Eosinophils % 3.1 Basophils % 0.5 Nucleated Red Blood 0.0 Cells % Immature Granulocytes # 0.050 H Neutrophils # 3.4 Lymphocytes # 1.6 Monocytes # 0.6 Eosinophils # 0.2 Basophils # 0.0 Nucleated Red Blood 0.0 Cells # Sodium Level 129 L Potassium Level 4.5 Chloride Level 88 L Carbon Dioxide Level 26 Anion Gap 15 H Blood Urea Nitrogen 78 H Creatinine 11.19 H Est Glomerular Filtrat 5 L Rate mL/min Glucose Level 120 Calcium Level 9.2 Phosphorus Level 5.8 H Magnesium Level 2.2 Total Bilirubin 0.1 L Direct Bilirubin 0.00 Indirect Bilirubin 0.1 Aspartate Amino 29 Transf (AST/SGOT) Alanine 31 Aminotransferase (ALT/SG PT) Alkaline Phosphatase 185 H Total Protein 6.7 Albumin 3.2 L Globulin 3.50 H Albumin/Globulin Ratio 0.91 Exam/Review of Systems Exam Vitals Vital Signs Date Temp Pulse Resp B/P (MAP) Pulse Ox O2 O2 Flow FiO2 Time Delivery Rate 09/18/18 78 129/69 07:54 09/18/18 97.7 18 97 Room Air 07:30 Intake and Output 09/17/18 09/17/18 09/18/18 1515:00 23:00 07:00 IntakeIntake Total 800 ml OutputOutput Total 1038 ml BalanceBalance -1038 ml 800 ml Results Results 24hrs Laboratory Tests Test 09/17/18 12:14 09/17/18 17:27 09/17/18 20:20 09/18/18 01:39 Bedside Glucose 223 H 233 H 270 H 352 H Test 09/18/18 04:17 09/18/18 06:09 09/18/18 07:37 09/18/18 07:53 Bedside Glucose 309 H 239 H 139 White Blood Count 5.9 # Red Blood Count 3.03 L Hemoglobin 8.7 L Hematocrit 26.4 L Mean Corpuscular Volume 87.1 Mean Corpuscular 28.7 L Hemoglobin Mean Corpuscular 33.0 Hemoglobin Concent Red Cell Distribution 13.4 Width Platelet Count 239 Mean Platelet Volume 10.2 Immature Granulocytes % 0.900 H Neutrophils % 57.7 Lymphocytes % 27.4 Monocytes % 10.4 Eosinophils % 3.1 Basophils % 0.5 Nucleated Red Blood 0.0 Cells % Immature Granulocytes # 0.050 H Neutrophils # 3.4 Lymphocytes # 1.6 Monocytes # 0.6 Eosinophils # 0.2 Basophils # 0.0 Nucleated Red Blood 0.0 Cells # Sodium Level 129 L Potassium Level 4.5 Chloride Level 88 L Carbon Dioxide Level 26 Anion Gap 15 H Blood Urea Nitrogen 78 H Creatinine 11.19 H Est Glomerular Filtrat 5 L Rate mL/min Glucose Level 120 Calcium Level 9.2 Phosphorus Level 5.8 H Magnesium Level 2.2 Total Bilirubin 0.1 L Direct Bilirubin 0.00 Indirect Bilirubin 0.1 Aspartate Amino 29 Transf (AST/SGOT) Alanine 31 Aminotransferase (ALT/SG PT) Alkaline Phosphatase 185 H Total Protein 6.7 Albumin 3.2 L Globulin 3.50 H Albumin/Globulin Ratio 0.91 Medications Medication Current Medications Bisacodyl (Dulcolax Supp) 10 mg DAILY PRN [place] CONSTIPATION Last administered on 09/16/18at 16:46; Admin Dose 10 MG; Start 09/06/18 at 15:00 Docusate Sodium (Colace) 100 mg BID PO Last administered on 09/18/18at 08:16; Admin Dose 100 MG; Start 09/06/18 at 21:00 Diagnostic Test (Pha) (Accu-Chek) 1 ea 02 XX Last administered on 09/18/18at 01:56; Admin Dose 1 EA; Start 09/07/18 at 02:00 Ondansetron HCl (Zofran Inj) 4 mg Q4H PRN IV NAUSEA AND/OR VOMITING; Start 09/06/18 at 15:00 Pantoprazole (Protonix Tab) 40 mg DAILY@06 PO Last administered on 09/18/18at 06:07; Admin Dose 40 MG; Start 09/07/18 at 06:00 IV Flush (NS 3 ml) 3 ml Q8H and PRN adm IV ; Start 09/06/18 at 15:00 Zolpidem Tartrate (Ambien) 5 mg HS PRN PO INSOMNIA; Start 09/06/18 at 15:00 Miscellaneous Information 1 ea NOTE XX ; Start 09/06/18 at 16:00 Glucose (Glutose) 15 gm Q15M PRN PO DECREASED GLUCOSE; Start 09/06/18 at 16:00 Glucose (Glutose) 22.5 gm Q15M PRN PO DECREASED GLUCOSE; Start 09/06/18 at 16:00 Dextrose (D50w Syringe) 25 ml Q15M PRN IV DECREASED GLUCOSE; Start 09/06/18 at 16:00 Dextrose (D50w Syringe) 50 ml Q15M PRN IV DECREASED GLUCOSE; Start 09/06/18 at 16:00 Glucagon (Glucagen) 1 mg Q15M PRN IM DECREASED GLUCOSE; Start 09/06/18 at 16:00 Glucose (Glutose) 15 gm Q15M PRN BUCCAL DECREASED GLUCOSE Last administered on 09/08/18at 14:14; Admin Dose 15 GM; Start 09/06/18 at 16:00 Miscellaneous Information (Pending [facility] Order For Wound Care) This patient turner... PRN PRN XX WOUND CARE; Start 09/06/18 at 15:30 Aspirin (Halfprin) 81 mg DAILY PO Last administered on 09/18/18 08:14; Admin Dose 81 MG; Start 09/08/18 at 09:00 Atorvastatin Calcium (Lipitor) 80 mg QHS PO Last administered on 09/17/18 20:40; Admin Dose 80 MG; Start 09/07/18 at 21:00 Montelukast Sodium (Singulair) 10 mg QHS PO Last administered on 09/17/18 20:40; Admin Dose 10 MG; Start 09/07/18 at 21:00 Pregabalin (Lyrica) 150 mg DAILY PO Last administered on 09/12/18 10:02; Admin Dose 150 MG; Start 09/08/18 at 09:00 Sevelamer Carbonate (Renvela) 2,400 mg WITH MEALS PO Last administered on 09/18/18 07:40; Admin Dose 2,400 MG; Start 09/08/18 at 07:35 Metoclopramide HCl (Reglan Liq) 5 mg QID PO Last administered on 09/18/18 08:14; Admin Dose 5 MG; Start 09/08/18 at 17:00 Midodrine (Proamatine) 5 mg TID@09,13,17 PRN PO dizziness/low bp; Start 09/11/18 at 17:00 Sertraline HCl (Zoloft) 50 mg QHS PO Last administered on 09/17/18 20:40; Admin Dose 50 MG; Start 09/12/18 at 21:00 Epoetin Fernando-epbx (Retacrit (Esrd)) 6,000 unit MoWeFr@1700 SC Last administered on 09/17/18 19:00; Admin Dose 6,000 UNIT; Start 09/14/18 at 19:30 Nifedipine (Procardia Xl) 30 mg DAILY PO Last administered on 09/18/18 08:16; Admin Dose 30 MG; Start 09/15/18 at 13:00 Insulin Glargine (Lantus) 35 units DAILY@2000 SC Last administered on 09/17/18 20:39; Admin Dose 35 UNITS; Start 09/15/18 at 20:00 Neomycin/ Polymyxin/ Bacitracin (Neosporin Topical Oint) 1 applic BID TOP Last administered on 09/18/18 08:18; Admin Dose 1 APPLIC; Start 09/15/18 at 21:00 Acetaminophen (Tylenol Tab) 650 mg Q6H PRN PO MILD PAIN(1-3)OR ELEVATED TEMP Last administered on 09/17/18 20:56; Admin Dose 650 MG; Start 09/16/18 at 11:00 Insulin Aspart (Novolog Insulin Pen) 12 unit WITH MEALS SC Last administered on 09/18/18 07:39; Admin Dose 12 UNIT; Start 09/16/18 at 11:00 Insulin Aspart (Novolog Insulin Pen) NOVOLOG *MODERATE* ALGORITHM WITH MEALS BEDTIME SC ; Start 09/18/18 at 07:35 ANNEMARIE BURROUGHS NP Sep 18, 2018 11:34
--- NOTE | 2018-09-18 12:08 | CONS ---
Assessment/Plan Assessment/Plan Assessment/Plan (Daily) 1. ESRD on Peritoneal dialysis 2. Recurrent syncope 2/2 autonomic neuropathy 3. H/o CAD s/p CABG 4. H/O HTN 5. H/o DM II 6. H/o HL 7. Oblique fracture of the right humeral neck., Nondisplaced fracture of the acromion. Plan: will plan for PD today and tomorrow 4 cycles, his original schedule at home Epogen for anemia of ESRD Continue other home meds Rehab plan as per Rehab physician will follow up Consultation Date/Type/Reason Admit Date/Time Sep 06, 2018 at 13:45 Initial Consult Date 09/07/18 Type of Consult NEPHROLOGY Requesting Provider: ANNEMARIE BURROUGHS NP Date/Time of Note DATE: 09/18/18 TIME: 12:08 Exam/Review of Systems Exam Vitals Vital Signs Date Temp Pulse Resp B/P (MAP) Pulse Ox O2 O2 Flow FiO2 Time Delivery Rate 09/18/18 78 129/69 07:54 09/18/18 97.7 18 97 Room Air 07:30 Intake and Output 09/17/18 09/17/18 09/18/18 1515:00 23:00 07:00 IntakeIntake Total 800 ml OutputOutput Total 1038 ml BalanceBalance -1038 ml 800 ml Exam Constitutional: alert Respiratory: clear to auscultation, normal air movement Cardiovascular: regular rate and rhythm, nl pulses Gastrointestinal: soft, non-tender, + PD catheter site clear no cellulitis Musculoskeletal: nl extremities to inspection, muscle weakness Extremities: normal pulses Neurological: Non Focal Results Result Diagram: 09/18/18 0753 09/18/18 0753 Results 24hrs Laboratory Tests Test 09/17/18 12:14 09/17/18 17:27 09/17/18 20:20 09/18/18 01:39 Bedside Glucose 223 H 233 H 270 H 352 H Test 09/18/18 04:17 09/18/18 06:09 09/18/18 07:37 09/18/18 07:53 Bedside Glucose 309 H 239 H 139 White Blood Count 5.9 # Red Blood Count 3.03 L Hemoglobin 8.7 L Hematocrit 26.4 L Mean Corpuscular Volume 87.1 Mean Corpuscular 28.7 L Hemoglobin Mean Corpuscular 33.0 Hemoglobin Concent Red Cell Distribution 13.4 Width Platelet Count 239 Mean Platelet Volume 10.2 Immature Granulocytes % 0.900 H Neutrophils % 57.7 Lymphocytes % 27.4 Monocytes % 10.4 Eosinophils % 3.1 Basophils % 0.5 Nucleated Red Blood 0.0 Cells % Immature Granulocytes # 0.050 H Neutrophils # 3.4 Lymphocytes # 1.6 Monocytes # 0.6 Eosinophils # 0.2 Basophils # 0.0 Nucleated Red Blood 0.0 Cells # Sodium Level 129 L Potassium Level 4.5 Chloride Level 88 L Carbon Dioxide Level 26 Anion Gap 15 H Blood Urea Nitrogen 78 H Creatinine 11.19 H Est Glomerular Filtrat 5 L Rate mL/min Glucose Level 120 Calcium Level 9.2 Phosphorus Level 5.8 H Magnesium Level 2.2 Total Bilirubin 0.1 L Direct Bilirubin 0.00 Indirect Bilirubin 0.1 Aspartate Amino 29 Transf (AST/SGOT) Alanine 31 Aminotransferase (ALT/SG PT) Alkaline Phosphatase 185 H Total Protein 6.7 Albumin 3.2 L Globulin 3.50 H Albumin/Globulin Ratio 0.91 Test 09/18/18 12:00 Bedside Glucose 100 Medications Medication Current Medications Bisacodyl (Dulcolax Supp) 10 mg DAILY PRN [place] CONSTIPATION Last administered on 09/16/18at 16:46; Admin Dose 10 MG; Start 09/06/18 at 15:00 Docusate Sodium (Colace) 100 mg BID PO Last administered on 09/18/18at 08:16; Admin Dose 100 MG; Start 09/06/18 at 21:00 Diagnostic Test (Pha) (Accu-Chek) 1 ea 02 XX Last administered on 09/18/18at 01:56; Admin Dose 1 EA; Start 09/07/18 at 02:00 Ondansetron HCl (Zofran Inj) 4 mg Q4H PRN IV NAUSEA AND/OR VOMITING; Start 09/06/18 at 15:00 Pantoprazole (Protonix Tab) 40 mg DAILY@06 PO Last administered on 09/18/18at 06:07; Admin Dose 40 MG; Start 09/07/18 at 06:00 IV Flush (NS 3 ml) 3 ml Q8H and PRN adm IV ; Start 09/06/18 at 15:00 Zolpidem Tartrate (Ambien) 5 mg HS PRN PO INSOMNIA; Start 09/06/18 at 15:00 Miscellaneous Information 1 ea NOTE XX ; Start 09/06/18 at 16:00 Glucose (Glutose) 15 gm Q15M PRN PO DECREASED GLUCOSE; Start 09/06/18 at 16:00 Glucose (Glutose) 22.5 gm Q15M PRN PO DECREASED GLUCOSE; Start 09/06/18 at 16:00 Dextrose (D50w Syringe) 25 ml Q15M PRN IV DECREASED GLUCOSE; Start 09/06/18 at 16:00 Dextrose (D50w Syringe) 50 ml Q15M PRN IV DECREASED GLUCOSE; Start 09/06/18 at 16:00 Glucagon (Glucagen) 1 mg Q15M PRN IM DECREASED GLUCOSE; Start 09/06/18 at 16:00 Glucose (Glutose) 15 gm Q15M PRN BUCCAL DECREASED GLUCOSE Last administered on 09/08/18at 14:14; Admin Dose 15 GM; Start 09/06/18 at 16:00 [facility] This patient turner... PRN PRN XX WOUND CARE; Start 09/06/18 at 15:30 Aspirin (Halfprin) 81 mg DAILY PO Last administered on 09/18/18 08:14; Admin Dose 81 MG; Start 09/08/18 at 09:00 Atorvastatin Calcium (Lipitor) 80 mg QHS PO Last administered on 09/17/18 20:40; Admin Dose 80 MG; Start 09/07/18 at 21:00 Montelukast Sodium (Singulair) 10 mg QHS PO Last administered on 09/17/18 20:40; Admin Dose 10 MG; Start 09/07/18 at 21:00 Pregabalin (Lyrica) 150 mg DAILY PO Last administered on 09/12/18 10:02; Admin Dose 150 MG; Start 09/08/18 at 09:00 Sevelamer Carbonate (Renvela) 2,400 mg WITH MEALS PO Last administered on 09/18/18 12:03; Admin Dose 2,400 MG; Start 09/08/18 at 07:35 Metoclopramide HCl (Reglan Liq) 5 mg QID PO Last administered on 09/18/18 08:14; Admin Dose 5 MG; Start 09/08/18 at 17:00 Midodrine (Proamatine) 5 mg TID@,,17 PRN PO dizziness/low bp; Start 09/11/18 at 17:00 Sertraline HCl (Zoloft) 50 mg QHS PO Last administered on 09/17/18 20:40; Admin Dose 50 MG; Start 09/12/18 at 21:00 Epoetin Fernando-epbx (Retacrit (Esrd)) 6,000 unit MoWeFr@1700 SC Last administered on 09/17/18 19:00; Admin Dose 6,000 UNIT; Start 09/14/18 at 19:30 Nifedipine (Procardia Xl) 30 mg DAILY PO Last administered on 09/18/18 08:16; Admin Dose 30 MG; Start 09/15/18 at 13:00 Neomycin/ Polymyxin/ Bacitracin (Neosporin Topical Oint) 1 applic BID TOP Last administered on 09/18/18 08:18; Admin Dose 1 APPLIC; Start 09/15/18 at 21:00 Acetaminophen (Tylenol Tab) 650 mg Q6H PRN PO MILD PAIN(1-3)OR ELEVATED TEMP Last administered on 09/17/18at 20:56; Admin Dose 650 MG; Start 09/16/18 at 11:00 Insulin Glargine (Lantus) 40 units DAILY@2000 SC ; Start 09/18/18 at 20:00 Insulin Aspart (Novolog Insulin Pen) 14 unit WITH MEALS SC Last administered on 09/18/18 12:02; Admin Dose 14 UNIT; Start 09/18/18 at 12:00 Insulin Aspart (Novolog Insulin Pen) NOVOLOG *MILD* ALGORITHM WITH MEALS BEDTIME SC ; Start 09/18/18 at 12:00 JACQUES VALENCIA MD Sep 18, 2018 12:08
--- NOTE | 2018-09-18 13:29 | PN ---
Date/Time of Note Date/Time of Note DATE: 09/18/18 TIME: 13:23 Subjective Up for activities in wheelchair Objective Vital Signs Date Temp Pulse Resp B/P (MAP) Pulse Ox O2 O2 Flow FiO2 Time Delivery Rate 09/18/18 78 129/69 07:54 09/18/18 97.7 18 97 Room Air 07:30 Intake and Output 09/17/18 09/17/18 09/18/18 1515:00 23:00 07:00 IntakeIntake Total 800 ml OutputOutput Total 1038 ml BalanceBalance -1038 ml 800 ml Exam min transfer mod ambulation 10 feet [id number] Results/Medications Result Diagram: 09/18/18 0753 09/18/18 0753 Results 24 hrs Laboratory Tests Test 09/17/18 17:27 09/17/18 20:20 09/18/18 01:39 09/18/18 04:17 Bedside Glucose 233 H 270 H 352 H 309 H Test 09/18/18 06:09 09/18/18 07:37 09/18/18 07:53 09/18/18 12:00 Bedside Glucose 239 H 139 100 White Blood Count 5.9 # Red Blood Count 3.03 L Hemoglobin 8.7 L Hematocrit 26.4 L Mean Corpuscular Volume 87.1 Mean Corpuscular 28.7 L Hemoglobin Mean Corpuscular 33.0 Hemoglobin Concent Red Cell Distribution 13.4 Width Platelet Count 239 Mean Platelet Volume 10.2 Immature Granulocytes % 0.900 H Neutrophils % 57.7 Lymphocytes % 27.4 Monocytes % 10.4 Eosinophils % 3.1 Basophils % 0.5 Nucleated Red Blood 0.0 Cells % Immature Granulocytes # 0.050 H Neutrophils # 3.4 Lymphocytes # 1.6 Monocytes # 0.6 Eosinophils # 0.2 Basophils # 0.0 Nucleated Red Blood 0.0 Cells # Sodium Level 129 L Potassium Level 4.5 Chloride Level 88 L Carbon Dioxide Level 26 Anion Gap 15 H Blood Urea Nitrogen 78 H Creatinine 11.19 H Est Glomerular Filtrat 5 L Rate mL/min Glucose Level 120 Calcium Level 9.2 Phosphorus Level 5.8 H Magnesium Level 2.2 Total Bilirubin 0.1 L Direct Bilirubin 0.00 Indirect Bilirubin 0.1 Aspartate Amino 29 Transf (AST/SGOT) Alanine 31 Aminotransferase (ALT/SG PT) Alkaline Phosphatase 185 H Total Protein 6.7 Albumin 3.2 L Globulin 3.50 H Albumin/Globulin Ratio 0.91 Medications Current Medications Bisacodyl (Dulcolax Supp) 10 mg DAILY PRN [place] CONSTIPATION Last administered on 09/16/18at 16:46; Admin Dose 10 MG; Start 09/06/18 at 15:00 Docusate Sodium (Colace) 100 mg BID PO Last administered on 09/18/18at 08:16; Admin Dose 100 MG; Start 09/06/18 at 21:00 Diagnostic Test (Pha) (Accu-Chek) 1 ea 02 XX Last administered on 09/18/18at 01:56; Admin Dose 1 EA; Start 09/07/18 at 02:00 Ondansetron HCl (Zofran Inj) 4 mg Q4H PRN IV NAUSEA AND/OR VOMITING; Start 09/06/18 at 15:00 Pantoprazole (Protonix Tab) 40 mg DAILY@06 PO Last administered on 09/18/18at 06:07; Admin Dose 40 MG; Start 09/07/18 at 06:00 IV Flush (NS 3 ml) 3 ml Q8H and PRN adm IV ; Start 09/06/18 at 15:00 Zolpidem Tartrate (Ambien) 5 mg HS PRN PO INSOMNIA; Start 09/06/18 at 15:00 Miscellaneous Information 1 ea NOTE XX ; Start 09/06/18 at 16:00 Glucose (Glutose) 15 gm Q15M PRN PO DECREASED GLUCOSE; Start 09/06/18 at 16:00 Glucose (Glutose) 22.5 gm Q15M PRN PO DECREASED GLUCOSE; Start 09/06/18 at 16:00 Dextrose (D50w Syringe) 25 ml Q15M PRN IV DECREASED GLUCOSE; Start 09/06/18 at 16:00 Dextrose (D50w Syringe) 50 ml Q15M PRN IV DECREASED GLUCOSE; Start 09/06/18 at 16:00 Glucagon (Glucagen) 1 mg Q15M PRN IM DECREASED GLUCOSE; Start 09/06/18 at 16:00 Glucose (Glutose) 15 gm Q15M PRN BUCCAL DECREASED GLUCOSE Last administered on 09/08/18at 14:14; Admin Dose 15 GM; Start 09/06/18 at 16:00 Miscellaneous Information (Pending [facility] Order For Wound Care) This patient turner... PRN PRN XX WOUND CARE; Start 09/06/18 at 15:30 Aspirin (Halfprin) 81 mg DAILY PO Last administered on 09/18/18 08:14; Admin Dose 81 MG; Start 09/08/18 at 09:00 Atorvastatin Calcium (Lipitor) 80 mg QHS PO Last administered on 09/17/18 20:40; Admin Dose 80 MG; Start 09/07/18 at 21:00 Montelukast Sodium (Singulair) 10 mg QHS PO Last administered on 09/17/18 20:40; Admin Dose 10 MG; Start 09/07/18 at 21:00 Pregabalin (Lyrica) 150 mg DAILY PO Last administered on 09/12/18 10:02; Admin Dose 150 MG; Start 09/08/18 at 09:00 Sevelamer Carbonate (Renvela) 2,400 mg WITH MEALS PO Last administered on 09/18/18 12:03; Admin Dose 2,400 MG; Start 09/08/18 at 07:35 Metoclopramide HCl (Reglan Liq) 5 mg QID PO Last administered on 09/18/18 13:18; Admin Dose 5 MG; Start 09/08/18 at 17:00 Midodrine (Proamatine) 5 mg TID@09,13,17 PRN PO dizziness/low bp; Start 09/11/18 at 17:00 Sertraline HCl (Zoloft) 50 mg QHS PO Last administered on 09/17/18 20:40; Admin Dose 50 MG; Start 09/12/18 at 21:00 Epoetin Fernando-epbx (Retacrit (Esrd)) 6,000 unit MoWeFr@1700 SC Last administered on 09/17/18 19:00; Admin Dose 6,000 UNIT; Start 09/14/18 at 19:30 Nifedipine (Procardia Xl) 30 mg DAILY PO Last administered on 09/18/18 08:16; Admin Dose 30 MG; Start 09/15/18 at 13:00 Neomycin/ Polymyxin/ Bacitracin (Neosporin Topical Oint) 1 applic BID TOP Last administered on 09/18/18 08:18; Admin Dose 1 APPLIC; Start 09/15/18 at 21:00 Acetaminophen (Tylenol Tab) 650 mg Q6H PRN PO MILD PAIN(1-3)OR ELEVATED TEMP Last administered on 09/17/18at 20:56; Admin Dose 650 MG; Start 09/16/18 at 11:00 Insulin Glargine (Lantus) 40 units DAILY@2000 SC ; Start 09/18/18 at 20:00 Insulin Aspart (Novolog Insulin Pen) 14 unit WITH MEALS SC Last administered on 09/18/18at 12:02; Admin Dose 14 UNIT; Start 09/18/18 at 12:00 Insulin Aspart (Novolog Insulin Pen) NOVOLOG *MILD* ALGORITHM WITH MEALS BEDTIME SC ; Start 09/18/18 at 12:00 Assessment/Plan Additional Assessment/Plan Rehab- Autonomic neuropathy with orthostatic hypotension; Right humerus fracture, nonweightbearing right UE, C5 fracture, no collar required, no surgical intervention. Overall patient has made functional gains. Family training in progress. Working towards home with home health follow up tomorrow Syncopal episode- none while on rehab Traumatic pain syndrome- continue current meds Type 2 diabetes. Diabetic neuropathy. Diabetic nephropathy. End-stage renal disease, peritoneal dialysis. Hypertension. Coronary artery disease with a history of bypass grafting. Old CVAs. Osteoarthritis. Anemia. CARLOS LANGE MD Sep 18, 2018 13:29
[2018-09-18 14:00] VITALS: BP 139/67; PULSE 81; RESP 18
[2018-09-18] MEDS ORDERED: INSULIN GLARGINE [LANTus] (100 UNITS/ML) SYG SC SCH (20:00)
[2018-09-18 20:21] VITALS: BP 142/83; PULSE 87; RESP 18
[2018-09-18 21:10] VITALS: BP 155/72; PULSE 74
[2018-09-18] MEDS: ATORVASTATIN 80 MG TAB PO SCH (21:25)
[2018-09-18] MEDS: SERTRALINE 50 MG TAB PO SCH (21:25)
[2018-09-18] MEDS: MONTELUKAST 10 MG TAB PO SCH (21:25)
[2018-09-19] MEDS ORDERED: NITROGLYCERIN (SL) 0.4 MG TAB ONE (00:12)
[2018-09-19] MEDS: NITROGLYCERIN (SL) 0.4 MG TAB SL PRN ×2 (00:24→00:29)
[2018-09-19] MEDS ORDERED: morphine 2 MG INJ IV PRN (00:30)
[2018-09-19] MEDS: ACCU-CHEK XX SCH (02:00)
[2018-09-19 02:31] VITALS: BP 153/76; PULSE 95; RESP 18
[2018-09-19] MEDS ORDERED: INSULIN ASPART [NOVOLOG] 3 ML PEN SC ONE (03:00)
[2018-09-19] MEDS ORDERED: ACCU-CHEK XX ONE (03:00)
--- NOTE | 2018-09-19 12:21 | RADRPT ---
Vent Rate: 93 bpm RR Interval: 648 msec [place] Interval: 165 msec QRS Duration: 105 msec QT Interval: 356 msec QTC Interval: 442 msec P-R-T [place]: 22 - 14 - 133 degrees Sinus rhythm...normal P axis, V-rate 50- 99 LVH with secondary repolarization abnormality...multi-LVH criteria, abnrm ST-T Anterior ST elevation, probably due to LVH...ST >0.20 mV in V1-V4 & LVH Anterolateral ischemia Electronically Signed By: Steven Villalobos
--- NOTE | 2018-09-19 13:44 | DS ---
Date/Time of Note Date/Time of Note DATE: 09/19/18 TIME: 13:41 Discharge Summary Admission/Discharge Info Admit Date/Time Sep 06, 2018 at 13:45 Discharge Date/Time Sep 19, 2018 at 03:01 Discharge Diagnosis 1. Chest pain, possible NV 2. Autonomic neuropathy with orthostatic hypotension/syncope 3. Recurrent falls with injury. 4. Right humerus fracture, nonweightbearing right upper extremity immobilization with sling. 5. C5 fracture, no collar required, no surgical intervention. 6. Traumatic pain syndrome. 7. Type 2 diabetes. 8. Diabetic neuropathy. 9. Diabetic nephropathy. 10. End-stage renal disease, peritoneal dialysis. 11. Hypertension. 12. Coronary artery disease with a history of bypass grafting. 13. Old CVAs. 14. Osteoarthritis. 15. Anemia. 16. Impairments in self care and mobility Patient Condition: Serious Hospital Course The patient was admitted for comprehensive interdisciplinary rehabilitation and made steady functional gains from a Max/dep level to a mod level for self care tasks and mobility. Patient was noted to have chest pain/pressure and EKG ordered along with troponin level, which was elevated. Patient transferred to acute hospital for further care and monitoring. DC meds are per the medication reconciliation sheet. The patient will follow up with PMD upon DC. Home Meds Reported Medications Atorvastatin* (Atorvastatin*) 80 Mg Tablet, 80 MG PO QHS, #30 TAB 08/31/18 Clonidine Hcl* (Clonidine Hcl*) 0.1 Mg Tab, 0.1 MG PO Q8 PRN for BLOOD PRESSURE SUPPORT, TAB 08/31/18 Pregabalin* (Lyrica*) 150 Mg Capsule, 150 MG PO DAILY, CAP 08/31/18 Pantoprazole* (Protonix*) 40 Mg Tablet.dr, 40 MG PO DAILY, TAB 08/31/18 Aspirin (Low Dose Aspirin) 81 Mg Tablet.dr, 81 MG PO DAILY, #30 TAB 08/31/18 Insulin Glargine,Hum.rec.anlog (Basaglar Melaniepen U-100) 100 Unit/1 Ml Insuln.pen, 0 SC BID WITH MEALS, EA SLIDING SCALE 08/31/18 Insulin Glargine* (Lantus*) 100 Unit/Ml Soln, 50 UNIT SC QHS, #1 VIAL 08/31/18 Sertraline Hcl* (Zoloft*) 50 Mg Tablet, 50 MG PO DAILY, #30 TAB 08/31/18 Montelukast Sodium* (Montelukast Sodium*) 10 Mg Tablet, 10 MG PO QHS, #30 TAB 08/31/18 Clopidogrel Bisulfate (Clopidogrel) 75 Mg Tablet, 75 MG PO DAILY, #30 TAB 08/31/18 Sevelamer Hcl* (Renagel*) 800 Mg Tablet, 2400 MG PO WITH MEALS, TAB 08/31/18 Nifedipine* (Nifedipine ER*) 90 Mg Tablet.er, 90 MG PO DAILY, TAB 08/31/18 Ondansetron Hcl* (Zofran*) 4 Mg Tab, 4 MG PO Q8 PRN for NAUSEA AND OR VOMITING, TAB 08/31/18 Metoclopramide* (Reglan*) 5 Mg Tablet, 5 MG PO TIDM A, TAB 08/31/18 Primary Care Provider Not On Staff Doctor Pending Labs Laboratory Tests Test 09/18/18 17:04 09/18/18 21:17 09/19/18 01:07 09/19/18 02:10 Bedside 173 208 329 Glucose mg/dL (70-220) mg/dL (70-220) mg/dL (70-220) Creatine 51 Kinase IU/L (23-200) Creatine Kinase 7.1 Index Creatinine 3.61 Kinase MB ng/ml (0.0-2.4 (Mass) ) Troponin I 0.123 ng/ml (0.000-0 .120) Test 09/19/18 02:46 Bedside 338 Glucose mg/dL (70-220) CARLOS LANGE MD Sep 19, 2018 13:44
== END 2018-09-19 03:01 | disposition short-term general hospital (02) | DRG 559 ==
LOC: VRC 09-06 13:45
PROVIDERS: ADMIT Physical Medicine & Rehabilitation; ATTEND Internal Medicine Pulmonary Disease
PROC: F07Z9FZ Gait Training/Functional Ambulation Treatment using Assistive, Adaptive, Supportive or Protective Equipment (ICD-10-PCS; principal; 2018-09-06)
PROC: F07Z8FZ Transfer Training Treatment using Assistive, Adaptive, Supportive or Protective Equipment (ICD-10-PCS; 2018-09-06)
PROC: F07Z5FZ Bed Mobility Treatment using Assistive, Adaptive, Supportive or Protective Equipment (ICD-10-PCS; 2018-09-06)
PROC: F08Z2FZ Grooming/Personal Hygiene Treatment using Assistive, Adaptive, Supportive or Protective Equipment (ICD-10-PCS; 2018-09-06)
PROC: F08Z0FZ Bathing/Showering Techniques Treatment using Assistive, Adaptive, Supportive or Protective Equipment (ICD-10-PCS; 2018-09-06)
PROC: F08Z1FZ Dressing Techniques Treatment using Assistive, Adaptive, Supportive or Protective Equipment (ICD-10-PCS; 2018-09-06)
PROC: 3E1M39Z Irrigation of Peritoneal Cavity using Dialysate, Percutaneous Approach (ICD-10-PCS; 2018-09-06)
DX: S42.214D Unspecified nondisplaced fracture of surgical neck of right humerus, subsequent encounter for fracture with routine healing (principal); N18.6 End stage renal disease; I21.9 Acute myocardial infarction, unspecified; F33.1 Major depressive disorder, recurrent, moderate; S42.124D Nondisplaced fracture of acromial process, right shoulder, subsequent encounter for fracture with routine healing; G90.9 Disorder of the autonomic nervous system, unspecified; S12.401D Unspecified nondisplaced fracture of fifth cervical vertebra, subsequent encounter for fracture with routine healing; E11.43 Type 2 diabetes mellitus with diabetic autonomic (poly)neuropathy; K31.84 Gastroparesis; E11.22 Type 2 diabetes mellitus with diabetic chronic kidney disease; I25.10 Atherosclerotic heart disease of native coronary artery without angina pectoris; D64.9 Anemia, unspecified; F41.9 Anxiety disorder, unspecified; K59.00 Constipation, unspecified; E11.65 Type 2 diabetes mellitus with hyperglycemia; I95.1 Orthostatic hypotension; E11.21 Type 2 diabetes mellitus with diabetic nephropathy; E78.5 Hyperlipidemia, unspecified; K21.9 Gastro-esophageal reflux disease without esophagitis; J45.30 Mild persistent asthma, uncomplicated; Z86.73 Personal history of transient ischemic attack (TIA), and cerebral infarction without residual deficits; Z99.2 Dependence on renal dialysis; Z95.1 Presence of aortocoronary bypass graft; Z79.4 Long term (current) use of insulin; Z79.82 Long term (current) use of aspirin; W18.39XD Other fall on same level, subsequent encounter
CPT/HCPCS: 80053; 82550; 82553; 82962; 83036; 83540; 83735; 84100; 84484; 85025; 85610; 85730; 87081; 90945; 92507; 92523; 93005; 97110; 97116; 97150; 97163; 97167; 97530; 97535; 97542; J0360; J1815; L3675; Q5105

== ENCOUNTER 2018-09-19 02:39 | Inpatient (IN) | payer MEDICARE, OTHER ==
[2018-09-19] VITALS (7 sets, daily range): BP systolic 110–166; BP diastolic 57–78; PULSE 74–84; RESP 17–19; Ht 165.1 cm; Wt 75.4 kg
[~2018-09-19] VITALS: Ht 165.1 cm; Wt 75.4 kg
[2018-09-19] MEDS ORDERED: morphine 2 MG INJ IV PRN (04:00)
[2018-09-19] MEDS ORDERED: BISACODYL (EC) 5 MG TAB PO PRN (04:00)
[2018-09-19] MEDS ORDERED: ASPIRIN 81 MG TAB PO ONE (04:00)
[2018-09-19] MEDS ORDERED: ACETAMINOPHEN 325 MG TAB PO PRN (04:00)
[2018-09-19] MEDS ORDERED: NACL 0.9% 3 ML SYG IV SCH (04:00)
[2018-09-19] MEDS ORDERED: NITROGLYCERIN (SL) 0.4 MG TAB SL PRN (04:00)
[2018-09-19] MEDS ORDERED: DOCUSATE SODIUM 100 MG CAP PO PRN (04:00)
--- NOTE | 2018-09-19 04:28 | HP ---
Date/Time of Note Date/Time of Note DATE: 09/19/18 TIME: 04:20 Assessment/Plan VTE Prophylaxis SCD applied (from Nsg): Yes Pharmacological prophylaxis: NA/contraindicated Pharm contraindication: low risk/ambulating Assessment/Plan Hospital Course This is a 63-year-old male being admitted to the telemetry floor for: #1 nstemi: Type I versus type II. Patient did had an episode of chest pain which was relieved by nitro sublingual x2. He had an elevated troponin of 0.123 along with EKG changes showing ST depressions in leads I, V5 and V6. At the current time he is chest pain-free. We will continue to trend cardiac enzymes. Recent echocardiogram in August shows ejection fraction of approximately 55 to 60% with stage I diastolic dysfunction. Will consult cardiology . PRN nitro/morphine. High-dose aspirin along with daily aspirin. #2 right humeral fracture - Properly aligned and does not require surgical intervention, continue conservative care - Pain control/PT #3 recurrent syncope likely secondary to autonomic neuropathy Patient will need to allow for blood pressure elevations and will need to be less aggressive with BP control, patient also needs to change positions gradually 2D echo shows a preserved EF #4 gastroparesis -Continue Reglan. Add erythromycin base to further improve his symptoms. -Patient has outpatient [facility] follow-up for further studies on gastroparesis. #5 end-stage renal disease on PD Managed per nephrology, Dr. Goodson #6 insulin dependent diabetes -Needs more control. Uptitrate basal/bolus regimen #7 coronary disease status post CABG Continue aspirin/statin #8 hypertension Patient with autonomic neuropathy and recurrent syncope hence will be less aggressive BP control, Midodrine as needed. Continue nifedipine but at a safer/lower dose. #9 anemia, likely chronic -Stable. Continue to monitor #10 DM neuropathy -resume Lyrica #11 anxiety disorders -Resume sertraline #12 DVT GI prophylaxis: SCDs, no GI prophylaxis indicated Further treatment strategy will be implemented as per the clinical course. HPI/ROS Admit Date/Time Admit Date/Time Sep 19, 2018 at 03:08 Hx of Present Illness Chief complaint: Left-sided chest pain This is a 63-year-old male with a history of type 2 diabetes, ESRD on peritoneal dialysis, hypertension, old CVAs, CAD, status post CABG who presents to [facility] after an episode of chest pain. He was currently at [facility] rehab where he experienced left-sided chest pain. His is with him at the bedside. His reports that he originally started having chest pain at approximately 9 PM but he did not report as anybody until approximately near midnight. A stat EKG was done which did show some ST depressions in leads V1, V5 and V6. Patient also had an elevated troponin of 0.123. He was given nitro sublingual x2 which did result in relief of the chest pain. He is currently chest pain-free. He was recently [facility] on 08/31/2018 with syncopal episode. Patient's hospitalization was noted for right humeral neck fracture for which he was seen by orthopedic surgery, with no surgical intervention recommended. Patient was kept on nonweightbearing with a right arm sling. He was also noted with a questionable C5 fracture for which he was seen by neurosurgery. This was further imaged with a CTA ands found with no damage to vertebral artery, no acute fractures, as such did not require any cervical collar or other surgical intervention. Syncopal episode was thought to be secondary to autonomic neuropathy and symptoms did not occur. Patient hospitalization was noted for pain and labile blood pressures which were managed medically. He was transferred to rehab for further treatment. Allergies: NKDA Medications: See SHARLENE WEBB Const: As per HPI Eyes : No pain discharge or redness or change in visual acuity ENT: No pain, sore throat, congestion, congestion, dysphagia or discharge Respiratory: No shortness of breath, cough, sputum, wheezing, or pleuritic pain Cardiovascular: As per HPI GI : no change in appetite, abdominal pain, nausea, vomiting, diarrhea, constipation, or change in the color his stool Genitourinary: No dysuria, hematuria, flank pain , discharge or CVA tenderness Musculoskeletal: No joint pain, back pain, neck pain, restricted range of motion in neck or joints Skin: No rash, bruising or hives Neuro: No headache, dizziness, syncope, seizure, focal weakness Endocrine: No polyuria, polydipsia, temperature intolerance Psych: No hallucination, depression, anxiety or suicidal ideation PMH/Family/Social Past Medical History See HPI Medications Current Medications IV Flush (NS 3 ml) 3 ml PER PROTOCOL IV ; Start 09/19/18 at 04:00 Ondansetron HCl (Zofran Inj) 4 mg Q6H PRN IV NAUSEA/VOMITING; Start 09/19/18 at 04:00 Aspirin (Aspirin) 81 mg DAILY PO ; Start 09/19/18 at 09:00 Nitroglycerin (Nitroglycerin (Sl Tab) 0.4 Mg) 1 tab Q5M PRN SL .CHEST PAIN; Start 09/19/18 at 04:00 Acetaminophen (Tylenol Tab) 650 mg Q6H PRN PO .PAIN 1-3 OR TEMP; Start 09/19/18 at 04:00 Morphine Sulfate (morphine) 2 mg Q4H PRN IV .PAIN 7-10; Start 09/19/18 at 04:00 Docusate Sodium (Colace) 100 mg Q12H PRN PO .CONSTIPATION; Start 09/19/18 at 04:00 Bisacodyl (Dulcolax) 5 mg DAILY PRN PO .CONSTIPATION; Start 09/19/18 at 04:00 Coded Allergies: No Known Allergy (Unverified , 08/31/18) Past Surgical History See HPI Past Surgical Hx: other Family History Significant Family History: no pertinent family hx Social History Alcohol Use: none Drug Use: none Exam/Review of Systems Exam Exam General: She is currently in no acute distress, he is sleeping comfortably., Easily arousable HEENT: Atraumatic, normocephalic. The pupils are equal, round and reactive. Extraocular motor are intact Neck: Supple with full range of motion. No rigidity or meningismus Chest: Nontender to palpation Lungs: Clear to auscultation bilaterally no crackles rales or wheezing Heart: Normal S1-S2, Regular rhythm and rate. No murmur, S3, or S4 Abdomen: Soft , nontender, nondistended , bowel sounds are present. No guarding no rebound tenderness , No masses or organomegaly. No costovertebral temporal angle mass, PD Extremities: Right upper extremity in a sling Neurologic: Normal mental status, speech normal, cranial nerves II through XII are intact, motor and sensory are intact, PARKER PANDEY Sep 19, 2018 04:28
[2018-09-19] MEDS ORDERED: ONDANSETRON 4 MG TAB PO PRN (04:30)
[2018-09-19] MEDS ORDERED: GLUCOSE GEL 15 GRAM TUBE PO PRN ×2 (05:00)
[2018-09-19] MEDS ORDERED: GLUCAGON 1 MG INJ IM PRN (05:00)
[2018-09-19] MEDS ORDERED: GLUCOSE GEL 15 GRAM TUBE BUCCAL PRN (05:00)
[2018-09-19] MEDS ORDERED: DEXTROSE 50% 50 ML SYRINGE IV PRN ×2 (05:00)
[2018-09-19] MEDS ORDERED: INSULIN ASPART [NOVOLOG] 3 ML PEN SC ONE ×2 (05:30→08:30)
[2018-09-19] MEDS ORDERED: PANTOPRAZOLE (EC) 40 MG TAB PO SCH (06:00)
[2018-09-19] MEDS ORDERED: ACCU-CHEK XX ONE ×2 (07:30→10:30)
--- NOTE | 2018-09-19 08:11 | CONS ---
Assessment/Plan Assessment/Plan Assessment/Plan (Daily) 1. ESRD on Peritoneal dialysis 2. Recurrent syncope 2/2 autonomic neuropathy 3. H/o CAD s/p CABG 4. H/O HTN 5. H/o DM II 6. H/o HL 7. Oblique fracture of the right humeral neck., Nondisplaced fracture of the acromion. 8. acute NSTEMI Plan: will plan for PD today and tomorrow 3 cycles, his original schedule at home Epogen for anemia s/p cardiology consult, plan for trnasfer to other hospital for [facility], [facility] vs Kristofer lucero rust , Thanks for consultation Consultation Date/Type/Reason Admit Date/Time Sep 19, 2018 at 03:08 Date of Consultation: Sep 19, 2018 Type of Consult NEPHROLOGY Reason for Consultation ESRD on PD Requesting Provider: PARKER PANDEY Date/Time of Note DATE: 09/19/18 TIME: 08:11 Hx of Present Illness 63 yo M with a h/o CAD s/p 4V CABG at [facility] 2016, ESRD on PD, HTN, DM, HL, who was initially at [facility] rehab for PT after sustaining a right humerus fracture after a syncopal episodes 1 month prior.Last night he complained of mild chest pain at rest 4/10 which was relieved by SL NTG x2. No recurrence since. So far trops 0.1-->0.34. His outpt straightedge man is Dr. Jeffers at [facility]. He had been doing well and had no chest pain recurrence until this episode. The pain last night was pressure like and identical to his preCABG pain but much less intense. No symptoms for the past 8+ hrs. Otherwise no dyspnea, orthopnea. No bleeding or melena. Hgb ~8. Renal has been consulted for PD need Constitutional: no complaints Eyes: no complaints ENT: no complaints Respiratory: pleuritic pain, shortness of breath Cardiovascular: no complaints Gastrointestinal: no complaints Genitourinary: no complaints Musculoskeletal: no complaints Skin: no complaints Neurologic: no complaints Endocrine: no complaints Lymphatic: no complaints Psychological: no complaints Immunologic: no complaints Past Medical History Medical History: coronary artery disease, diabetes, high cholesterol, hypertension Home Meds Active Scripts Nitroglycerin* (Nitroglycerin* SL) 0.4 Mg Tab.subl, 1 TAB SL Q5M PRN for .CHEST PAIN for 30 Days Prov:DANNIECEFERINOPARKER 09/19/18 Metoprolol Tartrate* (Lopressor*) 25 Mg Tab, 25 MG PO BID for 30 Days, TAB Prov:PATSY PANDEYB 09/19/18 Isosorbide Mononitrate* (Isosorbide Mononitrate*) 30 Mg Tab.er.24h, 30 MG PO DAILY for 30 Days Prov:DANNIECEFERINOPARKER 09/19/18 [Insulin Glargine] 100 UNITS/ML SOLN No Conflict Check, 40 UNITS SC QHS Prov:CEFERINO PANDEYEEB 09/19/18 Clonidine Hcl* (Catapres*) 0.1 Mg Tablet, 0.1 MG PO Q8H PRN for systolic greater than 170 for 30 Days, TAB Prov:PATSY PANDEYB 09/19/18 Reported Medications Atorvastatin* (Atorvastatin*) 80 Mg Tablet, 80 MG PO QHS, #30 TAB 08/31/18 Pregabalin* (Lyrica*) 150 Mg Capsule, 150 MG PO DAILY, CAP 08/31/18 Pantoprazole* (Protonix*) 40 Mg Tablet.dr, 40 MG PO DAILY, TAB 08/31/18 Aspirin (Low Dose Aspirin) 81 Mg Tablet.dr, 81 MG PO DAILY, #30 TAB 08/31/18 Sertraline Hcl* (Zoloft*) 50 Mg Tablet, 50 MG PO DAILY, #30 TAB 08/31/18 Montelukast Sodium* (Montelukast Sodium*) 10 Mg Tablet, 10 MG PO QHS, #30 TAB 08/31/18 Clopidogrel Bisulfate (Clopidogrel) 75 Mg Tablet, 75 MG PO DAILY, #30 TAB 08/31/18 Sevelamer Hcl* (Renagel*) 800 Mg Tablet, 2400 MG PO WITH MEALS, TAB 08/31/18 Nifedipine* (Nifedipine ER*) 90 Mg Tablet.er, 90 MG PO DAILY, TAB 08/31/18 Ondansetron Hcl* (Zofran*) 4 Mg Tab, 4 MG PO Q8 PRN for NAUSEA AND OR VOMITING, TAB 08/31/18 Metoclopramide* (Reglan*) 5 Mg Tablet, 5 MG PO TIDM A, TAB 08/31/18 Discontinued Reported Medications Clonidine Hcl* (Clonidine Hcl*) 0.1 Mg Tab, 0.1 MG PO Q8 PRN for BLOOD PRESSURE SUPPORT, TAB 08/31/18 Insulin Glargine,Hum.rec.anlog (Basaglcelena Rodarteikpen U-100) 100 Unit/1 Ml Insuln.pen, 0 SC BID WITH MEALS, EA SLIDING SCALE 08/31/18 Insulin Glargine* (Lantus*) 100 Unit/Ml Soln, 50 UNIT SC QHS, #1 VIAL 08/31/18 Medications Current Medications IV Flush (NS 3 ml) 3 ml PER PROTOCOL IV ; Start 09/19/18 at 04:00 Ondansetron HCl (Zofran Inj) 4 mg Q6H PRN IV NAUSEA/VOMITING; Start 09/19/18 at 04:00 Aspirin (Aspirin) 81 mg DAILY PO ; Start 09/19/18 at 09:00 Nitroglycerin (Nitroglycerin (Sl Tab) 0.4 Mg) 1 tab Q5M PRN SL .CHEST PAIN; Start 09/19/18 at 04:00 Acetaminophen (Tylenol Tab) 650 mg Q6H PRN PO .PAIN 1-3 OR TEMP; Start 09/19/18 at 04:00 Morphine Sulfate (morphine) 2 mg Q4H PRN IV .PAIN 7-10; Start 09/19/18 at 04:00 Docusate Sodium (Colace) 100 mg Q12H PRN PO .CONSTIPATION; Start 09/19/18 at 04:00 Bisacodyl (Dulcolax) 5 mg DAILY PRN PO .CONSTIPATION; Start 09/19/18 at 04:00 Atorvastatin Calcium (Lipitor) 80 mg QHS PO ; Start 09/19/18 at 21:00 Clonidine (Catapres) 0.1 mg Q8H PRN PO systolic greater than 170; Start 09/19/18 at 04:30 Clopidogrel Bisulfate (plaVIX) 75 mg DAILY PO ; Start 09/19/18 at 09:00 Insulin Glargine (Lantus) 40 units QHS SC ; Start 09/19/18 at 21:00 Metoclopramide HCl (Reglan) 5 mg TID PO ; Start 09/19/18 at 09:00 Montelukast Sodium (Singulair) 10 mg QHS PO ; Start 09/19/18 at 21:00 Nifedipine (Procardia Xl) 90 mg DAILY PO ; Start 09/19/18 at 09:00 Ondansetron HCl (Zofran Tab) 4 mg Q8H PRN PO NAUSEA AND/OR VOMITING; Start 09/19/18 at 04:30 Pantoprazole (Protonix Tab) 40 mg DAILY@0600 PO Last administered on 09/19/18at 05:38; Admin Dose 40 MG; Start 09/19/18 at 06:00 Pregabalin (Lyrica) 150 mg DAILY PO ; Start 09/19/18 at 09:00 Sertraline HCl (Zoloft) 50 mg DAILY PO ; Start 09/19/18 at 09:00 Sevelamer Carbonate (Renvela) 2,400 mg WITH MEALS PO ; Start 09/19/18 at 07:55 Diagnostic Test (Pha) (Accu-Chek) 1 ea 02 XX ; Start 09/20/18 at 02:00 Insulin Aspart (Novolog Insulin Pen) NOVOLOG *MODERATE* ALGORITHM WITH MEALS BEDTIME SC ; Start 09/19/18 at 07:55 Miscellaneous Information 1 ea NOTE XX ; Start 09/19/18 at 05:00 Glucose (Glutose) 15 gm Q15M PRN PO DECREASED GLUCOSE; Start 09/19/18 at 05:00 Glucose (Glutose) 22.5 gm Q15M PRN PO DECREASED GLUCOSE; Start 09/19/18 at 05:00 Dextrose (D50w Syringe) 25 ml Q15M PRN IV DECREASED GLUCOSE; Start 09/19/18 at 05:00 Dextrose (D50w Syringe) 50 ml Q15M PRN IV DECREASED GLUCOSE; Start 09/19/18 at 05:00 Glucagon (Glucagen) 1 mg Q15M PRN IM DECREASED GLUCOSE; Start 09/19/18 at 05:00 Glucose (Glutose) 15 gm Q15M PRN BUCCAL DECREASED GLUCOSE; Start 09/19/18 at 05:00 Midodrine (Proamatine) 5 mg TID@,,17 PRN PO BLOOD PRESSURE SUPPORT; Start 09/19/18 at 09:00 Allergies: Coded Allergies: No Known Allergy (Unverified , 08/31/18) Past Surgical History Past Surgical Hx: other Social History Alcohol Use: none Smoking Status: Never smoker Drug Use: none Exam/Review of Systems Exam Vitals Vital Signs Date Temp Pulse Resp B/P (MAP) Pulse Ox O2 O2 Flow FiO2 Time Delivery Rate 09/19/18 84 163/78 07:36 09/19/18 98.7 17 99 07:21 09/19/18 Nasal 2.0 03:20 Cannula Constitutional: alert Psych: no complaints Eyes: nl conjunctiva ENMT: nl external ears & nose Neck: supple, non-tender Respiratory: clear to auscultation, normal air movement, diminished breath sounds Cardiovascular: regular rate and rhythm, nl pulses Gastrointestinal: soft, non-tender Musculoskeletal: nl extremities to inspection, nl gait and stance Neurological: HAT BLOCK MAKER II-XII intact, nl mental status, nl speech, nl strength Lymph: nl lymph nodes Results Result Diagram: 09/19/1841609/19/18416 Results 24hrs Laboratory Tests Test 09/19/18 04:17 09/19/18 04:39 09/19/18 07:40 White Blood Count 6.9 Red Blood Count 2.73 L Hemoglobin 7.7 L Hematocrit 24.0 L Mean Corpuscular Volume 87.9 Mean Corpuscular Hemoglobin 28.2 L Mean Corpuscular Hemoglobin Concent 32.1 Red Cell Distribution Width 13.6 Platelet Count 241 Mean Platelet Volume 10.7 H Immature Granulocytes % 0.700 H Neutrophils % 69.2 Lymphocytes % 18.4 Monocytes % 9.5 Eosinophils % 1.9 Basophils % 0.3 Nucleated Red Blood Cells % 0.0 Immature Granulocytes # 0.050 H Neutrophils # 4.8 Lymphocytes # 1.3 Monocytes # 0.7 Eosinophils # 0.1 Basophils # 0.0 Nucleated Red Blood Cells # 0.0 Prothrombin Time 15.4 H Prothrombin Time Ratio 1.2 INR International Normalized Ratio 1.21 Activated Partial Thromboplast Time 32.3 Sodium Level 129 L Potassium Level 4.7 Chloride Level 89 L Carbon Dioxide Level 23 Anion Gap 17 H Blood Urea Nitrogen 79 H Creatinine 10.98 H Est Glomerular Filtrat Rate mL/min 5 L Glucose Level 286 #H Calcium Level 8.8 Total Bilirubin 0.0 L Direct Bilirubin 0.00 Indirect Bilirubin 0.0 Aspartate Amino Transf (AST/SGOT) 29 Alanine Aminotransferase (ALT/SGPT) 38 Alkaline Phosphatase 194 H Creatine Kinase 50 Creatine Kinase Index 9.1 Creatinine Kinase MB (Mass) 4.56 H Troponin I 0.347 *H Total Protein 5.6 #L Albumin 2.6 L Globulin 3.00 Albumin/Globulin Ratio 0.86 Bedside Glucose 295 H 222 H Medications Medication Current Medications IV Flush (NS 3 ml) 3 ml PER PROTOCOL IV ; Start 09/19/18 at 04:00 Ondansetron HCl (Zofran Inj) 4 mg Q6H PRN IV NAUSEA/VOMITING; Start 09/19/18 at 04:00 Aspirin (Aspirin) 81 mg DAILY PO ; Start 09/19/18 at 09:00 Nitroglycerin (Nitroglycerin (Sl Tab) 0.4 Mg) 1 tab Q5M PRN SL .CHEST PAIN; Start 09/19/18 at 04:00 Acetaminophen (Tylenol Tab) 650 mg Q6H PRN PO .PAIN 1-3 OR TEMP; Start 09/19/18 at 04:00 Morphine Sulfate (morphine) 2 mg Q4H PRN IV .PAIN 7-10; Start 09/19/18 at 04:00 Docusate Sodium (Colace) 100 mg Q12H PRN PO .CONSTIPATION; Start 09/19/18 at 04:00 Bisacodyl (Dulcolax) 5 mg DAILY PRN PO .CONSTIPATION; Start 09/19/18 at 04:00 Atorvastatin Calcium (Lipitor) 80 mg QHS PO ; Start 09/19/18 at 21:00 Clonidine (Catapres) 0.1 mg Q8H PRN PO systolic greater than 170; Start 09/19/18 at 04:30 Clopidogrel Bisulfate (plaVIX) 75 mg DAILY PO ; Start 09/19/18 at 09:00 Insulin Glargine (Lantus) 40 units QHS SC ; Start 09/19/18 at 21:00 Metoclopramide HCl (Reglan) 5 mg TID PO ; Start 09/19/18 at 09:00 Montelukast Sodium (Singulair) 10 mg QHS PO ; Start 09/19/18 at 21:00 Nifedipine (Procardia Xl) 90 mg DAILY PO ; Start 09/19/18 at 09:00 Ondansetron HCl (Zofran Tab) 4 mg Q8H PRN PO NAUSEA AND/OR VOMITING; Start 09/19/18 at 04:30 Pantoprazole (Protonix Tab) 40 mg DAILY@0600 PO Last administered on 09/19/18at 05:38; Admin Dose 40 MG; Start 09/19/18 at 06:00 Pregabalin (Lyrica) 150 mg DAILY PO ; Start 09/19/18 at 09:00 Sertraline HCl (Zoloft) 50 mg DAILY PO ; Start 09/19/18 at 09:00 Sevelamer Carbonate (Renvela) 2,400 mg WITH MEALS PO ; Start 09/19/18 at 07:55 Diagnostic Test (Pha) (Accu-Chek) 1 ea 02 XX ; Start 09/20/18 at 02:00 Insulin Aspart (Novolog Insulin Pen) NOVOLOG *MODERATE* ALGORITHM WITH MEALS BEDTIME SC ; Start 09/19/18 at 07:55 Miscellaneous Information 1 ea NOTE XX ; Start 09/19/18 at 05:00 Glucose (Glutose) 15 gm Q15M PRN PO DECREASED GLUCOSE; Start 09/19/18 at 05:00 Glucose (Glutose) 22.5 gm Q15M PRN PO DECREASED GLUCOSE; Start 09/19/18 at 05:00 Dextrose (D50w Syringe) 25 ml Q15M PRN IV DECREASED GLUCOSE; Start 09/19/18 at 05:00 Dextrose (D50w Syringe) 50 ml Q15M PRN IV DECREASED GLUCOSE; Start 09/19/18 at 05:00 Glucagon (Glucagen) 1 mg Q15M PRN IM DECREASED GLUCOSE; Start 09/19/18 at 05:00 Glucose (Glutose) 15 gm Q15M PRN BUCCAL DECREASED GLUCOSE; Start 09/19/18 at 05:00 Midodrine (Proamatine) 5 mg TID@,13,17 PRN PO BLOOD PRESSURE SUPPORT; Start 09/19/18 at 09:00 JACQUES VALENCIA MD Sep 19, 2018 08:11
[2018-09-19] MEDS: SEVELAMER CARBONATE 800 MG TABLET PO SCH ×3 (08:13→18:13)
[2018-09-19] MEDS: METOCLOPRAMIDE 5 MG TAB PO SCH ×3 (08:13→20:32)
[2018-09-19] MEDS: INSULIN ASPART [NOVOLOG] 3 ML PEN SC SCH ×4 (08:38→20:34)
[2018-09-19] MEDS ORDERED: CLOPIDOGREL 75 MG TAB PO SCH (09:00)
[2018-09-19] MEDS ORDERED: ASPIRIN 81 MG TAB PO SCH (09:00)
[2018-09-19] MEDS ORDERED: ASPIRIN (EC) 81 MG TAB PO SCH (09:00)
[2018-09-19] MEDS ORDERED: PREGABALIN 75 MG CAP PO SCH (09:00)
[2018-09-19] MEDS ORDERED: MIDODRINE 5 MG TAB PO PRN (09:00)
[2018-09-19] MEDS ORDERED: NIFEdipine (XL) 90 MG TAB PO SCH (09:00)
[2018-09-19] MEDS ORDERED: SERTRALINE 50 MG TAB PO SCH (09:00)
[2018-09-19] MEDS ORDERED: MIDODRINE 5 MG TAB PO SCH (09:00)
[2018-09-19] MEDS: METOPROLOL 25 MG TAB PO SCH ×2 (09:30→20:37)
[2018-09-19] MEDS ORDERED: ISOSORBIDE MONONITRATE(SR)30 MG TAB PO SCH (10:00)
--- NOTE | 2018-09-19 10:02 | CONS ---
Assessment/Plan Assessment/Plan Hospital Course (Demo Recall) NSTEMI: In setting of chest pain, elevated trops (so far 0.34), EKG changes, and known CAD/CABG, patient will need a repeat cardiac cath for evaluation of graft patency and ruby coronaries. Unfortunately our main cardiac laboratory phlebotomist is under construction and our backup does not have adequate visual quality especially for a graft case.He will need to be transferred. Acute diastolic CHF: Echo 08/2018 with preserved LV function. Mild by exam Asymmetric right leg edema: mild and per pt chronic but has not had an ultrasound CAD s/p CAB vessel at [facility] 2015, unknown anatomy Anemia: hgb ~8. No bleeding ESRD on PD DM HTN h/o syncope: though to be orthostatic due autonomic dysfunction Right humerus fracture: treated medically -will discuss with director case management to arrange transfer -will check right leg doppler to r/o DVT though this is chronic -agree with adding plavix -continue ASA -if recurrent chest pain or significant rise in troponins, start heparin drip -add metoprolol 25mg BID and imdur 30mg -continue nifedipine -lipitor 80mg -PD per nephrology for volume management Consultation Date/Type/Reason Admit Date/Time Sep 19, 2018 at 03:08 Date of Consultation: Sep 19, 2018 Type of Consult Cardiology Reason for Consultation chest pain, NSTEMI Requesting Provider: PARKER PANDEY Date/Time of Note DATE: 09/19/18 TIME: 09:45 Hx of Present Illness 63 yo M with a h/o CAD s/p 4V CABG at [facility] 2015, ESRD on PD, HTN, DM, HL, who was initially at [facility] for PT after sustaining a right humerus fracture after a syncopal episodes 1 month prior.Last night he complained of mild chest pain at rest 4/10 which was relieved by SL NTG x2. No recurrence since. So far trops 0.1-->0.34. 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 Jeffers at [facility]. He had been doing well and had no chest pain recurrence until this episode. The pain last night was pressure like and identical to his preCABG pain but much less intense. No symptoms for the past 8+ hrs. Otherwise no dyspnea, orthopnea. No bleeding or melena. Hgb ~8. per HPI Past Medical History per hPI Home Meds Reported Medications Atorvastatin* (Atorvastatin*) 80 Mg Tablet, 80 MG PO QHS, #30 TAB 08/31/18 Clonidine Hcl* (Clonidine Hcl*) 0.1 Mg Tab, 0.1 MG PO Q8 PRN for BLOOD PRESSURE SUPPORT, TAB 08/31/18 Pregabalin* (Lyrica*) 150 Mg Capsule, 150 MG PO DAILY, CAP 08/31/18 Pantoprazole* (Protonix*) 40 Mg Tablet.dr, 40 MG PO DAILY, TAB 08/31/18 Aspirin (Low Dose Aspirin) 81 Mg Tablet.dr, 81 MG PO DAILY, #30 TAB 08/31/18 Insulin Glargine,Hum.rec.anlog (Basaglar Kwikpen U-100) 100 Unit/1 Ml Insuln.pen, 0 SC BID WITH MEALS, EA SLIDING SCALE 08/31/18 Insulin Glargine* (Lantus*) 100 Unit/Ml Soln, 50 UNIT SC QHS, #1 VIAL 08/31/18 Sertraline Hcl* (Zoloft*) 50 Mg Tablet, 50 MG PO DAILY, #30 TAB 08/31/18 Montelukast Sodium* (Montelukast Sodium*) 10 Mg Tablet, 10 MG PO QHS, #30 TAB 08/31/18 Clopidogrel Bisulfate (Clopidogrel) 75 Mg Tablet, 75 MG PO DAILY, #30 TAB 08/31/18 Sevelamer Hcl* (Renagel*) 800 Mg Tablet, 2400 MG PO WITH MEALS, TAB 08/31/18 Nifedipine* (Nifedipine ER*) 90 Mg Tablet.er, 90 MG PO DAILY, TAB 08/31/18 Ondansetron Hcl* (Zofran*) 4 Mg Tab, 4 MG PO Q8 PRN for NAUSEA AND OR VOMITING, TAB 08/31/18 Metoclopramide* (Reglan*) 5 Mg Tablet, 5 MG PO TIDM A, TAB 08/31/18 Medications Current Medications IV Flush (NS 3 ml) 3 ml PER PROTOCOL IV ; Start 09/19/18 at 04:00 Ondansetron HCl (Zofran Inj) 4 mg Q6H PRN IV NAUSEA/VOMITING; Start 09/19/18 at 04:00 Aspirin (Aspirin) 81 mg DAILY PO Last administered on 09/19/18at 08:13; Admin Dose 81 MG; Start 09/19/18 at 09:00 Nitroglycerin (Nitroglycerin (Sl Tab) 0.4 Mg) 1 tab Q5M PRN SL .CHEST PAIN; Start 09/19/18 at 04:00 Acetaminophen (Tylenol Tab) 650 mg Q6H PRN PO .PAIN 1-3 OR TEMP; Start 09/19/18 at 04:00 Morphine Sulfate (morphine) 2 mg Q4H PRN IV .PAIN 7-10; Start 09/19/18 at 04:00 Docusate Sodium (Colace) 100 mg Q12H PRN PO .CONSTIPATION; Start 09/19/18 at 04:00 Bisacodyl (Dulcolax) 5 mg DAILY PRN PO .CONSTIPATION; Start 09/19/18 at 04:00 Atorvastatin Calcium (Lipitor) 80 mg QHS PO ; Start 09/19/18 at 21:00 Clonidine (Catapres) 0.1 mg Q8H PRN PO systolic greater than 170; Start 09/19/18 at 04:30 Clopidogrel Bisulfate (plaVIX) 75 mg DAILY PO Last administered on 09/19/18at 08:13; Admin Dose 75 MG; Start 09/19/18 at 09:00 Insulin Glargine (Lantus) 40 units QHS SC ; Start 09/19/18 at 21:00 Metoclopramide HCl (Reglan) 5 mg TID PO Last administered on 09/19/18at 08:13; Admin Dose 5 MG; Start 09/19/18 at 09:00 Montelukast Sodium (Singulair) 10 mg QHS PO ; Start 09/19/18 at 21:00 Nifedipine (Procardia Xl) 90 mg DAILY PO Last administered on 09/19/18at 08:12; Admin Dose 90 MG; Start 09/19/18 at 09:00 Ondansetron HCl (Zofran Tab) 4 mg Q8H PRN PO NAUSEA AND/OR VOMITING; Start 09/19/18 at 04:30 Pantoprazole (Protonix Tab) 40 mg DAILY@0600 PO Last administered on 09/19/18at 05:38; Admin Dose 40 MG; Start 09/19/18 at 06:00 Pregabalin (Lyrica) 150 mg DAILY PO ; Start 09/19/18 at 09:00 Sertraline HCl (Zoloft) 50 mg DAILY PO Last administered on 09/19/18at 08:11; Admin Dose 50 MG; Start 09/19/18 at 09:00 Sevelamer Carbonate (Renvela) 2,400 mg WITH MEALS PO Last administered on 09/19/18at 08:13; Admin Dose 2,400 MG; Start 09/19/18 at 07:55 Diagnostic Test (Pha) (Accu-Chek) 1 ea 02 XX ; Start 09/20/18 at 02:00 Insulin Aspart (Novolog Insulin Pen) NOVOLOG *MODERATE* ALGORITHM WITH MEALS BEDTIME SC Last administered on 09/19/18at 08:38; Admin Dose 6 UNIT; Start 09/19/18 at 07:55 Miscellaneous Information 1 ea NOTE XX ; Start 09/19/18 at 05:00 Glucose (Glutose) 15 gm Q15M PRN PO DECREASED GLUCOSE; Start 09/19/18 at 05:00 Glucose (Glutose) 22.5 gm Q15M PRN PO DECREASED GLUCOSE; Start 09/19/18 at 05:00 Dextrose (D50w Syringe) 25 ml Q15M PRN IV DECREASED GLUCOSE; Start 09/19/18 at 05:00 Dextrose (D50w Syringe) 50 ml Q15M PRN IV DECREASED GLUCOSE; Start 09/19/18 at 05:00 Glucagon (Glucagen) 1 mg Q15M PRN IM DECREASED GLUCOSE; Start 09/19/18 at 05:00 Glucose (Glutose) 15 gm Q15M PRN BUCCAL DECREASED GLUCOSE; Start 09/19/18 at 05:00 Midodrine (Proamatine) 5 mg TID@,13,17 PRN PO BLOOD PRESSURE SUPPORT; Start 09/19/18 at 09:00 Diagnostic Test (Pha) (Accu-Chek) 1 ea 2 HRS AFTER NOVOLOG ONCE XX ; Start 09/19/18 at 10:30; Stop 09/19/18 at 10:31 Metoprolol Tartrate (Lopressor) 25 mg BID PO ; Start 09/19/18 at 09:30 Isosorbide Mononitrate (Imdur) 30 mg DAILY PO ; Start 09/19/18 at 10:00; Status UNV Allergies: Coded Allergies: No Known Allergy (Unverified , 08/31/18) Past Surgical History Past Surgical Hx: other Social History Alcohol Use: none Smoking Status: Never smoker Drug Use: none Exam/Review of Systems Vital Signs Vitals Vital Signs Date Temp Pulse Resp B/P (MAP) Pulse Ox O2 O2 Flow FiO2 Time Delivery Rate 09/19/18 84 163/78 07:36 09/19/18 98.7 17 99 07:21 09/19/18 Nasal 2.0 03:20 Cannula Exam Constitutional: alert, oriented Psych: no complaints, nl mood/affect Head: normocephalic, atraumatic Neck: jvd (8-9cm) Respiratory: crackles/rales (at bases); No clear to auscultation Cardiovascular: regular rate and rhythm, edema (trace on right, none on left), systolic murmur (3/6 HSM at apex ) Gastrointestinal: soft, non-tender; No distended Neurological: nl mental status, nl speech Additional Comments EKG: sinus, LVH, anterolateral ST depression and TWI with JESSICA in aVR new from EKG one month prior. Repeat EKG improved after chest pain resolved Labs Result Diagram: 09/19/18 0417 09/19/18 0417 Results 24hrs Laboratory Tests Test 09/19/18 04:17 09/19/18 04:39 09/19/18 07:40 White Blood Count 6.9 Red Blood Count 2.73 L Hemoglobin 7.7 L Hematocrit 24.0 L Mean Corpuscular Volume 87.9 Mean Corpuscular Hemoglobin 28.2 L Mean Corpuscular Hemoglobin Concent 32.1 Red Cell Distribution Width 13.6 Platelet Count 241 Mean Platelet Volume 10.7 H Immature Granulocytes % 0.700 H Neutrophils % 69.2 Lymphocytes % 18.4 Monocytes % 9.5 Eosinophils % 1.9 Basophils % 0.3 Nucleated Red Blood Cells % 0.0 Immature Granulocytes # 0.050 H Neutrophils # 4.8 Lymphocytes # 1.3 Monocytes # 0.7 Eosinophils # 0.1 Basophils # 0.0 Nucleated Red Blood Cells # 0.0 Prothrombin Time 15.4 H Prothrombin Time Ratio 1.2 INR International Normalized Ratio 1.21 Activated Partial Thromboplast Time 32.3 Sodium Level 129 L Potassium Level 4.7 Chloride Level 89 L Carbon Dioxide Level 23 Anion Gap 17 H Blood Urea Nitrogen 79 H Creatinine 10.98 H Est Glomerular Filtrat Rate mL/min 5 L Glucose Level 286 #H Calcium Level 8.8 Total Bilirubin 0.0 L Direct Bilirubin 0.00 Indirect Bilirubin 0.0 Aspartate Amino Transf (AST/SGOT) 29 Alanine Aminotransferase (ALT/SGPT) 38 Alkaline Phosphatase 194 H Creatine Kinase 50 Creatine Kinase Index 9.1 Creatinine Kinase MB (Mass) 4.56 H Troponin I 0.347 *H Total Protein 5.6 #L Albumin 2.6 L Globulin 3.00 Albumin/Globulin Ratio 0.86 Bedside Glucose 295 H 222 H Medications Medications Current Medications IV Flush (NS 3 ml) 3 ml PER PROTOCOL IV ; Start 09/19/18 at 04:00 Ondansetron HCl (Zofran Inj) 4 mg Q6H PRN IV NAUSEA/VOMITING; Start 09/19/18 at 04:00 Aspirin (Aspirin) 81 mg DAILY PO Last administered on 09/19/18at 08:13; Admin Dose 81 MG; Start 09/19/18 at 09:00 Nitroglycerin (Nitroglycerin (Sl Tab) 0.4 Mg) 1 tab Q5M PRN SL .CHEST PAIN; Start 09/19/18 at 04:00 Acetaminophen (Tylenol Tab) 650 mg Q6H PRN PO .PAIN 1-3 OR TEMP; Start 09/19/18 at 04:00 Morphine Sulfate (morphine) 2 mg Q4H PRN IV .PAIN 7-10; Start 09/19/18 at 04:00 Docusate Sodium (Colace) 100 mg Q12H PRN PO .CONSTIPATION; Start 09/19/18 at 04:00 Bisacodyl (Dulcolax) 5 mg DAILY PRN PO .CONSTIPATION; Start 09/19/18 at 04:00 Atorvastatin Calcium (Lipitor) 80 mg QHS PO ; Start 09/19/18 at 21:00 Clonidine (Catapres) 0.1 mg Q8H PRN PO systolic greater than 170; Start 09/19/18 at 04:30 Clopidogrel Bisulfate (plaVIX) 75 mg DAILY PO Last administered on 09/19/18at 08:13; Admin Dose 75 MG; Start 09/19/18 at 09:00 Insulin Glargine (Lantus) 40 units QHS SC ; Start 09/19/18 at 21:00 Metoclopramide HCl (Reglan) 5 mg TID PO Last administered on 09/19/18at 08:13; Admin Dose 5 MG; Start 09/19/18 at 09:00 Montelukast Sodium (Singulair) 10 mg QHS PO ; Start 09/19/18 at 21:00 Nifedipine (Procardia Xl) 90 mg DAILY PO Last administered on 09/19/18at 08:12; Admin Dose 90 MG; Start 09/19/18 at 09:00 Ondansetron HCl (Zofran Tab) 4 mg Q8H PRN PO NAUSEA AND/OR VOMITING; Start 09/19/18 at 04:30 Pantoprazole (Protonix Tab) 40 mg DAILY@0600 PO Last administered on 09/19/18at 05:38; Admin Dose 40 MG; Start 09/19/18 at 06:00 Pregabalin (Lyrica) 150 mg DAILY PO ; Start 09/19/18 at 09:00 Sertraline HCl (Zoloft) 50 mg DAILY PO Last administered on 09/19/18at 08:11; Admin Dose 50 MG; Start 09/19/18 at 09:00 Sevelamer Carbonate (Renvela) 2,400 mg WITH MEALS PO Last administered on 09/19/18at 08:13; Admin Dose 2,400 MG; Start 09/19/18 at 07:55 Diagnostic Test (Pha) (Accu-Chek) 1 ea 02 XX ; Start 09/20/18 at 02:00 Insulin Aspart (Novolog Insulin Pen) NOVOLOG *MODERATE* ALGORITHM WITH MEALS BE DTIME SC Last administered on 09/19/18at 08:38; Admin Dose 6 UNIT; Start 09/19/18 at 07:55 Miscellaneous Information 1 ea NOTE XX ; Start 09/19/18 at 05:00 Glucose (Glutose) 15 gm Q15M PRN PO DECREASED GLUCOSE; Start 09/19/18 at 05:00 Glucose (Glutose) 22.5 gm Q15M PRN PO DECREASED GLUCOSE; Start 09/19/18 at 05:00 Dextrose (D50w Syringe) 25 ml Q15M PRN IV DECREASED GLUCOSE; Start 09/19/18 at 05:00 Dextrose (D50w Syringe) 50 ml Q15M PRN IV DECREASED GLUCOSE; Start 09/19/18 at 05:00 Glucagon (Glucagen) 1 mg Q15M PRN IM DECREASED GLUCOSE; Start 09/19/18 at 05:00 Glucose (Glutose) 15 gm Q15M PRN BUCCAL DECREASED GLUCOSE; Start 09/19/18 at 05:00 Midodrine (Proamatine) 5 mg TID@09,,17 PRN PO BLOOD PRESSURE SUPPORT; Start 09/19/18 at 09:00 Diagnostic Test (Pha) (Accu-Chek) 1 ea 2 HRS AFTER NOVOLOG ONCE XX ; Start 09/19/18 at 10:30; Stop 09/19/18 at 10:31 Metoprolol Tartrate (Lopressor) 25 mg BID PO ; Start 09/19/18 at 09:30 Isosorbide Mononitrate (Imdur) 30 mg DAILY PO ; Start 09/19/18 at 10:00; Status UNV ABBY PATEL Sep 19, 2018 09:55
--- NOTE | 2018-09-19 12:20 | RADRPT ---
Vent Rate: 82 bpm RR Interval: 732 msec MA Interval: 163 msec QRS Duration: 101 msec QT Interval: 366 msec QTC Interval: 428 msec P-R-T [place]: 39 - 34 - 185 degrees Sinus rhythm...normal P axis, V-rate 50- 99 LVH with secondary repolarization abnormality...multi-LVH criteria, abnrm ST-T Anterior ST elevation, probably due to LVH...ST >0.20 mV in V1-V4 & LVH Electronically Signed By: Steven Villalobos
[2018-09-19] MEDS ORDERED: ONDANSETRON 4 MG INJ IV PRN (14:30)
--- NOTE | 2018-09-19 14:30 | PN ---
Date/Time of Note Date/Time of Note DATE: 09/19/18 TIME: 14:17 Assessment/Plan VTE Prophylaxis Risk score (from Nsg)>0 risk: 4 SCD applied (from Nsg): Yes Pharmacological prophylaxis: heparin Lines/Catheters IV Catheter Type (from Nrsg): Peripheral IV Assessment/Plan Assessment/Plan 1. Chest pain with elevated troponin, on ASA, plavix, lipitor, and metoprolol, transfer to another hospital for LHC 2. CAD s/p 4V CABG at [facility] 2015 3. ESRD on PD 4. HTN, controlled 5. DM with diabetic neuropathy, on insulins 6. Recent Right humerus fracture, nonweightbearing right upper extremity immobilization with sling. 7. Recent C5 fracture, no collar required, no surgical intervention. 8. Old CVAs. 9. Osteoarthritis. 10. Normocytic anemia, chronic, mostly ESRD related, follow up with H/H. 11. DVT prophylaxis: [id number]. Talked to correctional case records supervisor and son about transfering to [facility] for C Result Diagram: 09/19/18 0417 09/19/18 0417 Results 24hrs Laboratory Tests Test 09/19/18 04:17 09/19/18 04:39 09/19/18 07:40 09/19/18 09:05 White Blood Count 6.9 Red Blood Count 2.73 L Hemoglobin 7.7 L Hematocrit 24.0 L Mean Corpuscular Volume 87.9 Mean Corpuscular 28.2 L Hemoglobin Mean Corpuscular 32.1 Hemoglobin Concent Red Cell Distribution 13.6 Width Platelet Count 241 Mean Platelet Volume 10.7 H Immature Granulocytes % 0.700 H Neutrophils % 69.2 Lymphocytes % 18.4 Monocytes % 9.5 Eosinophils % 1.9 Basophils % 0.3 Nucleated Red Blood 0.0 Cells % Immature Granulocytes # 0.050 H Neutrophils # 4.8 Lymphocytes # 1.3 Monocytes # 0.7 Eosinophils # 0.1 Basophils # 0.0 Nucleated Red Blood 0.0 Cells # Prothrombin Time 15.4 H Prothrombin Time Ratio 1.2 INR International 1.21 Normalized Ratio Activated 32.3 Partial Thromboplast Time Sodium Level 129 L Potassium Level 4.7 Chloride Level 89 L Carbon Dioxide Level 23 Anion Gap 17 H Blood Urea Nitrogen 79 H Creatinine 10.98 H Est Glomerular Filtrat 5 L Rate mL/min Glucose Level 286 #H Calcium Level 8.8 Total Bilirubin 0.0 L Direct Bilirubin 0.00 Indirect Bilirubin 0.0 Aspartate Amino 29 Transf (AST/SGOT) Alanine 38 Aminotransferase (ALT/SG PT) Alkaline Phosphatase 194 H Creatine Kinase 50 55 Creatine Kinase Index 9.1 10.3 Creatinine Kinase MB 4.56 H 5.64 H (Mass) Troponin I 0.347 *H 1.070 *H Total Protein 5.6 #L Albumin 2.6 L Globulin 3.00 Albumin/Globulin Ratio 0.86 Bedside Glucose 295 H 222 H Test 09/19/18 10:39 09/19/18 12:19 Bedside Glucose 167 143 Subjective 24 Hr Interval Summary Free Text/Dictation nausea no chest pain Exam/Review of Systems Exam Vitals Vital Signs Date Temp Pulse Resp B/P (MAP) Pulse Ox O2 O2 Flow FiO2 Time Delivery Rate 09/19/18 97.8 78 17 110/57 98 11:41 (74) 09/19/18 Nasal 4.0 08:10 Cannula Constitutional: alert, oriented, well developed Head: normocephalic, atraumatic Eyes: nl conjunctiva, EOMI, nl lids ENMT: nl external ears & nose, nl lips & teeth, nl nasal mucosa & septum Neck: supple, non-tender Respiratory: clear to auscultation, normal air movement; No congested cough, No crackles/rales, No diminished breath sounds, No intercostal retraction, No labored breathing, No respirations, No tactile fremitus, No wheezing, No other Cardiovascular: regular rate and rhythm, nl pulses; No bruits, No diastolic murmur, No edema, No gallop, No irregular rhythm, No jugular venous distention (JVD), No murmurs/extra sounds, No rub, No systolic murmur, No S3, No S4, No other Gastrointestinal: soft, nl liver, spleen, non-tender Musculoskeletal: other (right humeral fracture with sling) Extremities: normal pulses; No calf tenderness, No cyanosis, No clubbing, No edema, No pitting pedal edema, No palpable cord, No tenderness, No other Neurological: KINESIOTHERAPIST II-XII intact, nl mental status, nl speech, nl strength Results Results 24hrs Laboratory Tests Test 09/19/18 04:17 09/19/18 04:39 09/19/18 07:40 09/19/18 09:05 White Blood Count 6.9 Red Blood Count 2.73 L Hemoglobin 7.7 L Hematocrit 24.0 L Mean Corpuscular Volume 87.9 Mean Corpuscular 28.2 L Hemoglobin Mean Corpuscular 32.1 Hemoglobin Concent Red Cell Distribution 13.6 Width Platelet Count 241 Mean Platelet Volume 10.7 H Immature Granulocytes % 0.700 H Neutrophils % 69.2 Lymphocytes % 18.4 Monocytes % 9.5 Eosinophils % 1.9 Basophils % 0.3 Nucleated Red Blood 0.0 Cells % Immature Granulocytes # 0.050 H Neutrophils # 4.8 Lymphocytes # 1.3 Monocytes # 0.7 Eosinophils # 0.1 Basophils # 0.0 Nucleated Red Blood 0.0 Cells # Prothrombin Time 15.4 H Prothrombin Time Ratio 1.2 INR International 1.21 Normalized Ratio Activated 32.3 Partial Thromboplast Time Sodium Level 129 L Potassium Level 4.7 Chloride Level 89 L Carbon Dioxide Level 23 Anion Gap 17 H Blood Urea Nitrogen 79 H Creatinine 10.98 H Est Glomerular Filtrat 5 L Rate mL/min Glucose Level 286 #H Calcium Level 8.8 Total Bilirubin 0.0 L Direct Bilirubin 0.00 Indirect Bilirubin 0.0 Aspartate Amino 29 Transf (AST/SGOT) Alanine 38 Aminotransferase (ALT/SG PT) Alkaline Phosphatase 194 H Creatine Kinase 50 55 Creatine Kinase Index 9.1 10.3 Creatinine Kinase MB 4.56 H 5.64 H (Mass) Troponin I 0.347 *H 1.070 *H Total Protein 5.6 #L Albumin 2.6 L Globulin 3.00 Albumin/Globulin Ratio 0.86 Bedside Glucose 295 H 222 H Test 09/19/18 10:39 09/19/18 12:19 Bedside Glucose 167 143 Medications Medication Current Medications IV Flush (NS 3 ml) 3 ml PER PROTOCOL IV ; Start 09/19/18 at 04:00 Ondansetron HCl (Zofran Inj) 4 mg Q6H PRN IV NAUSEA/VOMITING; Start 09/19/18 at 04:00 Aspirin (Aspirin) 81 mg DAILY PO Last administered on 09/19/18at 08:13; Admin Dose 81 MG; Start 09/19/18 at 09:00 Nitroglycerin (Nitroglycerin (Sl Tab) 0.4 Mg) 1 tab Q5M PRN SL .CHEST PAIN; Start 09/19/18 at 04:00 Acetaminophen (Tylenol Tab) 650 mg Q6H PRN PO .PAIN 1-3 OR TEMP; Start 09/19/18 at 04:00 Morphine Sulfate (morphine) 2 mg Q4H PRN IV .PAIN 7-10; Start 09/19/18 at 04:00 Docusate Sodium (Colace) 100 mg Q12H PRN PO .CONSTIPATION; Start 09/19/18 at 04:00 Bisacodyl (Dulcolax) 5 mg DAILY PRN PO .CONSTIPATION; Start 09/19/18 at 04:00 Atorvastatin Calcium (Lipitor) 80 mg QHS PO ; Start 09/19/18 at 21:00 Clonidine (Catapres) 0.1 mg Q8H PRN PO systolic greater than 170; Start 09/19/18 at 04:30 Clopidogrel Bisulfate (plaVIX) 75 mg DAILY PO Last administered on 09/19/18at 08:13; Admin Dose 75 MG; Start 09/19/18 at 09:00 Insulin Glargine (Lantus) 40 units QHS SC ; Start 09/19/18 at 21:00 Metoclopramide HCl (Reglan) 5 mg TID PO Last administered on 09/19/18at 08:13; Admin Dose 5 MG; Start 09/19/18 at 09:00 Montelukast Sodium (Singulair) 10 mg QHS PO ; Start 09/19/18 at 21:00 Nifedipine (Procardia Xl) 90 mg DAILY PO Last administered on 09/19/18at 08:12; Admin Dose 90 MG; Start 09/19/18 at 09:00 Ondansetron HCl (Zofran Tab) 4 mg Q8H PRN PO NAUSEA AND/OR VOMITING; Start 09/19/18 at 04:30 Pantoprazole (Protonix Tab) 40 mg DAILY@0600 PO Last administered on 09/19/18at 05:38; Admin Dose 40 MG; Start 09/19/18 at 06:00 Pregabalin (Lyrica) 150 mg DAILY PO ; Start 09/19/18 at 09:00 Sertraline HCl (Zoloft) 50 mg DAILY PO Last administered on 09/19/18at 08:11; Admin Dose 50 MG; Start 09/19/18 at 09:00 Sevelamer Carbonate (Renvela) 2,400 mg WITH MEALS PO Last administered on 09/19/18at 12:36; Admin Dose 2,400 MG; Start 09/19/18 at 07:55 Diagnostic Test (Pha) (Accu-Chek) 1 ea 02 XX ; Start 09/20/18 at 02:00 Insulin Aspart (Novolog Insulin Pen) NOVOLOG *MODERATE* ALGORITHM WITH MEALS BEDTIME SC Last administered on 09/19/18at 12:26; Admin Dose 2 UNIT; Start 09/19/18 at 07:55 Miscellaneous Information 1 ea NOTE XX ; Start 09/19/18 at 05:00 Glucose (Glutose) 15 gm Q15M PRN PO DECREASED GLUCOSE; Start 09/19/18 at 05:00 Glucose (Glutose) 22.5 gm Q15M PRN PO DECREASED GLUCOSE; Start 09/19/18 at 05:00 Dextrose (D50w Syringe) 25 ml Q15M PRN IV DECREASED GLUCOSE; Start 09/19/18 at 05:00 Dextrose (D50w Syringe) 50 ml Q15M PRN IV DECREASED GLUCOSE; Start 09/19/18 at 05:00 Glucagon (Glucagen) 1 mg Q15M PRN IM DECREASED GLUCOSE; Start 09/19/18 at 05:00 Glucose (Glutose) 15 gm Q15M PRN BUCCAL DECREASED GLUCOSE; Start 09/19/18 at 05:00 Metoprolol Tartrate (Lopressor) 25 mg BID PO ; Start 09/19/18 at 09:30 Isosorbide Mononitrate (Imdur) 30 mg DAILY PO ; Start 09/19/18 at 10:00 HORACIO MCCANN MD Sep 19, 2018 14:29
[2018-09-19] MEDS ORDERED: HEPARIN 1000 UNITS/ML 10 ML INJ IV ONE (15:00)
[2018-09-19] MEDS ORDERED: HEPARIN 1000 UNITS/ML 10 ML INJ IV PRN (15:00)
[2018-09-19] MEDS ORDERED: HEPARIN 25000 UNITS/250 ML 250 ML IV SCH (15:00)
[2018-09-19] MEDS: ONDANSETRON 4 MG INJ IV PRN (16:23)
--- NOTE | 2018-09-19 16:33 | DS ---
Date/Time of Note Date/Time of Note DATE: 09/19/18 TIME: 16:31 Discharge Summary Admission/Discharge Info Admit Date/Time Sep 19, 2018 at 03:08 Discharge Date/Time Discharge Diagnosis 1. Chest pain with elevated troponin, on ASA, plavix, lipitor, and metoprolol, transfer to another hospital for LHC 2. CAD s/p 4V CABG at [facility] 2015 3. ESRD on PD 4. HTN, controlled 5. DM with diabetic neuropathy, on insulins 6. Recent Right humerus fracture, nonweightbearing right upper extremity immobilization with sling. 7. Recent C5 fracture, no collar required, no surgical intervention. 8. Old CVAs. 9. Osteoarthritis. 10. Normocytic anemia, chronic, mostly ESRD related, follow up with H/H. 11. DVT prophylaxis: heparin Patient Condition: Stable Hospital Course 63 yo M with a h/o CAD s/p 4V CABG at [facility] 2015, ESRD on PD, HTN, DM, HL, who was initially at [facility] for PT after sustaining a right humerus fracture after a syncopal episodes 1 month prior.Last night he complained of mild chest pain at rest 4/10 which was relieved by SL NTG x2. No recurrence since. So far trops 0.1-->0.34. His outpt legislative advocate is Dr. Jeffers at [facility]. He had been doing well and had no chest pain recurrence until this episode. The pain last night was pressure like and identical to his preCABG pain but much less intense. No symptoms for the past 8+ hrs. Otherwise no dyspnea, orthopnea. No bleeding or melena. Hgb ~8. In setting of chest pain, elevated trops (so far 0.34), EKG changes, and known CAD/CABG, patient will need a repeat cardiac cath for evaluation of graft patency and [place] coronaries. Unfortunately our main cardiac label fuser tender is under construction and our backup does not have adequate visual quality especially for a graft case.He will need to be transferred for C. Home Meds Reported Medications Atorvastatin* (Atorvastatin*) 80 Mg Tablet, 80 MG PO QHS, #30 TAB 08/31/18 Clonidine Hcl* (Clonidine Hcl*) 0.1 Mg Tab, 0.1 MG PO Q8 PRN for BLOOD PRESSURE SUPPORT, TAB 08/31/18 Pregabalin* (Lyrica*) 150 Mg Capsule, 150 MG PO DAILY, CAP 08/31/18 Pantoprazole* (Protonix*) 40 Mg Tablet.dr, 40 MG PO DAILY, TAB 08/31/18 Aspirin (Low Dose Aspirin) 81 Mg Tablet.dr, 81 MG PO DAILY, #30 TAB 08/31/18 Insulin Glargine,Hum.rec.anlog (Basaglar Kwikpen U-100) 100 Unit/1 Ml Insuln.pen , 0 SC BID WITH MEALS, EA SLIDING SCALE 08/31/18 Insulin Glargine* (Lantus*) 100 Unit/Ml Soln, 50 UNIT SC QHS, #1 VIAL 08/31/18 Sertraline Hcl* (Zoloft*) 50 Mg Tablet, 50 MG PO DAILY, #30 TAB 08/31/18 Montelukast Sodium* (Montelukast Sodium*) 10 Mg Tablet, 10 MG PO QHS, #30 TAB 08/31/18 Clopidogrel Bisulfate (Clopidogrel) 75 Mg Tablet, 75 MG PO DAILY, #30 TAB 08/31/18 Sevelamer Hcl* (Renagel*) 800 Mg Tablet, 2400 MG PO WITH MEALS, TAB 08/31/18 Nifedipine* (Nifedipine ER*) 90 Mg Tablet.er, 90 MG PO DAILY, TAB 08/31/18 Ondansetron Hcl* (Zofran*) 4 Mg Tab, 4 MG PO Q8 PRN for NAUSEA AND OR VOMITING, TAB 08/31/18 Metoclopramide* (Reglan*) 5 Mg Tablet, 5 MG PO TIDM A, TAB 08/31/18 Follow-up Plan Transfer to [facility] for [facility] Primary Care Provider Not On Staff Doctor Pending Labs Laboratory Tests Test 09/19/18 04:17 09/19/18 04:39 09/19/18 07:40 09/19/18 09:05 White Blood 6.9 Count 10^3/ul (4.8-10 .8) Red Blood 2.73 Count 10^6/ul (4.70-6 .10) Hemoglobin 7.7 g/dl (14.0-18.0 ) Hematocrit 24.0 % (42.0-52.0) Mean 87.9 Corpuscular fl (82.0-101.0) Volume Mean 28.2 Corpuscular pg (29.0-33.0) Hemoglobin Mean 32.1 Corpuscular g/dl (32.0-37.0 Hemoglobin Conc ) ent Red Cell 13.6 Distribution % (11.5-14.5) Width Platelet Count 241 10^3/UL (140-41 5) Mean Platelet 10.7 Volume fl (7.4-10.4) Immature 0.700 Granulocytes % % (0.001-0.429) Neutrophils % 69.2 % (39.0-77.0) Lymphocytes % 18.4 % (15.0-51.0) Monocytes % 9.5 % (0.0-11.0) Eosinophils % 1.9 % (0.0-7.0) Basophils % 0.3 % (0.0-2.0) Nucleated Red 0.0 Blood Cells % /100WBC (0.0-0. 0) Immature 0.050 Granulocytes # 10^3/ul (0.0-0. 031) Neutrophils # 4.8 10^3/ul (1.6-7. 5) Lymphocytes # 1.3 10^3/ul (0.8-2. 9) Monocytes # 0.7 10^3/ul (0.3-0. 9) Eosinophils # 0.1 10^3/ul (0.0-0. 5) Basophils # 0.0 10^3/ul (0.0-0. 1) Nucleated Red 0.0 Blood Cells # 10^3/ul (0.0-0. 0) Prothrombin 15.4 Time Sec (11.9-14.9) Prothrombin 1.2 Time Ratio INR 1.21 International Normalized Rati o Activated 32.3 Partial Thrombo Sec (23.0-35.0) plast Time Sodium Level 129 mmol/L (135-144 ) Potassium 4.7 Level mmol/L (3.5-5.1 ) Chloride Level 89 mmol/L (97-110) Carbon Dioxide 23 Level mmol/L (21-31) Anion Gap 17 (5-13) Blood Urea 79 mg/dl (7-20) Nitrogen Creatinine 10.98 mg/dl (0.61-1.2 4) Est Glomerular 5 mL/min (>60) Filtrat Rate mL/min Glucose Level 286 mg/dl (70-220) Calcium Level 8.8 mg/dl (8.4-10.2 ) Total 0.0 Bilirubin mg/dl (0.2-1.3) Direct 0.00 Bilirubin mg/dl (0.00-0.2 0) Indirect 0.0 Bilirubin mg/dl (0-1.1) Aspartate Amino 29 IU/L (15-46) Transf (AST/SGO T) Alanine 38 IU/L (13-69) Aminotransferas e (ALT/SGPT) Alkaline 194 Phosphatase IU/L (42-121) Creatine 50 55 Kinase IU/L (23-200) IU/L (23-200) Creatine Kinase 9.1 10.3 Index Creatinine 4.56 5.64 Kinase MB ng/ml (0.0-2.4) ng/ml (0.0-2.4 (Mass) ) Troponin I 0.347 1.070 ng/ml (0.000-0. ng/ml (0.000-0 120) .120) Total Protein 5.6 g/dl (6.1-8.1) Albumin 2.6 g/dl (3.3-4.9) Globulin 3.00 g/dl (1.3-3.2) Albumin/Globuli 0.86 n Ratio Bedside 295 222 Glucose mg/dL (70-220) mg/dL (70-220) Test 09/19/18 10:39 09/19/18 12:19 09/19/18 14:17 09/19/18 14:56 Bedside 167 143 Glucose mg/dL (70-220) mg/dL (70-220) Creatine 62 Kinase IU/L (23-200) Creatine Kinase 8.4 Index Creatinine 5.23 Kinase MB ng/ml (0.0-2.4 (Mass) ) Troponin I 0.995 ng/ml (0.000-0 .120) White Blood 8.2 Count 10^3/ul (4.8-1 0.8) Red Blood 3.23 Count 10^6/ul (4.70- 6.10) Hemoglobin 9.0 g/dl (14.0-18. 0) Hematocrit 28.6 % (42.0-52.0) Mean 88.5 Corpuscular fl (82.0-101.0 Volume ) Mean 27.9 Corpuscular pg (29.0-33.0) Hemoglobin Mean 31.5 Corpuscular g/dl (32.0-37. Hemoglobin Conc 0) ent Red Cell 13.7 Distribution % (11.5-14.5) Width Platelet Count 241 10^3/UL (140-4 15) Mean Platelet 10.3 Volume fl (7.4-10.4) Immature 0.900 Granulocytes % % (0.001-0.429 ) Neutrophils % 76.6 % (39.0-77.0) Lymphocytes % 15.1 % (15.0-51.0) Monocytes % 6.4 % (0.0-11.0) Eosinophils % 0.6 % (0.0-7.0) Basophils % 0.4 % (0.0-2.0) Nucleated Red 0.0 Blood Cells % /100WBC (0.0-0 .0) Immature 0.070 Granulocytes # 10^3/ul (0.0-0 .031) Neutrophils # 6.3 10^3/ul (1.6-7 .5) Lymphocytes # 1.2 10^3/ul (0.8-2 .9) Monocytes # 0.5 10^3/ul (0.3-0 .9) Eosinophils # 0.1 10^3/ul (0.0-0 .5) Basophils # 0.0 10^3/ul (0.0-0 .1) Nucleated Red 0.0 Blood Cells # 10^3/ul (0.0-0 .0) Prothrombin 14.5 Time Sec (11.9-14.9 ) Prothrombin 1.1 Time Ratio INR 1.12 International Normalized Rati o Activated 30.6 Partial Thrombo Sec (23.0-35.0 plast Time ) HORACIO MCCANN MD Sep 19, 2018 16:33
[2018-09-19] MEDS: ACETAMINOPHEN 325 MG TAB PO PRN (20:31)
[2018-09-19] MEDS ORDERED: ATORVASTATIN 80 MG TAB PO SCH (21:00)
[2018-09-19] MEDS ORDERED: MONTELUKAST 10 MG TAB PO SCH (21:00)
[2018-09-19] MEDS ORDERED: INSULIN GLARGINE [LANTus] (100 UNITS/ML) SYG SC SCH (21:00)
[2018-09-19] MEDS ORDERED: HEPARIN 5,000 UNIT/1 ML VIAL SC SCH (21:00)
[2018-09-20 00:23] VITALS: BP 125/73; PULSE 80; RESP 18
[2018-09-20] MEDS: ONDANSETRON 4 MG INJ IV PRN (00:43)
[2018-09-20] MEDS: ACETAMINOPHEN 325 MG TAB PO PRN (00:59)
[2018-09-20] MEDS ORDERED: ACCU-CHEK XX SCH (02:00)
== END 2018-09-20 01:13 | disposition short-term general hospital (02) | DRG 280 ==
LOC: TEL 03:08
PROVIDERS: ADMIT Family Medicine; ATTEND Family Medicine
PROC: 3E1M39Z Irrigation of Peritoneal Cavity using Dialysate, Percutaneous Approach (ICD-10-PCS; principal; 2018-09-19)
DX: I21.4 Non-ST elevation (NSTEMI) myocardial infarction (principal); N18.6 End stage renal disease; I50.31 Acute diastolic (congestive) heart failure; S42.294A Other nondisplaced fracture of upper end of right humerus, initial encounter for closed fracture; I13.2 Hypertensive heart and chronic kidney disease with heart failure and with stage 5 chronic kidney disease, or end stage renal disease; N17.9 Acute kidney failure, unspecified; E11.22 Type 2 diabetes mellitus with diabetic chronic kidney disease; E11.43 Type 2 diabetes mellitus with diabetic autonomic (poly)neuropathy; K31.84 Gastroparesis; Z95.1 Presence of aortocoronary bypass graft; D63.8 Anemia in other chronic diseases classified elsewhere; F41.9 Anxiety disorder, unspecified; I25.10 Atherosclerotic heart disease of native coronary artery without angina pectoris; E78.5 Hyperlipidemia, unspecified; M19.90 Unspecified osteoarthritis, unspecified site; W19.XXXA Unspecified fall, initial encounter; Y93.89 Activity, other specified; Y92.9 Unspecified place or not applicable; Y99.8 Other external cause status; Z79.4 Long term (current) use of insulin; Z86.73 Personal history of transient ischemic attack (TIA), and cerebral infarction without residual deficits; Z79.02 Long term (current) use of antithrombotics/antiplatelets
CPT/HCPCS: 71045; 80053; 82550; 82553; 82962; 84484; 85025; 85610; 85730; 90945; 93005; 93971; J1644; J1815; J2270; J2405